=== PATIENT | male | born 1970 | race Caucasian/White ===

== ENCOUNTER → 2016-11-11 | Outpatient (CLI) | payer BC ==
[~2016-11-11] MED LIST: ASPI325T PO; ATOR1TAB21 PO; BUPIVACAINE HCL 0.25% 30 ML VIAL As Ordered ONE; DULO1CAP2 PO; FENO48TA2 PO; GABA300C3 PO; IBUP800T23 PO; ISOVUE-M 300 61% 15ML VIAL (Q9967) As Ordered ONE; LIDOCAINE 1% SDV INJ 30 ML VIAL As Ordered ONE; LISI-542 PO; METO12TA PO; NITR4TASL SL; No Historical Meds; PANT40TA2 PO; REME30TA OR; TIZA2TA PO; TRIAMCINOLONE ACETONIDE SUSP 40 MG/ML VIAL (J3301) As Ordered ONE; VITA50003 PO; diazePAM 5 MG TAB As Ordered ONE
--- NOTE | 2016-11-12 08:36 | REP ---
PARTIAL CERVICAL SPINE SERIES: TWO VIEWS. History: Facet injection for pain. Nine seconds of fluoroscopy time is reported. Findings: A sequence of two fluoroscopically obtained intraprocedural spot radiographs of the cervical spine document various needle positions and contrast injections associated with cervical facet injection procedure. Signed by Adrian Nolan MD 11/12/2016 10:07 A
--- NOTE | 2016-11-16 01:23 | ECWPNPC ---
PATIENT NAME: MELODY BONDS : 1970 GENDER: MALE VISIT DATE: 11/11/2016 DISCHARGE DATE: 11/11/16 1707 VISIT LOCKED DATE TIME: PHYSICIAN: ALICIA DUVALL RESOURCE: ALICIA DUVALL REASON FOR APPOINTMENT 1. CFBT HISTORY OF PRESENT ILLNESS HISTORY OF PRESENT ILLNESS: PAIN THE PATIENT DESCRIBES THE PAIN... FALL RISK SCREENING: SCREENING :NO FALLS IN THE PAST YEAR CURRENT MEDICATIONS TAKING DRISDOL 99562 UNIT CAPSULE 1 CAPSULE ORALLY WEEKLY, NOTES: 11/05/16@0600 TAKING ATORVASTATIN CALCIUM 80 MG TABLET 1 TABLET ORALLY ONCE A DAY, NOTES: 11/11/16@0600 TAKING CYMBALTA 30 MG CAPSULE DELAYED RELEASE PARTICLES 1 CAPSULE ORALLY TWICE A DAY FOR PAIN MDD2, NOTES: 11/11/16@0600 TAKING TIZANIDINE HCL 4 MG CAPSULE 1 TABLETS NEEDED ORALLY AT BEDTIME NEEDED FOR PAIN AND SPASMS MDD = 2, NOTES: @1800 DISCONTINUED ASPIRIN 81 MG TABLET 1 TABLET ORALLY ONCE A DAY MEDICATION LIST REVIEWED AND RECONCILED WITH THE PATIENT PAST MEDICAL HISTORY S/P FALL FROM TREE STAND 06/06/15 - SUSTAINED RIGHT FEMUR FRACTURE AND RIGHT WRIST FRACTURE (DR. 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 NEW PATIENT PAIN DIARY TODAY'S VISITNOTES FROM 0-10, WHAT LEVEL IS YOUR PAIN TODAY?0 PAIN CLINIC PFS, CLERGY, PUBLIC HEALTH REFERRALS PFS REFERRAL NEEDED?NO CLERGY REFERRAL NEEDED?NO PUBLIC HEALTH REFERRAL NEEDED?NO WAS THE PROVIDER NOTIFIED OF ANY PERTINENT INFO?NO PFS REFERRAL NEEDED?NO CLERGY REFERRAL NEEDED?NO PUBLIC HEALTH REFERRAL NEEDED?NO WAS THE PROVIDER NOTIFIED OF ANY PERTINENT INFO?NO PFS REFERRAL NEEDED?NO CLERGY REFERRAL NEEDED?NO PUBLIC HEALTH REFERRAL NEEDED?NO WAS THE PROVIDER NOTIFIED OF ANY PERTINENT INFO?NO REVIEW OF SYSTEMS CONSTITUTIONAL: ANY CHANGE IN YOUR MEDICAL CONDITION? NO . CHILLS NO . FEVER NO . INFECTION: DO YOU HAVE NEW INFECTIONS? NO . DO YOU HAVE HISTORY OF MRSA? NO . MUSCULOSKELETAL: ANY NEW PATTERNS OF PAIN OR NUMBNESS? NO . GASTROENTEROLOGY: ANY NEW CHANGE IN BOWEL CONTROL? NO . GENITOURINARY: ANY NEW CHANGE IN BLADDER CONTROL? NO . IS THERE A CHANCE YOU COULD BE ? NO . HEMATOLOGY/LYMPH: DO YOU TAKE ANY BLOOD THINNERS? (FOR EXAMPLE- COUMADIN, PLAVIX, AGGRENOX, PLATEL, PRADAXA, OR XARELTO) NO . WHEN WAS YOUR LAST DOSE? DATE: TIME: . NEUROLOGY: HAVE YOU FALLEN IN THE PAST 6 MONTHS? NO . ANY NEW EXTREMITY NUMBNESS OR WEAKNESS? NO . CARDIOLOGY: DO YOU HAVE A PACEMAKER OR DEFIBRILLATOR? NO . RESPIRATORY: HAVE YOU BEEN SICK IN THE PAST WEEK? NO . FEVER NO . FLU LIKE SYMPTOMS? NO . COUGH NO . INTEGUMENTARY: DO YOU HAVE ANY RASHES OR OPEN SORES? NO . ALLERGIC/IMMUNO: ARE YOU ALLERGIC TO SHELLFISH OR IV DYE? NO . ANY NEW ALLERGIES? NO . PSYCHIATRIC: DO YOU HAVE THOUGHTS OF HURTING YOURSELF OR SOMEONE ELSE? NO . ARE YOU ABUSED, NEGLECTED, OR IN AN UNSAFE ENVIRONMENT? NO . ENDOCRINOLOGY: ARE YOU DIABETIC? NO . OTHER: DO YOU NEED ANY PRESCRIPTIONS? NO . IF YES, PLEASE LIST: ____ . ANY NEW PROBLEMS WITH YOUR MEDICATIONS? NO . WHEN DID YOU LAST EAT? ____11/11/16@1800 . WHEN DID YOU LAST DRINK? ____11/11/16@0600 . WHAT DID YOU LAST DRINK? ___WATER . NAME OF PERSON DRIVING YOU HOME? ____ . DO YOU HAVE ANY OTHER QUESTIONS OR CONCERNS NO . REVIEWED BY: PROVIDER: . VITAL SIGNS WT 250 LBS, HT 71", BMI 34.86 INDEX, BP 176/98 MM HG, HR 97 /MIN, RR 18 /MIN, TEMP 96.9 F, OXYGEN SAT % 96, NA INITIALS TL 1518, REVIEWED BY: VD. ASSESSMENTS SPONDYLOSIS WITHOUT MYELOPATHY OR RADICULOPATHY, CERVICAL REGION - M47.812 (PRIMARY) PROCEDURES PN CERVICAL FACET BLOCK LOW BILATERAL CERVICAL PRE PROCEDURE DIAGNOSIS CERVICAL SPONDYLOSIS POST PROCEDURE DIAGNOSIS CERVICAL SPONDYLOSIS PROCEDURE BILATERAL C3-C4, BILATERAL C4-C5, AND BILATERAL C5-C6 CERVICAL FACET BLOCK SURGEON DR. ALICIA DUVALL FARM FACILITY MANAGER NONE ANESTHESIA LOCAL PRE PROCEDURE NOTE THE PATIENT HAS HISTORY OF CHRONIC CERVICAL PAIN. I EVALUATE THE PATIENT AND REVIEWED THE CHART. I WENT OVER THE RISKS, ALTERNATIVES, AND BENEFITS ASSOCIATED WITH THIS PROCEDURE. THE PATIENT WOULD LIKE TO PROCEED AND GIVE CONSENT TO PERFORMED THE PROCEDURE. THE PATIENT DENIES UNEXPLAINABLE WEIGHT LOSS, FEVER, CHILLS, OR NEW CHANGES IN URINARY OR BOWEL CONTROL DESCRIPTION OF PROCEDURE THE PATIENT WAS BROUGHT TO THE PROCEDURE ROOM AND PLACED IN THE PRONE POSITION. THE CERVICOTHORACIC AREA WAS CLEANED WITH CHLORAPREP SOLUTION AND DRAPED ASEPTICALLY. THE PROCEDURE WAS DONE UNDER STERILE CONDITIONS. I CHECKED LATERALITY AND THE LEVEL WHERE THE PROCEDURE WAS GOING TO BE PERFORMED WITH THE PATIENT AND THE SUPPORTING STAFF AT THE MOMENT OF THE TIME OUT IN THE PROCEDURE ROOM. UNDER FLUOROSCOPIC GUIDANCE, TARGET POINT WAS SELECTED AT THE RIGHT AND LEFT C3-C4, RIGHT AND LEFT C4-C5, AND RIGHT AND LEFT C5-C6 CERVICAL FACET JOINT. TARGET POINTS WERE SELECTED AFTER LATERAL ROTATION AND TILT OF THE MAGNIFIER OF THE C-ARM. LIDOCAINE 0.5% WAS USED TO NUMB THE SKIN AND THE SUBCUTANEOUS TISSUE BELOW IT. SPINAL NEEDLES, 22-GAUGE, WERE ADVANCED UNDER FLUOROSCOPIC GUIDANCE AND FOLLOWING PATIENT FEEDBACK UNTIL THE TARGETS WERE TOUCHED. THE POSITION OF THE NEEDLES WAS VERIFIED WITH AP AND LATERAL VIEWS. AFTER PROPER POSITION OF THE NEEDLES WAS ACHIEVED, ISOVUE M DYE 30, 0.1 ML WAS INJECTED SHOWING SPREAD OF THE DYE. THEN A SOLUTION OF 0.9 ML OF BUPIVACAINE 0.125% AND KENALOG 10 MG WAS INJECTED AT EACH SITE. THERE WAS NO EVIDENCE OF BLOOD, PARESTHESIA OR CEREBROSPINAL FLUID DURING THE PROCEDURE. THE PATIENT WAS SENT TO THE RECOVERY ROOM. THE PATIENT WAS MOVING THE EXTREMITIES AND DOING WELL. THERE WAS NO COMPLICATION DURING THE PROCEDURE. FLUOROSCOPY TIME WAS 9 SECONDS POST PROCEDURE NOTE THE PATIENT WILL BE SEEN IN A FOLLOW UP IN THE NEXT FEW WEEKS. INSTRUCTIONS WERE GIVEN, QUESTIONS WERE ANSWERED, AND THE PATIENT EXPRESSED UNDERSTANDING AND AGREES WITH THE PLAN. I, RHIANNON ROLON, DOCUMENTED THE ABOVE INFORMATION ACTING A SCRIBE FOR DR. DUVALL. I, DR. DUVALL, HAVE REVIEWED THE ABOVE DOCUMENT, SCRIBED BY RHIANNON ROLON, AND I VERIFY THAT IT IS ACCURATE DIAGNOSTIC IMAGING [facility] FACET BLOCK (PAIN)[id number] PROCEDURE CODES 81799 INJ PARAVERT F JNT C/T 1 LEV 31215 INJ PARAVERT F JNT C/T 2 LEV 05322 INJ PARAVERT F JNT C/T 3 LEV 6045F RADXPS IN END [id number] PXD FOLLOW UP 3 WEEKS ELECTRONICALLY SIGNED BY ALICIA DUVALL MD ON 11/15/2016 AT 05:06 PM EST DISCLAIMER : THIS IS A VISIT SUMMARY EXTRACTED FROM THE [employer] CHART. IT IS NOT A COPY OF THE [employer] PROGRESS NOTE. MTDD
== END ==
LOC: M PAIN 15:40
PROVIDERS: ATTEND Anesthesiology
DX: G89.29 Other chronic pain (principal); M47.812 Spondylosis without myelopathy or radiculopathy, cervical region; Z87.81 Personal history of (healed) traumatic fracture; M54.2 Cervicalgia; I10 Essential (primary) hypertension; K29.70 Gastritis, unspecified, without bleeding; K29.80 Duodenitis without bleeding; F41.9 Anxiety disorder, unspecified; G47.00 Insomnia, unspecified; Z88.8 Allergy status to other drugs, medicaments and biological substances; G31.84 Mild cognitive impairment of uncertain or unknown etiology; F43.10 Post-traumatic stress disorder, unspecified; E29.1 Testicular hypofunction; Z87.820 Personal history of traumatic brain injury; Z91.82 Personal history of military deployment
CPT/HCPCS: 64490; 64491; 64492; J3301; Q9967

== ENCOUNTER → 2016-11-29 | Outpatient (CLI) | payer BC ==
[~2016-11-29] MED LIST changes: -BUPIVACAINE HCL 0.25% 30 ML VIAL As Ordered ONE; -ISOVUE-M 300 61% 15ML VIAL (Q9967) As Ordered ONE; -LIDOCAINE 1% SDV INJ 30 ML VIAL As Ordered ONE; -TRIAMCINOLONE ACETONIDE SUSP 40 MG/ML VIAL (J3301) As Ordered ONE; -diazePAM 5 MG TAB As Ordered ONE
--- NOTE | 2016-12-03 01:24 | ECWPNPC ---
PATIENT NAME: MELODY BONDS : 1970 GENDER: MALE VISIT DATE: 11/29/2016 DISCHARGE DATE: 11/29/16 1027 VISIT LOCKED DATE TIME: PHYSICIAN: ALICIA DUVALL RESOURCE: ALICIA DUVALL REASON FOR APPOINTMENT 1. NECK/BACK PAIN HISTORY OF PRESENT ILLNESS HISTORY OF PRESENT ILLNESS: PAIN THE PATIENT DESCRIBES THE PAIN... 46 YEAR OLD MALE PATIENT WITH HISTORY OF CHRONIC LOW BACK AND NECK PAIN. PATIENT DESCRIBES THE PAIN ACHING, SHARP, STABBING, TENDER, SORE, AND HAVING IT ALL THE TIME WITH A PAIN SCORE OF 6/10. PATIENT RECEIVED A CERVICAL FACET BLOCK ON 11/11/16 AND REPORTS THE INJECTION HELPING A SIGNIFICANT AMOUNT. HOWEVER, PATIENT IS STATING THAT HIS LOWER BACK IS NOW IN SEVERE PAIN. MR. BONDS IS CURRENTLY USING CYMBALTA AND TIZANIDINE TO HELP WITH THE PAIN AND STATES THAT THE MEDICATION DOES HELP TO RELIEVE THE PAIN. AT THIS TIME THE PATIENT STATES THAT ANY ACTIVITY INCREASES THE PAIN IN HIS LOWER BACK. PATIENT IS HAVING A SURGERY ON HIS FEMUR DUE TO THE FEMUR NOT HEALING PROPERLY ON JANUARY 10. PATIENT DENIES UNEXPLAINABLE WEIGHT LOSS, FEVER, CHILLS, NEW CHANGES ON HIS URINARY OR BOWEL CONTROL. FALL RISK SCREENING: SCREENING :NO FALLS IN THE PAST YEAR CURRENT MEDICATIONS TAKING DRISDOL 91540 UNIT CAPSULE 1 CAPSULE ORALLY WEEKLY, NOTES: 11/05/16@0600 TAKING TIZANIDINE HCL 4 MG CAPSULE 1 TABLETS NEEDED ORALLY AT BEDTIME NEEDED FOR PAIN AND SPASMS MDD = 2, NOTES: @1800 TAKING LISINOPRIL 20 MG TABLET 1 TAB ORALLY DAILY TAKING ATORVASTATIN CALCIUM 80 MG TABLET 1 TABLET ORALLY ONCE A DAY, NOTES: 11/11/16@0600 TAKING CYMBALTA 30 MG CAPSULE DELAYED RELEASE PARTICLES 1 CAPSULE ORALLY TWICE A DAY FOR PAIN MDD2, NOTES: 11/11/16@0600 MEDICATION LIST REVIEWED AND RECONCILED WITH THE PATIENT PAST MEDICAL HISTORY S/P FALL FROM TREE STAND 06/06/15 - SUSTAINED RIGHT FEMUR FRACTURE AND RIGHT WRIST FRACTURE (DR. GRANT - [place] ) NECK/BACK PAIN - 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 SOCIAL HISTORY GENERAL: TOBACCO USE ARE YOU A:NONSMOKER LEARNING BARRIERS / SPECIAL NEEDS ORIENTED TO PLAN OF CARE: PATIENT, PAIN MANAGEMENT PATIENT, ORIENTED TO PLAN OF CARE: PATIENT, PAIN MANAGEMENT PATIENT. NEW PATIENT PAIN DIARY TODAY'S VISITNOTES FROM 0-10, WHAT LEVEL IS YOUR PAIN TODAY?0 PAIN CLINIC PFS, CLERGY, PUBLIC HEALTH REFERRALS PFS REFERRAL NEEDED?NO CLERGY REFERRAL NEEDED?NO PUBLIC HEALTH REFERRAL NEEDED?NO WAS THE PROVIDER NOTIFIED OF ANY PERTINENT INFO?NO PFS REFERRAL NEEDED?NO CLERGY REFERRAL NEEDED?NO PUBLIC HEALTH REFERRAL NEEDED?NO WAS THE PROVIDER NOTIFIED OF ANY PERTINENT INFO?NO HOSPITALIZATION/MAJOR DIAGNOSTIC PROCEDURE ALL SURGICAL RELATED CHEST PAIN 10/2016 REVIEW OF SYSTEMS CONSTITUTIONAL: ANY CHANGE IN YOUR MEDICAL CONDITION? NO . CHILLS NO . FEVER NO . INFECTION: DO YOU HAVE NEW INFECTIONS? NO . DO YOU HAVE HISTORY OF MRSA? NO . MUSCULOSKELETAL: ANY NEW PATTERNS OF PAIN OR NUMBNESS? NO . GASTROENTEROLOGY: ANY NEW CHANGE IN BOWEL CONTROL? NO . GENITOURINARY: ANY NEW CHANGE IN BLADDER CONTROL? NO . IS THERE A CHANCE YOU COULD BE ? NO . HEMATOLOGY/LYMPH: DO YOU TAKE ANY BLOOD THINNERS? (FOR EXAMPLE- COUMADIN, PLAVIX, AGGRENOX, PLATEL, PRADAXA, OR XARELTO) NO . WHEN WAS YOUR LAST DOSE? DATE: TIME: . NEUROLOGY: HAVE YOU FALLEN IN THE PAST 6 MONTHS? NO . ANY NEW EXTREMITY NUMBNESS OR WEAKNESS? NO . CARDIOLOGY: DO YOU HAVE A PACEMAKER OR DEFIBRILLATOR? NO . RESPIRATORY: HAVE YOU BEEN SICK IN THE PAST WEEK? NO . FEVER NO . FLU LIKE SYMPTOMS? NO . COUGH NO . INTEGUMENTARY: DO YOU HAVE ANY RASHES OR OPEN SORES? NO . ALLERGIC/IMMUNO: ARE YOU ALLERGIC TO SHELLFISH OR IV DYE? NO . ANY NEW ALLERGIES? NO . PSYCHIATRIC: DO YOU HAVE THOUGHTS OF HURTING YOURSELF OR SOMEONE ELSE? NO . ARE YOU ABUSED, NEGLECTED, OR IN AN UNSAFE ENVIRONMENT? NO . ENDOCRINOLOGY: ARE YOU DIABETIC? NO . OTHER: DO YOU NEED ANY PRESCRIPTIONS? NO . IF YES, PLEASE LIST: ____ . ANY NEW PROBLEMS WITH YOUR MEDICATIONS? NO . WHEN DID YOU LAST EAT? ____ . WHEN DID YOU LAST DRINK? ____ . WHAT DID YOU LAST DRINK? ____ . NAME OF PERSON DRIVING YOU HOME? ____ . DO YOU HAVE ANY OTHER QUESTIONS OR CONCERNS NO . REVIEWED BY: PROVIDER: ALICIA DUVALL MD . VITAL SIGNS WT 250 LBS, HT 71", BMI 34.86 INDEX, BP 143/91 MM HG, HR 109 /MIN, RR 16 /MIN, TEMP 97.6 F, OXYGEN SAT % 96, NA INITIALS TL 0900, REVIEWED BY: VD. EXAMINATION : PATIENT IS ALERT O X 3 AND COOPERATIVE. TENDERNESS IN THE NECK AREA AND PARASPINAL GROUP. 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 EVIDENCE OF BANDS OF TISSUE, RESTRICTION OF MOVEMENT, AND PRESENCE OF TRIGGER POINTS IN THE CERVICAL AREA. MRI OF THE CERVICAL SPINE DONE ON 09/04/16 SHOWS CERVICAL SPONDYLOSIS AT C3-C4 THROUGH C7-T1 AND FACET HYPERTROPHY. MRI OF THE LUMBAR SPINE DONE ON 08/18/15 SHOWS CANAL STENOSIS, DIS BULGE AT L4-L5, OSTEOARTHRITIS, AND DISC DEGENERATION. 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 OBNDS'S PAIN MANAGEMENT CASE. AT THIS TIME THE PATIENT WILL INCREASE THE TIZANIDINE TO 6 MG DUE TO THE PATIENT REPORTING IT HAS NOT BEEN HELPING EFFICIENTLY IT SHOULD. AT THIS TIME THE PATIENT STATES THE CERVICAL FACET BLOCK INCREASED FUNCTIONALITY AND MOBILITY AND HE HAD A SIGNIFICANT DECREASE IN PAIN BUT NOW HIS LOWER BACK HAS BEEN IN SEVERE PAIN. AFTER VIEWING THE MRI AND SEEING WHERE THE PAIN IS LOCATED I BELIEVE THE PATIENT WOULD BENEFIT FROM A LUMBAR FACET BLOCK. WE DISCUSSED THE RISKS, BENEFITS, AND ALTERNATIVES TO THE INJECTION AND THE PATIENT WOULD LIKE TO PROCEED AT THIS TIME. INSTRUCTIONS WERE GIVEN, QUESTIONS WERE ANSWERED, PATIENT REPORTS UNDERSTANDING AND AGREES WITH THE PLAN. I, RHIANNON ROLON, DOCUMENTED THE ABOVE INFORMATION ACTING A SCRIBE FOR DR. DUVALL. I HAVE REVIEWED THE ABOVE DOCUMENT, WRITTEN BY RHIANNON DON AND I VERIFY THAT IT IS ACCURATE. PROCEDURE CODES FA211 ESTABILISHED PATIENT [facility] CHARGE G8427 DOC MEDS VERIFIED W/PT OR RE G8730 PAIN ASSESS POS TOOL F/U PLAN DOC FOLLOW UP LFBT NO AUTH NEEDED ELECTRONICALLY SIGNED BY ALICIA DUVALL MD ON 12/02/2016 AT 08:57 PM EST DISCLAIMER : THIS IS A VISIT SUMMARY EXTRACTED FROM THE [employer] CHART. IT IS NOT A COPY OF THE [employer] PROGRESS NOTE. PORTILLO
== END ==
LOC: M PAIN 09:20
PROVIDERS: ATTEND Anesthesiology
DX: Z09 Encounter for follow-up examination after completed treatment for conditions other than malignant neoplasm (principal); G89.29 Other chronic pain; M96.1 Postlaminectomy syndrome, not elsewhere classified; M47.816 Spondylosis without myelopathy or radiculopathy, lumbar region; M47.817 Spondylosis without myelopathy or radiculopathy, lumbosacral region; M51.16 Intervertebral disc disorders with radiculopathy, lumbar region; M54.2 Cervicalgia; M54.5 Low back pain; F07.81 Postconcussional syndrome; I10 Essential (primary) hypertension; F41.9 Anxiety disorder, unspecified; F43.10 Post-traumatic stress disorder, unspecified; G47.00 Insomnia, unspecified; Z88.5 Allergy status to narcotic agent; Z79.899 Other long term (current) drug therapy; Z87.19 Personal history of other diseases of the digestive system; Z87.820 Personal history of traumatic brain injury; Z87.81 Personal history of (healed) traumatic fracture; Z98.890 Other specified postprocedural states

== ENCOUNTER → 2016-12-17 | Outpatient (CLI) | payer BC ==
[~2016-12-17] MED LIST changes: +BUPIVACAINE HCL 0.25% 30 ML VIAL As Ordered ONE; +ISOVUE-M 300 61% 15ML VIAL (Q9967) As Ordered ONE; +LIDOCAINE 1% SDV INJ 30 ML VIAL As Ordered ONE; +TRIAMCINOLONE ACETONIDE SUSP 40 MG/ML VIAL (J3301) As Ordered ONE; +diazePAM 5 MG TAB As Ordered ONE
--- NOTE | 2016-12-17 18:38 | REP ---
FLUOROSCOPIC GUIDANCE FOR LUMBAR FACET BLOCK: 12/17/2016: Clinical history: Back pain. Findings: Two images from C-arm fluoroscopy provided to Dr. Charles of the pain clinic for bilateral lower lumbar facet block performed with C-arm oblique image for right and left side with a needle at the facet joint on each side noted. Fluoroscopy time 1 minute 3 seconds. Signed by Crow Carlos MD 12/18/2016 08:31 A
--- NOTE | 2016-12-21 23:36 | ECWPNPC ---
PATIENT NAME: MELODY BONDS : 1970 GENDER: MALE VISIT DATE: 12/17/2016 DISCHARGE DATE: 12/17/16 1122 VISIT LOCKED DATE TIME: PHYSICIAN: ALICIA DUVALL RESOURCE: ALICIA DUVALL REASON FOR APPOINTMENT 1. LFBT HISTORY OF PRESENT ILLNESS HISTORY OF PRESENT ILLNESS: PAIN THE PATIENT DESCRIBES THE PAIN... FALL RISK SCREENING: SCREENING :NO FALLS IN THE PAST YEAR CURRENT MEDICATIONS TAKING DRISDOL 49899 UNIT CAPSULE 1 CAPSULE ORALLY WEEKLY, NOTES: 12-16-16 TAKING TIZANIDINE HCL 6 MG CAPSULE 1 TABLETS NEEDED ORALLY AT BEDTIME NEEDED FOR PAIN AND SPASMS MDD = 2, NOTES: 4 MG 12-16-16 2100 TAKING ATORVASTATIN CALCIUM 80 MG TABLET 1 TABLET ORALLY ONCE A DAY, NOTES: 12-17-16599 TAKING LISINOPRIL 20 MG TABLET 1 TAB ORALLY DAILY, NOTES: 12-17-16599 TAKING AMLODIPINE BESYLATE 5 MG TABLET 1 TABLET ORALLY ONCE A DAY, NOTES: 12-17-16599 TAKING CYMBALTA 30 MG CAPSULE DELAYED RELEASE PARTICLES 1 CAPSULE ORALLY TWICE A DAY FOR PAIN MDD2, NOTES: 12-17-16599 MEDICATION LIST REVIEWED AND RECONCILED WITH THE PATIENT PAST MEDICAL HISTORY S/P FALL FROM TREE STAND 06/06/15 - SUSTAINED RIGHT FEMUR FRACTURE AND RIGHT WRIST FRACTURE (DR. 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 NEW PATIENT PAIN DIARY TODAY'S VISITNOTES FROM 0-10, WHAT LEVEL IS YOUR PAIN TODAY?0 PAIN CLINIC PFS, CLERGY, PUBLIC HEALTH REFERRALS PFS REFERRAL NEEDED?NO CLERGY REFERRAL NEEDED?NO PUBLIC HEALTH REFERRAL NEEDED?NO WAS THE PROVIDER NOTIFIED OF ANY PERTINENT INFO?NO PFS REFERRAL NEEDED?NO CLERGY REFERRAL NEEDED?NO PUBLIC HEALTH REFERRAL NEEDED?NO WAS THE PROVIDER NOTIFIED OF ANY PERTINENT INFO?NO HOSPITALIZATION/MAJOR DIAGNOSTIC PROCEDURE ALL SURGICAL RELATED CHEST PAIN 10/2016 REVIEW OF SYSTEMS CONSTITUTIONAL: ANY CHANGE IN YOUR MEDICAL CONDITION? NO . CHILLS NO . FEVER NO . INFECTION: DO YOU HAVE NEW INFECTIONS? NO . DO YOU HAVE HISTORY OF MRSA? NO . MUSCULOSKELETAL: ANY NEW PATTERNS OF PAIN OR NUMBNESS? NO . GASTROENTEROLOGY: ANY NEW CHANGE IN BOWEL CONTROL? NO . GENITOURINARY: ANY NEW CHANGE IN BLADDER CONTROL? NO . IS THERE A CHANCE YOU COULD BE ? NO . HEMATOLOGY/LYMPH: DO YOU TAKE ANY BLOOD THINNERS? (FOR EXAMPLE- COUMADIN, PLAVIX, AGGRENOX, PLATEL, PRADAXA, OR XARELTO) NO . WHEN WAS YOUR LAST DOSE? DATE: TIME: . NEUROLOGY: HAVE YOU FALLEN IN THE PAST 6 MONTHS? NO . ANY NEW EXTREMITY NUMBNESS OR WEAKNESS? NO . CARDIOLOGY: DO YOU HAVE A PACEMAKER OR DEFIBRILLATOR? NO . RESPIRATORY: HAVE YOU BEEN SICK IN THE PAST WEEK? NO . FEVER NO . FLU LIKE SYMPTOMS? NO . COUGH NO . INTEGUMENTARY: DO YOU HAVE ANY RASHES OR OPEN SORES? NO . ALLERGIC/IMMUNO: ARE YOU ALLERGIC TO SHELLFISH OR IV DYE? NO . ANY NEW ALLERGIES? NO . PSYCHIATRIC: DO YOU HAVE THOUGHTS OF HURTING YOURSELF OR SOMEONE ELSE? NO . ARE YOU ABUSED, NEGLECTED, OR IN AN UNSAFE ENVIRONMENT? NO . ENDOCRINOLOGY: ARE YOU DIABETIC? NO . OTHER: DO YOU NEED ANY PRESCRIPTIONS? NO . IF YES, PLEASE LIST: ____ . ANY NEW PROBLEMS WITH YOUR MEDICATIONS? NO . WHEN DID YOU LAST EAT? 12-16-16 5PM . WHEN DID YOU LAST DRINK? 12-17-16 12 MIDNIGHT . WHAT DID YOU LAST DRINK? WATER . NAME OF PERSON DRIVING YOU HOME? DANA . DO YOU HAVE ANY OTHER QUESTIONS OR CONCERNS YES, SCRIPT NOT SENT TO PHARMACY- TIZANIDINE INCREASED. . REVIEWED BY: PROVIDER: . VITAL SIGNS WT 252.2 LBS, HT 71", BMI 35.17 INDEX, BP 140/86 MM HG, HR 86 /MIN, RR 16 /MIN, TEMP 98.1 F, OXYGEN SAT % 97%, NA INITIALS SC 09:36, REVIEWED BY: CM. ASSESSMENTS SPONDYLOSIS WITHOUT MYELOPATHY OR RADICULOPATHY, LUMBAR REGION - M47.816 (PRIMARY) SPONDYLOSIS WITHOUT MYELOPATHY OR RADICULOPATHY, LUMBOSACRAL REGION - M47.817 PROCEDURES PN LUMBAR FACET BLOCK THERAPEUTIC PRE PROCEDURE DIAGNOSIS LUMBOSACRAL SPONDYLOSIS, LUMBAR SPONDYLOSIS POST PROCEDURE DIAGNOSIS :, LUMBAR SPONDYLOSIS, LUMBOSACRAL SPONDYLOSIS PROCEDURE BILATERAL L4-L5 AND BILATERAL L5-S1 FACET THERAPEUTIC BLOCK SURGEON DR. ALICIA DUVALL TITLE SEARCHER NONE ANESTHESIA LOCAL PRE PROCEDURE NOTE THE PATIENT HAS A HISTORY OF CHRONIC LOW BACK PAIN. I EVALUATE THE PATIENT AND REVIEWED THE CHART. I WENT OVER THE RISKS, ALTERNATIVES, AND BENEFITS ASSOCIATED WITH THIS PROCEDURE. THE PATIENT WOULD LIKE TO PROCEED AND GIVE CONSENT TO PERFORMED THE PROCEDURE. THE PATIENT DENIES UNEXPLAINABLE WEIGHT LOSS, FEVER, CHILLS, OR NEW CHANGES IN URINARY OR BOWEL CONTROL DESCRIPTION OF PROCEDURE THE PATIENT WAS BROUGHT TO THE PROCEDURE ROOM AND PLACED IN THE PRONE POSITION. THE LUMBOSACRAL AREA WAS CLEANED WITH CHLORAPREP SOLUTION AND DRAPED ASEPTICALLY. THE PROCEDURE WAS DONE UNDER STERILE CONDITIONS. I CHECKED LATERALITY AND THE LEVEL WHERE THE PROCEDURE WAS GOING TO BE PERFORMED WITH THE PATIENT AND THE SUPPORTING STAFF AT THE MOMENT OF THE TIME OUT IN THE PROCEDURE ROOM. UNDER FLUOROSCOPIC GUIDANCE, THE TARGET POINT WAS SELECTED AT THE RIGHT AND LEFT L4-L5 AND RIGHT AND LEFT L5-S1 FACET JOINT. TARGET POINT WAS SELECTED AFTER LATERAL ROTATION AND TILT OF THE MAGNIFIER OF THE C-ARM. LIDOCAINE 0.5% WAS USED TO NUMB THE SKIN AND THE SUBCUTANEOUS TISSUE BELOW IT. SPINAL NEEDLES, 22-GAUGE, WERE ADVANCED UNDER FLUOROSCOPIC GUIDANCE AND FOLLOWING PATIENT FEEDBACK UNTIL THE TARGETS WERE TOUCHED. THE POSITION OF THE NEEDLES WAS VERIFIED WITH AP AND LATERAL VIEWS. AFTER PROPER POSITION OF THE NEEDLES WAS ACHIEVED, ISOVUE-M DYE 30% 0.1 ML WAS INJECTED SHOWING ADEQUATE SPREAD OF THE DYE. THEN A SOLUTION OF 1.9 ML OF BUPIVACAINE 0.125% OF KENALOG 10 MG WAS INJECTED AT EACH SITE. THERE WAS NO EVIDENCE OF BLOOD, PARESTHESIA OR CEREBROSPINAL FLUID DURING THE PROCEDURE. THE PATIENT WAS SENT TO THE RECOVERY ROOM. THE PATIENT WAS MOVING THE EXTREMITIES AND DOING WELL. THERE WAS NO COMPLICATION DURING THE PROCEDURE. FLUOROSCOPY TIME WAS 1 MINUTE AND 3 SECONDS POST PROCEDURE NOTE THE PATIENT WILL BE SEEN IN A FOLLOW UP IN THE NEXT FEW WEEKS. INSTRUCTIONS WERE GIVEN, QUESTIONS WERE ANSWERED, AND THE PATIENT EXPRESSED UNDERSTANDING AND AGREES WITH THE PLAN. INSTRUCTIONS WERE GIVEN, QUESTIONS WERE ANSWERED, PATIENT REPORTS UNDERSTANDING AND AGREES WITH THE PLAN. I, FELICIA NICHOLS, DOCUMENTED THE ABOVE INFORMATION ACTING A SCRIBE FOR DR. DUVALL. I HAVE REVIEWED THE ABOVE DOCUMENT, WRITTEN BY FELICIA NICHOLS SCRIBE AND I VERIFY THAT IT IS ACCURATE. DI[facility]ST[facility] FACET BLOCK (PAIN)[id number] [facility]IC[facility] PAIN CLINIC TEACHING: PROCEDURE TEACHING POST LUMBAR FACET BLOCK THERAPEUTIC INSTRUCTIONS REVIEWED WITH PT. VERBALIZED UNDERSTANDING. . PROCEDURE CODES FA211 ESTABILISHED PATIENT [facility] FACILITY CHARGE 87365 INJ PARAVERT F JNT L/S 1 LEV 55088 INJ PARAVERT F JNT L/S 2 LEV 6045F RADXPS IN END [id number] PXD DISPOSITION & COMMUNICATION FOLLOW UP 3 WEEKS ELECTRONICALLY SIGNED BY ALICIA DUVALL MD ON 12/21/2016 AT 09:17 PM EST DISCLAIMER : THIS IS A VISIT SUMMARY EXTRACTED FROM THE [employer] CHART. IT IS NOT A COPY OF THE [employer] PROGRESS NOTE. MTDD
== END ==
LOC: M PAIN 10:00
PROVIDERS: ATTEND Anesthesiology
DX: G89.29 Other chronic pain (principal); M47.816 Spondylosis without myelopathy or radiculopathy, lumbar region; M47.817 Spondylosis without myelopathy or radiculopathy, lumbosacral region; K29.70 Gastritis, unspecified, without bleeding; K29.80 Duodenitis without bleeding; F41.9 Anxiety disorder, unspecified; G47.30 Sleep apnea, unspecified; F43.10 Post-traumatic stress disorder, unspecified; I10 Essential (primary) hypertension; F07.81 Postconcussional syndrome; Z91.82 Personal history of military deployment; Z88.5 Allergy status to narcotic agent; Z79.899 Other long term (current) drug therapy
CPT/HCPCS: 64493; 64494; G0463; J3301; Q9967

== ENCOUNTER → 2016-12-26 | Outpatient (CLI) | payer BC ==
[~2016-12-26] MED LIST changes: -BUPIVACAINE HCL 0.25% 30 ML VIAL As Ordered ONE; -ISOVUE-M 300 61% 15ML VIAL (Q9967) As Ordered ONE; -LIDOCAINE 1% SDV INJ 30 ML VIAL As Ordered ONE; -TRIAMCINOLONE ACETONIDE SUSP 40 MG/ML VIAL (J3301) As Ordered ONE; -diazePAM 5 MG TAB As Ordered ONE
--- NOTE | 2016-12-26 08:23 | REP ---
TWO VIEWS OF THE CHEST: The cardiomediastinal structures, lungs, diaphragms, and bony thorax are essentially unremarkable. There are no findings of mass lesion or other type abnormality. IMPRESSION: The chest study is within normal limits. However, a chest study will miss at least 70% of malignancies of the lungs. CAT scanning is the most accurate way of assessing for mass lesions of the lungs. Unreviewed
[2016-12-26 20:05] LABS: INR 0.93
[2016-12-26 20:09] LABS: MEAN CORPUSCULAR HEMOGLOBIN 29.4 pg (27.0-33.0); MEAN CORPUSCULAR HGB CONC 34.2 g/dl (32.0-36.5); RED CELL DISTRIBUTION WIDTH 13.1 % (11.5-14.5); WHITE BLOOD COUNT 8.8 K/mm3 (4.0-10.0)
[2016-12-26 20:20] LABS: ANION GAP 9 MEQ/L (8-16); BLOOD UREA NITROGEN 19 MG/DL (7-18); CALCIUM LEVEL 9.3 MG/DL (8.5-10.1); CARBON DIOXIDE LEVEL 25 MEQ/L (21-32); CHLORIDE LEVEL 108 MEQ/L (98-107); CREATININE FOR GFR 1.21 MG/DL (0.70-1.30); GLOMERULAR FILTRATION RATE > 60.0 (>60); GLUCOSE, FASTING 104 MG/DL (70-105); POTASSIUM SERUM 4.4 MEQ/L (3.5-5.1); SODIUM LEVEL 142 MEQ/L (136-145)
== END ==
LOC: M ADAMS 07:43
PROVIDERS: ATTEND Student in an Organized Health Care Education/Training Program
DX: Z01.818 Encounter for other preprocedural examination (principal); Z87.891 Personal history of nicotine dependence

== ENCOUNTER → 2016-12-29 | Outpatient (CLI) | payer BC ==
--- NOTE | 2017-01-01 09:01 | SLEEPCENT ---
DATE OF PROCEDURE: 12/29/2016 ORDERED BY: Josephine Dockery Nocturnal polysomnography was performed due to concern for obstructive sleep apnea syndrome in this patient with nonrestorative sleep. 8 hours and 32 minutes of data were reviewed. There were 422 minutes of sleep identified. Sleep latency was prolonged at 44 minutes. Rapid eye movement (REM) latency was prolonged at 296 minutes. Sleep architecture showed fragmentation and poor progression early in the study. Overall sleep efficiency was 83%, but there was a significant reduction in REM time. The patient's electrocardiogram (EKG) showed a sinus rhythm with an average heart rate of 72 beats per minute. Electroencephalogram (EEG) showed reasonably normal waveforms for awake and sleep. There were no focal events seen. There were 134 respiratory events identified of 10 seconds in duration or greater for an apnea-hypopnea index of 19.1. The events were primarily obstructive, not exclusive to sleep stage nor body posture. Arousals from respiratory events were seen to occur 10.1 times per hour. Oxygen desaturations were seen into the 80s. There was also some limb activity noted. There were 3 trains of 30 events and limb movement arousal index was 12.2. IMPRESSION: 1. Obstructive sleep apnea syndrome (G47.33), apnea-hypopnea index 19.1. 2. Periodic limb movement disorder (G47.61), limb movement arousal index 12.2. RECOMMENDATION: The patient should be encouraged to return to the sleep disorder center for pressure therapy. In the interim, alcohol and sedative avoidance should be practiced and caution exercised during the operation of motor vehicles. Once the respiratory events have been addressed, interventions to reduce the frequency of arousals from limb activity may also be helpful.
== END ==
LOC: M SLEEP 19:45
PROVIDERS: ATTEND Nurse Practitioner Adult Health
DX: G47.30 Sleep apnea, unspecified (principal)

== ENCOUNTER → 2017-01-07 | Outpatient (CLI) | payer BC | LOC: M SLEEP 19:39 | PROVIDERS: ATTEND Nurse Practitioner Adult Health | DX: G47.33 Obstructive sleep apnea (adult) (pediatric) (principal) ==

== ENCOUNTER → 2017-02-05 | Outpatient (CLI) | payer BC ==
[~2017-02-05] MED LIST changes: +GABA-282 PO; -GABA300C3 PO
--- NOTE | 2017-02-09 23:28 | ECWPNPC ---
PATIENT NAME: MELODY BONDS : 1970 GENDER: MALE VISIT DATE: 02/05/2017 DISCHARGE DATE: 02/05/17 1532 VISIT LOCKED DATE TIME: PHYSICIAN: ALICIA DUVALL RESOURCE: ALICIA DUVALL REASON FOR APPOINTMENT 1. NECK/BACK PAIN HISTORY OF PRESENT ILLNESS HISTORY OF PRESENT ILLNESS: PAIN THE PATIENT DESCRIBES THE PAIN... 46 YEAR OLD MALE PATIENT WITH HISTORY OF CHRONIC NECK AND BACK PAIN. PATIENT DESCRIBES THE PAIN ACHING, BURNING, SHARP, STABBING, TENDER, THROBBING, SORE, SHOOTING, AND HAVING IT ALL THE TIME WITH A PAIN SCORE OF 7/10. PATIENT RECEIVED A CERVICAL FACET BLOCK ON 12/17/16 AND STATES THAT HE HAD RELIEF FOR OVER A MONTH BUT THE PAIN IS STARTING TO RETURN AND IS SEVERE. AT THIS TIME THE PATIENT IS JUST USING CYMBALTA AND TIZANIDINE FOR PAIN RELIEF BUT STATES THAT IT IS NOT HELPING AND DOES NOT HELP HIS MOOD EITHER. PATIENT REPORTS HAVING INSOMNIA AND IS WAITING TO RECEIVE A CPAP MACHINE FOR HIS SLEEP APNEA. MR. BONDS REPORTS HAVING SURGERY ON HIS LEG WHICH WAS TO REPLACE HARDWARE IN HIS LEG TO PROMOTE BONE GROWTH. PATIENT IS CURRENTLY ON CRUTCHES AND IS NOT TO PUT WEIGHT ON HIS LEG FOR AT LEAST ANOTHER 4 WEEKS. PATIENT EXPRESSED THAT HIS NECK AND BACK ARE BECOMING QUITE SEVERE IN PAIN AND WOULD LIKE INJECTIONS. PATIENT DENIES UNEXPLAINABLE WEIGHT LOSS, FEVER, CHILLS, NEW CHANGES ON HIS URINARY OR BOWEL CONTROL. FALL RISK SCREENING: SCREENING :NO FALLS IN THE PAST YEAR CURRENT MEDICATIONS TAKING ATORVASTATIN CALCIUM 80 MG TABLET 1 TABLET ORALLY ONCE A DAY, NOTES: 12-17-16599 TAKING LISINOPRIL 20 MG TABLET 1 TAB ORALLY DAILY, NOTES: 12-17-16599 TAKING AMLODIPINE BESYLATE 5 MG TABLET 1 TABLET ORALLY ONCE A DAY, NOTES: 12-17-16599 TAKING CYMBALTA 30 MG CAPSULE DELAYED RELEASE PARTICLES 1 CAPSULE ORALLY TWICE A DAY FOR PAIN MDD2, NOTES: 12-17-16599 TAKING TIZANIDINE HCL 4 MG TABLET 1 AND A HALF TABLETS NEEDED ORALLY FOR SPASMS AND PAIN BEFORE BEDTIME MAY REPEAT IN 5 HRS NEEDED MDD3, NOTES: 4 MG 12-16-162099 TAKING BISOPROLOL FUMARATE 5 MG TABLET 1 TABLET ORALLY ONCE A DAY TAKING OMEPRAZOLE 40 MG CAPSULE DELAYED RELEASE 1 CAPSULE ORALLY ONCE A DAY TAKING DRISDOL 98588 UNIT CAPSULE 1 CAPSULE ORALLY WEEKLY, NOTES: 12-16-16 TAKING HYDROXYZINE HCL 50 MG TABLET 1 TABLET NEEDED ORALLY BEFORE BEDTIME TAKING MIRTAZAPINE 15 MG TABLET 1 TABLET AT BEDTIME ORALLY ONCE A DAY NOT-TAKING HYDROXYZINE HCL 100 MG TABLET 1 TABLET NEEDED ORALLY AT BEDTIME MEDICATION LIST REVIEWED AND RECONCILED WITH THE PATIENT PAST MEDICAL HISTORY S/P FALL FROM TREE STAND 06/06/15 - SUSTAINED RIGHT FEMUR FRACTURE AND RIGHT WRIST FRACTURE (DR. GRANT - [place] ) NECK/BACK PAIN SUBSEQUENT TO FALL 06/06/15- FOLLOWING WITH LUMBER CARRIER OPERATOR IN [place] (DR. 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 SOCIAL HISTORY GENERAL: PAIN CLINIC PFS, CLERGY, PUBLIC HEALTH REFERRALS CLERGY REFERRAL NEEDED?NO WAS THE PROVIDER NOTIFIED OF ANY PERTINENT INFO?NO PFS REFERRAL NEEDED?NO PUBLIC HEALTH REFERRAL NEEDED?NO PATIENT: ____. HOSPITALIZATION/MAJOR DIAGNOSTIC PROCEDURE ALL SURGICAL RELATED CHEST PAIN 10/2016 REVIEW OF SYSTEMS CONSTITUTIONAL: ANY CHANGE IN YOUR MEDICAL CONDITION? YES PT REPORTS THAT HE HAD SURGERY RIGHT FEMUR 01/10. SURGERY WAS A BONE GRAFT AND RITA REMOVED, PLATE PLACED. PRESENTLY USING CRUTCHES. . CHILLS NO . FEVER NO . INFECTION: DO YOU HAVE NEW INFECTIONS? NO . DO YOU HAVE HISTORY OF MRSA? NO . MUSCULOSKELETAL: ANY NEW PATTERNS OF PAIN OR NUMBNESS? NO . GASTROENTEROLOGY: ANY NEW CHANGE IN BOWEL CONTROL? NO . GENITOURINARY: ANY NEW CHANGE IN BLADDER CONTROL? NO . IS THERE A CHANCE YOU COULD BE ? NO . HEMATOLOGY/LYMPH: DO YOU TAKE ANY BLOOD THINNERS? (FOR EXAMPLE- COUMADIN, PLAVIX, AGGRENOX, PLATEL, PRADAXA, OR XARELTO) NO . WHEN WAS YOUR LAST DOSE? DATE: TIME: . NEUROLOGY: HAVE YOU FALLEN IN THE PAST 6 MONTHS? NO . ANY NEW EXTREMITY NUMBNESS OR WEAKNESS? NO . CARDIOLOGY: DO YOU HAVE A PACEMAKER OR DEFIBRILLATOR? NO . RESPIRATORY: HAVE YOU BEEN SICK IN THE PAST WEEK? NO . FEVER NO . FLU LIKE SYMPTOMS? NO . COUGH NO . INTEGUMENTARY: DO YOU HAVE ANY RASHES OR OPEN SORES? NO . ALLERGIC/IMMUNO: ARE YOU ALLERGIC TO SHELLFISH OR IV DYE? NO . ANY NEW ALLERGIES? NO . PSYCHIATRIC: DO YOU HAVE THOUGHTS OF HURTING YOURSELF OR SOMEONE ELSE? NO . ARE YOU ABUSED, NEGLECTED, OR IN AN UNSAFE ENVIRONMENT? NO . ENDOCRINOLOGY: ARE YOU DIABETIC? NO . OTHER: DO YOU NEED ANY PRESCRIPTIONS? NO . IF YES, PLEASE LIST: ____ . ANY NEW PROBLEMS WITH YOUR MEDICATIONS? NO . WHEN DID YOU LAST EAT? ____ . WHEN DID YOU LAST DRINK? ____ . WHAT DID YOU LAST DRINK? ____ . NAME OF PERSON DRIVING YOU HOME? ____ . DO YOU HAVE ANY OTHER QUESTIONS OR CONCERNS NO . REVIEWED BY: PROVIDER: ALICIA DUVALL MD . VITAL SIGNS WT 241.2 LBS, HT 71", BMI 33.64 INDEX, BP 157/89 MM HG, HR 90 /MIN, RR 18 /MIN, TEMP 97.5 F, OXYGEN SAT % 97%, SAFE IN ENV? (Y/N) YES, NA INITIALS TL 1255, REVIEWED BY: CARMEN. EXAMINATION : PATIENT IS ALERT O X 3 AND COOPERATIVE. TENDERNESS IN THE NECK AREA AND PARASPINAL GROUP. 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 EVIDENCE OF BANDS OF TISSUE, RESTRICTION OF MOVEMENT, AND PRESENCE OF TRIGGER POINTS IN THE CERVICAL AREA. MRI OF THE CERVICAL SPINE DONE ON 09/04/16 SHOWS CERVICAL SPONDYLOSIS AT C3-C4 THROUGH C7-T1 AND FACET HYPERTROPHY. MRI OF THE LUMBAR SPINE DONE ON 08/18/15 SHOWS CANAL STENOSIS, DIS BULGE AT L4-L5, OSTEOARTHRITIS, AND DISC DEGENERATION. ASSESSMENTS SPONDYLOSIS WITHOUT MYELOPATHY OR RADICULOPATHY, CERVICAL REGION - M47.812 (PRIMARY) SPONDYLOSIS WITHOUT MYELOPATHY OR RADICULOPATHY, CERVICOTHORACIC REGION - M47.813 SPONDYLOSIS WITHOUT MYELOPATHY OR RADICULOPATHY, LUMBAR REGION - M47.816 SPONDYLOSIS WITHOUT MYELOPATHY OR RADICULOPATHY, LUMBOSACRAL REGION - M47.817 TREATMENT SPONDYLOSIS WITHOUT MYELOPATHY OR RADICULOPATHY, CERVICAL REGION NOTES: WE DISCUSSED SEVERAL ISSUES WITH MR. BONDS'S PAIN MANAGEMENT CASE. AT THIS TIME THE PATIENT WILL CONTINUE WITH THE SAME MEDICATION REGIME BEFORE. PATIENT WAS ADVISED TO USE IBUPROFEN WITH FOOD AND NEEDED. PATIENT WAS RECENTLY DIAGNOSED WITH SLEEP APNEA AND IS WAITING FOR HIS CPAP MACHINE, WE WILL NOT ALTER THE MEDICATION AT NIGHT AT THIS TIME. PATIENT AGREES THAT ONCE HE HAS THE CPAP IT MAY HELP THE PATIENT SLEEP BETTER. WE DISCUSSED MOVING FORWARD WITH INJECTIONS DUE THE SEVERE PAIN THE PATIENT IS IN. AT THIS TIME THE PATIENT REPORTED HAVING ROUGHLY 2 MONTHS OF PAIN RELIEF WITH THE CERVICAL FACET BLOCK. WE DISCUSSED THE RISKS, BENEFITS, AND ALTNERATIVES OF THE INJECTION AND THE PATIENT WOULD LIKE TO PROCEED AT THIS TIME. WE ALSO DISCUSSED MOVING FORWARD WITH LUMBAR DIAGNOSTIC FACET BLOCKS TO CONSIDER A RADIOFREQUENCY. WE DISCUSSED DOING THE CERVICAL FACET BLOCK FIRST AND THEN MOVING FORWARD WITH THE LUMBAR DIAGNOSTIC TEST AFTER. PROCEDURE CODES FA211 ESTABILISHED PATIENT [facility] FACILITY CHARGE G8427 DOC MEDS VERIFIED W/PT OR RE G8730 PAIN ASSESS POS TOOL F/U PLAN DOC DISPOSITION & COMMUNICATION FOLLOW UP CFBT AFTER APPROVAL ELECTRONICALLY SIGNED BY ALICIA DUVALL MD ON 02/09/2017 AT 08:34 PM EDT DISCLAIMER : THIS IS A VISIT SUMMARY EXTRACTED FROM THE [employer] CHART. IT IS NOT A COPY OF THE [employer] PROGRESS NOTE. MTDD
== END ==
LOC: M PAIN 13:00
PROVIDERS: ATTEND Anesthesiology
DX: Z09 Encounter for follow-up examination after completed treatment for conditions other than malignant neoplasm (principal); G89.29 Other chronic pain; M47.812 Spondylosis without myelopathy or radiculopathy, cervical region; M47.813 Spondylosis without myelopathy or radiculopathy, cervicothoracic region; M47.816 Spondylosis without myelopathy or radiculopathy, lumbar region; M47.817 Spondylosis without myelopathy or radiculopathy, lumbosacral region; F41.9 Anxiety disorder, unspecified; G47.33 Obstructive sleep apnea (adult) (pediatric); F43.10 Post-traumatic stress disorder, unspecified; I10 Essential (primary) hypertension; K21.9 Gastro-esophageal reflux disease without esophagitis; E56.9 Vitamin deficiency, unspecified; E78.1 Pure hyperglyceridemia; F32.1 Major depressive disorder, single episode, moderate; R73.03 Prediabetes; M96.1 Postlaminectomy syndrome, not elsewhere classified; Z88.5 Allergy status to narcotic agent; Z79.899 Other long term (current) drug therapy; Z87.820 Personal history of traumatic brain injury; Z91.82 Personal history of military deployment

== ENCOUNTER → 2017-02-14 | Outpatient (CLI) | payer BC ==
[~2017-02-14] MED LIST changes: +BUPIVACAINE HCL 0.25% 30 ML VIAL As Ordered ONE; +ISOVUE-M 300 61% 15ML VIAL (Q9967) As Ordered ONE; +LIDOCAINE 1% SDV INJ 30 ML VIAL As Ordered ONE; +TRIAMCINOLONE ACETONIDE SUSP 40 MG/ML VIAL (J3301) As Ordered ONE; +diazePAM 5 MG TAB As Ordered ONE; +oxyCODONE 5MG TAB As Ordered ONE
--- NOTE | 2017-02-14 13:50 | REP ---
Partial cervical spine series: Two views. History: Injection procedure for pain. 8 seconds of fluoroscopy time is reported. Findings: A sequence of two last image hold fluoroscopically obtained spot radiographs of the cervical spine document needle position and contrast injection associated with cervical spine injection procedure. Signed by Adrian Nolan MD 02/14/2017 03:12 P
--- NOTE | 2017-02-22 00:10 | ECWPNPC ---
PATIENT NAME: MELODY BONDS : 1970 GENDER: MALE VISIT DATE: 02/14/2017 DISCHARGE DATE: 02/14/17 1127 VISIT LOCKED DATE TIME: PHYSICIAN: ALICIA DUVALL RESOURCE: ALICIA DUVALL REASON FOR APPOINTMENT 1. CFBT HISTORY OF PRESENT ILLNESS HISTORY OF PRESENT ILLNESS: PAIN THE PATIENT DESCRIBES THE PAIN... FALL RISK SCREENING: SCREENING :NO FALLS IN THE PAST YEAR CURRENT MEDICATIONS TAKING ATORVASTATIN CALCIUM 80 MG TABLET 1 TABLET ORALLY ONCE A DAY, NOTES: 02/14/17599 TAKING LISINOPRIL 20 MG TABLET 1 TAB ORALLY DAILY, NOTES: 02/14/17599 TAKING AMLODIPINE BESYLATE 5 MG TABLET 1 TABLET ORALLY ONCE A DAY, NOTES: 02/14/17599 TAKING CYMBALTA 30 MG CAPSULE DELAYED RELEASE PARTICLES 2 CAPSULE ORALLY ONCE A DAY, NOTES: 02/14/17599 TAKING TIZANIDINE HCL 4 MG TABLET 1 AND A HALF TABLETS NEEDED ORALLY FOR SPASMS AND PAIN BEFORE BEDTIME MAY REPEAT IN 5 HRS NEEDED MDD3, NOTES: 02/14/171929 TAKING BISOPROLOL FUMARATE 5 MG TABLET 1 TABLET ORALLY ONCE A DAY, NOTES: 02/14/17599 TAKING OMEPRAZOLE 40 MG CAPSULE DELAYED RELEASE 1 CAPSULE ORALLY ONCE A DAY, NOTES: 02/14/17599 TAKING DRISDOL 61016 UNIT CAPSULE 1 CAPSULE ORALLY WEEKLY, NOTES: 02/11/17 TAKING HYDROXYZINE HCL 50 MG TABLET 1 TABLET NEEDED ORALLY BEFORE BEDTIME, NOTES: 02/13/171929 TAKING MIRTAZAPINE 15 MG TABLET 1 TABLET AT BEDTIME ORALLY ONCE A DAY, NOTES: 02/14/171929 NOT-TAKING HYDROXYZINE HCL 100 MG TABLET 1 TABLET NEEDED ORALLY AT BEDTIME MEDICATION LIST REVIEWED AND RECONCILED WITH THE PATIENT PAST MEDICAL HISTORY S/P FALL FROM TREE STAND 06/06/15 - SUSTAINED RIGHT FEMUR FRACTURE AND RIGHT WRIST FRACTURE (DR. GRANT - [place] ) NECK/BACK PAIN SUBSEQUENT TO FALL 06/06/15- FOLLOWING WITH BACK JOINER IN [place] (DR. 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 HTN V-TACH - HAD 7 BEATS OF ASSYMPTOMATIC V-MERLY WHILE IN HOSPITAL 10/10/17 - FELT TO BE RELATED TO POSSIBLE [place]IS, [place] RULED OUT STRESS SPECT 10/2016 - LOW RISK EF 63% LUIS DIAGNOSED 12/29/16 - HAS NOT STARTED CPAP YET ALLERGIES CODEINE PHOSPHATE: ITCHING: ALLERGY SURGICAL HISTORY BROKEN FEMUR REPAIRED WITH RODS/PINS, RIGHT WRIST FRACTURE 06/07/15 FUSION L4-L5 01/2016 PUT A BIGGER RITA IN FEMUR 02/2016 RIGHT WRIST HARDWARE REMOVED 09/19/16 SOCIAL HISTORY GENERAL: PAIN CLINIC PFS, CLERGY, PUBLIC HEALTH REFERRALS CLERGY REFERRAL NEEDED?NO WAS THE PROVIDER NOTIFIED OF ANY PERTINENT INFO?NO PFS REFERRAL NEEDED?NO PUBLIC HEALTH REFERRAL NEEDED?NO PATIENT: ____. HOSPITALIZATION/MAJOR DIAGNOSTIC PROCEDURE ALL SURGICAL RELATED CHEST PAIN 10/2016 REVIEW OF SYSTEMS CONSTITUTIONAL: ANY CHANGE IN YOUR MEDICAL CONDITION? NO . CHILLS NO . FEVER NO . INFECTION: DO YOU HAVE NEW INFECTIONS? NO . DO YOU HAVE HISTORY OF MRSA? NO . MUSCULOSKELETAL: ANY NEW PATTERNS OF PAIN OR NUMBNESS? NO . GASTROENTEROLOGY: ANY NEW CHANGE IN BOWEL CONTROL? NO . GENITOURINARY: ANY NEW CHANGE IN BLADDER CONTROL? NO . IS THERE A CHANCE YOU COULD BE ? NO . HEMATOLOGY/LYMPH: DO YOU TAKE ANY BLOOD THINNERS? (FOR EXAMPLE- COUMADIN, PLAVIX, AGGRENOX, PLATEL, PRADAXA, OR XARELTO) NO . WHEN WAS YOUR LAST DOSE? DATE: TIME: . NEUROLOGY: HAVE YOU FALLEN IN THE PAST 6 MONTHS? NO . ANY NEW EXTREMITY NUMBNESS OR WEAKNESS? NO . CARDIOLOGY: DO YOU HAVE A PACEMAKER OR DEFIBRILLATOR? NO . RESPIRATORY: HAVE YOU BEEN SICK IN THE PAST WEEK? NO . FEVER NO . FLU LIKE SYMPTOMS? NO . COUGH NO . INTEGUMENTARY: DO YOU HAVE ANY RASHES OR OPEN SORES? NO . ALLERGIC/IMMUNO: ARE YOU ALLERGIC TO SHELLFISH OR IV DYE? NO . ANY NEW ALLERGIES? NO . PSYCHIATRIC: DO YOU HAVE THOUGHTS OF HURTING YOURSELF OR SOMEONE ELSE? NO . ARE YOU ABUSED, NEGLECTED, OR IN AN UNSAFE ENVIRONMENT? NO . ENDOCRINOLOGY: ARE YOU DIABETIC? NO . OTHER: DO YOU NEED ANY PRESCRIPTIONS? NO . IF YES, PLEASE LIST: ____ . ANY NEW PROBLEMS WITH YOUR MEDICATIONS? NO . WHEN DID YOU LAST EAT? ____02/13/17 1800 . WHEN DID YOU LAST DRINK? ____02/14 17 0600 . WHAT DID YOU LAST DRINK? ____H2O . NAME OF PERSON DRIVING YOU HOME? ____NAOMI . DO YOU HAVE ANY OTHER QUESTIONS OR CONCERNS NO . REVIEWED BY: PROVIDER: . VITAL SIGNS WT 240 LBS, HT 71", BMI 33.47 INDEX, BP 141/93 MM HG, HR 76 /MIN, RR 16 /MIN, TEMP 98.6 F, OXYGEN SAT % 98%, NA INITIALS SC 09:57, REVIEWED BY: MLF. ASSESSMENTS SPONDYLOSIS WITHOUT MYELOPATHY OR RADICULOPATHY, CERVICAL REGION - M47.812 (PRIMARY) PROCEDURES PN CERVICAL FACET BLOCK LOW BILATERAL CERVICAL PRE PROCEDURE DIAGNOSIS CERVICAL SPONDYLOSIS POST PROCEDURE DIAGNOSIS CERVICAL SPONDYLOSIS PROCEDURE BILATERAL C3-C4, BILATERAL C4-C5, AND BILATERAL C5-C6 FACET BLOCK THERAPEUTIC SURGEON DR. ALICIA DUVALL TECHNICIAN BIOLOGICAL HEALTH NONE ANESTHESIA LOCAL PRE PROCEDURE NOTE THE PATIENT HAS HISTORY OF CHRONIC CERVICAL PAIN. I EVALUATE THE PATIENT AND REVIEWED THE CHART. I WENT OVER THE RISKS, ALTERNATIVES, AND BENEFITS ASSOCIATED WITH THIS PROCEDURE. THE PATIENT WOULD LIKE TO PROCEED AND GIVE CONSENT TO PERFORMED THE PROCEDURE. THE PATIENT DENIES UNEXPLAINABLE WEIGHT LOSS, FEVER, CHILLS, OR NEW CHANGES IN URINARY OR BOWEL CONTROL. DESCRIPTION OF PROCEDURE THE PATIENT WAS BROUGHT TO THE PROCEDURE ROOM AND PLACED IN THE PRONE POSITION. THE CERVICOTHORACIC AREA WAS CLEANED WITH CHLORAPREP SOLUTION AND DRAPED ASEPTICALLY. THE PROCEDURE WAS DONE UNDER STERILE CONDITIONS. I CHECKED LATERALITY AND THE LEVEL WHERE THE PROCEDURE WAS GOING TO BE PERFORMED WITH THE PATIENT AND THE SUPPORTING STAFF AT THE MOMENT OF THE TIME OUT IN THE PROCEDURE ROOM. UNDER FLUOROSCOPIC GUIDANCE, TARGET POINT WAS SELECTED AT THE RIGHT AND LEFT C3-C4, RIGHT AND LEFT C4-C5, AND RIGHT AND LEFT C5-C6 CERVICAL FACET JOINT. TARGET POINTS WERE SELECTED AFTER LATERAL ROTATION AND TILT OF THE MAGNIFIER OF THE C-ARM. LIDOCAINE 0.5% WAS USED TO NUMB THE SKIN AND THE SUBCUTANEOUS TISSUE BELOW IT. SPINAL NEEDLES, 22-GAUGE, WERE ADVANCED UNDER FLUOROSCOPIC GUIDANCE AND FOLLOWING PATIENT FEEDBACK UNTIL THE TARGETS WERE TOUCHED. THE POSITION OF THE NEEDLES WAS VERIFIED WITH AP AND LATERAL VIEWS. AFTER PROPER POSITION OF THE NEEDLES WAS ACHIEVED, ISOVUE M DYE 30, 0.1 ML WAS INJECTED SHOWING SPREAD OF THE DYE. THEN A SOLUTION OF 0.9 ML OF BUPIVACAINE 0.125% AND KENALOG 10 MG WAS INJECTED AT EACH SITE. THERE WAS NO EVIDENCE OF BLOOD, PARESTHESIA OR CEREBROSPINAL FLUID DURING THE PROCEDURE. THE PATIENT WAS SENT TO THE RECOVERY ROOM. THE PATIENT WAS MOVING THE EXTREMITIES AND DOING WELL. THERE WAS NO COMPLICATION DURING THE PROCEDURE. FLUOROSCOPY TIME WAS 8 SECONDS POST PROCEDURE NOTE THE PATIENT WILL BE SEEN IN A FOLLOW UP IN THE NEXT FEW WEEKS. INSTRUCTIONS WERE GIVEN, QUESTIONS WERE ANSWERED, AND THE PATIENT EXPRESSED UNDERSTANDING AND AGREES WITH THE PLAN. I, FELICIA NICHOLS, DOCUMENTED THE ABOVE INFORMATION ACTING A SCRIBE FOR DR. DUVALL. I HAVE REVIEWED THE ABOVE DOCUMENT, WRITTEN BY FELICIA NICHOLS SCRIBE AND I VERIFY THAT IT IS ACCURATE. DIAGNOSTIC IMAGING [facility] FACET BLOCK (PAIN)[id number] PROCEDURE CODES 03422 INJ PARAVERT F JNT C/T 1 LEV 28162 INJ PARAVERT F JNT C/T 2 LEV 78923 INJ PARAVERT F JNT C/T 3 LEV 6045F RADXPS IN END [id number] PXD DISPOSITION & COMMUNICATION FOLLOW UP 3 WEEKS ELECTRONICALLY SIGNED BY ALICIA DUVALL MD ON 02/21/2017 AT 06:26 AM EDT DISCLAIMER : THIS IS A VISIT SUMMARY EXTRACTED FROM THE [employer] CHART. IT IS NOT A COPY OF THE [employer] PROGRESS NOTE. MTDD
== END ==
LOC: M PAIN 10:00
PROVIDERS: ATTEND Anesthesiology
DX: G89.29 Other chronic pain (principal); M47.812 Spondylosis without myelopathy or radiculopathy, cervical region; F41.9 Anxiety disorder, unspecified; G47.33 Obstructive sleep apnea (adult) (pediatric); F43.10 Post-traumatic stress disorder, unspecified; I10 Essential (primary) hypertension; Z88.5 Allergy status to narcotic agent; K21.9 Gastro-esophageal reflux disease without esophagitis; E55.9 Vitamin D deficiency, unspecified; R73.03 Prediabetes; E78.1 Pure hyperglyceridemia; F32.1 Major depressive disorder, single episode, moderate; Z79.899 Other long term (current) drug therapy; S06.9X Unspecified intracranial injury
CPT/HCPCS: 64490; 64491; 64492; J3301; Q9967

== ENCOUNTER → 2017-02-28 | Outpatient (CLI) | payer BC ==
[~2017-02-28] MED LIST changes: -BUPIVACAINE HCL 0.25% 30 ML VIAL As Ordered ONE; -ISOVUE-M 300 61% 15ML VIAL (Q9967) As Ordered ONE; -LIDOCAINE 1% SDV INJ 30 ML VIAL As Ordered ONE; -TRIAMCINOLONE ACETONIDE SUSP 40 MG/ML VIAL (J3301) As Ordered ONE; -diazePAM 5 MG TAB As Ordered ONE; -oxyCODONE 5MG TAB As Ordered ONE
--- NOTE | 2017-03-11 01:45 | ECWPNPC ---
PATIENT NAME: MELODY BONDS : 1970 GENDER: MALE VISIT DATE: 02/28/2017 DISCHARGE DATE: 02/28/17 1148 VISIT LOCKED DATE TIME: PHYSICIAN: RON AMES RESOURCE: RON AMES REASON FOR APPOINTMENT 1. POST CFBT HISTORY OF PRESENT ILLNESS HISTORY OF PRESENT ILLNESS: HERE FOR POST PROCEDURE F/U.HAD BILAT.C3-4/C4-5/C5-6 THERAPEUTIC FACET BLOCK.REPORTS >50% IMPROVEMENT IN PAIN THAT CONTINUES TODAY.ONSET OF LOW BACK PAIN WAS AFTER A FALL INJURY IN JUNE OF 2015.HAD L4/5 FUSION 01/2016 WITHOUT IMPROVEMENT IN PAIN.CONTINUES WITH IMPROVEMENT IN NECK PAIN POST PROCEDURE.WORSE AREA OF PAIN IS LOW BACKR>L.RATING THIS AREA OF PAIN 8/10VAS.DESCRIBES PAIN CONSTANT BURNING AND ACHING PAIN.PAIN AGGREVATED BY PROLONGED STANDING OR SITTING. PAIN THE PATIENT DESCRIBES THE PAIN... FALL RISK SCREENING: SCREENING :NO FALLS IN THE PAST YEAR CURRENT MEDICATIONS TAKING ATORVASTATIN CALCIUM 80 MG TABLET 1 TABLET ORALLY ONCE A DAY TAKING LISINOPRIL 20 MG TABLET 1 TAB ORALLY DAILY TAKING AMLODIPINE BESYLATE 5 MG TABLET 1 TABLET ORALLY ONCE A DAY TAKING CYMBALTA 30 MG CAPSULE DELAYED RELEASE PARTICLES 2 CAPSULE ORALLY ONCE A DAY TAKING TIZANIDINE HCL 4 MG TABLET 1 AND A HALF TABLETS NEEDED ORALLY FOR SPASMS AND PAIN BEFORE BEDTIME MAY REPEAT IN 5 HRS NEEDED MDD3 TAKING BISOPROLOL FUMARATE 5 MG TABLET 1 TABLET ORALLY ONCE A DAY TAKING OMEPRAZOLE 40 MG CAPSULE DELAYED RELEASE 1 CAPSULE ORALLY ONCE A DAY TAKING DRISDOL 63552 UNIT CAPSULE 1 CAPSULE ORALLY WEEKLY TAKING MIRTAZAPINE 15 MG TABLET 1 TABLET AT BEDTIME ORALLY ONCE A DAY NOT-TAKING HYDROXYZINE HCL 50 MG TABLET 1 TABLET NEEDED ORALLY BEFORE BEDTIME NOT-TAKING HYDROXYZINE HCL 100 MG TABLET 1 TABLET NEEDED ORALLY AT BEDTIME MEDICATION LIST REVIEWED AND RECONCILED WITH THE PATIENT PAST MEDICAL HISTORY S/P FALL FROM TREE STAND 06/06/15 - SUSTAINED RIGHT FEMUR FRACTURE AND RIGHT WRIST FRACTURE (DR. GRANT - [place] ) NECK/BACK PAIN SUBSEQUENT TO FALL 06/06/15- FOLLOWING WITH TECH ED/[employer] TEACHER IN [place] (DR. 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 SOCIAL HISTORY GENERAL: TOBACCO USE ADDITIONAL FINDINGS: TOBACCO USERCHEWS TOBACCO PAIN CLINIC PFS, CLERGY, PUBLIC HEALTH REFERRALS CLERGY REFERRAL NEEDED?NO WAS THE PROVIDER NOTIFIED OF ANY PERTINENT INFO?NO PFS REFERRAL NEEDED?NO PUBLIC HEALTH REFERRAL NEEDED?NO PATIENT: ____. REVIEW OF SYSTEMS CONSTITUTIONAL: ANY CHANGE IN YOUR MEDICAL CONDITION? NO . CHILLS NO . FEVER NO . INFECTION: DO YOU HAVE NEW INFECTIONS? NO . DO YOU HAVE HISTORY OF MRSA? NO . MUSCULOSKELETAL: ANY NEW PATTERNS OF PAIN OR NUMBNESS? NO . GASTROENTEROLOGY: ANY NEW CHANGE IN BOWEL CONTROL? NO . GENITOURINARY: ANY NEW CHANGE IN BLADDER CONTROL? NO . IS THERE A CHANCE YOU COULD BE ? NO . HEMATOLOGY/LYMPH: DO YOU TAKE ANY BLOOD THINNERS? (FOR EXAMPLE- COUMADIN, PLAVIX, AGGRENOX, PLATEL, PRADAXA, OR XARELTO) NO . WHEN WAS YOUR LAST DOSE? DATE: TIME: . NEUROLOGY: HAVE YOU FALLEN IN THE PAST 6 MONTHS? NO . ANY NEW EXTREMITY NUMBNESS OR WEAKNESS? NO . CARDIOLOGY: DO YOU HAVE A PACEMAKER OR DEFIBRILLATOR? NO . RESPIRATORY: HAVE YOU BEEN SICK IN THE PAST WEEK? NO . FEVER NO . FLU LIKE SYMPTOMS? NO . COUGH NO . INTEGUMENTARY: DO YOU HAVE ANY RASHES OR OPEN SORES? NO . ALLERGIC/IMMUNO: ARE YOU ALLERGIC TO SHELLFISH OR IV DYE? NO . ANY NEW ALLERGIES? NO . PSYCHIATRIC: DO YOU HAVE THOUGHTS OF HURTING YOURSELF OR SOMEONE ELSE? NO . ARE YOU ABUSED, NEGLECTED, OR IN AN UNSAFE ENVIRONMENT? NO . ENDOCRINOLOGY: ARE YOU DIABETIC? NO . OTHER: DO YOU NEED ANY PRESCRIPTIONS? NO . IF YES, PLEASE LIST: ____ . ANY NEW PROBLEMS WITH YOUR MEDICATIONS? NO . WHEN DID YOU LAST EAT? ____ . WHEN DID YOU LAST DRINK? ____ . WHAT DID YOU LAST DRINK? ____ . NAME OF PERSON DRIVING YOU HOME? ____ . DO YOU HAVE ANY OTHER QUESTIONS OR CONCERNS HIS PAIN HAS NEVER BEEN THIS BAD--IT IS EVEN DIFFICULT TO TURN OVER IN BED. HE WANTS TO DISCUSS PAIN MEDICATION . REVIEWED BY: PROVIDER: RON MCGOVERN . VITAL SIGNS WT 251.6 LBS, HT 71", BMI 35.09 INDEX, BP 139/84 MM HG, HR 75 /MIN, RR 18 /MIN, TEMP 98.4 F, OXYGEN SAT % 97%, NA INITIALS TL 1028, REVIEWED BY: ADPT WEIGHED ON PMC SCALE-TL. EXAMINATION GENERAL EXAMINATION: GENERAL APPEARANCE:COMFORTABLE. PSYCHAFFECT NORMAL. LUNGS:LUNG MONTES ARE CLEAR TO AUSCULTATION BILATERALLY. GOOD MOVEMENT OF AIR. HEART:S1, S2 IN A REGULAR RATE AND RHYTHM. NO SIGNIFICANT MURMURS, RUBS OR GALLOPS NOTED. LUMBAR SPINE/LOWER BACK: INSPECTION:NORMAL CURVATURE OF SPINE.WELL HEALED SURGICAL SCAR/MIDLINE. PALPATION:PARASPINAL TENDERNESS R>L .TRIGGER POINTS ELICITED IN LUMBAR PARASPINAL R>L. REFLEXES:2/4 -RIGHT 1/4 LEFT. DIAGNOSTIC DATA:MRI L/S DDOID-[id number]-REVIEWED. ASSESSMENTS SPONDYLOSIS WITHOUT MYELOPATHY OR RADICULOPATHY, LUMBAR REGION - M47.816 (PRIMARY) MYALGIA - M79.1 TREATMENT SPONDYLOSIS WITHOUT MYELOPATHY OR RADICULOPATHY, LUMBAR REGION START TRAMADOL HCL TABLET, 50 MG, 1-2, ORALLY, EVERY 6 HRS PRN MDD4, 30 DAY(S), 45, REFILLS 1 MYALGIA TRIGGER POINT 1-2 IRISRON 02/28/2017 11:32:06 AM > RIGHT LUMBAR TPI PREVENTIVE MEDICINE PAIN CLINIC TEACHING: PROCEDURE TEACHING PT. DECLINED PRINTED INFORMATION ON TPI STATING HE HAS HAD THEM IN THE PAST AND IS FAMILIAR WITH THEM. PRE-PROCEDURE INSTRUCTIONS REVIEWD WITH PT. AND HE VERBALIZED UNDERSTANDING. AD. MEDITATION PRINTED INFORMATION ON TRAMADOL GIVEN TO AND EXPLAINED TO PT. AND HE VERBALIZED UNDERSTANDING. AD. PROCEDURE CODES FA211 ESTABILISHED PATIENT [facility] CHARGE DISPOSITION & COMMUNICATION FOLLOW UP 2WK POST (REASON: TPI RIGHT LOW BACK) ELECTRONICALLY SIGNED BY FROILAN DUFF ON 03/10/2017 AT 10:38 AM EDT DISCLAIMER : THIS IS A VISIT SUMMARY EXTRACTED FROM THE [employer] CHART. IT IS NOT A COPY OF THE [employer] PROGRESS NOTE. RAHELD
== END ==
LOC: M PAIN 10:40
PROVIDERS: ATTEND Nurse Practitioner Family
DX: G89.29 Other chronic pain (principal); M47.816 Spondylosis without myelopathy or radiculopathy, lumbar region; M79.1 Myalgia; F41.9 Anxiety disorder, unspecified; G47.33 Obstructive sleep apnea (adult) (pediatric); F43.10 Post-traumatic stress disorder, unspecified; I10 Essential (primary) hypertension; F17.228 Nicotine dependence, chewing tobacco, with other nicotine-induced disorders; Z79.899 Other long term (current) drug therapy; Z91.82 Personal history of military deployment; Z87.820 Personal history of traumatic brain injury

== ENCOUNTER → 2017-03-06 | Outpatient (CLI) | payer BC ==
[~2017-03-06] MED LIST changes: +BUPIVACAINE HCL 0.25% 10 ML VIAL As Ordered ONE; +BUPIVACAINE HCL 0.25% 30 ML VIAL As Ordered ONE; +TRIAMCINOLONE ACETONIDE SUSP 40 MG/ML VIAL (J3301) As Ordered ONE; +diazePAM 5 MG TAB As Ordered ONE; +oxyCODONE 5MG TAB As Ordered ONE
--- NOTE | 2017-03-11 00:12 | ECWPNPC ---
PATIENT NAME: MELODY BONDS : 1970 GENDER: MALE VISIT DATE: 03/06/2017 DISCHARGE DATE: 03/06/17944 VISIT LOCKED DATE TIME: PHYSICIAN: ALICIA DUVALL RESOURCE: ALICIA DUVALL REASON FOR APPOINTMENT 1. LOW BACK HISTORY OF PRESENT ILLNESS HISTORY OF PRESENT ILLNESS: PAIN THE PATIENT DESCRIBES THE PAIN... FALL RISK SCREENING: SCREENING :NO FALLS IN THE PAST YEAR CURRENT MEDICATIONS TAKING ATORVASTATIN CALCIUM 80 MG TABLET 1 TABLET ORALLY ONCE A DAY, NOTES: 03-06-17599 TAKING LISINOPRIL 20 MG TABLET 1 TAB ORALLY DAILY, NOTES: 03-06-17599 TAKING AMLODIPINE BESYLATE 5 MG TABLET 1 TABLET ORALLY ONCE A DAY, NOTES: 03-06-17599 TAKING CYMBALTA 30 MG CAPSULE DELAYED RELEASE PARTICLES 2 CAPSULE ORALLY ONCE A DAY, NOTES: 03-06-17599 TAKING TIZANIDINE HCL 4 MG TABLET 1 AND A HALF TABLETS NEEDED ORALLY FOR SPASMS AND PAIN BEFORE BEDTIME MAY REPEAT IN 5 HRS NEEDED MDD3, NOTES: 03-05-172099 TAKING BISOPROLOL FUMARATE 5 MG TABLET 1 TABLET ORALLY ONCE A DAY, NOTES: 03-06-17599 TAKING OMEPRAZOLE 40 MG CAPSULE DELAYED RELEASE 1 CAPSULE ORALLY ONCE A DAY, NOTES: 03-06-17599 TAKING DRISDOL 59458 UNIT CAPSULE 1 CAPSULE ORALLY WEEKLY, NOTES: 03-04-17 TAKING MIRTAZAPINE 15 MG TABLET 1 TABLET AT BEDTIME ORALLY ONCE A DAY, NOTES: 03-05-172099 TAKING TRAMADOL HCL 50 MG TABLET 1-2 ORALLY EVERY 6 HRS PRN MDD4, NOTES: 03-06-17599 DISCONTINUED HYDROXYZINE HCL 50 MG TABLET 1 TABLET NEEDED ORALLY BEFORE BEDTIME DISCONTINUED HYDROXYZINE HCL 100 MG TABLET 1 TABLET NEEDED ORALLY AT BEDTIME MEDICATION LIST REVIEWED AND RECONCILED WITH THE PATIENT PAST MEDICAL HISTORY S/P FALL FROM TREE STAND 06/06/15 - SUSTAINED RIGHT FEMUR FRACTURE AND RIGHT WRIST FRACTURE (DR. GRANT - [place] ) NECK/BACK PAIN SUBSEQUENT TO FALL 06/06/15- FOLLOWING WITH PLATING ENGINEER IN [place] (DR. 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 REVIEW OF SYSTEMS CONSTITUTIONAL: ANY CHANGE IN YOUR MEDICAL CONDITION? NO . CHILLS NO . FEVER NO . INFECTION: DO YOU HAVE NEW INFECTIONS? NO . DO YOU HAVE HISTORY OF MRSA? NO . MUSCULOSKELETAL: ANY NEW PATTERNS OF PAIN OR NUMBNESS? NO . GASTROENTEROLOGY: ANY NEW CHANGE IN BOWEL CONTROL? NO . GENITOURINARY: ANY NEW CHANGE IN BLADDER CONTROL? NO . IS THERE A CHANCE YOU COULD BE ? NO . HEMATOLOGY/LYMPH: DO YOU TAKE ANY BLOOD THINNERS? (FOR EXAMPLE- COUMADIN, PLAVIX, AGGRENOX, PLATEL, PRADAXA, OR XARELTO) NO . WHEN WAS YOUR LAST DOSE? DATE: TIME: . NEUROLOGY: HAVE YOU FALLEN IN THE PAST 6 MONTHS? NO . ANY NEW EXTREMITY NUMBNESS OR WEAKNESS? NO . CARDIOLOGY: DO YOU HAVE A PACEMAKER OR DEFIBRILLATOR? NO . RESPIRATORY: HAVE YOU BEEN SICK IN THE PAST WEEK? NO . FEVER NO . FLU LIKE SYMPTOMS? NO . COUGH NO . INTEGUMENTARY: DO YOU HAVE ANY RASHES OR OPEN SORES? NO . ALLERGIC/IMMUNO: ARE YOU ALLERGIC TO SHELLFISH OR IV DYE? NO . ANY NEW ALLERGIES? NO . PSYCHIATRIC: DO YOU HAVE THOUGHTS OF HURTING YOURSELF OR SOMEONE ELSE? NO . ARE YOU ABUSED, NEGLECTED, OR IN AN UNSAFE ENVIRONMENT? NO . ENDOCRINOLOGY: ARE YOU DIABETIC? NO . OTHER: DO YOU NEED ANY PRESCRIPTIONS? NO . IF YES, PLEASE LIST: ____ . ANY NEW PROBLEMS WITH YOUR MEDICATIONS? NO . WHEN DID YOU LAST EAT? 03-05-17 6PM . WHEN DID YOU LAST DRINK? 03-06-17 0600 . WHAT DID YOU LAST DRINK? WATER . NAME OF PERSON DRIVING YOU HOME? SHARON . DO YOU HAVE ANY OTHER QUESTIONS OR CONCERNS NO . REVIEWED BY: PROVIDER: . VITAL SIGNS WT 250 LBS, HT 71", BMI 34.86 INDEX, BP 136/87 MM HG, HR 72 /MIN, RR 18 /MIN, TEMP 98.2 F, OXYGEN SAT % 99%, NA INITIALS SC 08:48, REVIEWED BY: CM. ASSESSMENTS MYALGIA - M79.1 (PRIMARY) PROCEDURES PN TRIGGER POINT INJECTION WITH STEROIDS PRE PROCEDURE DIAGNOSIS 1. MYALGIA 2. PAIN AT RIGHT LOWER BACK AREA POST PROCEDURE DIAGNOSIS 1. MYALGIA 2. PAIN AT RIGHT LOWER BACK AREA PROCEDURE TRIGGER POINT INJECTION AT RIGHT LOWER BACK AREA SURGEON DR. ALICIA DUVALL CARBON SEQUESTRATION PLANT MANAGER NONE ANESTHESIA LOCAL PRE PROCEDURE NOTE THE PATIENT HAS A HISTORY OF CHRONIC PAIN AT THE RIGHT LOWER BACK AREA. I EVALUATE THE PATIENT AND REVIEWED THE CHART. THERE IS EVIDENCE OF BANDS OF TISSUE WITH RESTRICTION OF MOVEMENT AND PRESENCE OF TRIGGER POINT AT THE AFFECTED AREA. I WENT OVER THE RISKS, ALTERNATIVES, AND BENEFITS ASSOCIATED WITH THIS PROCEDURE. THE PATIENT WOULD LIKE TO PROCEED AND GIVE CONSENT TO PERFORMED THE PROCEDURE. THE PATIENT DENIES UNEXPLAINABLE WEIGHT LOSS, FEVER, CHILLS, OR NEW CHANGES IN URINARY OR BOWEL CONTROL DESCRIPTION OF PROCEDURE THE PATIENT WAS BROUGHT TO THE PROCEDURE ROOM AND PLACED IN THE SITTING POSITION. THE AREA WAS CLEANED WITH ALCOHOL. THE PROCEDURE WAS DONE USING ASEPTIC STERILE TECHNIQUE. I CHECKED LATERALITY AND THE LEVEL WHERE THE PROCEDURE WAS GOING TO BE PERFORMED WITH THE PATIENT AND THE SUPPORTING STAFF AT THE MOMENT OF THE TIME OUT IN THE PROCEDURE ROOM. USING A 25-GAUGE NEEDLE, TRIGGER POINTS WERE INJECTED AT THE RIGHT LOWER BACK AREA WITH A TOTAL OF 40 ML OF BUPIVACAINE 0.25% AND KENALOG 40 MG. THERE WAS NO EVIDENCE OF BLOOD, PARESTHESIA OR CEREBROSPINAL FLUID DURING THE PROCEDURE. THE PATIENT WAS SENT TO THE RECOVERY ROOM. THE PATIENT WAS MOVING THE EXTREMITIES AND DOING WELL. THERE WAS NO COMPLICATION DURING THE PROCEDURE POST PROCEDURE NOTE THE PATIENT WILL BE SEEN IN A FOLLOW UP IN THE NEXT FEW WEEKS. INSTRUCTIONS WERE GIVEN, QUESTIONS WERE ANSWERED, AND THE PATIENT EXPRESSED UNDERSTANDING AND AGREES WITH THE PLAN. I, FELICIA NICHOLS, DOCUMENTED THE ABOVE INFORMATION ACTING A SCRIBE FOR DR. DUVALL. I HAVE REVIEWED THE ABOVE DOCUMENT, WRITTEN BY FELICIA DON AND I VERIFY THAT IT IS ACCURATE. PROCEDURE CODES 66042 INJ TRIGGER POINT 11/04 [facility] [place] DISPOSITION & COMMUNICATION FOLLOW UP 3 WEEKS ELECTRONICALLY SIGNED BY ALICIA DUVALL MD ON 03/10/2017 AT 09:09 PM EDT DISCLAIMER : THIS IS A VISIT SUMMARY EXTRACTED FROM THE [employer] CHART. IT IS NOT A COPY OF THE [employer] PROGRESS NOTE. PORTILLO
== END ==
LOC: M PAIN 08:30
PROVIDERS: ATTEND Anesthesiology
DX: G89.29 Other chronic pain (principal); M79.1 Myalgia; M54.5 Low back pain; G47.33 Obstructive sleep apnea (adult) (pediatric); F43.10 Post-traumatic stress disorder, unspecified; I10 Essential (primary) hypertension; Z87.820 Personal history of traumatic brain injury; Z91.82 Personal history of military deployment; F41.9 Anxiety disorder, unspecified; F32.9 Major depressive disorder, single episode, unspecified; E55.9 Vitamin D deficiency, unspecified; Z79.891 Long term (current) use of opiate analgesic; Z79.899 Other long term (current) drug therapy
CPT/HCPCS: 20552; J3301

== ENCOUNTER → 2017-04-04 | Outpatient (CLI) | payer BC ==
[~2017-04-04] MED LIST changes: -BUPIVACAINE HCL 0.25% 10 ML VIAL As Ordered ONE; -BUPIVACAINE HCL 0.25% 30 ML VIAL As Ordered ONE; -TRIAMCINOLONE ACETONIDE SUSP 40 MG/ML VIAL (J3301) As Ordered ONE; -diazePAM 5 MG TAB As Ordered ONE; -oxyCODONE 5MG TAB As Ordered ONE
--- NOTE | 2017-04-05 00:13 | ECWPNPC ---
PATIENT NAME: MELODY BONDS : 1970 GENDER: MALE VISIT DATE: 04/04/2017 DISCHARGE DATE: 04/04/17947 VISIT LOCKED DATE TIME: PHYSICIAN: RON AMES RESOURCE: RON AMES REASON FOR APPOINTMENT 1. POST PROCEDURE HISTORY OF PRESENT ILLNESS HISTORY OF PRESENT ILLNESS: HERE FOR POST PROCEDURE F/U.HAD TPI RIGHT LOW BACK ON 03-06-17 AND REPORTS NO IMPROVEMENT IN PAIN POST PROCEDURE.RATING PAIN VAS 6/10.PAIN IS MOST INTENSE IN HIS NECK.HAS HAD >3 MONTHS IMPROVEMENT IN PAIN AFTER CERVICAL FACET BLOCK LAST DONE IN .ONSET OF LOW BACK PAIN WAS AFTER A FALL INJURY IN JUNE OF 2015.HAD L4/5 FUSION 01/2016 WITHOUT IMPROVEMENT IN PAIN.DESCRIBES PAIN CONSTANT BURNING AND ACHING PAIN.PAIN AGGREVATED BY PROLONGED STANDING OR SITTING. PAIN THE PATIENT DESCRIBES THE PAIN... THE PATIENT DESCRIBES THE PAIN... FALL RISK SCREENING: SCREENING :NO FALLS IN THE PAST YEAR CURRENT MEDICATIONS TAKING ATORVASTATIN CALCIUM 80 MG TABLET 1 TABLET ORALLY ONCE A DAY, NOTES: 03-06-17599 TAKING LISINOPRIL 20 MG TABLET 1 TAB ORALLY DAILY, NOTES: 03-06-17599 TAKING AMLODIPINE BESYLATE 5 MG TABLET 1 TABLET ORALLY ONCE A DAY, NOTES: 03-06-17599 TAKING CYMBALTA 30 MG CAPSULE DELAYED RELEASE PARTICLES 2 CAPSULE ORALLY ONCE A DAY, NOTES: 03-06-17599 TAKING TIZANIDINE HCL 4 MG TABLET 1 AND A HALF TABLETS NEEDED ORALLY FOR SPASMS AND PAIN BEFORE BEDTIME MAY REPEAT IN 5 HRS NEEDED MDD3, NOTES: 03-05-17 2100 TAKING OMEPRAZOLE 40 MG CAPSULE DELAYED RELEASE 1 CAPSULE ORALLY ONCE A DAY, NOTES: 03-06-17599 TAKING DRISDOL 91492 UNIT CAPSULE 1 CAPSULE ORALLY WEEKLY, NOTES: 03-04-17 TAKING MIRTAZAPINE 15 MG TABLET 1 TABLET AT BEDTIME ORALLY ONCE A DAY, NOTES: 03-05-17 2100 TAKING TRAMADOL HCL 50 MG TABLET 1-2 ORALLY EVERY 6 HRS PRN MDD4, NOTES: 03-06-17 06 TAKING BISOPROLOL FUMARATE 5 MG TABLET 1 TABLET ORALLY ONCE A DAY MEDICATION LIST REVIEWED AND RECONCILED WITH THE PATIENT PAST MEDICAL HISTORY S/P FALL FROM TREE STAND 06/06/15 - SUSTAINED RIGHT FEMUR FRACTURE AND RIGHT WRIST FRACTURE (DR. 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 SURGICAL HISTORY BROKEN FEMUR REPAIRED WITH RODS/PINS, RIGHT WRIST FRACTURE 06/07/15 FUSION L4-L5 01/2016 PUT A BIGGER RITA IN FEMUR 02/2016 RIGHT WRIST HARDWARE REMOVED 09/19/16 HOSPITALIZATION/MAJOR DIAGNOSTIC PROCEDURE ALL SURGICAL RELATED CHEST PAIN 10/2016 REVIEW OF SYSTEMS CONSTITUTIONAL: ANY CHANGE IN YOUR MEDICAL CONDITION? NO . CHILLS NO . FEVER NO . INFECTION: DO YOU HAVE NEW INFECTIONS? NO . DO YOU HAVE HISTORY OF MRSA? NO . MUSCULOSKELETAL: ANY NEW PATTERNS OF PAIN OR NUMBNESS? YES, PT STATES TPI TO R LOWER BACK 03/06/17. PRE PROCEDURE PAIN WAS 6-7/10, POST PROCEDURE 6-7/10. PT STATES TRAMADOL TAKES PAIN DOWN TO 4-5/10. . GASTROENTEROLOGY: ANY NEW CHANGE IN BOWEL CONTROL? NO . GENITOURINARY: ANY NEW CHANGE IN BLADDER CONTROL? NO . IS THERE A CHANCE YOU COULD BE ? NO . HEMATOLOGY/LYMPH: DO YOU TAKE ANY BLOOD THINNERS? (FOR EXAMPLE- COUMADIN, PLAVIX, AGGRENOX, PLATEL, PRADAXA, OR XARELTO) NO . WHEN WAS YOUR LAST DOSE? DATE: TIME: . NEUROLOGY: HAVE YOU FALLEN IN THE PAST 6 MONTHS? NO . ANY NEW EXTREMITY NUMBNESS OR WEAKNESS? NO . CARDIOLOGY: DO YOU HAVE A PACEMAKER OR DEFIBRILLATOR? NO . RESPIRATORY: HAVE YOU BEEN SICK IN THE PAST WEEK? NO . FEVER NO . FLU LIKE SYMPTOMS? NO . COUGH NO . INTEGUMENTARY: DO YOU HAVE ANY RASHES OR OPEN SORES? NO . ALLERGIC/IMMUNO: ARE YOU ALLERGIC TO SHELLFISH OR IV DYE? NO . ANY NEW ALLERGIES? NO . PSYCHIATRIC: DO YOU HAVE THOUGHTS OF HURTING YOURSELF OR SOMEONE ELSE? NO . ARE YOU ABUSED, NEGLECTED, OR IN AN UNSAFE ENVIRONMENT? NO . ENDOCRINOLOGY: ARE YOU DIABETIC? NO . OTHER: DO YOU NEED ANY PRESCRIPTIONS? YES, TO DISCUSS TRAMADOL WITH Juani AMES . IF YES, PLEASE LIST: ____ . ANY NEW PROBLEMS WITH YOUR MEDICATIONS? NO . WHEN DID YOU LAST EAT? ____ . WHEN DID YOU LAST DRINK? ____ . WHAT DID YOU LAST DRINK? ____ . NAME OF PERSON DRIVING YOU HOME? ____ . DO YOU HAVE ANY OTHER QUESTIONS OR CONCERNS NO . REVIEWED BY: PROVIDER: RON MCGOVERN . VITAL SIGNS WT 252 LBS, HT 71", BMI 35.14 INDEX, BP 130/86 MM HG, HR 69 /MIN, RR 16 /MIN, TEMP 97.8 F, OXYGEN SAT % 92%, SAFE IN ENV? (Y/N) Y, NA INITIALS PR 09:19, REVIEWED BY: EM. EXAMINATION GENERAL EXAMINATION: GENERAL APPEARANCE:FATIGUED. PSYCHAFFECT NORMAL. LUNGS:LUNG MONTES ARE CLEAR TO AUSCULTATION BILATERALLY. GOOD MOVEMENT OF AIR. HEART:S1, S2 IN A REGULAR RATE AND RHYTHM. NO SIGNIFICANT MURMURS, RUBS OR GALLOPS NOTED. CERVICAL SPINE/NECK: RANGE OF MOTION OF NECK:NORMAL IN ALL DIRECTIONS WITH REPORTS OF DISCOMFORT WITH BOTH FLEXION AND EXTENSION. REFLEXES:2 PLUS BILATERALLY. VERTEBRAL SPINE TENDERNESS:PRESENT. PARASPINAL MUSCLE SPASM:PRESENT BILATERALLY. 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 PROCEDURE CODES FA211 ESTABILISHED PATIENT [facility] CHARGE DISPOSITION & COMMUNICATION FOLLOW UP 2WK POST (REASON: I AM GOING TO REQUEST A THERAPEUTIC CERVICAL FACET BLOCKC3-4/4-5/5-6) ELECTRONICALLY SIGNED BY FROILAN DUFF ON 04/04/2017 AT 10:04 AM EDT DISCLAIMER : THIS IS A VISIT SUMMARY EXTRACTED FROM THE [employer] CHART. IT IS NOT A COPY OF THE [employer] PROGRESS NOTE. PORTILLO
== END ==
LOC: M PAIN 09:00
PROVIDERS: ATTEND Nurse Practitioner Family
DX: G89.29 Other chronic pain (principal); M79.1 Myalgia; M47.812 Spondylosis without myelopathy or radiculopathy, cervical region; Z87.820 Personal history of traumatic brain injury; F41.9 Anxiety disorder, unspecified; G47.33 Obstructive sleep apnea (adult) (pediatric); F43.10 Post-traumatic stress disorder, unspecified; I10 Essential (primary) hypertension; K21.9 Gastro-esophageal reflux disease without esophagitis; E56.9 Vitamin deficiency, unspecified; E78.1 Pure hyperglyceridemia; F32.1 Major depressive disorder, single episode, moderate; Z79.891 Long term (current) use of opiate analgesic; Z79.899 Other long term (current) drug therapy

== ENCOUNTER → 2017-04-18 | Outpatient (CLI) | payer BC ==
[~2017-04-18] MED LIST changes: +IBUP1TAB7 PO; -IBUP800T23 PO; -METO12TA PO; +METO1TAB87 PO; +VITA1CAP40 PO; -VITA50003 PO
--- NOTE | 2017-05-01 00:30 | ECWPNPC ---
PATIENT NAME: MELODY BONDS : 1970 GENDER: MALE VISIT DATE: 04/18/2017 DISCHARGE DATE: 04/18/17 1013 VISIT LOCKED DATE TIME: PHYSICIAN: RON AMES RESOURCE: RON AMES REASON FOR APPOINTMENT 1. POST PROCEDURE HISTORY OF PRESENT ILLNESS HISTORY OF PRESENT ILLNESS: HERE FOR F/U.HAD TPI RIGHT LOW BACK ON 03-06-17 AND REPORTS NO IMPROVEMENT IN PAIN POST PROCEDURE.RATING PAIN VAS 7/10.PAIN IS MOST INTENSE IN HIS RIGHT LOW BACK.HAS HAD >3 MONTHS IMPROVEMENT IN PAIN AFTER CERVICAL FACET BLOCK LAST DONE IN .ONSET OF LOW BACK PAIN WAS AFTER A FALL INJURY IN JUNE OF 2015.HAD L4/5 FUSION 01/2016 WITHOUT IMPROVEMENT IN PAIN.DESCRIBES PAIN CONSTANT BURNING AND ACHING PAIN.PAIN AGGREVATED BY PROLONGED STANDING OR SITTING. PAIN THE PATIENT DESCRIBES THE PAIN... THE PATIENT DESCRIBES THE PAIN... THE PATIENT DESCRIBES THE PAIN... FALL RISK SCREENING: SCREENING :NO FALLS IN THE PAST YEAR CURRENT MEDICATIONS TAKING ATORVASTATIN CALCIUM 80 MG TABLET 1 TABLET ORALLY ONCE A DAY TAKING LISINOPRIL 20 MG TABLET 1 TAB ORALLY DAILY TAKING AMLODIPINE BESYLATE 5 MG TABLET 1 TABLET ORALLY ONCE A DAY TAKING CYMBALTA 30 MG CAPSULE DELAYED RELEASE PARTICLES 2 CAPSULE ORALLY ONCE A DAY TAKING TIZANIDINE HCL 4 MG TABLET 1 AND A HALF TABLETS NEEDED ORALLY FOR SPASMS AND PAIN BEFORE BEDTIME MAY REPEAT IN 5 HRS NEEDED MDD3 TAKING OMEPRAZOLE 40 MG CAPSULE DELAYED RELEASE 1 CAPSULE ORALLY ONCE A DAY TAKING DRISDOL 32688 UNIT CAPSULE 1 CAPSULE ORALLY WEEKLY TAKING MIRTAZAPINE 15 MG TABLET 1 TABLET AT BEDTIME ORALLY ONCE A DAY TAKING BISOPROLOL FUMARATE 5 MG TABLET 1 TABLET ORALLY ONCE A DAY TAKING TRAMADOL HCL 50 MG TABLET 1-2 ORALLY EVERY 6 HRS PRN MDD4 MEDICATION LIST REVIEWED AND RECONCILED WITH THE PATIENT PAST MEDICAL HISTORY S/P FALL FROM TREE STAND 06/06/15 - SUSTAINED RIGHT FEMUR FRACTURE AND RIGHT WRIST FRACTURE (DR. GRANT - [place] ) NECK/BACK PAIN SUBSEQUENT TO FALL 06/06/15- FOLLOWING WITH LUNCHROOM AIDE IN [place] (DR. 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 SOCIAL HISTORY GENERAL: TOBACCO USE ADDITIONAL FINDINGS: TOBACCO USERCHEWS TOBACCO CONFUCIANIST [id number] NONE PAIN CLINIC PFS, CLERGY, PUBLIC HEALTH REFERRALS PFS REFERRAL NEEDED?NO CLERGY REFERRAL NEEDED?NO PUBLIC HEALTH REFERRAL NEEDED?NO WAS THE PROVIDER NOTIFIED OF ANY PERTINENT INFO?NO HAS THE PATIENT BEEN EDUCATED REGARDING HIS/HER PLAN OF CARE?YES HAS THE PATIENT BEEN EDUCATED REGARDING PAIN, THE RISK FOR PAIN, THE IMPORTANCE OF EFFECTIVE PAIN MANAGEMENT, AND THE PAIN ASSESSMENT PROCESS?YES PATIENT: ____. REVIEW OF SYSTEMS REVIEWED BY: PROVIDER: RON MCGOVERN . CONSTITUTIONAL: ANY CHANGE IN YOUR MEDICAL CONDITION? NO . CHILLS NO . FEVER NO . INFECTION: DO YOU HAVE NEW INFECTIONS? NO . DO YOU HAVE HISTORY OF MRSA? NO . MUSCULOSKELETAL: ANY NEW PATTERNS OF PAIN OR NUMBNESS? NO . GASTROENTEROLOGY: ANY NEW CHANGE IN BOWEL CONTROL? NO . GENITOURINARY: ANY NEW CHANGE IN BLADDER CONTROL? NO . IS THERE A CHANCE YOU COULD BE ? NO . HEMATOLOGY/LYMPH: DO YOU TAKE ANY BLOOD THINNERS? (FOR EXAMPLE- COUMADIN, PLAVIX, AGGRENOX, PLATEL, PRADAXA, OR XARELTO) NO . WHEN WAS YOUR LAST DOSE? DATE: TIME: . NEUROLOGY: HAVE YOU FALLEN IN THE PAST 6 MONTHS? NO . ANY NEW EXTREMITY NUMBNESS OR WEAKNESS? NO . CARDIOLOGY: DO YOU HAVE A PACEMAKER OR DEFIBRILLATOR? NO . RESPIRATORY: HAVE YOU BEEN SICK IN THE PAST WEEK? NO . FEVER NO . FLU LIKE SYMPTOMS? NO . COUGH NO . INTEGUMENTARY: DO YOU HAVE ANY RASHES OR OPEN SORES? NO . ALLERGIC/IMMUNO: ARE YOU ALLERGIC TO SHELLFISH OR IV DYE? NO . ANY NEW ALLERGIES? NO . PSYCHIATRIC: DO YOU HAVE THOUGHTS OF HURTING YOURSELF OR SOMEONE ELSE? NO . ARE YOU ABUSED, NEGLECTED, OR IN AN UNSAFE ENVIRONMENT? NO . ENDOCRINOLOGY: ARE YOU DIABETIC? NO . OTHER: DO YOU NEED ANY PRESCRIPTIONS? NO . IF YES, PLEASE LIST: ____ . ANY NEW PROBLEMS WITH YOUR MEDICATIONS? NO . WHEN DID YOU LAST EAT? ____ . WHEN DID YOU LAST DRINK? ____ . WHAT DID YOU LAST DRINK? ____ . NAME OF PERSON DRIVING YOU HOME? ____ . DO YOU HAVE ANY OTHER QUESTIONS OR CONCERNS NO . VITAL SIGNS WT 252.6 LBS, HT 71", BMI 35.23 INDEX, BP 146/100 MM HG, HR 85 /MIN, RR 18 /MIN, TEMP 97.4 F, OXYGEN SAT % 97%, REVIEWED BY: DAMIAN (DONE AT 0939). EXAMINATION GENERAL EXAMINATION: GENERAL APPEARANCE:FATIGUED. PSYCHAFFECT NORMAL. LUNGS:LUNG MONTES ARE CLEAR TO AUSCULTATION BILATERALLY. GOOD MOVEMENT OF AIR. HEART:S1, S2 IN A REGULAR RATE AND RHYTHM. NO SIGNIFICANT MURMURS, RUBS OR GALLOPS NOTED. LUMBAR SPINE/LOWER BACK: INSPECTION:WELL HEALED SURGICAL SCAR L/S AXIS. PALPATION:SEVERE TENDERNESS RSIJ, PARASPINAL TENDERNESS RIGHT. MOTOR SYSTEM:5/5 BLE. SENSORY EXAM:NORMAL BILATERAL LE. GAIT:WALKS WITH LIMP. ASSESSMENTS SACROILIAC JOINT PAIN - M53.3 (PRIMARY) SPONDYLOSIS WITHOUT MYELOPATHY OR RADICULOPATHY, LUMBAR REGION - M47.816 (PRIMARY) TREATMENT SACROILIAC JOINT PAIN NOTES: RIGHT SIJ. PREVENTIVE MEDICINE PAIN CLINIC TEACHING: PROCEDURE TEACHING PRE-PROCEDURE TEACHING DONE AND QUESTIONS ANSWERED. PROCEDURE CODES FA211 ESTABILISHED PATIENT [facility] CHARGE DISPOSITION & COMMUNICATION FOLLOW UP 2WK POST (REASON: RIGHT SIJ) ELECTRONICALLY SIGNED BY FROILAN DUFF ON 04/30/2017 AT 04:52 PM EDT DISCLAIMER : THIS IS A VISIT SUMMARY EXTRACTED FROM THE [employer] CHART. IT IS NOT A COPY OF THE [employer] PROGRESS NOTE. PORTILLO
== END ==
LOC: M PAIN 09:20
PROVIDERS: ATTEND Nurse Practitioner Family
DX: M53.3 Sacrococcygeal disorders, not elsewhere classified (principal); M47.816 Spondylosis without myelopathy or radiculopathy, lumbar region; Z79.899 Other long term (current) drug therapy; Z79.891 Long term (current) use of opiate analgesic

== ENCOUNTER → 2017-04-23 | Outpatient (CLI) | payer BC ==
[~2017-04-23] MED LIST changes: +BUPIVACAINE HCL 0.25% 30 ML VIAL As Ordered ONE; +ISOVUE-M 300 61% 15ML VIAL (Q9967) As Ordered ONE; +LIDOCAINE 1% SDV INJ 30 ML VIAL As Ordered ONE; +TRIAMCINOLONE ACETONIDE SUSP 40 MG/ML VIAL (J3301) As Ordered ONE; +diazePAM 5 MG TAB As Ordered ONE; +oxyCODONE 5MG TAB As Ordered ONE
--- NOTE | 2017-04-23 16:47 | REP ---
FLUOROSCOPIC GUIDANCE: The images were reviewed with Dr. Devries. The patient has a history of back pain. The portable C-ARM was provided in the OR by Dr. Charles for fluoroscopic guidance. 1 intraoperative fluoroscopic spot film was obtained for needle placement verification for right SI joint injection. The film is on the PACS system and is available for review. 11 seconds of fluoroscopic time was utilized for this procedure. Reviewed by ANABELLE Jaime 04/23/2017 04:50 PEdited and Signed by Bora Devries MD 04/24/2017 05:18 P
--- NOTE | 2017-05-06 23:06 | ECWPNPC ---
PATIENT NAME: MELODY BONDS : 1970 GENDER: MALE VISIT DATE: 04/23/2017 DISCHARGE DATE: 04/23/17 1238 VISIT LOCKED DATE TIME: PHYSICIAN: ALICIA DUVALL RESOURCE: ALICIA DUVALL REASON FOR APPOINTMENT 1. RIGHT SIJ HISTORY OF PRESENT ILLNESS HISTORY OF PRESENT ILLNESS: PAIN THE PATIENT DESCRIBES THE PAIN... FALL RISK SCREENING: SCREENING :NO FALLS IN THE PAST YEAR CURRENT MEDICATIONS TAKING ATORVASTATIN CALCIUM 80 MG TABLET 1 TABLET ORALLY ONCE A DAY, NOTES: 52904/23/17 TAKING LISINOPRIL 20 MG TABLET 1 TAB ORALLY DAILY, NOTES: 52904/23/17 TAKING AMLODIPINE BESYLATE 5 MG TABLET 1 TABLET ORALLY ONCE A DAY, NOTES: 52904/23/17 TAKING CYMBALTA 30 MG CAPSULE DELAYED RELEASE PARTICLES 2 CAPSULE ORALLY ONCE A DAY, NOTES: 52904/23/17 TAKING TIZANIDINE HCL 4 MG TABLET 1 AND A HALF TABLETS NEEDED ORALLY FOR SPASMS AND PAIN BEFORE BEDTIME MAY REPEAT IN 5 HRS NEEDED MDD3, NOTES: 199904/22/17 TAKING OMEPRAZOLE 40 MG CAPSULE DELAYED RELEASE 1 CAPSULE ORALLY ONCE A DAY, NOTES: 52904/23/17 TAKING DRISDOL 34623 UNIT CAPSULE 1 CAPSULE ORALLY WEEKLY, NOTES: YESTERDAY AM TAKING MIRTAZAPINE 15 MG TABLET 1 TABLET AT BEDTIME ORALLY ONCE A DAY, NOTES: 199904/22/17 TAKING BISOPROLOL FUMARATE 5 MG TABLET 1 TABLET ORALLY ONCE A DAY, NOTES: 52904/23/17 TAKING TRAMADOL HCL 50 MG TABLET 1-2 ORALLY EVERY 6 HRS PRN MDD4, NOTES: 1999\\7 MEDICATION LIST REVIEWED AND RECONCILED WITH THE PATIENT PAST MEDICAL HISTORY S/P FALL FROM TREE STAND 06/06/15 - SUSTAINED RIGHT FEMUR FRACTURE AND RIGHT WRIST FRACTURE (DR. GRANT - [place] ) NECK/BACK PAIN SUBSEQUENT TO FALL 06/06/15- FOLLOWING WITH AUTOMATIC TIRE TESTER IN [place] (DR. 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 HTN V-TACH - HAD 7 BEATS OF ASSYMPTOMATIC V-MERLY WHILE IN HOSPITAL 10/10/17 - FELT TO BE RELATED TO POSSIBLE LUIS, [place] RULED OUT STRESS SPECT 10/2016 - LOW RISK EF 63% LUIS DIAGNOSED 12/29/16 - HAS NOT STARTED CPAP YET ALLERGIES N.K.D.A. REVIEW OF SYSTEMS REVIEWED BY: PROVIDER: . CONSTITUTIONAL: ANY CHANGE IN YOUR MEDICAL CONDITION? NO . CHILLS NO . FEVER NO . INFECTION: DO YOU HAVE NEW INFECTIONS? NO . DO YOU HAVE HISTORY OF MRSA? NO . MUSCULOSKELETAL: ANY NEW PATTERNS OF PAIN OR NUMBNESS? NO . GASTROENTEROLOGY: ANY NEW CHANGE IN BOWEL CONTROL? NO . GENITOURINARY: ANY NEW CHANGE IN BLADDER CONTROL? NO . IS THERE A CHANCE YOU COULD BE ? NO . HEMATOLOGY/LYMPH: DO YOU TAKE ANY BLOOD THINNERS? (FOR EXAMPLE- COUMADIN, PLAVIX, AGGRENOX, PLATEL, PRADAXA, OR XARELTO) NO . WHEN WAS YOUR LAST DOSE? DATE: TIME: . NEUROLOGY: HAVE YOU FALLEN IN THE PAST 6 MONTHS? NO . ANY NEW EXTREMITY NUMBNESS OR WEAKNESS? NO . CARDIOLOGY: DO YOU HAVE A PACEMAKER OR DEFIBRILLATOR? NO . RESPIRATORY: HAVE YOU BEEN SICK IN THE PAST WEEK? NO . FEVER NO . FLU LIKE SYMPTOMS? NO . COUGH NO . INTEGUMENTARY: DO YOU HAVE ANY RASHES OR OPEN SORES? NO . ALLERGIC/IMMUNO: ARE YOU ALLERGIC TO SHELLFISH OR IV DYE? NO . ANY NEW ALLERGIES? NO . PSYCHIATRIC: DO YOU HAVE THOUGHTS OF HURTING YOURSELF OR SOMEONE ELSE? NO . ARE YOU ABUSED, NEGLECTED, OR IN AN UNSAFE ENVIRONMENT? NO . ENDOCRINOLOGY: ARE YOU DIABETIC? NO . OTHER: DO YOU NEED ANY PRESCRIPTIONS? NO . IF YES, PLEASE LIST: ____ . ANY NEW PROBLEMS WITH YOUR MEDICATIONS? NO . WHEN DID YOU LAST EAT? TUE 6PM . WHEN DID YOU LAST DRINK? 0530 TODAY . WHAT DID YOU LAST DRINK? WATER . NAME OF PERSON DRIVING YOU HOME? JACK . DO YOU HAVE ANY OTHER QUESTIONS OR CONCERNS NO . VITAL SIGNS WT 248.8 LBS, HT 71", BMI 34.70 INDEX, BP 145/88 MM HG, HR 68 /MIN, RR 16 /MIN, TEMP 98.1 F, OXYGEN SAT % 94%, NA INITIALS SC 10:10, REVIEWED BY: NL. ASSESSMENTS SACROILIITIS, NOT ELSEWHERE CLASSIFIED - M46.1 (PRIMARY) PROCEDURES PN SI PRE PROCEDURE DIAGNOSIS SACROILIITIS, SACROILIAC JOINT DYSFUNCTION POST PROCEDURE DIAGNOSIS SACROILIITIS, SACROILIAC JOINT DYSFUNCTION PROCEDURE RIGHT SACROILIAC JOINT BLOCK SURGEON DR. ALICIA DUVALL TRADER NONE ANESTHESIA LOCAL PRE PROCEDURE NOTE PATIENT WITH HISTORY OF CHRONIC LOW BACK PAIN. I EVALUATED THE PATIENT AND REVIEWED THE CHART. I WENT OVER THE RISKS, ALTERNATIVES, AND BENEFITS ASSOCIATED WITH THIS PROCEDURE. THE PATIENT WOULD LIKE TO PROCEED AND GAVE CONSENT TO PERFORM THE PROCEDURE. THE PATIENT DENIES UNEXPLAINABLE WEIGHT LOSS, FEVER, CHILLS, OR NEW CHANGES IN URINARY OR BOWEL CONTROL DESCRIPTION OF PROCEDURE THE PATIENT WAS BROUGHT TO THE PROCEDURE ROOM AND PLACED IN THE PRONE POSITION. THE LUMBOSACRAL AREA WAS CLEANED WITH CHLORAPREP SOLUTION AND DRAPED ASEPTICALLY. THE PROCEDURE WAS DONE UNDER STERILE CONDITIONS. I CHECKED LATERALITY AND THE LEVEL WHERE THE PROCEDURE WAS GOING TO BE PERFORMED WITH THE PATIENT AND THE SUPPORTING STAFF AT THE MOMENT OF THE TIME OUT IN THE PROCEDURE ROOM. UNDER FLUOROSCOPIC GUIDANCE, TARGET POINT WAS SELECTED AT THE LOWER BORDER OF THE RIGHT SACROILIAC JOINT. TARGET POINT WAS SELECTED AFTER MEDIAL ROTATION AND TILT OF THE MAGNIFIER OF THE C-ARM. LIDOCAINE WAS USED TO NUMB THE SKIN AND SUBCUTANEOUS TISSUE BELOW IT. A SPINAL NEEDLE, 22-GAUGE, WAS ADVANCED UNDER FLUOROSCOPIC GUIDANCE AND FOLLOWING PATIENT FEEDBACK UNTIL THE TARGET AREA WAS TOUCHED. THE POSITION OF THE NEEDLE WAS VERIFIED WITH AP AND LATERAL VIEWS. AFTER PROPER POSITION OF THE NEEDLE WAS ACHIEVED, ISOVUE M DYE 30%, 0.25 ML, WAS INJECTED SHOWING SPREAD OF THE DYE. THEN, A SOLUTION OF 20 MG OF KENALOG WAS INJECTED IN RIGHT JOINT WITH 3 ML OF BUPIVACAINE 0.125%. THERE WAS NO EVIDENCE OF BLOOD, PARESTHESIA OR CEREBROSPINAL FLUID DURING THE PROCEDURE. THE PATIENT WAS SENT TO THE RECOVERY ROOM. THE PATIENT WAS MOVING THE EXTREMITIES AND DOING WELL. THERE WAS NO COMPLICATION DURING THE PROCEDURE. FLUOROSCOPY TIME WAS 12 SECONDS POST PROCEDURE NOTE THE PATIENT WILL BE SEEN IN A FOLLOW UP IN THE NEXT FEW WEEKS. INSTRUCTIONS WERE GIVEN, QUESTIONS WERE ANSWERED, AND THE PATIENT EXPRESSED UNDERSTANDING AND AGREED WITH THE PLAN. I, FELICIA NICHOLS, DOCUMENTED THE ABOVE INFORMATION ACTING A SCRIBE FOR DR. DUVALL. I HAVE REVIEWED THE ABOVE DOCUMENT, WRITTEN BY FELICIA NICHOLS SCRIBE AND I VERIFY THAT IT IS [facility] FLUORO GUIDANCE (PAIN)[id number] PROCEDURE CODES 36055 INJECT SACROILIAC JOINT 6045F RADXPS IN END [id number] PXD DISPOSITION & COMMUNICATION FOLLOW UP 3 WEEKS ELECTRONICALLY SIGNED BY ALICIA DUVALL MD ON 05/06/2017 AT 09:58 PM EDT DISCLAIMER : THIS IS A VISIT SUMMARY EXTRACTED FROM THE [employer] CHART. IT IS NOT A COPY OF THE [employer] PROGRESS NOTE. PORTILLO
== END ==
LOC: M PAIN 10:20
PROVIDERS: ATTEND Anesthesiology
DX: G89.29 Other chronic pain (principal); M46.1 Sacroiliitis, not elsewhere classified; Z87.820 Personal history of traumatic brain injury; F41.9 Anxiety disorder, unspecified; F43.10 Post-traumatic stress disorder, unspecified; K29.50 Unspecified chronic gastritis without bleeding; M54.2 Cervicalgia; I10 Essential (primary) hypertension; F07.81 Postconcussional syndrome; G47.33 Obstructive sleep apnea (adult) (pediatric); Z79.891 Long term (current) use of opiate analgesic; Z79.899 Other long term (current) drug therapy
CPT/HCPCS: G0260; J3301; Q9967

== ENCOUNTER → 2017-05-15 | Outpatient (CLI) | payer BC ==
[~2017-05-15] MED LIST changes: -BUPIVACAINE HCL 0.25% 30 ML VIAL As Ordered ONE; -ISOVUE-M 300 61% 15ML VIAL (Q9967) As Ordered ONE; -LIDOCAINE 1% SDV INJ 30 ML VIAL As Ordered ONE; -TRIAMCINOLONE ACETONIDE SUSP 40 MG/ML VIAL (J3301) As Ordered ONE; -diazePAM 5 MG TAB As Ordered ONE; -oxyCODONE 5MG TAB As Ordered ONE
--- NOTE | 2017-05-15 23:16 | ECWPNPC ---
PATIENT NAME: MELODY BONDS : 1970 GENDER: MALE VISIT DATE: 05/15/2017 DISCHARGE DATE: 05/15/17 0942 VISIT LOCKED DATE TIME: PHYSICIAN: RON AMES RESOURCE: RON AMES REASON FOR APPOINTMENT 1. INCREASED PAIN HISTORY OF PRESENT ILLNESS HISTORY OF PRESENT ILLNESS: HERE ON URGENT BASIS.HAVING SEVERE FLARE UP OF BACK PAIN AND RIGHT LEG PAIN.RATING PAIN VAS 9/10.HAD RSIJ ON 04-23-17 AND REPORTS 7 DAYS OF REDUCED PAIN POST PROCEDURE.PAIN IS MOST INTENSE IN HIS RIGHT LOW BACK.PAIN RADIATES INTO RIGHT POSTERIOR LATERAL THIGH.PAIN IS AGGREVATED BY WALKING AND STANDING.FINDING TRAMADOL AND IBUPROFEN INEFFECTIVE.ONSET OF LOW BACK PAIN WAS AFTER A FALL INJURY IN JUNE OF 2015.HAD L4/5 FUSION 01/2016 WITHOUT IMPROVEMENT IN PAIN.DESCRIBES PAIN CONSTANT BURNING AND ACHING PAIN.PAIN AGGREVATED BY PROLONGED STANDING OR SITTING. PAIN THE PATIENT DESCRIBES THE PAIN... THE PATIENT DESCRIBES THE PAIN... THE PATIENT DESCRIBES THE PAIN... THE PATIENT DESCRIBES THE PAIN... FALL RISK SCREENING: SCREENING :NO FALLS IN THE PAST YEAR CURRENT MEDICATIONS TAKING ATORVASTATIN CALCIUM 80 MG TABLET 1 TABLET ORALLY ONCE A DAY TAKING LISINOPRIL 20 MG TABLET 1 TAB ORALLY DAILY TAKING AMLODIPINE BESYLATE 5 MG TABLET 1 TABLET ORALLY ONCE A DAY TAKING CYMBALTA 30 MG CAPSULE DELAYED RELEASE PARTICLES 2 CAPSULE ORALLY ONCE A DAY TAKING TIZANIDINE HCL 4 MG TABLET 1 AND A HALF TABLETS NEEDED ORALLY FOR SPASMS AND PAIN BEFORE BEDTIME MAY REPEAT IN 5 HRS NEEDED MDD3 TAKING OMEPRAZOLE 40 MG CAPSULE DELAYED RELEASE 1 CAPSULE ORALLY ONCE A DAY TAKING DRISDOL 34804 UNIT CAPSULE 1 CAPSULE ORALLY WEEKLY TAKING MIRTAZAPINE 15 MG TABLET 1 TABLET AT BEDTIME ORALLY ONCE A DAY TAKING BISOPROLOL FUMARATE 5 MG TABLET 1 TABLET ORALLY ONCE A DAY TAKING TRAMADOL HCL 50 MG TABLET 1-2 ORALLY EVERY 6 HRS PRN MDD4 MEDICATION LIST REVIEWED AND RECONCILED WITH THE PATIENT PAST MEDICAL HISTORY S/P FALL FROM TREE STAND 06/06/15 - SUSTAINED RIGHT FEMUR FRACTURE AND RIGHT WRIST FRACTURE (DR. GRANT - [place] ) NECK/BACK PAIN SUBSEQUENT TO FALL 06/06/15- FOLLOWING WITH TOPLINE BEADING MACHINE TENDER IN [place] (DR. 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 HTN V-TACH - HAD 7 BEATS OF ASSYMPTOMATIC V-MERLY WHILE IN HOSPITAL 10/10/17 - FELT TO BE RELATED TO POSSIBLE LUIS, [place] RULED OUT STRESS SPECT 10/2016 - LOW RISK EF 63% LUIS DIAGNOSED 12/29/16 - HAS NOT STARTED CPAP YET ALLERGIES N.K.D.A. SURGICAL HISTORY BROKEN FEMUR REPAIRED WITH RODS/PINS, RIGHT WRIST FRACTURE 06/07/15 FUSION L4-L5 01/2016 PUT A BIGGER RITA IN FEMUR 02/2016 RIGHT WRIST HARDWARE REMOVED 09/19/16 HOSPITALIZATION/MAJOR DIAGNOSTIC PROCEDURE ALL SURGICAL RELATED CHEST PAIN 10/2016 REVIEW OF SYSTEMS REVIEWED BY: PROVIDER: RON MCGOVERN . CONSTITUTIONAL: ANY CHANGE IN YOUR MEDICAL CONDITION? NO . CHILLS NO . FEVER NO . INFECTION: DO YOU HAVE NEW INFECTIONS? NO . DO YOU HAVE HISTORY OF MRSA? NO . MUSCULOSKELETAL: ANY NEW PATTERNS OF PAIN OR NUMBNESS? YES, PT STATES HIS PAIN IN NECK/BACK AND NOW RIGHT LEG IS GETTING WORSE . GASTROENTEROLOGY: ANY NEW CHANGE IN BOWEL CONTROL? NO . GENITOURINARY: ANY NEW CHANGE IN BLADDER CONTROL? NO . IS THERE A CHANCE YOU COULD BE ? NO . HEMATOLOGY/LYMPH: DO YOU TAKE ANY BLOOD THINNERS? (FOR EXAMPLE- COUMADIN, PLAVIX, AGGRENOX, PLATEL, PRADAXA, OR XARELTO) NO . WHEN WAS YOUR LAST DOSE? DATE: TIME: . NEUROLOGY: HAVE YOU FALLEN IN THE PAST 6 MONTHS? NO . ANY NEW EXTREMITY NUMBNESS OR WEAKNESS? NO . CARDIOLOGY: DO YOU HAVE A PACEMAKER OR DEFIBRILLATOR? NO . RESPIRATORY: HAVE YOU BEEN SICK IN THE PAST WEEK? NO . FEVER NO . FLU LIKE SYMPTOMS? NO . COUGH NO . INTEGUMENTARY: DO YOU HAVE ANY RASHES OR OPEN SORES? NO . ALLERGIC/IMMUNO: ARE YOU ALLERGIC TO SHELLFISH OR IV DYE? NO . ANY NEW ALLERGIES? NO . PSYCHIATRIC: DO YOU HAVE THOUGHTS OF HURTING YOURSELF OR SOMEONE ELSE? NO . ARE YOU ABUSED, NEGLECTED, OR IN AN UNSAFE ENVIRONMENT? NO . ENDOCRINOLOGY: ARE YOU DIABETIC? NO . OTHER: DO YOU NEED ANY PRESCRIPTIONS? NO . IF YES, PLEASE LIST: ____ . ANY NEW PROBLEMS WITH YOUR MEDICATIONS? NO . WHEN DID YOU LAST EAT? ____ . WHEN DID YOU LAST DRINK? ____ . WHAT DID YOU LAST DRINK? ____ . NAME OF PERSON DRIVING YOU HOME? ____ . DO YOU HAVE ANY OTHER QUESTIONS OR CONCERNS NO . VITAL SIGNS WT 242 LBS, HT 71", BMI 33.75 INDEX, BP 150/103 MM HG, HR 78 /MIN, RR 18 /MIN, TEMP 98.6 F, OXYGEN SAT % 98, SAFE IN ENV? (Y/N) Y, REVIEWED BY: SANTOSH. EXAMINATION GENERAL EXAMINATION: GENERAL APPEARANCE:FATIGUED. PSYCHAFFECT NORMAL. LUNGS:LUNG MONTES ARE CLEAR TO AUSCULTATION BILATERALLY. GOOD MOVEMENT OF AIR. HEART:S1, S2 IN A REGULAR RATE AND RHYTHM. NO SIGNIFICANT MURMURS, RUBS OR GALLOPS NOTED. LUMBAR SPINE/LOWER BACK: INSPECTION:WELL HEALED SURGICAL SCAR L/S AXIS. PALPATION:SEVERE TENDERNESS RSIJ, PARASPINAL TENDERNESS RIGHT. MOTOR SYSTEM:5/5 BLE. SENSORY EXAM:NORMAL BILATERAL LE. GAIT:WALKS WITH LIMP. ASSESSMENTS ACUTE LOW BACK PAIN DUE TO SPINAL DISORDER - M54.5 (PRIMARY) POST LAMINECTOMY SYNDROME - M96.1 CERVICALGIA - M54.2 TREATMENT ACUTE LOW BACK PAIN DUE TO SPINAL DISORDER STOP TIZANIDINE HCL TABLET, 4 MG, 1 AND A HALF TABLETS NEEDED, ORALLY FOR SPASMS AND PAIN, BEFORE BEDTIME MAY REPEAT IN 5 HRS NEEDED MDD3 STOP TRAMADOL HCL TABLET, 50 MG, 1-2, ORALLY, EVERY 6 HRS PRN MDD4 START METHYLPREDNISOLONE TABLET THERAPY PACK, 4 MG, DIRECTED, ORALLY, DIRECTED, 21 DAY(S), 1, REFILLS 0 START SOMA TABLET, 350 MG, 1 TABLET NEEDED, ORALLY, Q8H PRN MDD3, 30 DAY(S), 45, REFILLS 0 START PERCOCET TABLET, 5-325 MG, 1 TABLET NEEDED, ORALLY, EVERY 6 HRS MDD4, 30 DAY(S), 60, REFILLS 0 [facility] MRI LS SPINE W/O AND WITH [id number] NOTES: PLEASE GET AUTH FOR MRI GVAI. PROCEDURE CODES FA211 ESTABILISHED PATIENT [facility] CHARGE DISPOSITION & COMMUNICATION FOLLOW UP 10 DAYS ELECTRONICALLY SIGNED BY FROILAN DUFF ON 05/15/2017 AT 09:55 AM EDT DISCLAIMER : THIS IS A VISIT SUMMARY EXTRACTED FROM THE [employer] CHART. IT IS NOT A COPY OF THE [employer] PROGRESS NOTE. PORTILLO
== END ==
LOC: M PAIN 08:40
PROVIDERS: ATTEND Nurse Practitioner Family
DX: G89.29 Other chronic pain (principal); M54.5 Low back pain; M96.1 Postlaminectomy syndrome, not elsewhere classified; M54.2 Cervicalgia; W14.XXXS Fall from tree, sequela; Y92.9 Unspecified place or not applicable; Y99.9 Unspecified external cause status; F41.9 Anxiety disorder, unspecified; F43.10 Post-traumatic stress disorder, unspecified; I10 Essential (primary) hypertension; G47.33 Obstructive sleep apnea (adult) (pediatric); Z79.891 Long term (current) use of opiate analgesic; Z79.899 Other long term (current) drug therapy; Z87.820 Personal history of traumatic brain injury

== ENCOUNTER → 2017-05-21 | Outpatient (CLI) | payer BC ==
--- NOTE | 2017-05-21 23:25 | ECWPNPC ---
PATIENT NAME: MELODY BONDS : 1970 GENDER: MALE VISIT DATE: 05/21/2017 DISCHARGE DATE: 05/21/17 0943 VISIT LOCKED DATE TIME: PHYSICIAN: RON AMES RESOURCE: RON AMES REASON FOR APPOINTMENT 1. BACK, NECK HISTORY OF PRESENT ILLNESS HISTORY OF PRESENT ILLNESS: HERE FOR 2WK F/U OF ACUTE ON CHRONIC LOW BACK PAIN AND RIGHT LEG PAIN.RATING PAIN VAS 7/10.FINISHED PREDNISONE DOSE PACK A FEW DAYS AGO AND FEELS A LITTLE BETTER.TAKING SOMA 350MG BID AND PERCOCET 5/325 THREE TABLETS PER DAY.FEELS MEDICATION IS HELPFUL AND WITHOUT SIDE EFFECTS.ABLE TO PARTICIPATE IN WALKING AND ACTIVITIES A BIT BETTER NOW.HAS MRI SCHEDULED L/S SPINE IN 3 DAYS. PAIN THE PATIENT DESCRIBES THE PAIN... FALL RISK SCREENING: SCREENING :NO FALLS IN THE PAST YEAR CURRENT MEDICATIONS TAKING ATORVASTATIN CALCIUM 80 MG TABLET 1 TABLET ORALLY ONCE A DAY TAKING OMEPRAZOLE 40 MG CAPSULE DELAYED RELEASE 1 CAPSULE ORALLY ONCE A DAY TAKING SOMA 350 MG TABLET 1 TABLET NEEDED ORALLY Q8H PRN MDD3 TAKING PERCOCET 5-325 MG TABLET 1 TABLET NEEDED ORALLY EVERY 6 HRS MDD4 TAKING LISINOPRIL 20 MG TABLET 1 TAB ORALLY DAILY TAKING AMLODIPINE BESYLATE 5 MG TABLET 1 TABLET ORALLY ONCE A DAY TAKING BISOPROLOL FUMARATE 5 MG TABLET 1 TABLET ORALLY ONCE A DAY TAKING CYMBALTA 30 MG CAPSULE DELAYED RELEASE PARTICLES 2 CAPSULE ORALLY ONCE A DAY TAKING MIRTAZAPINE 15 MG TABLET 1 TABLET AT BEDTIME ORALLY ONCE A DAY TAKING DRISDOL 70187 UNIT CAPSULE 1 CAPSULE ORALLY WEEKLY NOT-TAKING METHYLPREDNISOLONE 4 MG TABLET THERAPY PACK DIRECTED ORALLY DIRECTED MEDICATION LIST REVIEWED AND RECONCILED WITH THE PATIENT PAST MEDICAL HISTORY S/P FALL FROM TREE STAND 06/06/15 - SUSTAINED RIGHT FEMUR FRACTURE AND RIGHT WRIST FRACTURE (DR. GRANT - [facility] ) NECK/BACK PAIN SUBSEQUENT TO FALL 06/06/15- 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 SURGICAL HISTORY BROKEN FEMUR REPAIRED WITH RODS/PINS, RIGHT WRIST FRACTURE 06/07/15 FUSION L4-L5 01/2016 PUT A BIGGER RITA IN FEMUR 02/2016 RIGHT WRIST HARDWARE REMOVED 09/19/16 HOSPITALIZATION/MAJOR DIAGNOSTIC PROCEDURE ALL SURGICAL RELATED CHEST PAIN 10/2016 REVIEW OF SYSTEMS REVIEWED BY: PROVIDER: RON MCGOVERN . CONSTITUTIONAL: ANY CHANGE IN YOUR MEDICAL CONDITION? NO . CHILLS NO . FEVER NO . INFECTION: DO YOU HAVE NEW INFECTIONS? NO . DO YOU HAVE HISTORY OF MRSA? NO . MUSCULOSKELETAL: ANY NEW PATTERNS OF PAIN OR NUMBNESS? NO . GASTROENTEROLOGY: ANY NEW CHANGE IN BOWEL CONTROL? NO . GENITOURINARY: ANY NEW CHANGE IN BLADDER CONTROL? NO . IS THERE A CHANCE YOU COULD BE ? NO . HEMATOLOGY/LYMPH: DO YOU TAKE ANY BLOOD THINNERS? (FOR EXAMPLE- COUMADIN, PLAVIX, AGGRENOX, PLATEL, PRADAXA, OR XARELTO) NO . WHEN WAS YOUR LAST DOSE? DATE: TIME: . NEUROLOGY: HAVE YOU FALLEN IN THE PAST 6 MONTHS? NO . ANY NEW EXTREMITY NUMBNESS OR WEAKNESS? NO . CARDIOLOGY: DO YOU HAVE A PACEMAKER OR DEFIBRILLATOR? NO . RESPIRATORY: HAVE YOU BEEN SICK IN THE PAST WEEK? NO . FEVER NO . FLU LIKE SYMPTOMS? NO . COUGH NO . INTEGUMENTARY: DO YOU HAVE ANY RASHES OR OPEN SORES? NO . ALLERGIC/IMMUNO: ARE YOU ALLERGIC TO SHELLFISH OR IV DYE? NO . ANY NEW ALLERGIES? NO . PSYCHIATRIC: DO YOU HAVE THOUGHTS OF HURTING YOURSELF OR SOMEONE ELSE? NO . ARE YOU ABUSED, NEGLECTED, OR IN AN UNSAFE ENVIRONMENT? NO . ENDOCRINOLOGY: ARE YOU DIABETIC? NO . OTHER: DO YOU NEED ANY PRESCRIPTIONS? NO . IF YES, PLEASE LIST: ____ . ANY NEW PROBLEMS WITH YOUR MEDICATIONS? NO . WHEN DID YOU LAST EAT? ____ . WHEN DID YOU LAST DRINK? ____ . WHAT DID YOU LAST DRINK? ____ . NAME OF PERSON DRIVING YOU HOME? ____ . DO YOU HAVE ANY OTHER QUESTIONS OR CONCERNS NO . VITAL SIGNS WT 242.0 LBS, HT 71", BMI 33.75 INDEX, BP 138/91 MM HG, HR 76 /MIN, RR 16 /MIN, TEMP 98.0 F, OXYGEN SAT % 95%, SAFE IN ENV? (Y/N) Y, NA INITIALS TL 0914, REVIEWED BY: EM. EXAMINATION GENERAL EXAMINATION: GENERAL APPEARANCE:FATIGUED. PSYCHAFFECT NORMAL. LUNGS:LUNG MONTES ARE CLEAR TO AUSCULTATION BILATERALLY. GOOD MOVEMENT OF AIR. HEART:S1, S2 IN A REGULAR RATE AND RHYTHM. NO SIGNIFICANT MURMURS, RUBS OR GALLOPS NOTED. LUMBAR SPINE/LOWER BACK: INSPECTION:WELL HEALED SURGICAL SCAR L/S AXIS. PALPATION:SEVERE TENDERNESS RSIJ, PARASPINAL TENDERNESS RIGHT. MOTOR SYSTEM:5/5 BLE. SENSORY EXAM:NORMAL BILATERAL LE. GAIT:WALKS WITH LIMP. ASSESSMENTS ACUTE LOW BACK PAIN DUE TO SPINAL DISORDER - M54.5 (PRIMARY) POST LAMINECTOMY SYNDROME - M96.1 CERVICALGIA - M54.2 TREATMENT ACUTE LOW BACK PAIN DUE TO SPINAL DISORDER REFILL SOMA TABLET, 350 MG, 1 TABLET NEEDED, ORALLY, Q8H PRN MDD3, 30 DAY(S), 45, REFILLS 0 REFILL PERCOCET TABLET, 5-325 MG, 1 TABLET NEEDED, ORALLY, EVERY 6 HRS MDD4, 30 DAY(S), 60, REFILLS 0 PROCEDURE CODES FA211 ESTABILISHED PATIENT [facility] CHARGE DISPOSITION & COMMUNICATION FOLLOW UP 2 WEEKS ELECTRONICALLY SIGNED BY FROILAN DUFF ON 05/21/2017 AT 12:12 PM EDT DISCLAIMER : THIS IS A VISIT SUMMARY EXTRACTED FROM THE [employer] CHART. IT IS NOT A COPY OF THE [employer] PROGRESS NOTE. MTDD
== END ==
LOC: M PAIN 09:00
PROVIDERS: ATTEND Nurse Practitioner Family
DX: M96.1 Postlaminectomy syndrome, not elsewhere classified (principal); M54.5 Low back pain; M54.2 Cervicalgia; W14.XXXS Fall from tree, sequela; I10 Essential (primary) hypertension; G47.33 Obstructive sleep apnea (adult) (pediatric); Z79.899 Other long term (current) drug therapy; Z87.820 Personal history of traumatic brain injury; Y92.9 Unspecified place or not applicable

== ENCOUNTER → 2017-05-23 | Outpatient (CLI) | payer BC ==
--- NOTE | 2017-05-23 12:08 | REP ---
MR LUMBAR SPINE WITHOUT CONTRAST: HISTORY: Back pain. CONTRAST: ProHance 20 mL. Decreased signal intensity on T2-weighted images is present in the L3-4 and L4-5 intervertebral discs. The discs are decreased in height. These findings are consistent with disc degeneration. There is no disc bulge or herniation at the L1-2 level. The L1 nerves exit the neural foramina without compression. A diffuse disc bulge is present at the L2-3 level. There is minimal compression of the thecal sac. There is hypertrophy of the posterior articulating facets. The L2 nerves exit the neural foramina without compression. A diffuse disc bulge is present at the L3-4 level. There is minimal compression of the thecal sac. There is hypertrophy of the posterior articulating facets. The L3 nerves exit the neural foramina without compression. The patient is status post L4-5 anterior and posterior spinal fusion and laminectomy. Bone graft material is present anteriorly and metal rods and pedicle screws posteriorly. A diffuse disc bulge is present. This abuts the thecal sac. There is hypertrophy of the posterior articulating facets. There are 3 mm of grade 1 spondylolisthesis of L4 on L5. The L4 nerves exit the neural foramina without compression. Scar tissue is present at the laminectomy site and in the lateral aspect of the spinal canal. The scar tissue involves the L5 nerves. A diffuse disc bulge is present at the L5-S1 level. This abuts the thecal sac. There is hypertrophy of the posterior articulating facets. The L5 nerves exit the neural foramina without compression. The conus medullaris is normal in appearance terminating at the level of the T12-L1 intervertebral disc. . Increased signal intensity on T2-weighted images is present in the endplates of the L2 through L5 vertebral bodies. This represents degenerative change. There is an old compression fracture of the L2 vertebral body with minimal height loss. IMPRESSION: 1. Diffuse disc bulge at the L2-3 and L3-4 levels with minimal thecal sac compression. 2. The patient is status post L4-5 anterior and posterior spinal fusion and laminectomy. There is grade 1 spondylolisthesis of L4 on L5. Scar tissue involves the L5 nerves. 3. Diffuse disc bulge at the L5-S1 level. This abuts the thecal sac. Signed by Eusebio Perdomo MD 05/23/2017 12:18 P
== END ==
LOC: M RAD 09:41
PROVIDERS: ATTEND Nurse Practitioner Family
DX: M51.26 Other intervertebral disc displacement, lumbar region (principal); M51.27 Other intervertebral disc displacement, lumbosacral region; M43.16 Spondylolisthesis, lumbar region; L90.5 Scar conditions and fibrosis of skin; Z98.1 Arthrodesis status
CPT/HCPCS: 72158; A9576

== ENCOUNTER → 2017-06-05 | Outpatient (CLI) | payer BC, SELFPAY ==
--- NOTE | 2017-06-20 00:42 | ECWPNPC ---
PATIENT NAME: MELODY BONDS : 1970 GENDER: MALE VISIT DATE: 06/05/2017 DISCHARGE DATE: 06/05/1739 VISIT LOCKED DATE TIME: PHYSICIAN: RON AMES RESOURCE: RON AMES REASON FOR APPOINTMENT 1. BACK, NECK HISTORY OF PRESENT ILLNESS HISTORY OF PRESENT ILLNESS: HERE FOR F/U LBP,RIGHT LEG PAIN WITH HX OF SPINAL FUSION 2015.ALSO SUFFERS FROM NECK AND GENERALIZED BACK PAIN.TODAYS VISIT IS TO REVIEW MRI L/S SPINE ORDERED BY ME AND DONE 05-23-17.THIS IS SHOWING L4/5 FUSION HARDWARE AND SCAR TISSUE INVOLVING L5 NERVES.SHOWING 3 MM GRADE 1 SPONDYLOLISTHESIS L4/5.HAS TRIALED MULTIPLE PROCEDURES ON LUMBAR SPINE WITHOUT IMPROVEMENT.REPORTS IMPROVEMENT WITH CERVICAL PROCEDURES.FINDS CURRENT PAIN MEDICATION HELPFUL AT REDUCING PAIN AND KEEPING HIM FUNCTIONAL.DENIES SIDE EFFECTS.BRINGS MEDICATION IN WHICH IS APPRORIATE FOR WHAT WAS DISPENSED.RATING PAIN VAS 6/10. FALL RISK SCREENING: SCREENING :NO FALLS IN THE PAST YEAR CURRENT MEDICATIONS TAKING OMEPRAZOLE 40 MG CAPSULE DELAYED RELEASE 1 CAPSULE ORALLY ONCE A DAY TAKING CYMBALTA 30 MG CAPSULE DELAYED RELEASE PARTICLES 2 CAPSULE ORALLY ONCE A DAY TAKING MIRTAZAPINE 15 MG TABLET 1 TABLET AT BEDTIME ORALLY ONCE A DAY TAKING DRISDOL 20005 UNIT CAPSULE 1 CAPSULE ORALLY WEEKLY TAKING SOMA 350 MG TABLET 1 TABLET NEEDED ORALLY Q8H PRN MDD3 TAKING PERCOCET 5-325 MG TABLET 1 TABLET NEEDED ORALLY EVERY 6 HRS MDD4 TAKING ATORVASTATIN CALCIUM 80 MG TABLET 1 TABLET ORALLY ONCE A DAY TAKING LISINOPRIL 20 MG TABLET 1 TAB ORALLY DAILY TAKING AMLODIPINE BESYLATE 5 MG TABLET 1 TABLET ORALLY ONCE A DAY TAKING BISOPROLOL FUMARATE 5 MG TABLET 1 TABLET ORALLY ONCE A DAY NOT-TAKING METHYLPREDNISOLONE 4 MG TABLET THERAPY PACK DIRECTED ORALLY DIRECTED MEDICATION LIST REVIEWED AND RECONCILED WITH THE PATIENT PAST MEDICAL HISTORY S/P FALL FROM TREE STAND 06/06/15 - SUSTAINED RIGHT FEMUR FRACTURE AND RIGHT WRIST FRACTURE (DR. GRANT - [facility] ) NECK/BACK PAIN SUBSEQUENT TO FALL 06/06/15- 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 SOCIAL HISTORY GENERAL: TOBACCO USE ADDITIONAL FINDINGS: TOBACCO USERCHEWS TOBACCO BMI CARE GOAL FOLLOW-UP ABOVE NORMAL BMI FOLLOW-UPDIETARY MANAGEMENT EDUCATION, GUIDANCE, AND COUNSELING ALCOHOL SCREENING DID YOU HAVE A DRINK CONTAINING ALCOHOL IN THE PAST YEAR?YES HOW OFTEN DID YOU HAVE A DRINK CONTAINING ALCOHOL IN THE PAST YEAR?MONTHLY OR LESS (1 POINT) HOW MANY DRINKS DID YOU HAVE ON A TYPICAL DAY WHEN YOU WERE DRINKING IN THE PAST YEAR?1 OR 2 (0 POINTS) HOW OFTEN DID YOU HAVE SIX OR MORE DRINKS ON ONE OCCASION IN THE PAST YEAR?NEVER (0 POINTS) POINTS1 INTERPRETATIONNEGATIVE RECREATIONAL DRUG USE DRUG USE?NO CAFFEINE CAFFEINE USE?YES HOW OFTEN AND HOW MUCH? 2 CUPS OF COFFEE PER DAY SEXUAL HX HAD SEX IN THE LAST 12 MONTHS (VAGINAL, ORAL, OR ANAL)?YES WITHWOMEN ONLY USE PROTECTION?NO HAVE YOU EVER HAD AN STD?NO OCCUPATION: DISABLED. DIET: REGULAR. EXERCISE: NO REGULAR EXERCISE. MARITAL STATUS: . MORMON [id number] NONE LANGUAGE LANGUAGES SPOKEN:SAMOAN EDUCATION LEVEL OF EDUCATION:NOT FINISHED COLLEGE LEARNING BARRIERS / SPECIAL NEEDS CHANGE FROM LAST VISIT?NO BARRIERS TO LEARNING?NO HEARING IMPAIRED?NO VISION IMPAIRED?YES :CORRECTIVE LENSES COGNITIVELY IMPAIRED?NO READINESS TO LEARN?YES LEARNING PREFERENCES?NO LEARNING CAPABILITIES PRESENT?YES EMOTIONAL BARRIERS?NO SPECIAL DEVICES?NO COMPUTERIZED MILL MILL RECORDER NEEDED?NO PAIN CLINIC PFS, CLERGY, PUBLIC HEALTH REFERRALS PFS REFERRAL NEEDED?NO CLERGY REFERRAL NEEDED?NO PUBLIC HEALTH REFERRAL NEEDED?NO WAS THE PROVIDER NOTIFIED OF ANY PERTINENT INFO?NO HAS THE PATIENT BEEN EDUCATED REGARDING HIS/HER PLAN OF CARE?YES HAS THE PATIENT BEEN EDUCATED REGARDING PAIN, THE RISK FOR PAIN, THE IMPORTANCE OF EFFECTIVE PAIN MANAGEMENT, AND THE PAIN ASSESSMENT PROCESS?YES PATIENT: ____. TRAVEL OUTSIDE US: NO. DOMESTIC VIOLENCE DO YOU FEEL SAFE IN YOUR ENVIRONMENT?YES REVIEW OF SYSTEMS REVIEWED BY: PROVIDER: RON MCGOVERN . CONSTITUTIONAL: ANY CHANGE IN YOUR MEDICAL CONDITION? NO . CHILLS NO . FEVER NO . INFECTION: DO YOU HAVE NEW INFECTIONS? NO . DO YOU HAVE HISTORY OF MRSA? NO . MUSCULOSKELETAL: ANY NEW PATTERNS OF PAIN OR NUMBNESS? NO . GASTROENTEROLOGY: ANY NEW CHANGE IN BOWEL CONTROL? NO . GENITOURINARY: ANY NEW CHANGE IN BLADDER CONTROL? NO . IS THERE A CHANCE YOU COULD BE ? NO . HEMATOLOGY/LYMPH: DO YOU TAKE ANY BLOOD THINNERS? (FOR EXAMPLE- COUMADIN, PLAVIX, AGGRENOX, PLATEL, PRADAXA, OR XARELTO) NO . WHEN WAS YOUR LAST DOSE? DATE: TIME: . NEUROLOGY: HAVE YOU FALLEN IN THE PAST 6 MONTHS? NO . ANY NEW EXTREMITY NUMBNESS OR WEAKNESS? NO . CARDIOLOGY: DO YOU HAVE A PACEMAKER OR DEFIBRILLATOR? NO . RESPIRATORY: HAVE YOU BEEN SICK IN THE PAST WEEK? NO . FEVER NO . FLU LIKE SYMPTOMS? NO . COUGH NO . INTEGUMENTARY: DO YOU HAVE ANY RASHES OR OPEN SORES? NO . ALLERGIC/IMMUNO: ARE YOU ALLERGIC TO SHELLFISH OR IV DYE? NO . ANY NEW ALLERGIES? NO . PSYCHIATRIC: DO YOU HAVE THOUGHTS OF HURTING YOURSELF OR SOMEONE ELSE? NO . ARE YOU ABUSED, NEGLECTED, OR IN AN UNSAFE ENVIRONMENT? NO . ENDOCRINOLOGY: ARE YOU DIABETIC? NO . OTHER: DO YOU NEED ANY PRESCRIPTIONS? NO . IF YES, PLEASE LIST: ____ . ANY NEW PROBLEMS WITH YOUR MEDICATIONS? NO . WHEN DID YOU LAST EAT? ____ . WHEN DID YOU LAST DRINK? ____ . WHAT DID YOU LAST DRINK? ____ . NAME OF PERSON DRIVING YOU HOME? ____ . DO YOU HAVE ANY OTHER QUESTIONS OR CONCERNS NO . VITAL SIGNS WT 242 LBS, HT 71", BMI 33.75 INDEX, BP 144/96 MM HG, HR 70 /MIN, RR 18 /MIN, TEMP 97.5 F, OXYGEN SAT % 97%, REVIEWED BY: DAMIAN (DONE AT 0850). EXAMINATION GENERAL EXAMINATION: GENERAL APPEARANCE:FATIGUED. PSYCHAFFECT NORMAL. LUNGS:LUNG MONTES ARE CLEAR TO AUSCULTATION BILATERALLY. GOOD MOVEMENT OF AIR. HEART:S1, S2 IN A REGULAR RATE AND RHYTHM. NO SIGNIFICANT MURMURS, RUBS OR GALLOPS NOTED. LUMBAR SPINE/LOWER BACK: INSPECTION:WELL HEALED SURGICAL SCAR L/S AXIS. PALPATION:SEVERE TENDERNESS RSIJ, PARASPINAL TENDERNESS RIGHT. MOTOR SYSTEM:5/5 BLE. SENSORY EXAM:NORMAL BILATERAL LE. GAIT:WALKS WITH LIMP. ASSESSMENTS POST LAMINECTOMY SYNDROME - M96.1 (PRIMARY) CERVICALGIA - M54.2 TREATMENT POST LAMINECTOMY SYNDROME REFILL SOMA TABLET, 350 MG, 1 TABLET NEEDED, ORALLY, Q8H PRN MDD3, 30 DAY(S), 45, REFILLS 0 REFILL PERCOCET TABLET, 5-325 MG, 1 TABLET NEEDED, ORALLY, EVERY 6 HRS MDD4, 30 DAY(S), 60, REFILLS 0 NOTES: DCS INFO GIVEN TO REVIEW. PROCEDURE CODES FA211 ESTABILISHED PATIENT [facility] CHARGE DISPOSITION & COMMUNICATION FOLLOW UP WHEN IM AVAILABLE IN [place] F/U ELECTRONICALLY SIGNED BY FROILAN DUFF ON 06/19/2017 AT 08:01 PM EDT DISCLAIMER : THIS IS A VISIT SUMMARY EXTRACTED FROM THE [employer] CHART. IT IS NOT A COPY OF THE [employer] PROGRESS NOTE. RAHELD
== END ==
LOC: M PAIN 08:40
PROVIDERS: ATTEND Nurse Practitioner Family
DX: M96.1 Postlaminectomy syndrome, not elsewhere classified (principal); M54.2 Cervicalgia; W14.XXXS Fall from tree, sequela; S06.9X0D Unspecified intracranial injury without loss of consciousness, subsequent encounter; X58.XXXS Exposure to other specified factors, sequela; Y92.9 Unspecified place or not applicable; Y93.9 Activity, unspecified; Y99.8 Other external cause status; F41.9 Anxiety disorder, unspecified; G47.33 Obstructive sleep apnea (adult) (pediatric); F43.10 Post-traumatic stress disorder, unspecified; I10 Essential (primary) hypertension; K21.9 Gastro-esophageal reflux disease without esophagitis; E55.9 Vitamin D deficiency, unspecified; E78.1 Pure hyperglyceridemia; F32.1 Major depressive disorder, single episode, moderate; F17.220 Nicotine dependence, chewing tobacco, uncomplicated; Z79.899 Other long term (current) drug therapy

== ENCOUNTER → 2017-07-08 | Outpatient (CLI) | payer BC ==
--- NOTE | 2017-07-18 00:12 | ECWPNPC ---
PATIENT NAME: MELODY BONDS : 1970 GENDER: MALE VISIT DATE: 07/08/2017 DISCHARGE DATE: 07/08/17 1051 VISIT LOCKED DATE TIME: PHYSICIAN: RON AMES RESOURCE: RON AMES REASON FOR APPOINTMENT 1. MEDS HISTORY OF PRESENT ILLNESS HISTORY OF PRESENT ILLNESS: PAIN THE PATIENT DESCRIBES THE PAIN... THE PATIENT DESCRIBES THE PAIN... HERE FOR F/U LBP,RIGHT LEG PAIN WITH HX OF SPINAL FUSION 2015.ALSO SUFFERS FROM NECK AND GENERALIZED BACK PAIN. MRI L/S SPINE ORDERED BY ME AND DONE 05-23-17.THIS IS SHOWING L4/5 FUSION HARDWARE AND SCAR TISSUE INVOLVING L5 NERVES.SHOWING 3 MM GRADE 1 SPONDYLOLISTHESIS L4/5.HAS TRIALED MULTIPLE PROCEDURES ON LUMBAR SPINE WITHOUT IMPROVEMENT.REPORTS IMPROVEMENT WITH CERVICAL PROCEDURES.REPORTS THAT HE RAN OUT OF PAIN MEDICATION 5 DAYS AGO HE WAS TAKING 3 TABLETS DAILY ON A SCHEDULED BASIS.PAIN WAS MUCH BETTER CONTROLLED WHEN USING PAIN MEDICATION.CURRENTLY HE IS REPORTING POOR ACTIVITY TOLERANCE AND INCREASED DIFFICULTIES WITH SLEEP SINCE BEING WITHOUT PAIN MEDICATION.RATING PAIN VAS 8/10. FALL RISK SCREENING: SCREENING :NO FALLS IN THE PAST YEAR CURRENT MEDICATIONS TAKING OMEPRAZOLE 40 MG CAPSULE DELAYED RELEASE 1 CAPSULE ORALLY ONCE A DAY TAKING MIRTAZAPINE 15 MG TABLET 1 TABLET AT BEDTIME ORALLY ONCE A DAY TAKING DRISDOL 46048 UNIT CAPSULE 1 CAPSULE ORALLY WEEKLY TAKING ATORVASTATIN CALCIUM 80 MG TABLET 1 TABLET ORALLY ONCE A DAY TAKING LISINOPRIL 20 MG TABLET 1 TAB ORALLY DAILY TAKING AMLODIPINE BESYLATE 5 MG TABLET 1 TABLET ORALLY ONCE A DAY TAKING BISOPROLOL FUMARATE 5 MG TABLET 1 TABLET ORALLY ONCE A DAY TAKING SOMA 350 MG TABLET 1 TABLET NEEDED ORALLY Q8H PRN MDD3 TAKING PERCOCET 5-325 MG TABLET 1 TABLET NEEDED ORALLY EVERY 6 HRS MDD4 60 TABS TO LAST 30 DAYS NOT-TAKING CYMBALTA 30 MG CAPSULE DELAYED RELEASE PARTICLES 2 CAPSULE ORALLY ONCE A DAY NOT-TAKING METHYLPREDNISOLONE 4 MG TABLET THERAPY PACK DIRECTED ORALLY DIRECTED MEDICATION LIST REVIEWED AND RECONCILED WITH THE PATIENT PAST MEDICAL HISTORY S/P FALL FROM TREE STAND 06/06/15 - SUSTAINED RIGHT FEMUR FRACTURE AND RIGHT WRIST FRACTURE (DR. RUDY HORTA ) NECK/BACK PAIN SUBSEQUENT TO FALL 06/06/15- FOLLOWING WITH PANEL SEWER IN [place] (DR. 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 SOCIAL HISTORY GENERAL: TOBACCO USE ADDITIONAL FINDINGS: TOBACCO USERCHEWS TOBACCO BMI CARE GOAL FOLLOW-UP ABOVE NORMAL BMI FOLLOW-UPDIETARY MANAGEMENT EDUCATION, GUIDANCE, AND COUNSELING ALCOHOL SCREENING DID YOU HAVE A DRINK CONTAINING ALCOHOL IN THE PAST YEAR?YES HOW OFTEN DID YOU HAVE A DRINK CONTAINING ALCOHOL IN THE PAST YEAR?MONTHLY OR LESS (1 POINT) HOW MANY DRINKS DID YOU HAVE ON A TYPICAL DAY WHEN YOU WERE DRINKING IN THE PAST YEAR?1 OR 2 (0 POINTS) HOW OFTEN DID YOU HAVE SIX OR MORE DRINKS ON ONE OCCASION IN THE PAST YEAR?NEVER (0 POINTS) POINTS1 INTERPRETATIONNEGATIVE RECREATIONAL DRUG USE DRUG USE?NO CAFFEINE CAFFEINE USE?YES HOW OFTEN AND HOW MUCH? 2 CUPS OF COFFEE PER DAY SEXUAL HX HAD SEX IN THE LAST 12 MONTHS (VAGINAL, ORAL, OR ANAL)?YES WITHWOMEN ONLY USE PROTECTION?NO HAVE YOU EVER HAD AN STD?NO OCCUPATION: DISABLED. DIET: REGULAR. EXERCISE: NO REGULAR EXERCISE. MARITAL STATUS: . CONFUCIANIST [id number] NONE LANGUAGE LANGUAGES SPOKEN:[place] EDUCATION LEVEL OF EDUCATION:NOT FINISHED COLLEGE LEARNING BARRIERS / SPECIAL NEEDS CHANGE FROM LAST VISIT?NO BARRIERS TO LEARNING?NO HEARING IMPAIRED?NO VISION IMPAIRED?YES :CORRECTIVE LENSES COGNITIVELY IMPAIRED?NO READINESS TO LEARN?YES LEARNING PREFERENCES?NO LEARNING CAPABILITIES PRESENT?YES EMOTIONAL BARRIERS?NO SPECIAL DEVICES?NO TOOL MAKER APPRENTICE NEEDED?NO PAIN CLINIC PFS, CLERGY, PUBLIC HEALTH REFERRALS PFS REFERRAL NEEDED?NO CLERGY REFERRAL NEEDED?NO PUBLIC HEALTH REFERRAL NEEDED?NO WAS THE PROVIDER NOTIFIED OF ANY PERTINENT INFO?NO HAS THE PATIENT BEEN EDUCATED REGARDING HIS/HER PLAN OF CARE?YES HAS THE PATIENT BEEN EDUCATED REGARDING PAIN, THE RISK FOR PAIN, THE IMPORTANCE OF EFFECTIVE PAIN MANAGEMENT, AND THE PAIN ASSESSMENT PROCESS?YES PATIENT: ____. TRAVEL OUTSIDE US: NO. DOMESTIC VIOLENCE DO YOU FEEL SAFE IN YOUR ENVIRONMENT?YES REVIEW OF SYSTEMS REVIEWED BY: PROVIDER: RON MCGOVERN . CONSTITUTIONAL: ANY CHANGE IN YOUR MEDICAL CONDITION? NO . CHILLS NO . FEVER NO . INFECTION: DO YOU HAVE NEW INFECTIONS? NO . DO YOU HAVE HISTORY OF MRSA? NO . MUSCULOSKELETAL: ANY NEW PATTERNS OF PAIN OR NUMBNESS? NO . GASTROENTEROLOGY: ANY NEW CHANGE IN BOWEL CONTROL? NO . GENITOURINARY: ANY NEW CHANGE IN BLADDER CONTROL? NO . IS THERE A CHANCE YOU COULD BE ? NO . HEMATOLOGY/LYMPH: DO YOU TAKE ANY BLOOD THINNERS? (FOR EXAMPLE- COUMADIN, PLAVIX, AGGRENOX, PLATEL, PRADAXA, OR XARELTO) NO . WHEN WAS YOUR LAST DOSE? DATE: TIME: . NEUROLOGY: HAVE YOU FALLEN IN THE PAST 6 MONTHS? NO . ANY NEW EXTREMITY NUMBNESS OR WEAKNESS? NO . CARDIOLOGY: DO YOU HAVE A PACEMAKER OR DEFIBRILLATOR? NO . RESPIRATORY: HAVE YOU BEEN SICK IN THE PAST WEEK? NO . FEVER NO . FLU LIKE SYMPTOMS? NO . COUGH NO . INTEGUMENTARY: DO YOU HAVE ANY RASHES OR OPEN SORES? NO . ALLERGIC/IMMUNO: ARE YOU ALLERGIC TO SHELLFISH OR IV DYE? NO . ANY NEW ALLERGIES? NO . PSYCHIATRIC: DO YOU HAVE THOUGHTS OF HURTING YOURSELF OR SOMEONE ELSE? NO . ARE YOU ABUSED, NEGLECTED, OR IN AN UNSAFE ENVIRONMENT? NO . ENDOCRINOLOGY: ARE YOU DIABETIC? NO . OTHER: DO YOU NEED ANY PRESCRIPTIONS? YES . IF YES, PLEASE LIST: PERCOCET AND MERTAZIPINE . ANY NEW PROBLEMS WITH YOUR MEDICATIONS? NO . WHEN DID YOU LAST EAT? ____ . WHEN DID YOU LAST DRINK? ____ . WHAT DID YOU LAST DRINK? ____ . NAME OF PERSON DRIVING YOU HOME? ____ . DO YOU HAVE ANY OTHER QUESTIONS OR CONCERNS NO . VITAL SIGNS WT 253.8 LBS, HT 71", BMI 35.39 INDEX, BP 149/102 MM HG, HR 80 /MIN, RR 20 /MIN, TEMP 98.7 F, OXYGEN SAT % 100%, REVIEWED BY: DAMIAN (DONE AT 0956). EXAMINATION GENERAL EXAMINATION: GENERAL APPEARANCE:FATIGUED. PSYCHAFFECT NORMAL. LUNGS:LUNG MONTES ARE CLEAR TO AUSCULTATION BILATERALLY. GOOD MOVEMENT OF AIR. HEART:S1, S2 IN A REGULAR RATE AND RHYTHM. NO SIGNIFICANT MURMURS, RUBS OR GALLOPS NOTED. LUMBAR SPINE/LOWER BACK: INSPECTION:WELL HEALED SURGICAL SCAR L/S AXIS. PALPATION:SEVERE TENDERNESS RSIJ, PARASPINAL TENDERNESS RIGHT. MOTOR SYSTEM:5/5 BLE. SENSORY EXAM:NORMAL BILATERAL LE. GAIT:WALKS WITH LIMP. ASSESSMENTS POST LAMINECTOMY SYNDROME - M96.1 (PRIMARY) CERVICALGIA - M54.2 CHRONIC PRESCRIPTION OPIATE USE - Z79.891 TREATMENT POST LAMINECTOMY SYNDROME INCREASE PERCOCET TABLET, 5-325 MG, 1 TABLET NEEDED, ORALLY, Q8H PRN MDD3, 30 DAY(S), 90, REFILLS 0 DECREASE SOMA TABLET, 350 MG, 1 TABLET NEEDED, ORALLY, QHS PRN MDD1, 30 DAY(S), 30, REFILLS 2 STOP MIRTAZAPINE TABLET, 15 MG, 1 TABLET AT BEDTIME, ORALLY, ONCE A DAY NOTES: ISTOP REGISTRY REVIEWED AND DEMNOSTRATES COMPLLIANCE. BRINGS IN MEDICATIONS WHICH IS APPROPRIATE FOR WHAT WAS DISPENSED. RECENT URINE TOXICOLOGY REVIEWED. NO UNAUTHORIZED MEDICATIONS. NO ILLICIT SUBSTANCES AND PRESCRIBED MEDICATIONS WERE PRESENT. URINE TOX AND NARC. AGREEMENT TODAY, RISKS AND BENEFITS OF NARCOTIC/OPIOD MEDICATIONS WERE REVIEWED WITH PATIENT - THIS INCLUDES BUT IS NOT LIMITED TO RISK OF DEPENDANCE/DEVELOPMENT OF ADDICTION, MOOD DISTURBANCE AND DEPRESSION, OSTEOPOROSIS, HORMONAL AND LABIDAL CHANGES, RESPIRATORY DEPRESSION AND . PATIENT IS ADVISED NOT TO DRIVE WHILE ON THESE MEDICATIONS. PROCEDURE CODES FA211 ESTABILISHED PATIENT [facility] CHARGE DISPOSITION & COMMUNICATION FOLLOW UP DR. Knowles -DISCUSS DCS-PLEASE REQUEST DCS TRIAL FROM INSURANCE ELECTRONICALLY SIGNED BY FROILAN DUFF ON 07/17/2017 AT 06:06 PM EDT DISCLAIMER : THIS IS A VISIT SUMMARY EXTRACTED FROM THE [employer] CHART. IT IS NOT A COPY OF THE [employer] PROGRESS NOTE. MTDD
== END ==
LOC: M PAIN 10:00
PROVIDERS: ATTEND Nurse Practitioner Family
DX: M96.1 Postlaminectomy syndrome, not elsewhere classified (principal); M54.2 Cervicalgia; E78.1 Pure hyperglyceridemia; F32.1 Major depressive disorder, single episode, moderate; I10 Essential (primary) hypertension; K21.9 Gastro-esophageal reflux disease without esophagitis; G47.00 Insomnia, unspecified; R73.03 Prediabetes; E29.1 Testicular hypofunction; F43.10 Post-traumatic stress disorder, unspecified; E55.9 Vitamin D deficiency, unspecified; Z79.891 Long term (current) use of opiate analgesic; Z79.899 Other long term (current) drug therapy; Z87.820 Personal history of traumatic brain injury

== ENCOUNTER → 2017-07-23 | Outpatient (CLI) | payer BC ==
--- NOTE | 2017-07-30 00:03 | ECWPNPC ---
PATIENT NAME: MELODY BONDS : 1970 GENDER: MALE VISIT DATE: 07/23/2017 DISCHARGE DATE: 07/23/17 1535 VISIT LOCKED DATE TIME: PHYSICIAN: ALICIA DUVALL RESOURCE: ALICIA DUVALL REASON FOR APPOINTMENT 1. LOW BACK PAIN HISTORY OF PRESENT ILLNESS HISTORY OF PRESENT ILLNESS: PAIN THE PATIENT DESCRIBES THE PAIN... 46 YEAR OLD MALE PATIENT WITH HISTORY OF CHRONIC LOW BACK PAIN. PATIENT DESCRIBES THE PAIN ACHING, THROBBING, STABBING, AND HAVING IT ALL THE TIME WITH A PAIN SCORE OF 10/10. PATIENT REPORTS FALLING OFF HIS TRUCK ON 07/14/17 AND GOING TO [facility] WHERE THEY STATED HE HAS A COMPRESSION FRACTURE OVER L1 AND A CRACK IN THE SACRUM. PATIENT IS CURRENTLY USING PERCOCET AND SOMA FOR THE BACK PAIN. PATIENT STATES THE MEDICATION DOES HELP BUT AT THIS TIME THE PAIN IS STILL VERY SEVERE. PATIENT RECEIVED A BRACE FROM [facility] AND WAS ADVISED TO RETURN IN 6 WEEKS. MR. BONDS REPORTS HAVING SLEEP APNEA AND SOMETIMES USES HIS CPAP MACHINE. PATIENT DENIES UNEXPLAINABLE WEIGHT LOSS, FEVER, CHILLS, NEW CHANGES ON HIS URINARY OR BOWEL CONTROL. FALL RISK SCREENING: SCREENING :NO FALLS IN THE PAST YEAR CURRENT MEDICATIONS TAKING OMEPRAZOLE 40 MG CAPSULE DELAYED RELEASE 1 CAPSULE ORALLY ONCE A DAY TAKING DRISDOL [id number] UNIT CAPSULE 1 CAPSULE ORALLY WEEKLY TAKING ATORVASTATIN CALCIUM 80 MG TABLET 1 TABLET ORALLY ONCE A DAY TAKING LISINOPRIL 20 MG TABLET 1 TAB ORALLY DAILY TAKING AMLODIPINE BESYLATE 5 MG TABLET 1 TABLET ORALLY ONCE A DAY TAKING BISOPROLOL FUMARATE 5 MG TABLET 1 TABLET ORALLY ONCE A DAY TAKING PERCOCET 5-325 MG TABLET 1 TABLET NEEDED ORALLY Q8H PRN MDD3 TAKING SOMA 350 MG TABLET 1 TABLET NEEDED ORALLY QHS PRN MDD1 NOT-TAKING CYMBALTA 30 MG CAPSULE DELAYED RELEASE PARTICLES 2 CAPSULE ORALLY ONCE A DAY NOT-TAKING METHYLPREDNISOLONE 4 MG TABLET THERAPY PACK DIRECTED ORALLY DIRECTED MEDICATION LIST REVIEWED AND RECONCILED WITH THE PATIENT PAST MEDICAL HISTORY S/P FALL FROM TREE STAND 06/06/15 - SUSTAINED RIGHT FEMUR FRACTURE AND RIGHT WRIST FRACTURE (DR. GRANT - [place] ) NECK/BACK PAIN SUBSEQUENT TO FALL 06/06/15- FOLLOWING WITH VICE PRESIDENT SALES IN [place] (DR. 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 SURGICAL HISTORY BROKEN FEMUR REPAIRED WITH RODS/PINS, RIGHT WRIST FRACTURE 06/07/15 FUSION L4-L5 01/2016 PUT A BIGGER RITA IN FEMUR 02/2016 RIGHT WRIST HARDWARE REMOVED 09/19/16 HOSPITALIZATION/MAJOR DIAGNOSTIC PROCEDURE ALL SURGICAL RELATED CHEST PAIN 10/2016 FX BACK AT [facility] 07-14-17 REVIEW OF SYSTEMS REVIEWED BY: PROVIDER: ALICIA DUVALL MD . CONSTITUTIONAL: ANY CHANGE IN YOUR MEDICAL CONDITION? NO . CHILLS NO . FEVER NO . INFECTION: DO YOU HAVE NEW INFECTIONS? NO . DO YOU HAVE HISTORY OF MRSA? NO . MUSCULOSKELETAL: ANY NEW PATTERNS OF PAIN OR NUMBNESS? NO . GASTROENTEROLOGY: ANY NEW CHANGE IN BOWEL CONTROL? NO . GENITOURINARY: ANY NEW CHANGE IN BLADDER CONTROL? NO . IS THERE A CHANCE YOU COULD BE ? NO . HEMATOLOGY/LYMPH: DO YOU TAKE ANY BLOOD THINNERS? (FOR EXAMPLE- COUMADIN, PLAVIX, AGGRENOX, PLATEL, PRADAXA, OR XARELTO) NO . WHEN WAS YOUR LAST DOSE? DATE: TIME: . NEUROLOGY: HAVE YOU FALLEN IN THE PAST 6 MONTHS? YES, Friday FELL OFF BACK OF TRUCK. . ANY NEW EXTREMITY NUMBNESS OR WEAKNESS? NO . CARDIOLOGY: DO YOU HAVE A PACEMAKER OR DEFIBRILLATOR? NO . RESPIRATORY: HAVE YOU BEEN SICK IN THE PAST WEEK? NO . FEVER NO . FLU LIKE SYMPTOMS? NO . COUGH NO . INTEGUMENTARY: DO YOU HAVE ANY RASHES OR OPEN SORES? NO . ALLERGIC/IMMUNO: ARE YOU ALLERGIC TO SHELLFISH OR IV DYE? NO . ANY NEW ALLERGIES? NO . PSYCHIATRIC: DO YOU HAVE THOUGHTS OF HURTING YOURSELF OR SOMEONE ELSE? NO . ARE YOU ABUSED, NEGLECTED, OR IN AN UNSAFE ENVIRONMENT? NO . ENDOCRINOLOGY: ARE YOU DIABETIC? NO . OTHER: DO YOU NEED ANY PRESCRIPTIONS? NO . IF YES, PLEASE LIST: ____ . ANY NEW PROBLEMS WITH YOUR MEDICATIONS? NO . WHEN DID YOU LAST EAT? ____ . WHEN DID YOU LAST DRINK? ____ . WHAT DID YOU LAST DRINK? ____ . NAME OF PERSON DRIVING YOU HOME? ____ . DO YOU HAVE ANY OTHER QUESTIONS OR CONCERNS NO . VITAL SIGNS WT 250 LBS, HT 71", BMI 34.86 INDEX, BP 163/106 MM HG, HR 93 /MIN, RR 20 /MIN, TEMP 97.4 F, OXYGEN SAT % 99%, NA INITIALS SC 14:37, REVIEWED BY: CMRN IS AWARE OF PT,S, PATIENT IS IN EXTREME BACL PAIN FROM RECENT FRACTURE L-1. EXAMINATION : PATIENT IS ALERT O X 3 AND COOPERATIVE. TENDERNESS IN THE NECK AREA AND PARASPINAL GROUP. RIGHT HAND IS WEAKER IN STRENGTH AND COLOR BUFFER. EVIDENCE OF BANDS OF TISSUE, RESTRICTION OF MOVEMENT, AND PRESENCE OF TRIGGER POINTS IN THE CERVICAL AREA. MRI OF THE CERVICAL SPINE DONE ON 09/04/16 SHOWS CERVICAL SPONDYLOSIS AT C3-C4 THROUGH C7-T1 AND FACET HYPERTROPHY. MRI OF THE LUMBAR SPINE DONE ON 08/18/15 SHOWS CANAL STENOSIS, DIS BULGE AT L4-L5, OSTEOARTHRITIS, AND DISC DEGENERATION. 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 BONDS'S PAIN MANAGEMENT CASE. PATIENT WILL CONTINUE TO USE SOMA AT NIGHT FOR THE MUSCLE SPASMS. AT THIS TIME THE PATIENT WILL START MORPHINE AND TORODOL DUE TO THE SEVERE PAIN FROM THE RECENT FALL. MR. BONDS WAS ADVISED TO USE THE TORODOL WITH FOOD OR MILK, PATIENT IS AWARE THAT THE MEDICATION COULD CAUSE STOMACH ISSUES. PATIENT WAS ALSO REMINDED TO USE CPAP EVERY NIGHT DUE TO USING NARCOTICS WHILE HAVING SLEEP APNEA COULD INCREASE THE CHANCE OF CARDIAC DEPRESSION RESULTING IN . MR. BONDS REPORTS UNDERSTANDING OF THE IMPORTANCE AND STATES HE WILL USE IT EVERY NIGHT. PATIENT BROUGHT MEDICATIONS TO TODAY'S VISIT IN THEIR ORIGINAL BOTTLES. PATIENT DENIES ABUSE OF ANY MEDICATION, DENIES USE OF ILLEGAL SUBSTANCES, AND STATES HE IS ONLY USING THE MEDICATION FOR PAIN MANAGEMENT. I WOULD LIKE TO SEE A COPY OF THE CT DONE AT [facility] FOLLOWING THE ACCIDENT TO BETTER ASSESS THE PATIENTS CASE. NO INTERVENTIONS WILL BE HELD UNTIL I HAVE BEEN ABLE TO REVIEW THE MRI. PATIENT WILL RETURN TO THE CLINIC IN ONE WEEK. INSTRUCTIONS WERE GIVEN, QUESTIONS WERE ANSWERED, PATIENT REPORTS UNDERSTANDING AND AGREES WITH THE PLAN. I, RHIANNON ROLON, DOCUMENTED THE ABOVE INFORMATION ACTING A SCRIBE FOR DR. DUVALL. I HAVE REVIEWED THE ABOVE DOCUMENT, WRITTEN BY RHIANNON DON AND I VERIFY THAT IT IS ACCURATE. PROCEDURE CODES FA211 ESTABILISHED PATIENT [facility] FACILITY CHARGE [id number] DOC MEDS VERIFIED W/PT OR RE G8730 PAIN ASSESS POS TOOL F/U PLAN DOC DISPOSITION & COMMUNICATION FOLLOW UP 1 WEEK ELECTRONICALLY SIGNED BY ALICIA DUVALL MD ON 07/29/2017 AT 08:47 PM EDT DISCLAIMER : THIS IS A VISIT SUMMARY EXTRACTED FROM THE [employer] CHART. IT IS NOT A COPY OF THE [employer] PROGRESS NOTE. PORTILLO
== END ==
LOC: M PAIN 14:30
PROVIDERS: ATTEND Anesthesiology
DX: M96.1 Postlaminectomy syndrome, not elsewhere classified (principal); M51.16 Intervertebral disc disorders with radiculopathy, lumbar region; M51.17 Intervertebral disc disorders with radiculopathy, lumbosacral region; F41.9 Anxiety disorder, unspecified; G47.00 Insomnia, unspecified; K21.9 Gastro-esophageal reflux disease without esophagitis; E78.1 Pure hyperglyceridemia; F32.1 Major depressive disorder, single episode, moderate; F51.01 Primary insomnia; E55.9 Vitamin D deficiency, unspecified; I10 Essential (primary) hypertension; F43.10 Post-traumatic stress disorder, unspecified; Z79.899 Other long term (current) drug therapy

== ENCOUNTER → 2017-07-28 | Outpatient (CLI) | payer BC ==
--- NOTE | 2017-07-28 23:19 | ECWPNPC ---
PATIENT NAME: MELODY BONDS : 1970 GENDER: MALE VISIT DATE: 07/28/2017 DISCHARGE DATE: 07/28/17 1026 VISIT LOCKED DATE TIME: PHYSICIAN: RON AMES RESOURCE: RON AMES REASON FOR APPOINTMENT 1. BACK PAIN HISTORY OF PRESENT ILLNESS HISTORY OF PRESENT ILLNESS: HERE FOR F/U AFTER FALL INJURY ON 07-14-17.USING MORPHINE 15MG Q8H PRN FOR SEVERE PAIN AND TORODOL 10MG PRESCRIBED BY AT AN URGENT F/U AFER FALL INJURY.DOING BETTR TODAY.RATING PAIN VAS 6-8/10.HAD A LONG DISCUSSION WITH HE AND HIS MOTHER TODAY ABOUT OUR CONCERNS WITH DAILY USE OF NARCOTIC PAIN MEDICATION.HE HAS BEEN VERY COMPLIANT WITH MEDICATION PRESCRIBED BY DR. DUVALL AND HAS BROUGHT IN MEDICATION TODAY TO INCLUDE PERCOCET AND SOMA THAT HE CURRENTLY IS NOT TAKING.PATIENT DESIRES TO BE OFF PAIN MEDICATION BUT ALSO WISHING FOR IMPROVED QUALITY OF LIFE.HE IS IN THE PROCESS OF FINDING ANOTHER ORTHOPEDIC PHYSICIAN IN [place] HE IS VERY UNHAPPY WITH TREATMENT AT [facility].REPORTING NORMAL BOWEL AND BLADDER FUNCTION. PAIN THE PATIENT DESCRIBES THE PAIN... FALL RISK SCREENING: SCREENING :NO FALLS IN THE PAST YEAR CURRENT MEDICATIONS TAKING OMEPRAZOLE 40 MG CAPSULE DELAYED RELEASE 1 CAPSULE ORALLY ONCE A DAY TAKING DRISDOL 96810 UNIT CAPSULE 1 CAPSULE ORALLY WEEKLY TAKING ATORVASTATIN CALCIUM 80 MG TABLET 1 TABLET ORALLY ONCE A DAY TAKING LISINOPRIL 20 MG TABLET 1 TAB ORALLY DAILY TAKING AMLODIPINE BESYLATE 5 MG TABLET 1 TABLET ORALLY ONCE A DAY TAKING BISOPROLOL FUMARATE 5 MG TABLET 1 TABLET ORALLY ONCE A DAY TAKING PERCOCET 5-325 MG TABLET 1 TABLET NEEDED ORALLY Q8H PRN MDD3, NOTES: HAVENT TAKEN SINCE STARTING MORPHINE TAKING SOMA 350 MG TABLET 1 TABLET NEEDED ORALLY QHS PRN MDD1, NOTES: NOT TAKING LATELY TAKING MORPHINE SULFATE 15 MG TABLET 1 TABLET NEEDED ORALLY EVERY 4 HRS MDD5 TAKING KETOROLAC TROMETHAMINE 10 MG TABLET 1 TABLET WITH FOOD OR MILK NEEDED ORALLY FOR PAIN EVERY 6 HRS MDD4 NOT-TAKING CYMBALTA 30 MG CAPSULE DELAYED RELEASE PARTICLES 2 CAPSULE ORALLY ONCE A DAY NOT-TAKING METHYLPREDNISOLONE 4 MG TABLET THERAPY PACK DIRECTED ORALLY DIRECTED MEDICATION LIST REVIEWED AND RECONCILED WITH THE PATIENT PAST MEDICAL HISTORY S/P FALL FROM TREE STAND 06/06/15 - SUSTAINED RIGHT FEMUR FRACTURE AND RIGHT WRIST FRACTURE (DR. GRANT - ) NECK/BACK PAIN SUBSEQUENT TO FALL 06/06/15- FOLLOWING WITH DIGITAL CIRCUIT DESIGNER IN [place] (DR. 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 HTN V-TACH - HAD 7 BEATS OF ASSYMPTOMATIC V-MERLY WHILE IN HOSPITAL 10/10/17 - FELT TO BE RELATED TO POSSIBLE LUIS, [place] RULED OUT STRESS SPECT 10/2016 - LOW RISK EF 63% LUIS DIAGNOSED 12/29/16 - HAS NOT STARTED CPAP YET FRACTURED BACK AT L-1 ALLERGIES NO[ALLERGIES VERIFIED] SOCIAL HISTORY GENERAL: TOBACCO USE ADDITIONAL FINDINGS: TOBACCO USERCHEWS TOBACCO SMOKING CESSATION INFORMATION GIVEN07/28/2017 BMI CARE GOAL FOLLOW-UP ABOVE NORMAL BMI FOLLOW-UPDIETARY MANAGEMENT EDUCATION, GUIDANCE, AND COUNSELING ALCOHOL SCREENING DID YOU HAVE A DRINK CONTAINING ALCOHOL IN THE PAST YEAR?YES HOW OFTEN DID YOU HAVE A DRINK CONTAINING ALCOHOL IN THE PAST YEAR?MONTHLY OR LESS (1 POINT) HOW MANY DRINKS DID YOU HAVE ON A TYPICAL DAY WHEN YOU WERE DRINKING IN THE PAST YEAR?1 OR 2 (0 POINTS) POINTS1 INTERPRETATIONNEGATIVE HOW OFTEN DID YOU HAVE SIX OR MORE DRINKS ON ONE OCCASION IN THE PAST YEAR?NEVER (0 POINTS) RECREATIONAL DRUG USE DRUG USE?NO CAFFEINE CAFFEINE USE?YES HOW OFTEN AND HOW MUCH? 2 CUPS OF COFFEE PER DAY SEXUAL HX HAD SEX IN THE LAST 12 MONTHS (VAGINAL, ORAL, OR ANAL)?YES WITHWOMEN ONLY USE PROTECTION?NO HAVE YOU EVER HAD AN STD?NO OCCUPATION: DISABLED. DIET: REGULAR. EXERCISE: NO REGULAR EXERCISE. MARITAL STATUS: . RESTORATIONISM [id number] NONE LANGUAGE LANGUAGES SPOKEN:BANGLADESHI EDUCATION LEVEL OF EDUCATION:NOT FINISHED COLLEGE LEARNING BARRIERS / SPECIAL NEEDS CHANGE FROM LAST VISIT?NO BARRIERS TO LEARNING?NO HEARING IMPAIRED?NO VISION IMPAIRED?YES :CORRECTIVE LENSES COGNITIVELY IMPAIRED?NO READINESS TO LEARN?YES LEARNING PREFERENCES?NO LEARNING CAPABILITIES PRESENT?YES EMOTIONAL BARRIERS?NO SPECIAL DEVICES?NO YOKE PRESSER NEEDED?NO PAIN CLINIC PFS, CLERGY, PUBLIC HEALTH REFERRALS PFS REFERRAL NEEDED?NO CLERGY REFERRAL NEEDED?NO PUBLIC HEALTH REFERRAL NEEDED?NO WAS THE PROVIDER NOTIFIED OF ANY PERTINENT INFO?NO HAS THE PATIENT BEEN EDUCATED REGARDING HIS/HER PLAN OF CARE?YES HAS THE PATIENT BEEN EDUCATED REGARDING PAIN, THE RISK FOR PAIN, THE IMPORTANCE OF EFFECTIVE PAIN MANAGEMENT, AND THE PAIN ASSESSMENT PROCESS?YES PATIENT: ____. TRAVEL OUTSIDE US: NO. DOMESTIC VIOLENCE DO YOU FEEL SAFE IN YOUR ENVIRONMENT?YES REVIEW OF SYSTEMS REVIEWED BY: PROVIDER: RON MCGOVERN . CONSTITUTIONAL: ANY CHANGE IN YOUR MEDICAL CONDITION? NO . CHILLS NO . FEVER NO . INFECTION: DO YOU HAVE NEW INFECTIONS? NO . DO YOU HAVE HISTORY OF MRSA? NO . MUSCULOSKELETAL: ANY NEW PATTERNS OF PAIN OR NUMBNESS? NO . GASTROENTEROLOGY: ANY NEW CHANGE IN BOWEL CONTROL? NO . GENITOURINARY: ANY NEW CHANGE IN BLADDER CONTROL? NO . IS THERE A CHANCE YOU COULD BE ? NO . HEMATOLOGY/LYMPH: DO YOU TAKE ANY BLOOD THINNERS? (FOR EXAMPLE- COUMADIN, PLAVIX, AGGRENOX, PLATEL, PRADAXA, OR XARELTO) NO . WHEN WAS YOUR LAST DOSE? DATE: TIME: . NEUROLOGY: HAVE YOU FALLEN IN THE PAST 6 MONTHS? NO . ANY NEW EXTREMITY NUMBNESS OR WEAKNESS? NO . CARDIOLOGY: DO YOU HAVE A PACEMAKER OR DEFIBRILLATOR? NO . RESPIRATORY: HAVE YOU BEEN SICK IN THE PAST WEEK? NO . FEVER NO . FLU LIKE SYMPTOMS? NO . COUGH NO . INTEGUMENTARY: DO YOU HAVE ANY RASHES OR OPEN SORES? NO . ALLERGIC/IMMUNO: ARE YOU ALLERGIC TO SHELLFISH OR IV DYE? NO . ANY NEW ALLERGIES? NO . PSYCHIATRIC: DO YOU HAVE THOUGHTS OF HURTING YOURSELF OR SOMEONE ELSE? NO . ARE YOU ABUSED, NEGLECTED, OR IN AN UNSAFE ENVIRONMENT? NO . ENDOCRINOLOGY: ARE YOU DIABETIC? NO . OTHER: DO YOU NEED ANY PRESCRIPTIONS? NO . IF YES, PLEASE LIST: ____ . ANY NEW PROBLEMS WITH YOUR MEDICATIONS? NO . WHEN DID YOU LAST EAT? ____ . WHEN DID YOU LAST DRINK? ____ . WHAT DID YOU LAST DRINK? ____ . NAME OF PERSON DRIVING YOU HOME? ____ . DO YOU HAVE ANY OTHER QUESTIONS OR CONCERNS NO . VITAL SIGNS WT 250 LBS, HT 71", BMI 34.86 INDEX, BP 137/90 MM HG, HR 68 /MIN, RR 18 /MIN, TEMP 97.5 F, OXYGEN SAT % 99%, NA INITIALS CM [id number]. EXAMINATION GENERAL EXAMINATION: GENERAL APPEARANCE:COMFORTABLE. PSYCHAFFECT NORMAL. LUNGS:LUNG MONTES ARE CLEAR TO AUSCULTATION BILATERALLY. GOOD MOVEMENT OF AIR. HEART:S1, S2 IN A REGULAR RATE AND RHYTHM. NO SIGNIFICANT MURMURS, RUBS OR GALLOPS NOTED. LUMBAR SPINE/LOWER BACK: INSPECTION:WELL HEALED SURGICAL SCAR L/S AXIS. PALPATION:SEVERE TENDERNESS RSIJ, PARASPINAL TENDERNESS RIGHT. MOTOR SYSTEM:5/5 BLE. SENSORY EXAM:NORMAL BILATERAL LE. GAIT:WALKS WITH LIMP. ASSESSMENTS POST LAMINECTOMY SYNDROME - M96.1 (PRIMARY) CERVICALGIA - M54.2 CHRONIC PRESCRIPTION OPIATE USE - Z79.891 TREATMENT POST LAMINECTOMY SYNDROME CONTINUE PERCOCET TABLET, 5-325 MG, 1 TABLET NEEDED, ORALLY, Q8H PRN MDD3, 30 DAYS, 90, REFILLS 0, NOTES: HAVENT TAKEN SINCE STARTING MORPHINE CONTINUE SOMA TABLET, 350 MG, 1 TABLET NEEDED, ORALLY, QHS PRN MDD1, 30 DAY(S), 30, REFILLS 1, NOTES: NOT TAKING LATELY STOP MORPHINE SULFATE TABLET, 15 MG, 1 TABLET NEEDED, ORALLY, EVERY 4 HRS MDD5 STOP KETOROLAC TROMETHAMINE TABLET, 10 MG, 1 TABLET WITH FOOD OR MILK NEEDED, ORALLY FOR PAIN, EVERY 6 HRS MDD4 NOTES: ISTOP REGISTRY [id number] RISKS AND BENEFITS OF NARCOTIC/OPIOD MEDICATIONS WERE REVIEWED WITH PATIENT - THIS INCLUDES BUT IS NOT LIMITED TO RISK OF DEPENDANCE/DEVELOPMENT OF ADDICTION, MOOD DISTURBANCE AND DEPRESSION, OSTEOPOROSIS, HORMONAL AND LABIDAL CHANGES, RESPIRATORY DEPRESSION AND . PATIENT IS ADVISED NOT TO DRIVE WHILE ON THESE MEDICATIONS, AND DEMNOSTRATES COMPLLIANCE. BRINGS IN MEDICATIONS WHICH IS APPROPRIATE FOR WHAT WAS DISPENSED. RECENT URINE TOXICOLOGY REVIEWED. NO UNAUTHORIZED MEDICATIONS. NO ILLICIT SUBSTANCES AND PRESCRIBED MEDICATIONS WERE PRESENT. PROCEDURE CODES FA211 ESTABILISHED PATIENT [facility] CHARGE DISPOSITION & COMMUNICATION FOLLOW UP 2 WEEKS ELECTRONICALLY SIGNED BY FROILAN DUFF ON 07/28/2017 AT 12:54 PM EDT DISCLAIMER : THIS IS A VISIT SUMMARY EXTRACTED FROM THE [employer] CHART. IT IS NOT A COPY OF THE [employer] PROGRESS NOTE. PORTILLO
== END ==
LOC: M PAIN 09:30
PROVIDERS: ATTEND Nurse Practitioner Family
DX: M96.1 Postlaminectomy syndrome, not elsewhere classified (principal); M54.2 Cervicalgia; F41.9 Anxiety disorder, unspecified; F51.01 Primary insomnia; K21.9 Gastro-esophageal reflux disease without esophagitis; E78.1 Pure hyperglyceridemia; F32.1 Major depressive disorder, single episode, moderate; S06.9X Unspecified intracranial injury; E55.9 Vitamin D deficiency, unspecified; R73.03 Prediabetes; I10 Essential (primary) hypertension; F43.10 Post-traumatic stress disorder, unspecified; W14.XXXS Fall from tree, sequela; F17.228 Nicotine dependence, chewing tobacco, with other nicotine-induced disorders; Z79.899 Other long term (current) drug therapy

== ENCOUNTER → 2017-08-11 | Outpatient (CLI) | payer BC ==
--- NOTE | 2017-08-26 01:22 | ECWPNPC ---
PATIENT NAME: MELODY BONDS : 1970 GENDER: MALE VISIT DATE: 08/11/2017 DISCHARGE DATE: 08/11/17 1107 VISIT LOCKED DATE TIME: PHYSICIAN: RON AMES RESOURCE: RON AMES REASON FOR APPOINTMENT 1. BACK HISTORY OF PRESENT ILLNESS HISTORY OF PRESENT ILLNESS: HERE FOR F/U AFTER FALL INJURY ON 07-14-17.DOING BETTER TODAY.RATING PAIN VAS 6-8/10.PATIENT DESIRES TO BE OFF PAIN MEDICATION BUT ALSO WISHING FOR IMPROVED QUALITY OF LIFE. ACCOMPANIED IN EXAM ROOM ITH HIS TEENAGE DAUGHTER.HE IS IN THE PROCESS OF FINDING ANOTHER ORTHOPEDIC PHYSICIAN IN [place] HE IS VERY UNHAPPY WITH TREATMENT AT [facility].REPORTING NORMAL BOWEL AND BLADDER FUNCTION.CURRENTLY USING PERCOCET 5/325 PRN AND SOMA 350MG AT HS.FINDS MEDICATION SOMEWHAT HELPFUL AND DENIES SIDE EFFECTS. PAIN THE PATIENT DESCRIBES THE PAIN... THE PATIENT DESCRIBES THE PAIN... FALL RISK SCREENING: SCREENING :NO FALLS IN THE PAST YEAR CURRENT MEDICATIONS TAKING DRISDOL 81175 UNIT CAPSULE 1 CAPSULE ORALLY WEEKLY TAKING SOMA 350 MG TABLET 1 TABLET NEEDED ORALLY QHS PRN MDD1 TAKING MIACALCIN 200 UNIT/ACT SOLUTION 1 PUFF NASALLY ONCE A DAY TAKING FLECTOR 1.3 % PATCH 1 PATCH TO SKIN TRANSDERMAL TWICE A DAY TAKING PERCOCET 5-325 MG TABLET 1 TABLET NEEDED ORALLY Q8H PRN MDD3 TAKING LIDODERM 5 % PATCH 1 PATCH TO SKIN REMOVE AFTER 12 HOURS - ON BACK EXTERNALLY ON 12 HOURS, OFF 12 HOURS DAILY TAKING ATORVASTATIN CALCIUM 80 MG TABLET 1 TABLET ORALLY ONCE A DAY TAKING BISOPROLOL FUMARATE 5 MG TABLET 1 TABLET ORALLY ONCE A DAY TAKING LISINOPRIL 20 MG TABLET 1 TAB ORALLY DAILY TAKING AMLODIPINE BESYLATE 5 MG TABLET 1 TABLET ORALLY ONCE A DAY TAKING OMEPRAZOLE 40 MG CAPSULE DELAYED RELEASE 1 CAPSULE ORALLY ONCE A DAY TAKING CYMBALTA 60 MG CAPSULE DELAYED RELEASE PARTICLES 1 CAPSULE ORALLY ONCE A DAY MEDICATION LIST REVIEWED AND RECONCILED WITH THE PATIENT PAST MEDICAL HISTORY S/P FALL FROM TREE STAND 06/06/15 - SUSTAINED RIGHT FEMUR FRACTURE AND RIGHT WRIST FRACTURE (DR. GRANT - [facility] ) NECK/BACK PAIN SUBSEQUENT TO FALL 06/06/15- 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 SURGICAL HISTORY BROKEN FEMUR REPAIRED WITH RODS/PINS, RIGHT WRIST FRACTURE 06/07/15 FUSION L4-L5 01/2016 PUT A BIGGER RITA IN FEMUR 02/2016 RIGHT WRIST HARDWARE REMOVED 09/19/16 SOCIAL HISTORY GENERAL: TOBACCO USE ADDITIONAL FINDINGS: TOBACCO USERCHEWS TOBACCO SMOKING CESSATION INFORMATION GIVEN07/28/2017 BMI CARE GOAL FOLLOW-UP ABOVE NORMAL BMI FOLLOW-UPDIETARY MANAGEMENT EDUCATION, GUIDANCE, AND COUNSELING ALCOHOL SCREENING DID YOU HAVE A DRINK CONTAINING ALCOHOL IN THE PAST YEAR?YES HOW OFTEN DID YOU HAVE A DRINK CONTAINING ALCOHOL IN THE PAST YEAR?MONTHLY OR LESS (1 POINT) HOW MANY DRINKS DID YOU HAVE ON A TYPICAL DAY WHEN YOU WERE DRINKING IN THE PAST YEAR?1 OR 2 (0 POINTS) POINTS1 INTERPRETATIONNEGATIVE HOW OFTEN DID YOU HAVE SIX OR MORE DRINKS ON ONE OCCASION IN THE PAST YEAR?NEVER (0 POINTS) RECREATIONAL DRUG USE DRUG USE?NO CAFFEINE CAFFEINE USE?YES HOW OFTEN AND HOW MUCH? 2 CUPS OF COFFEE PER DAY SEXUAL HX HAD SEX IN THE LAST 12 MONTHS (VAGINAL, ORAL, OR ANAL)?YES WITHWOMEN ONLY USE PROTECTION?NO HAVE YOU EVER HAD AN STD?NO OCCUPATION: DISABLED. DIET: REGULAR. EXERCISE: NO REGULAR EXERCISE. MARITAL STATUS: . MORMON [id number] NONE LANGUAGE LANGUAGES SPOKEN:CZECH EDUCATION LEVEL OF EDUCATION:NOT FINISHED COLLEGE LEARNING BARRIERS / SPECIAL NEEDS CHANGE FROM LAST VISIT?NO BARRIERS TO LEARNING?NO HEARING IMPAIRED?NO VISION IMPAIRED?YES :CORRECTIVE LENSES COGNITIVELY IMPAIRED?NO READINESS TO LEARN?YES LEARNING PREFERENCES?NO LEARNING CAPABILITIES PRESENT?YES EMOTIONAL BARRIERS?NO SPECIAL DEVICES?NO MARKET MASTER NEEDED?NO PAIN CLINIC PFS, CLERGY, PUBLIC HEALTH REFERRALS PFS REFERRAL NEEDED?NO CLERGY REFERRAL NEEDED?NO PUBLIC HEALTH REFERRAL NEEDED?NO WAS THE PROVIDER NOTIFIED OF ANY PERTINENT INFO?NO HAS THE PATIENT BEEN EDUCATED REGARDING HIS/HER PLAN OF CARE?YES HAS THE PATIENT BEEN EDUCATED REGARDING PAIN, THE RISK FOR PAIN, THE IMPORTANCE OF EFFECTIVE PAIN MANAGEMENT, AND THE PAIN ASSESSMENT PROCESS?YES PATIENT: ____. TRAVEL OUTSIDE US: NO. DOMESTIC VIOLENCE DO YOU FEEL SAFE IN YOUR ENVIRONMENT?YES HOSPITALIZATION/MAJOR DIAGNOSTIC PROCEDURE ALL SURGICAL RELATED CHEST PAIN 10/2016 FX BACK AT L-1 07-14-17 REVIEW OF SYSTEMS REVIEWED BY: PROVIDER: RON MCGOVERN . CONSTITUTIONAL: ANY CHANGE IN YOUR MEDICAL CONDITION? NO . CHILLS NO . FEVER NO . INFECTION: DO YOU HAVE NEW INFECTIONS? NO . DO YOU HAVE HISTORY OF MRSA? NO . MUSCULOSKELETAL: ANY NEW PATTERNS OF PAIN OR NUMBNESS? NO . GASTROENTEROLOGY: ANY NEW CHANGE IN BOWEL CONTROL? NO . GENITOURINARY: ANY NEW CHANGE IN BLADDER CONTROL? NO . IS THERE A CHANCE YOU COULD BE ? NO . HEMATOLOGY/LYMPH: DO YOU TAKE ANY BLOOD THINNERS? (FOR EXAMPLE- COUMADIN, PLAVIX, AGGRENOX, PLATEL, PRADAXA, OR XARELTO) NO . WHEN WAS YOUR LAST DOSE? DATE: TIME: . NEUROLOGY: HAVE YOU FALLEN IN THE PAST 6 MONTHS? NO . ANY NEW EXTREMITY NUMBNESS OR WEAKNESS? NO . CARDIOLOGY: DO YOU HAVE A PACEMAKER OR DEFIBRILLATOR? NO . RESPIRATORY: HAVE YOU BEEN SICK IN THE PAST WEEK? NO . FEVER NO . FLU LIKE SYMPTOMS? NO . COUGH NO . INTEGUMENTARY: DO YOU HAVE ANY RASHES OR OPEN SORES? NO . ALLERGIC/IMMUNO: ARE YOU ALLERGIC TO SHELLFISH OR IV DYE? NO . ANY NEW ALLERGIES? NO . PSYCHIATRIC: DO YOU HAVE THOUGHTS OF HURTING YOURSELF OR SOMEONE ELSE? NO . ARE YOU ABUSED, NEGLECTED, OR IN AN UNSAFE ENVIRONMENT? NO . ENDOCRINOLOGY: ARE YOU DIABETIC? NO . OTHER: DO YOU NEED ANY PRESCRIPTIONS? NO . IF YES, PLEASE LIST: ____ . ANY NEW PROBLEMS WITH YOUR MEDICATIONS? NO . WHEN DID YOU LAST EAT? ____ . WHEN DID YOU LAST DRINK? ____ . WHAT DID YOU LAST DRINK? ____ . NAME OF PERSON DRIVING YOU HOME? ____ . DO YOU HAVE ANY OTHER QUESTIONS OR CONCERNS NO . VITAL SIGNS WT 241 LBS, HT 71", BMI 33.61 INDEX, BP 119/71 MM HG, HR 84 /MIN, RR 18 /MIN, TEMP 98.0 F, REVIEWED BY: ALESSANDRA. EXAMINATION GENERAL EXAMINATION: GENERAL APPEARANCE:COMFORTABLE. PSYCHAFFECT NORMAL. LUNGS:LUNG MONTES ARE CLEAR TO AUSCULTATION BILATERALLY. GOOD MOVEMENT OF AIR. HEART:S1, S2 IN A REGULAR RATE AND RHYTHM. NO SIGNIFICANT MURMURS, RUBS OR GALLOPS NOTED. LUMBAR SPINE/LOWER BACK: INSPECTION:WELL HEALED SURGICAL SCAR L/S AXIS. PALPATION:SEVERE TENDERNESS RSIJ, PARASPINAL TENDERNESS RIGHT. MOTOR SYSTEM:5/5 BLE. SENSORY EXAM:NORMAL BILATERAL LE. GAIT:WALKS WITH LIMP. 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 PATIENT IS ADVISED NOT TO DRIVE WHILE ON THESE MEDICATIONS. OTHERS CONTINUE LIDODERM PATCH, 5 %, 1 PATCH TO SKIN REMOVE AFTER 12 HOURS - ON BACK, EXTERNALLY, ON 12 HOURS, OFF 12 HOURS DAILY PROCEDURE CODES FA211 ESTABILISHED PATIENT [facility] CHARGE DISPOSITION & COMMUNICATION FOLLOW UP 2 MONTHS ELECTRONICALLY SIGNED BY FROILAN DUFF ON 08/25/2017 AT 09:15 PM EDT DISCLAIMER : THIS IS A VISIT SUMMARY EXTRACTED FROM THE [employer] CHART. IT IS NOT A COPY OF THE [employer] PROGRESS NOTE. PORTILLO
== END ==
LOC: M PAIN 10:45
PROVIDERS: ATTEND Nurse Practitioner Family
DX: M96.1 Postlaminectomy syndrome, not elsewhere classified (principal); K21.9 Gastro-esophageal reflux disease without esophagitis; E78.1 Pure hyperglyceridemia; F32.1 Major depressive disorder, single episode, moderate; F41.9 Anxiety disorder, unspecified; F43.10 Post-traumatic stress disorder, unspecified; F51.01 Primary insomnia; E55.9 Vitamin D deficiency, unspecified; I10 Essential (primary) hypertension; R73.03 Prediabetes; G47.33 Obstructive sleep apnea (adult) (pediatric); S06.9X Unspecified intracranial injury; W14.XXXS Fall from tree, sequela; Z79.899 Other long term (current) drug therapy

== ENCOUNTER → 2017-10-10 | Outpatient (CLI) | payer BC ==
--- NOTE | 2017-10-11 01:57 | ECWPNPC ---
PATIENT NAME: MELODY BONDS : 1970 GENDER: MALE VISIT DATE: 10/10/2017 DISCHARGE DATE: 10/10/17 0000 VISIT LOCKED DATE TIME: PHYSICIAN: RON AMES RESOURCE: RON AMES REASON FOR APPOINTMENT 1. BACK- 2 MONTH FOLLOWUP HISTORY OF PRESENT ILLNESS HISTORY OF PRESENT ILLNESS: HERE FOR F/UOF CHRONIC LOW BACK AND NECK PAIN.HAVING INCREASE IN PAIN LATELY.FEELING CURRENT MEDICATION PERCOCET 5/325 Q8H PRN FOR SEVERE EPISODES NOT HELPING.RECENT PT WAS AGGREVATING.FOLLOWING WITH [facility] AND CURRENTLY BEING REFERRED TO NEUROLOGY.RATING PAIN VAS 7/10. PAIN THE PATIENT DESCRIBES THE PAIN... FALL RISK SCREENING: SCREENING :NO FALLS IN THE PAST YEAR CURRENT MEDICATIONS TAKING CYMBALTA 60 MG CAPSULE DELAYED RELEASE PARTICLES 1 CAPSULE ORALLY ONCE A DAY TAKING DRISDOL 84076 UNIT CAPSULE 1 CAPSULE ORALLY WEEKLY TAKING ATORVASTATIN CALCIUM 80 MG TABLET 1 TABLET ORALLY ONCE A DAY TAKING BISOPROLOL FUMARATE 5 MG TABLET 1 TABLET ORALLY ONCE A DAY TAKING LISINOPRIL 20 MG TABLET 1 TAB ORALLY DAILY TAKING AMLODIPINE BESYLATE 5 MG TABLET 1 TABLET ORALLY ONCE A DAY TAKING OMEPRAZOLE 40 MG CAPSULE DELAYED RELEASE 1 CAPSULE ORALLY ONCE A DAY TAKING SOMA 350 MG TABLET 1 TABLET NEEDED ORALLY QHS PRN MDD1 TAKING MIACALCIN 200 UNIT/ACT SOLUTION 1 PUFF NASALLY ONCE A DAY TAKING LIDODERM 5 % PATCH 1 PATCH TO SKIN REMOVE AFTER 12 HOURS - ON BACK EXTERNALLY ON 12 HOURS, OFF 12 HOURS DAILY TAKING PERCOCET 5-325 MG TABLET 1 TABLET NEEDED ORALLY Q8H PRN MDD3 MEDICATION LIST REVIEWED AND RECONCILED WITH THE PATIENT PAST MEDICAL HISTORY S/P FALL FROM TREE STAND 06/06/15 - SUSTAINED RIGHT FEMUR FRACTURE AND RIGHT WRIST FRACTURE (DR. GRANT - [facility] ) NECK/BACK PAIN SUBSEQUENT TO FALL 06/06/15- FOLLOWING WITH CITY PLANNING TEACHER IN [place] (DR. 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 SURGICAL HISTORY BROKEN FEMUR REPAIRED WITH RODS/PINS, RIGHT WRIST FRACTURE 06/07/15 FUSION L4-L5 01/2016 PUT A BIGGER RITA IN FEMUR 02/2016 RIGHT WRIST HARDWARE REMOVED 09/19/16 SOCIAL HISTORY GENERAL: TOBACCO USE ADDITIONAL FINDINGS: TOBACCO USERCHEWS TOBACCO SMOKING CESSATION INFORMATION GIVEN10/10/2017 BMI CARE GOAL FOLLOW-UP ABOVE NORMAL BMI FOLLOW-UPDIETARY MANAGEMENT EDUCATION, GUIDANCE, AND COUNSELING ALCOHOL SCREENING DID YOU HAVE A DRINK CONTAINING ALCOHOL IN THE PAST YEAR?YES HOW OFTEN DID YOU HAVE A DRINK CONTAINING ALCOHOL IN THE PAST YEAR?MONTHLY OR LESS (1 POINT) HOW MANY DRINKS DID YOU HAVE ON A TYPICAL DAY WHEN YOU WERE DRINKING IN THE PAST YEAR?1 OR 2 (0 POINTS) POINTS1 INTERPRETATIONNEGATIVE HOW OFTEN DID YOU HAVE SIX OR MORE DRINKS ON ONE OCCASION IN THE PAST YEAR?NEVER (0 POINTS) RECREATIONAL DRUG USE DRUG USE?NO CAFFEINE CAFFEINE USE?YES HOW OFTEN AND HOW MUCH? 2 CUPS OF COFFEE PER DAY SEXUAL HX HAD SEX IN THE LAST 12 MONTHS (VAGINAL, ORAL, OR ANAL)?YES WITHWOMEN ONLY USE PROTECTION?NO HAVE YOU EVER HAD AN STD?NO OCCUPATION: DISABLED. DIET: REGULAR. EXERCISE: NO REGULAR EXERCISE. MARITAL STATUS: . JUDAISM [id number] NONE LANGUAGE LANGUAGES SPOKEN:MONGOLIAN EDUCATION LEVEL OF EDUCATION:NOT FINISHED COLLEGE LEARNING BARRIERS / SPECIAL NEEDS CHANGE FROM LAST VISIT?NO BARRIERS TO LEARNING?NO HEARING IMPAIRED?NO VISION IMPAIRED?YES :CORRECTIVE LENSES COGNITIVELY IMPAIRED?NO READINESS TO LEARN?YES LEARNING PREFERENCES?NO LEARNING CAPABILITIES PRESENT?YES EMOTIONAL BARRIERS?NO SPECIAL DEVICES?NO DESIGN MAKER NEEDED?NO PAIN CLINIC PFS, CLERGY, PUBLIC HEALTH REFERRALS PFS REFERRAL NEEDED?NO CLERGY REFERRAL NEEDED?NO PUBLIC HEALTH REFERRAL NEEDED?NO WAS THE PROVIDER NOTIFIED OF ANY PERTINENT INFO?NO HAS THE PATIENT BEEN EDUCATED REGARDING HIS/HER PLAN OF CARE?YES HAS THE PATIENT BEEN EDUCATED REGARDING PAIN, THE RISK FOR PAIN, THE IMPORTANCE OF EFFECTIVE PAIN MANAGEMENT, AND THE PAIN ASSESSMENT PROCESS?YES PATIENT: ____. ADVANCE DIRECTIVES HEALTH CARE PROXY?YES NAME OF HCP TAMERA, DO YOU HAVE A DNR?NO LIVING WILL?YES POWER OF AUTOMATED MANUFACTURING INSTRUCTOR?YES NAME OF POA? TAMERA, TRAVEL OUTSIDE US: NO. DOMESTIC VIOLENCE DO YOU FEEL SAFE IN YOUR ENVIRONMENT?YES HOSPITALIZATION/MAJOR DIAGNOSTIC PROCEDURE ALL SURGICAL RELATED CHEST PAIN 10/2016 FX BACK AT L-1 07-14-17 REVIEW OF SYSTEMS REVIEWED BY: PROVIDER: RON MCGOVERN . CONSTITUTIONAL: ANY CHANGE IN YOUR MEDICAL CONDITION? NO . CHILLS NO . FEVER NO . INFECTION: DO YOU HAVE NEW INFECTIONS? NO . DO YOU HAVE HISTORY OF MRSA? NO . MUSCULOSKELETAL: ANY NEW PATTERNS OF PAIN OR NUMBNESS? NO . GASTROENTEROLOGY: ANY NEW CHANGE IN BOWEL CONTROL? NO . GENITOURINARY: ANY NEW CHANGE IN BLADDER CONTROL? NO . IS THERE A CHANCE YOU COULD BE ? NO . HEMATOLOGY/LYMPH: DO YOU TAKE ANY BLOOD THINNERS? (FOR EXAMPLE- COUMADIN, PLAVIX, AGGRENOX, PLATEL, PRADAXA, OR XARELTO) NO . WHEN WAS YOUR LAST DOSE? DATE: TIME: . NEUROLOGY: HAVE YOU FALLEN IN THE PAST 6 MONTHS? NO . ANY NEW EXTREMITY NUMBNESS OR WEAKNESS? NO . CARDIOLOGY: DO YOU HAVE A PACEMAKER OR DEFIBRILLATOR? NO . RESPIRATORY: HAVE YOU BEEN SICK IN THE PAST WEEK? YES, RESOLVING URI, PT STATES HE IS TX'D W ABX, AMOX, CAN'T RECALL DOSE, STARTED 2 DAYS AGO, IMPROVING . FEVER NO . FLU LIKE SYMPTOMS? NO . COUGH NO . INTEGUMENTARY: DO YOU HAVE ANY RASHES OR OPEN SORES? NO . ALLERGIC/IMMUNO: ARE YOU ALLERGIC TO SHELLFISH OR IV DYE? NO . ANY NEW ALLERGIES? NO . PSYCHIATRIC: DO YOU HAVE THOUGHTS OF HURTING YOURSELF OR SOMEONE ELSE? NO . ARE YOU ABUSED, NEGLECTED, OR IN AN UNSAFE ENVIRONMENT? NO . ENDOCRINOLOGY: ARE YOU DIABETIC? NO . OTHER: DO YOU NEED ANY PRESCRIPTIONS? YES, OXY, SOMA . IF YES, PLEASE LIST: ____ . ANY NEW PROBLEMS WITH YOUR MEDICATIONS? NO . WHEN DID YOU LAST EAT? ____ . WHEN DID YOU LAST DRINK? ____ . WHAT DID YOU LAST DRINK? ____ . NAME OF PERSON DRIVING YOU HOME? ____ . DO YOU HAVE ANY OTHER QUESTIONS OR CONCERNS NO . VITAL SIGNS WT 241 LBS, HT 71", BMI 33.61 INDEX, BP 145/91 MM HG, HR 86 /MIN, RR 16 /MIN, TEMP 98.3 F, OXYGEN SAT % 94, REVIEWED BY: EM. EXAMINATION GENERAL EXAMINATION: GENERAL APPEARANCE:COMFORTABLE. PSYCHAFFECT NORMAL. LUNGS:LUNG MONTES ARE CLEAR TO AUSCULTATION BILATERALLY. GOOD MOVEMENT OF AIR. HEART:S1, S2 IN A REGULAR RATE AND RHYTHM. NO SIGNIFICANT MURMURS, RUBS OR GALLOPS NOTED. LUMBAR SPINE/LOWER BACK: INSPECTION:WELL HEALED SURGICAL SCAR L/S AXIS. PALPATION:SEVERE TENDERNESS RSIJ, PARASPINAL TENDERNESS RIGHT. MOTOR SYSTEM:5/5 BLE. SENSORY EXAM:NORMAL BILATERAL LE. GAIT:WALKS WITH LIMP. 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 BRINGS IN MEDICATIONS WHICH IS APPROPRIATE FOR WHAT WAS DISPENSED. RECENT URINE TOXICOLOGY REVIEWED. NO UNAUTHORIZED MEDICATIONS. NO ILLICIT SUBSTANCES AND PRESCRIBED MEDICATIONS WERE PRESENT. , RISKS AND BENEFITS OF NARCOTIC/OPIOD MEDICATIONS WERE REVIEWED WITH PATIENT - THIS INCLUDES BUT IS NOT LIMITED TO RISK OF DEPENDANCE/DEVELOPMENT OF ADDICTION, MOOD DISTURBANCE AND DEPRESSION, OSTEOPOROSIS, HORMONAL AND LABIDAL CHANGES, RESPIRATORY DEPRESSION AND . PATIENT IS ADVISED NOT TO DRIVE WHILE ON THESE MEDICATIONS. CLINICAL NOTES: NUCYNTA MATERIAL PRINTED, REVIEWED AND GIVEN TO PT. EM. PROCEDURE CODES FA211 ESTABILISHED PATIENT [facility] CHARGE DISPOSITION & COMMUNICATION FOLLOW UP 4 WEEKS ELECTRONICALLY SIGNED BY FROILAN DUFF ON 10/10/2017 AT 12:21 PM EST DISCLAIMER : THIS IS A VISIT SUMMARY EXTRACTED FROM THE [employer] CHART. IT IS NOT A COPY OF THE [employer] PROGRESS NOTE. PORTILLO
== END ==
LOC: M PAIN 08:30
PROVIDERS: ATTEND Nurse Practitioner Family
DX: M96.1 Postlaminectomy syndrome, not elsewhere classified (principal); I10 Essential (primary) hypertension; K21.9 Gastro-esophageal reflux disease without esophagitis; E55.9 Vitamin D deficiency, unspecified; F17.228 Nicotine dependence, chewing tobacco, with other nicotine-induced disorders; Z79.891 Long term (current) use of opiate analgesic; Z79.899 Other long term (current) drug therapy

== ENCOUNTER → 2017-11-20 | Outpatient (CLI) | payer BC | LOC: M PAIN 10:45 | DX: G89.21 Chronic pain due to trauma (principal); M96.1 Postlaminectomy syndrome, not elsewhere classified; M79.1 Myalgia; I10 Essential (primary) hypertension; F41.9 Anxiety disorder, unspecified; G47.00 Insomnia, unspecified; G47.33 Obstructive sleep apnea (adult) (pediatric); F17.220 Nicotine dependence, chewing tobacco, uncomplicated; Z79.891 Long term (current) use of opiate analgesic; Z79.899 Other long term (current) drug therapy; Z87.820 Personal history of traumatic brain injury | CPT/HCPCS: G0463 ==

== ENCOUNTER → 2017-11-26 | Outpatient (REF) | payer BC ==
[2017-11-26 13:42] LABS: HEMATOCRIT 41.9 % (42.0-52.0); HEMOGLOBIN 14.1 g/dl (14.0-18.0); MEAN CORPUSCULAR HEMOGLOBIN 28.3 pg (27.0-33.0); MEAN CORPUSCULAR HGB CONC 33.7 g/dl (32.0-36.5); MEAN CORPUSCULAR VOLUME 84.1 fl (80.0-96.0); PLATELET COUNT, AUTOMATED 219 10^3/uL (150-450); RED BLOOD COUNT 4.98 10^6/uL (4.30-6.10); RED CELL DISTRIBUTION WIDTH 12.7 % (11.5-14.5)
[2017-11-26 13:54] LABS: FOLATE 4.1 NG/ML; VITAMIN B12 LEVEL 309 PG/ML
[2017-11-26 13:58] LABS: ALBUMIN 4.2 GM/DL (3.2-5.2); ALBUMIN/GLOBULIN RATIO 1.45 (1.00-1.93); ALKALINE PHOSPHATASE 108 U/L (45-117); ALT/SGPT 38 U/L (12-78); ANION GAP 8 MEQ/L (8-16); AST/SGOT 19 U/L (7-37); BILIRUBIN,TOTAL 0.4 MG/DL (0.2-1.0); BLOOD UREA NITROGEN 18 MG/DL (7-18); CALCIUM LEVEL 8.7 MG/DL (8.5-10.1); CARBON DIOXIDE LEVEL 26 MEQ/L (21-32); CHLORIDE LEVEL 106 MEQ/L (98-107); CHOLESTEROL LEVEL 125 MG/DL (<200); CHOLESTEROL RISK RATIO 3.472 (<5); CREATININE FOR GFR 0.97 MG/DL (0.70-1.30); FREE T4 0.93 NG/DL (0.76-1.46); GLOMERULAR FILTRATION RATE > 60.0 (>60); GLUCOSE, FASTING 90 MG/DL (70-100); HDL CHOLESTEROL 36 MG/DL (>40); LDL CHOLESTEROL 37.4 MG/DL (<100); NON-HDL-C 89 MG/DL; POTASSIUM SERUM 4.3 MEQ/L (3.5-5.1); SODIUM LEVEL 140 MEQ/L (136-145); TOTAL PROTEIN 7.1 GM/DL (6.4-8.2); TRIGLYCERIDES LEVEL 258 MG/DL (<150)
[2017-11-26 14:39] LABS: TOTAL 25(OH) VITAMIN D 22.3 NG/ML (30.0-100.0)
[2017-11-26 15:42] LABS: MALB URINE SIEMENS 10.5 MG/L; MAU/CREAT RATIO 7.5 MCG/MG (0.0-30.0)
== END ==
LOC: M SFHCADAM 08:18
DX: E55.9 Vitamin D deficiency, unspecified (principal); I10 Essential (primary) hypertension; E78.1 Pure hyperglyceridemia; M47.813 Spondylosis without myelopathy or radiculopathy, cervicothoracic region

== ENCOUNTER → 2017-12-12 | Outpatient (CLI) | payer BC ==
[~2017-12-12] MED LIST changes: -ASPI325T PO; -ATOR1TAB21 PO; +BUPIVACAINE HCL 0.25% 10 ML VIAL As Ordered; +BUPIVACAINE HCL 0.25% 30 ML VIAL As Ordered; -DULO1CAP2 PO; -FENO48TA2 PO; -GABA-282 PO; -IBUP1TAB7 PO; -LISI-542 PO; -METO1TAB87 PO; -NITR4TASL SL; -No Historical Meds; -PANT40TA2 PO; -REME30TA OR; -TIZA2TA PO; +TRIAMCINOLONE ACETONIDE SUSP 40 MG/ML VIAL (J3301) As Ordered; -VITA1CAP40 PO; +diazePAM 5 MG TAB As Ordered; +oxyCODONE 5MG TAB As Ordered
== END ==
LOC: M PAIN 14:45
DX: G89.21 Chronic pain due to trauma (principal); M54.5 Low back pain; M79.1 Myalgia; F41.9 Anxiety disorder, unspecified; G47.00 Insomnia, unspecified; G47.33 Obstructive sleep apnea (adult) (pediatric); F43.10 Post-traumatic stress disorder, unspecified; I10 Essential (primary) hypertension; F17.220 Nicotine dependence, chewing tobacco, uncomplicated; Z79.899 Other long term (current) drug therapy
CPT/HCPCS: J3301

== ENCOUNTER → 2017-12-29 | Outpatient (CLI) | payer BC | LOC: M PAIN 08:45 | DX: M96.1 Postlaminectomy syndrome, not elsewhere classified (principal); M43.07 Spondylolysis, lumbosacral region; G47.33 Obstructive sleep apnea (adult) (pediatric); F43.12 Post-traumatic stress disorder, chronic; F41.9 Anxiety disorder, unspecified; I10 Essential (primary) hypertension; K29.50 Unspecified chronic gastritis without bleeding; F17.220 Nicotine dependence, chewing tobacco, uncomplicated; Z79.891 Long term (current) use of opiate analgesic; Z79.899 Other long term (current) drug therapy; Z87.820 Personal history of traumatic brain injury | CPT/HCPCS: G0463 ==

== ENCOUNTER → 2018-01-12 | Outpatient (CLI) | payer BC ==
[~2018-01-12] MED LIST changes: -BUPIVACAINE HCL 0.25% 10 ML VIAL As Ordered; +ISOVUE-M 300 61% 15ML VIAL (Q9967) As Ordered; +LIDOCAINE 1% SDV INJ 30 ML VIAL As Ordered; -TRIAMCINOLONE ACETONIDE SUSP 40 MG/ML VIAL (J3301) As Ordered; -diazePAM 5 MG TAB As Ordered; -oxyCODONE 5MG TAB As Ordered
== END ==
LOC: M PAIN 08:45
DX: G89.29 Other chronic pain (principal); M47.816 Spondylosis without myelopathy or radiculopathy, lumbar region; M47.817 Spondylosis without myelopathy or radiculopathy, lumbosacral region; I10 Essential (primary) hypertension; G47.00 Insomnia, unspecified; F41.9 Anxiety disorder, unspecified; K29.80 Duodenitis without bleeding; K29.70 Gastritis, unspecified, without bleeding; F07.81 Postconcussional syndrome; F43.10 Post-traumatic stress disorder, unspecified; G47.33 Obstructive sleep apnea (adult) (pediatric); F17.220 Nicotine dependence, chewing tobacco, uncomplicated; Z79.891 Long term (current) use of opiate analgesic; Z79.899 Other long term (current) drug therapy
CPT/HCPCS: Q9967

== ENCOUNTER → 2018-01-29 | Outpatient (CLI) | payer BC | LOC: M PAIN 11:45 | DX: G89.21 Chronic pain due to trauma (principal); M47.816 Spondylosis without myelopathy or radiculopathy, lumbar region; M47.817 Spondylosis without myelopathy or radiculopathy, lumbosacral region; I10 Essential (primary) hypertension; G47.33 Obstructive sleep apnea (adult) (pediatric); F41.9 Anxiety disorder, unspecified; F43.10 Post-traumatic stress disorder, unspecified; F17.228 Nicotine dependence, chewing tobacco, with other nicotine-induced disorders; Z79.891 Long term (current) use of opiate analgesic; Z79.899 Other long term (current) drug therapy; Z87.820 Personal history of traumatic brain injury; Z98.890 Other specified postprocedural states | CPT/HCPCS: Q9967 ==

== ENCOUNTER → 2018-02-05 | Outpatient (CLI) | payer BC | LOC: M PAIN 13:15 | DX: G89.29 Other chronic pain (principal); M43.07 Spondylolysis, lumbosacral region; M96.1 Postlaminectomy syndrome, not elsewhere classified; F41.9 Anxiety disorder, unspecified; G47.00 Insomnia, unspecified; F43.10 Post-traumatic stress disorder, unspecified; K29.70 Gastritis, unspecified, without bleeding; F17.220 Nicotine dependence, chewing tobacco, uncomplicated; F07.81 Postconcussional syndrome; I10 Essential (primary) hypertension; G47.33 Obstructive sleep apnea (adult) (pediatric); Z79.891 Long term (current) use of opiate analgesic; Z87.820 Personal history of traumatic brain injury; Z91.82 Personal history of military deployment; Z98.1 Arthrodesis status; Z87.81 Personal history of (healed) traumatic fracture | CPT/HCPCS: G0463 ==

== ENCOUNTER → 2018-02-25 | Outpatient (CLI) | payer BC ==
[~2018-02-25] MED LIST changes: +TRIAMCINOLONE ACETONIDE SUSP 40 MG/ML VIAL (J3301) As Ordered
== END ==
LOC: M PAIN 13:45
DX: G89.29 Other chronic pain (principal); M47.816 Spondylosis without myelopathy or radiculopathy, lumbar region; M47.817 Spondylosis without myelopathy or radiculopathy, lumbosacral region; F41.9 Anxiety disorder, unspecified; F17.220 Nicotine dependence, chewing tobacco, uncomplicated; F43.10 Post-traumatic stress disorder, unspecified; G47.33 Obstructive sleep apnea (adult) (pediatric); I10 Essential (primary) hypertension; Z91.82 Personal history of military deployment; Z87.820 Personal history of traumatic brain injury; Z79.891 Long term (current) use of opiate analgesic; Z79.899 Other long term (current) drug therapy
CPT/HCPCS: J3301

== ENCOUNTER → 2018-03-18 | Outpatient (CLI) | payer BC | LOC: M PAIN 10:15 | DX: G89.29 Other chronic pain (principal); M47.812 Spondylosis without myelopathy or radiculopathy, cervical region; M47.816 Spondylosis without myelopathy or radiculopathy, lumbar region; F41.9 Anxiety disorder, unspecified; F43.10 Post-traumatic stress disorder, unspecified; F17.220 Nicotine dependence, chewing tobacco, uncomplicated; I10 Essential (primary) hypertension; G47.33 Obstructive sleep apnea (adult) (pediatric); Z87.81 Personal history of (healed) traumatic fracture; Z98.1 Arthrodesis status; Z79.891 Long term (current) use of opiate analgesic; Z79.899 Other long term (current) drug therapy; Z87.820 Personal history of traumatic brain injury | CPT/HCPCS: G0463 ==

== ENCOUNTER → 2018-04-13 | Outpatient (CLI) | payer BC ==
[~2018-04-13] MED LIST changes: +diazePAM 5 MG TAB As Ordered; +oxyCODONE 5MG TAB As Ordered
== END ==
LOC: M PAIN 08:45
DX: G89.29 Other chronic pain (principal); M47.812 Spondylosis without myelopathy or radiculopathy, cervical region; F07.81 Postconcussional syndrome; F41.9 Anxiety disorder, unspecified; G47.00 Insomnia, unspecified; F43.10 Post-traumatic stress disorder, unspecified; I10 Essential (primary) hypertension; F17.220 Nicotine dependence, chewing tobacco, uncomplicated; G47.33 Obstructive sleep apnea (adult) (pediatric); K29.80 Duodenitis without bleeding; Z91.82 Personal history of military deployment; Z98.1 Arthrodesis status; Z87.81 Personal history of (healed) traumatic fracture; Z87.820 Personal history of traumatic brain injury; Z79.891 Long term (current) use of opiate analgesic; Z79.899 Other long term (current) drug therapy
CPT/HCPCS: J3301

== ENCOUNTER → 2018-07-10 | Outpatient (CLI) | payer BC | LOC: M PAIN 10:15 | DX: M47.812 Spondylosis without myelopathy or radiculopathy, cervical region (principal); M79.1 Myalgia; F07.81 Postconcussional syndrome; F41.9 Anxiety disorder, unspecified; G47.00 Insomnia, unspecified; F43.10 Post-traumatic stress disorder, unspecified; I10 Essential (primary) hypertension; G47.33 Obstructive sleep apnea (adult) (pediatric); Z87.81 Personal history of (healed) traumatic fracture; Z87.820 Personal history of traumatic brain injury; E29.1 Testicular hypofunction; F17.220 Nicotine dependence, chewing tobacco, uncomplicated; Z91.82 Personal history of military deployment; Z79.891 Long term (current) use of opiate analgesic; Z79.899 Other long term (current) drug therapy | CPT/HCPCS: G0463 ==

== ENCOUNTER → 2018-07-15 | Outpatient (CLI) | payer BC ==
[~2018-07-15] MED LIST changes: +BUPIVACAINE HCL 0.25% 10 ML VIAL As Ordered; -ISOVUE-M 300 61% 15ML VIAL (Q9967) As Ordered; -LIDOCAINE 1% SDV INJ 30 ML VIAL As Ordered
== END ==
LOC: M PAIN 10:30
DX: M79.1 Myalgia (principal); M54.6 Pain in thoracic spine; F41.9 Anxiety disorder, unspecified; G47.00 Insomnia, unspecified; F43.10 Post-traumatic stress disorder, unspecified; I10 Essential (primary) hypertension; G47.33 Obstructive sleep apnea (adult) (pediatric); F17.220 Nicotine dependence, chewing tobacco, uncomplicated; Z79.891 Long term (current) use of opiate analgesic; Z79.899 Other long term (current) drug therapy; Z87.820 Personal history of traumatic brain injury; Z87.828 Personal history of other (healed) physical injury and trauma
CPT/HCPCS: J3301

== ENCOUNTER → 2018-08-05 | Outpatient (CLI) | payer BC | LOC: M PAIN 08:45 | DX: M47.812 Spondylosis without myelopathy or radiculopathy, cervical region (principal); M79.10 Myalgia, unspecified site; I10 Essential (primary) hypertension; F41.9 Anxiety disorder, unspecified; G47.00 Insomnia, unspecified; F43.10 Post-traumatic stress disorder, unspecified; G47.33 Obstructive sleep apnea (adult) (pediatric); F17.220 Nicotine dependence, chewing tobacco, uncomplicated; Z79.899 Other long term (current) drug therapy; Z87.820 Personal history of traumatic brain injury; Z87.828 Personal history of other (healed) physical injury and trauma; Z91.82 Personal history of military deployment | CPT/HCPCS: G0463 ==

== ENCOUNTER → 2018-10-12 | Outpatient (CLI) | payer BC ==
[~2018-10-12] MED LIST changes: +ASPI325T PO; +ATOR1TAB21 PO; -BUPIVACAINE HCL 0.25% 10 ML VIAL As Ordered; -BUPIVACAINE HCL 0.25% 30 ML VIAL As Ordered; +DULO1CAP2 PO; +FENO48TA2 PO; +GABA-843 PO; +IBUP1TAB7 PO; +LISI-542 PO; +METO1TAB87 PO; +NITR4TASL SL; +No Historical Meds; +PANT40TA3 PO; +REME30TA OR; +TIZA2TA PO; -TRIAMCINOLONE ACETONIDE SUSP 40 MG/ML VIAL (J3301) As Ordered; +VITA50005 PO; -diazePAM 5 MG TAB As Ordered; -oxyCODONE 5MG TAB As Ordered
--- NOTE | 2018-11-05 00:55 | ECWPNPC ---
PATIENT NAME: MELODY BONDS : 1970 GENDER: MALE VISIT DATE: 10/12/2018 DISCHARGE DATE: 10/12/18 1200 VISIT LOCKED DATE TIME: PHYSICIAN: RON AMES RESOURCE: RON AMES REASON FOR APPOINTMENT 1. BACK/NECK HISTORY OF PRESENT ILLNESS DEPRESSION SCREENING: PHQ-2 IN LAST TWO WEEKS HAVE YOU BEEN BOTHERED BY LITTLE INTEREST OR PLEASURE IN DOING THINGSNO FEELING DOWN, DEPRESSED, OR HOPELESSNO HISTORY OF PRESENT ILLNESS: HERE FOR F/U OF CHRONIC LOW BACK PAIN.STATES RIGHT LOW BACK PAIN IS BEGINNING TO RETURN.NOT TO THE INTENSITY BEFORE.RATING PAIN VAS 5/10.FINDS MEDICATION EFFECTIVE. PAIN THE PATIENT DESCRIBES THE PAIN... FALL RISK SCREENING: SCREENING :NO FALLS IN THE PAST YEAR CURRENT MEDICATIONS TAKING HM VITAMIN B12 1000 MCG TABLET EXTENDED RELEASE 2 TABS ORALLY WEEKLY TAKING CYMBALTA 60 MG CAPSULE DELAYED RELEASE PARTICLES 1 CAPSULE ONCE A DAY ORALLY 90 DAY(S) TAKING LIDODERM 5 % PATCH 1 PATCH TO SKIN REMOVE AFTER 12 HOURS - ON BACK EXTERNALLY ON 12 HOURS, OFF 12 HOURS DAILY TAKING DRISDOL 82188 UNIT CAPSULE 1 CAPSULE ORALLY TWICE A WEEK TAKING AMLODIPINE BESYLATE 5 MG TABLET 1 TABLET ORALLY ONCE A DAY TAKING BISOPROLOL FUMARATE 5MG TABLET TAKE 1 TABLET DAILY ORALLY ONCE A DAY TAKING ATORVASTATIN CALCIUM 80MG TABLET TAKE 1 TABLET DAILY ORALLY DAILY TAKING LISINOPRIL 20MG TABLET TAKE 1 TABLET DAILY ORALLY DAILY TAKING OMEPRAZOLE 40MG CAPSULE DELAYED RELEASE TAKE 1 CAPSULE DAILY ORALLY DAILY TAKING BELBUCA 300 MCG FILM 1 FILM TO THE GUM BUCALLY EVERY 12 HRS MDD2 TAKING AMLODIPINE BESYLATE 5MG TABLET TAKE 1 TABLET DAILY , NOTES: DUPLICATE TAKING DULOXETINE HCL 60MG CAPSULE DELAYED RELEASE PARTICLES TAKE 1 CAPSULE DAILY , NOTES: DUPLICATE NOT-TAKING OXYCODONE HCL 5 MG TABLET 1 TABLET NEEDED ORALLY Q12 H PRN MDD2 MEDICATION LIST REVIEWED AND RECONCILED WITH THE PATIENT PAST MEDICAL HISTORY S/P FALL FROM TREE STAND 06/06/15 - SUSTAINED RIGHT FEMUR FRACTURE AND RIGHT WRIST FRACTURE (DR. GRANT - [place] ) NECK/BACK PAIN SUBSEQUENT TO FALL 06/06/15- FOLLOWING WITH PUNCHBOARD FILLING MACHINE OPERATOR IN [place] (DR. 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 SURGICAL HISTORY BROKEN FEMUR REPAIRED WITH RODS/PINS, RIGHT WRIST FRACTURE 06/07/15 FUSION L4-L5 01/2016 PUT A BIGGER RITA IN FEMUR 02/2016 RIGHT WRIST HARDWARE REMOVED 09/19/16 RIGHT FEMUR RITA REMOVED, PLATE AND SCREWS PLACED 01/2017 SOCIAL HISTORY GENERAL: TOBACCO USE ADDITIONAL FINDINGS: TOBACCO USERCHEWS TOBACCO NOT INTERESTED IN QUITTING AT THIS TIME SMOKING CESSATION INFORMATION GIVEN10/12/2018 DISCUSSED THE IMPORTANCE OF QUITTING CHEW ADDITIONAL FINDINGS: TOBACCO NON-USER REFUSED SMOKING CESSATION INFORMATION AT THIS TIME. BMI CARE GOAL FOLLOW-UP ABOVE NORMAL BMI FOLLOW-UPDIETARY MANAGEMENT EDUCATION, GUIDANCE, AND COUNSELING ALCOHOL SCREENING DID YOU HAVE A DRINK CONTAINING ALCOHOL IN THE PAST YEAR?YES HOW OFTEN DID YOU HAVE SIX OR MORE DRINKS ON ONE OCCASION IN THE PAST YEAR?LESS THAN MONTHLY (1 POINT) HOW MANY DRINKS DID YOU HAVE ON A TYPICAL DAY WHEN YOU WERE DRINKING IN THE PAST YEAR?3 OR 4 (1 POINT) HOW OFTEN DID YOU HAVE A DRINK CONTAINING ALCOHOL IN THE PAST YEAR?MONTHLY OR LESS (1 POINT) POINTS3 INTERPRETATIONNEGATIVE RECREATIONAL DRUG USE DRUG USE?NO CAFFEINE CAFFEINE USE?YES HOW OFTEN AND HOW MUCH? 2 CUPS OF COFFEE PER DAY SEXUAL HX HAD SEX IN THE LAST 12 MONTHS (VAGINAL, ORAL, OR ANAL)?YES WITHWOMEN ONLY USE PROTECTION?NO HAVE YOU EVER HAD AN STD?NO ORTHODOX [id number] NONE LANGUAGE LANGUAGES SPOKEN:LEBANESE EDUCATION LEVEL OF EDUCATION:NOT FINISHED COLLEGE LEARNING BARRIERS / SPECIAL NEEDS CHANGE FROM LAST VISIT?NO BARRIERS TO LEARNING?NO HEARING IMPAIRED?NO VISION IMPAIRED?YES COGNITIVELY IMPAIRED?NO :CORRECTIVE LENSES READINESS TO LEARN?YES LEARNING PREFERENCES?NO LEARNING CAPABILITIES PRESENT?YES EMOTIONAL BARRIERS?NO SPECIAL DEVICES?NO QUALITY INTERN NEEDED?NO DOMESTIC VIOLENCE DO YOU FEEL SAFE IN YOUR ENVIRONMENT?YES OCCUPATION: DISABLED. DIET: REGULAR. EXERCISE: NO REGULAR EXERCISE. MARITAL STATUS: . PAIN CLINIC PFS, CLERGY, PUBLIC HEALTH REFERRALS PFS REFERRAL NEEDED?NO CLERGY REFERRAL NEEDED?NO PUBLIC HEALTH REFERRAL NEEDED?NO HAS THE PATIENT BEEN EDUCATED REGARDING HIS/HER PLAN OF CARE?YES HAS THE PATIENT BEEN EDUCATED REGARDING PAIN, THE RISK FOR PAIN, THE IMPORTANCE OF EFFECTIVE PAIN MANAGEMENT, AND THE PAIN ASSESSMENT PROCESS?YES ADVANCE DIRECTIVE ADVANCE DIRECTIVE DISCUSSED WITH PATIENT:YES HCP & POA TAMERA OBNDS [phone] AND [facility]IV[facility] WILL HOSPITALIZATION/MAJOR DIAGNOSTIC PROCEDURE ALL SURGICAL RELATED CHEST PAIN 10/2016 FX BACK AT L-1 07-14-17 REVIEW OF SYSTEMS REVIEWED BY: PROVIDER: RON MCGOVERN . CONSTITUTIONAL: ANY CHANGE IN YOUR MEDICAL CONDITION? NO . CHILLS NO . FEVER NO . INFECTION: DO YOU HAVE NEW INFECTIONS? NO . DO YOU HAVE HISTORY OF MRSA? NO . MUSCULOSKELETAL: ANY NEW PATTERNS OF PAIN OR NUMBNESS? NO . GASTROENTEROLOGY: ANY NEW CHANGE IN BOWEL CONTROL? NO . GENITOURINARY: ANY NEW CHANGE IN BLADDER CONTROL? NO . IS THERE A CHANCE YOU COULD BE ? NO . HEMATOLOGY/LYMPH: DO YOU TAKE ANY BLOOD THINNERS? (FOR EXAMPLE- COUMADIN, PLAVIX, AGGRENOX, PLATEL, PRADAXA, OR XARELTO) NO . WHEN WAS YOUR LAST DOSE? DATE: TIME: . NEUROLOGY: HAVE YOU FALLEN IN THE PAST 6 MONTHS? NO . ANY NEW EXTREMITY NUMBNESS OR WEAKNESS? NO . CARDIOLOGY: DO YOU HAVE A PACEMAKER OR DEFIBRILLATOR? NO . RESPIRATORY: HAVE YOU BEEN SICK IN THE PAST WEEK? NO . FEVER NO . FLU LIKE SYMPTOMS? NO . COUGH NO . INTEGUMENTARY: DO YOU HAVE ANY RASHES OR OPEN SORES? NO . ALLERGIC/IMMUNO: ARE YOU ALLERGIC TO SHELLFISH OR IV DYE? NO . ANY NEW ALLERGIES? NO . PSYCHIATRIC: DO YOU HAVE THOUGHTS OF HURTING YOURSELF OR SOMEONE ELSE? NO . ARE YOU ABUSED, NEGLECTED, OR IN AN UNSAFE ENVIRONMENT? NO . ENDOCRINOLOGY: ARE YOU DIABETIC? NO . OTHER: DO YOU NEED ANY PRESCRIPTIONS? YES, BELBUCA . IF YES, PLEASE LIST: ____ . ANY NEW PROBLEMS WITH YOUR MEDICATIONS? NO . WHEN DID YOU LAST EAT? ____ . WHEN DID YOU LAST DRINK? ____ . WHAT DID YOU LAST DRINK? ____ . NAME OF PERSON DRIVING YOU HOME? ____ . DO YOU HAVE ANY OTHER QUESTIONS OR CONCERNS NO . VITAL SIGNS WT 232.2 LBS, HT 71", BMI 32.38 INDEX, BP 148/85 MM HG, HR 70 /MIN, RR 18 /MIN, TEMP 98.2 F, OXYGEN SAT % 96%, NA INITIALS SC 11:33, REVIEWED BY: EM. EXAMINATION GENERAL EXAMINATION: GENERAL APPEARANCE:WELL NOURISHED, WELL DEVELOPED, NO APPARENT DISTRESS. PSYCHAFFECT NORMAL . LUNGS:CLEAR TO AUSCULTATION BILATERALLY, NO WHEEZES, RHONCHI, RALES. HEART:NO MURMURS, REGULAR RATE AND RHYTHM. LUMBAR SACRAL SPINEPALPATION: + FOR PAIN OVER L/S SPINE. + FOR PAIN OVER L/S PARSPINALS R>L , TRIGGER POINTS:, ELICITED WITH PALPATION OVER LUMBAR PARAVERTEBRAL MUSCLES . RESTRICTION OF ROM IN THIS AREA.SPECIFIC POINT TENDERNESS OVER RIGHT L4/5 FACET WITH FACET LOADING.. ASSESSMENTS CHRONIC NECK AND BACK PAIN - M54.2 (PRIMARY) TREATMENT CHRONIC NECK AND BACK PAIN REFILL BELBUCA FILM, 300 MCG, 1 FILM TO THE GUM, BUCALLY, EVERY 12 HRS MDD2, 30 DAY(S), 60, REFILLS 2 NOTES: ISTOP REGISTRY REVIEWED AND DEMONSTRATES COMPLLIANCE. (REF #[id number] ) BRINGS IN MEDICATIONS WHICH IS APPROPRIATE FOR WHAT WAS DISPENSED. RECENT URINE TOXICOLOGY REVIEWED. NO UNAUTHORIZED MEDICATIONS. NO ILLICIT SUBSTANCES AND PRESCRIBED MEDICATIONS WERE PRESENT. , RISKS AND BENEFITS OF NARCOTIC/OPIOD MEDICATIONS WERE REVIEWED WITH PATIENT - THIS INCLUDES BUT IS NOT LIMITED TO RISK OF DEPENDANCE/DEVELOPMENT OF ADDICTION, MOOD DISTURBANCE AND DEPRESSION, OSTEOPOROSIS, HORMONAL AND LABIDAL CHANGES, RESPIRATORY DEPRESSION AND . PATIENT IS ADVISED NOT TO DRIVE OR DRINK ALCOHOL WHILE ON THESE MEDICATIONS. PROCEDURE CODES FA211 ESTABILISHED PATIENT [facility] CHARGE DISPOSITION & COMMUNICATION FOLLOW UP 3 MONTHS ELECTRONICALLY SIGNED BY FROILAN POPE ON 11/04/2018 AT 02:09 PM EST DISCLAIMER : THIS IS A VISIT SUMMARY EXTRACTED FROM THE [employer] CHART. IT IS NOT A COPY OF THE [employer] PROGRESS NOTE. PORTILLO
== END ==
LOC: M PAIN 11:45
PROVIDERS: ATTEND Nurse Practitioner Family
DX: M54.2 Cervicalgia (principal); F07.81 Postconcussional syndrome; F41.9 Anxiety disorder, unspecified; K29.70 Gastritis, unspecified, without bleeding; G47.00 Insomnia, unspecified; F43.10 Post-traumatic stress disorder, unspecified; I10 Essential (primary) hypertension; G47.33 Obstructive sleep apnea (adult) (pediatric); F17.220 Nicotine dependence, chewing tobacco, uncomplicated; Z79.899 Other long term (current) drug therapy; Z87.81 Personal history of (healed) traumatic fracture

== ENCOUNTER → 2019-01-06 | Outpatient (REF) | payer BC ==
[2019-01-06 13:29] LABS: HEMATOCRIT 42.4 % (42.0-52.0); MEAN CORPUSCULAR HEMOGLOBIN 28.7 pg (27.0-33.0); MEAN CORPUSCULAR VOLUME 87.1 fl (80.0-96.0); PLATELET COUNT, AUTOMATED 225 10^3/uL (150-450); RED BLOOD COUNT 4.87 10^6/uL (4.30-6.10); WHITE BLOOD COUNT 7.6 10^3/uL (4.0-10.0)
[2019-01-06 14:25] LABS: ALT/SGPT 33 U/L (12-78); BILIRUBIN,TOTAL 0.5 MG/DL (0.2-1.0); BLOOD UREA NITROGEN 19 MG/DL (7-18); CALCIUM LEVEL 8.9 MG/DL (8.5-10.1); CARBON DIOXIDE LEVEL 28 MEQ/L (21-32); CHLORIDE LEVEL 107 MEQ/L (98-107); CREATININE FOR GFR 0.93 MG/DL (0.70-1.30); GLOMERULAR FILTRATION RATE > 60.0 (>60); GLUCOSE, FASTING 105 MG/DL (70-100); POTASSIUM SERUM 4.6 MEQ/L (3.5-5.1); SODIUM LEVEL 141 MEQ/L (136-145)
[2019-01-06 14:26] LABS: CHOLESTEROL LEVEL 141 MG/DL (<200); CHOLESTEROL RISK RATIO 3.615 (<5); HDL CHOLESTEROL 39 MG/DL (>40); LDL CHOLESTEROL 47 MG/DL (<100); NON-HDL-C 102 MG/DL; TOTAL 25(OH) VITAMIN D 61.2 NG/ML (30.0-100.0); TOTAL PROTEIN 6.5 GM/DL (6.4-8.2); TRIGLYCERIDES LEVEL 277 MG/DL (<150)
== END ==
LOC: M SFHCADAM 09:41
PROVIDERS: ATTEND Physician Assistant
DX: I10 Essential (primary) hypertension (principal); E78.1 Pure hyperglyceridemia; E56.9 Vitamin deficiency, unspecified

== ENCOUNTER → 2019-01-11 | Outpatient (CLI) | payer BC ==
--- NOTE | 2019-01-27 01:58 | ECWPNPC ---
PATIENT NAME: MELODY BONDS : 1970 GENDER: MALE VISIT DATE: 01/11/2019 DISCHARGE DATE: 01/11/19 1538 VISIT LOCKED DATE TIME: PHYSICIAN: RON AMES RESOURCE: RON AMES REASON FOR APPOINTMENT 1. BACK/NECK HISTORY OF PRESENT ILLNESS HISTORY OF PRESENT ILLNESS: HERE FOR F/U OF CHRONIC NECK AND LOW BACK PAIN.RATING PAIN VAS 5/10.DESCRIBES PAIN CONSTANT,ACHING AND SHARP PAIN.WORSE AREA OF PAIN IS NECK. PAIN THE PATIENT DESCRIBES THE PAIN... FALL RISK SCREENING: SCREENING : NO FALLS IN THE PAST YEAR. CURRENT MEDICATIONS TAKING HM VITAMIN B12 1000 MCG TABLET EXTENDED RELEASE 2 TABS ORALLY WEEKLY TAKING LIDODERM 5 % PATCH 1 PATCH TO SKIN REMOVE AFTER 12 HOURS - ON BACK EXTERNALLY ON 12 HOURS, OFF 12 HOURS DAILY TAKING DRISDOL [id number] UNIT CAPSULE 1 CAPSULE ORALLY TWICE A WEEK TAKING LISINOPRIL 20MG TABLET TAKE 1 TABLET DAILY ORALLY DAILY TAKING OMEPRAZOLE 40MG CAPSULE DELAYED RELEASE TAKE 1 CAPSULE DAILY ORALLY DAILY TAKING BELBUCA 300 MCG FILM 1 FILM TO THE GUM BUCALLY EVERY 12 HRS MDD2 TAKING DULOXETINE HCL 60MG CAPSULE DELAYED RELEASE PARTICLES TAKE 1 CAPSULE DAILY , NOTES: DUPLICATE TAKING DIPHENHYDRAMINE HCL 50 MG CAPSULE 1 CAPSULE ORALLY 1 CAPSULE AT BEDTIME TAKING ATORVASTATIN CALCIUM 80MG TABLET TAKE 1 TABLET DAILY ORALLY DAILY TAKING AMLODIPINE BESYLATE 5 MG TABLET 1 TABLET ORALLY ONCE A DAY TAKING BISOPROLOL FUMARATE 5MG TABLET TAKE 1 TABLET DAILY ORALLY ONCE A DAY TAKING ALEVE PM 1 CAP ORALLY BEFORE BEDTIME MEDICATION LIST REVIEWED AND RECONCILED WITH THE PATIENT PAST MEDICAL HISTORY S/P FALL FROM TREE STAND 06/06/15 - SUSTAINED RIGHT FEMUR FRACTURE AND RIGHT WRIST FRACTURE (DR. GRANT - [place] ) NECK/BACK PAIN SUBSEQUENT TO FALL 06/06/15- FOLLOWING WITH HUMAN RESOURCES BENEFITS ADMINISTRATOR IN [place] (DR. 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 SURGICAL HISTORY BROKEN FEMUR REPAIRED WITH RODS/PINS, RIGHT WRIST FRACTURE 06/07/15 FUSION L4-L5 01/2016 PUT A BIGGER RITA IN FEMUR 02/2016 RIGHT WRIST HARDWARE REMOVED 09/19/16 RIGHT FEMUR RITA REMOVED, PLATE AND SCREWS PLACED 01/2017 FAMILY HISTORY FATHER: 66 YRS, DIAGNOSED WITH OTHER MOTHER: ALIVE 69 YRS 1 SON(S) , 2 DAUGHTER(S) - HEALTHY. CANCER - GRANDMOTHER, UNCLES. SOCIAL HISTORY GENERAL: TOBACCO USE ADDITIONAL FINDINGS: TOBACCO USERCHEWS TOBACCO NOT INTERESTED IN QUITTING AT THIS TIME SMOKING CESSATION INFORMATION GIVEN01/11/2019 DISCUSSED THE IMPORTANCE OF QUITTING CHEW ADDITIONAL FINDINGS: TOBACCO NON-USER REFUSED SMOKING CESSATION INFORMATION AT THIS TIME. LATEX QUESTIONNAIRE LATEX ALLERGY : HAVE YOU EVER DEVELOPED ANY TYPE OF REACTION AFTER HANDLING LATEX PRODUCTS SUCH RUBBER GLOVES, CONDOMS, DIAPHRAGMS, BALLOONS, SOCKS, OR UNDERWEAR?NO LATEX ALLERGY : HAVE YOU EVER DEVELOPED ANY TYPE OF REACTION DURING OR AFTER DENTAL APPOINTMENT, VAGINAL/RECTAL EXAMINATION, SURGICAL PROCEDURE, OR ANY OTHER EXPOSURE?NO LATEX RISK : HAVE YOU EVER HAD ANY DIFFICULTY BREATHING OR HIVES AFTER EATING OR HANDLING ANY FRUITS, OR VEGETABLES; SUCH KIWI, BANANAS, STONE FRUITS, OR CHESTNUTSNO LATEX RISK : DO YOU HAVE A PREVIOUS PERSONAL HISTORY OF MORE THAN NINE SURGERIES, SPINA BIFIDA, OR REPEATED CATHERTIZATIONS? NO LATEX RISK : ARE YOU FREQUENTLY EXPOSED TO LATEX PRODUCTS IN YOUR OCCUPATION?NO DATE ASKED : 01/08/2019 BMI CARE GOAL FOLLOW-UP ABOVE NORMAL BMI FOLLOW-UPDIETARY MANAGEMENT EDUCATION, GUIDANCE, AND COUNSELING ALCOHOL SCREENING DID YOU HAVE A DRINK CONTAINING ALCOHOL IN THE PAST YEAR?YES HOW OFTEN DID YOU HAVE SIX OR MORE DRINKS ON ONE OCCASION IN THE PAST YEAR?LESS THAN MONTHLY (1 POINT) HOW MANY DRINKS DID YOU HAVE ON A TYPICAL DAY WHEN YOU WERE DRINKING IN THE PAST YEAR?3 OR 4 (1 POINT) HOW OFTEN DID YOU HAVE A DRINK CONTAINING ALCOHOL IN THE PAST YEAR?MONTHLY OR LESS (1 POINT) POINTS3 INTERPRETATIONNEGATIVE RECREATIONAL DRUG USE DRUG USE?NO CAFFEINE CAFFEINE USE?YES HOW OFTEN AND HOW MUCH? 2 CUPS OF COFFEE PER DAY SEXUAL HX HAD SEX IN THE LAST 12 MONTHS (VAGINAL, ORAL, OR ANAL)?YES WITHWOMEN ONLY USE PROTECTION?NO HAVE YOU EVER HAD AN STD?NO WORSHIP [id number] NONE LANGUAGE LANGUAGES SPOKEN:CZECH EDUCATION LEVEL OF EDUCATION:NOT FINISHED COLLEGE LEARNING BARRIERS / SPECIAL NEEDS CHANGE FROM LAST VISIT?NO BARRIERS TO LEARNING?NO HEARING IMPAIRED?NO VISION IMPAIRED?YES COGNITIVELY IMPAIRED?NO :CORRECTIVE LENSES READINESS TO LEARN?YES LEARNING PREFERENCES?NO LEARNING CAPABILITIES PRESENT?YES EMOTIONAL BARRIERS?NO SPECIAL DEVICES?NO KARDEX CLERK NEEDED?NO DOMESTIC VIOLENCE DO YOU FEEL SAFE IN YOUR ENVIRONMENT?YES OCCUPATION: DISABLED. DIET: REGULAR. EXERCISE: NO REGULAR EXERCISE. MARITAL STATUS: . PAIN CLINIC PFS, CLERGY, PUBLIC HEALTH REFERRALS PFS REFERRAL NEEDED?NO CLERGY REFERRAL NEEDED?NO PUBLIC HEALTH REFERRAL NEEDED?NO HAS THE PATIENT BEEN EDUCATED REGARDING HIS/HER PLAN OF CARE?YES HAS THE PATIENT BEEN EDUCATED REGARDING PAIN, THE RISK FOR PAIN, THE IMPORTANCE OF EFFECTIVE PAIN MANAGEMENT, AND THE PAIN ASSESSMENT PROCESS?YES ADVANCE DIRECTIVE ADVANCE DIRECTIVE DISCUSSED WITH PATIENT:YES HCP & POA TAMERA BONDS [phone] AND LIVING WILL HOSPITALIZATION/MAJOR DIAGNOSTIC PROCEDURE ALL SURGICAL RELATED CHEST PAIN 10/2016 FX BACK AT L-1 07-14-17 REVIEW OF SYSTEMS REVIEWED BY: PROVIDER: RON MCGOVERN . CONSTITUTIONAL: ANY CHANGE IN YOUR MEDICAL CONDITION? NO . CHILLS NO . FEVER NO . INFECTION: DO YOU HAVE NEW INFECTIONS? NO . DO YOU HAVE HISTORY OF MRSA? NO . MUSCULOSKELETAL: ANY NEW PATTERNS OF PAIN OR NUMBNESS? NO . GASTROENTEROLOGY: ANY NEW CHANGE IN BOWEL CONTROL? NO . GENITOURINARY: ANY NEW CHANGE IN BLADDER CONTROL? NO . IS THERE A CHANCE YOU COULD BE ? NO . HEMATOLOGY/LYMPH: DO YOU TAKE ANY BLOOD THINNERS? (FOR EXAMPLE- COUMADIN, PLAVIX, AGGRENOX, PLATEL, PRADAXA, OR XARELTO) NO . WHEN WAS YOUR LAST DOSE? DATE: TIME: . NEUROLOGY: HAVE YOU FALLEN IN THE PAST 12 MONTHS? NO . ANY NEW EXTREMITY NUMBNESS OR WEAKNESS? NO . CARDIOLOGY: DO YOU HAVE A PACEMAKER OR DEFIBRILLATOR? NO . RESPIRATORY: HAVE YOU BEEN SICK IN THE PAST WEEK? NO . FEVER NO . FLU LIKE SYMPTOMS? NO . COUGH NO . INTEGUMENTARY: DO YOU HAVE ANY RASHES OR OPEN SORES? NO . ALLERGIC/IMMUNO: ARE YOU ALLERGIC TO IV DYE? NO . ANY NEW ALLERGIES? NO . PSYCHIATRIC: DO YOU HAVE THOUGHTS OF HURTING YOURSELF OR SOMEONE ELSE? NO . ARE YOU ABUSED, NEGLECTED, OR IN AN UNSAFE ENVIRONMENT? NO . ENDOCRINOLOGY: ARE YOU DIABETIC? NO . OTHER: DO YOU NEED ANY PRESCRIPTIONS? NO . IF YES, PLEASE LIST: ____ . ANY NEW PROBLEMS WITH YOUR MEDICATIONS? YES, PT STATES BELBUCA 300 BID PT IS UNABLE TO SLEEP, JUST LAYS AWAKE. PT STARTED BELBUCA 300 DAILY 2-3 MOS AGO AND TAKING ALEVEL PM AT NIGHT, SLEEPING IS MUCH BETTER SINCE CHANGE . WHEN DID YOU LAST EAT? ____ . WHEN DID YOU LAST DRINK? ____ . WHAT DID YOU LAST DRINK? ____ . NAME OF PERSON DRIVING YOU HOME? ____ . DO YOU HAVE ANY OTHER QUESTIONS OR CONCERNS NO . VITAL SIGNS WT 241.4 LBS, HT 71", BMI 33.66 INDEX, BP 141/95 MM HG, HR 74 /MIN, RR 18 /MIN, TEMP 96.2 F, OXYGEN SAT % 99%, NA INITIALS SC 14:49, REVIEWED BY: ALESSANDRA. EXAMINATION GENERAL EXAMINATION: LUNGS:LUNG SOUNDS ARE CLEAR . HEART:HEART RATE REGULAR . MUSCULOSKELETAL:*, MUSCLE STRENGTH TESTING 5/5 BILATERAL UPPER EXTREMITIES. . CERVICAL+ FOR PAIN WITH PALPATION OF CERVICAL SPINE. + FOR PAIN WITH PALPATION OF CERVICAL PARASPINALS.SPECIFIC POINT TENDERNESS NOTED OVER C3/4, C4/5-/C5/6 CERVICAL FACETS WITH EXTENSION AND FACET LOADING. . DIAGNOSTIC TESTS REVIEWEDCERVICAL MRI . 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 C3/4-C4/5-C5/6 TFB, ISTOP REGISTRY REVIEWED AND DEMONSTRATES COMPLLIANCE. BRINGS IN MEDICATIONS WHICH IS APPROPRIATE FOR WHAT WAS DISPENSED. RECENT URINE TOXICOLOGY REVIEWED. NO UNAUTHORIZED MEDICATIONS. NO ILLICIT SUBSTANCES AND PRESCRIBED MEDICATIONS WERE PRESENT. URINE TOX TODAY, RISKS AND BENEFITS OF NARCOTIC/OPIOD MEDICATIONS WERE REVIEWED WITH PATIENT - THIS INCLUDES BUT IS NOT LIMITED TO RISK OF DEPENDANCE/DEVELOPMENT OF ADDICTION, MOOD DISTURBANCE AND DEPRESSION, OSTEOPOROSIS, HORMONAL AND LABIDAL CHANGES, RESPIRATORY DEPRESSION AND . PATIENT IS ADVISED NOT TO DRIVE OR DRINK ALCOHOL WHILE ON THESE MEDICATIONS, [facility] NARCOTIC AGREEMENT WAS UPDATED REVIEWED AND SIGNED TODAY BY THE PATIENT. SEE ATTACHED DOCUMENT FOR FULL DETAILS; SPECIFIC ISSUES WERE REVIEWED: 1) KEEP PAIN MEDS IN THEIR ORIGINAL BOTTLES AND ANY WEEKLY PLANNERS ARE TO BE BROUGHT TO THE PAIN CENTER AT EVERY VISIT. 2) THE PATIENT IS NOT TO INCREASE DOSING OR TIMING OF THEIR PAIN MEDICATION WITHOUT SPECIFIC DIRECTION OF THEIR PAIN CENTERPROVIDER (NOT ER OR OTHER PROVIDERS). 3) ALL PAIN MEDS ARE TO BE KEPT SECURED, IN A LOCKED BOX. 4) NO PAIN MEDS ARE TO BE SHARED WITH ANY OTHER PERSON FOR ANY REASON. 5) NO PAIN MEDS MAY BE TAKEN FROM ANY FRIENDS OR RELATIVES FOR ANY REASON 6) NO MEDS OR SUBSTANCES WHICH ARE NOT LEGAL ARE TO BE USED- NO MARIJUANA, NO COCAINE, AMPHETAMINES, HEROIN, OR OTHERS ARE EVER TO BE USED. 7)URINE TESTING IS DONE TO ACCOUNT FOR MEDS AND SUBSTANCES BEING TAKEN AND WILL BE DONE RANDOMLY.. PROCEDURE CODES FA211 ESTABILISHED PATIENT [facility] CHARGE DISPOSITION & COMMUNICATION FOLLOW UP POST (REASON: BILAT. C3/4-C4/5-C5/6 TFB) ELECTRONICALLY SIGNED BY FROILAN POPE ON 01/25/2019 AT 09:09 AM EDT DISCLAIMER : THIS IS A VISIT SUMMARY EXTRACTED FROM THE [employer] CHART. IT IS NOT A COPY OF THE [employer] PROGRESS NOTE. PORTILLO
== END ==
LOC: M PAIN 14:30
PROVIDERS: ATTEND Nurse Practitioner Family
DX: M47.813 Spondylosis without myelopathy or radiculopathy, cervicothoracic region (principal); G89.29 Other chronic pain; F17.220 Nicotine dependence, chewing tobacco, uncomplicated; Z79.899 Other long term (current) drug therapy

== ENCOUNTER → 2019-02-10 | Outpatient (CLI) | payer BC ==
[~2019-02-10] MED LIST changes: +ASPI-1 PO; -ASPI325T PO; +BUPIVACAINE HCL 0.25% 30 ML VIAL As Ordered ONE; +ISOVUE-M 300 61% 15ML VIAL (Q9967) As Ordered ONE; +LIDOCAINE 1% SDV INJ 30 ML VIAL As Ordered ONE; +TRIAMCINOLONE ACETONIDE SUSP 40 MG/ML VIAL (J3301) As Ordered ONE; +diazePAM 5 MG TAB As Ordered ONE; +oxyCODONE 5MG TAB As Ordered ONE
--- NOTE | 2019-02-10 14:58 | REP ---
PORTABLE SPINE SERIES: Single view. HISTORY: Injection procedure for pain. 12 seconds of fluoroscopy time is reported. FINDINGS: A single last image hold fluoroscopically obtained spot radiograph of the cervical spine documents various needle positions and contrast injections associated with cervical facet injection procedure. Electronically Signed by Adrian Nolan MD 02/10/2019 05:29 P
--- NOTE | 2019-03-01 00:47 | ECWPNPC ---
PATIENT NAME: MELODY BONDS : 1970 GENDER: MALE VISIT DATE: 02/10/2019 DISCHARGE DATE: 02/10/19 1234 VISIT LOCKED DATE TIME: PHYSICIAN: ALICIA DUVALL MD RESOURCE: ALICIA DUVALL MD REASON FOR APPOINTMENT 1. BILAT. C5/6-C6/7-C7/T1 TFB HISTORY OF PRESENT ILLNESS HISTORY OF PRESENT ILLNESS: PAIN THE PATIENT DESCRIBES THE PAIN... FALL RISK SCREENING: SCREENING :NO FALLS REPORTED IN THE LAST YEAR CURRENT MEDICATIONS TAKING HM VITAMIN B12 1000 MCG TABLET EXTENDED RELEASE 2 TABS ORALLY WEEKLY, NOTES: TAKES ON MONDAYS TAKING LIDODERM 5 % PATCH 1 PATCH TO SKIN REMOVE AFTER 12 HOURS - ON BACK EXTERNALLY ON 12 HOURS, OFF 12 HOURS DAILY, NOTES: NONE RECENT TAKING DRISDOL 59260 UNIT CAPSULE 1 CAPSULE ORALLY TWICE A WEEK, NOTES: TAKES ON MONDAYS TAKING OMEPRAZOLE 40MG CAPSULE DELAYED RELEASE TAKE 1 CAPSULE DAILY ORALLY DAILY, NOTES: 02/10/19629 TAKING DULOXETINE HCL 60MG CAPSULE DELAYED RELEASE PARTICLES TAKE 1 CAPSULE DAILY , NOTES: 02/10/19629 TAKING DIPHENHYDRAMINE HCL 50 MG CAPSULE 1 CAPSULE ORALLY 1 CAPSULE AT BEDTIME, NOTES: HAS NOT PICKED UP YET TAKING AMLODIPINE BESYLATE 5 MG TABLET 1 TABLET ORALLY ONCE A DAY, NOTES: 02/10/19629 TAKING ALEVE PM 1 CAP ORALLY BEFORE BEDTIME, NOTES: 02/09/19 PM TAKING BELBUCA 300 MCG FILM 1 FILM TO THE GUM BUCALLY QD MDD1, NOTES: 02/10/10629 TAKING ATORVASTATIN CALCIUM 80MG TABLET TAKE 1 TABLET DAILY ORALLY DAILY, NOTES: 02/10/19629 TAKING LISINOPRIL 20MG TABLET TAKE 1 TABLET DAILY ORALLY DAILY, NOTES: 02/10/19629 TAKING BISOPROLOL FUMARATE 5MG TABLET TAKE 1 TABLET DAILY ORALLY ONCE A DAY, NOTES: 02/10/19629 MEDICATION LIST REVIEWED AND RECONCILED WITH THE PATIENT PAST MEDICAL HISTORY S/P FALL FROM TREE STAND 06/06/15 - SUSTAINED RIGHT FEMUR FRACTURE AND RIGHT WRIST FRACTURE (DR. GRANT - [place] ) NECK/BACK PAIN SUBSEQUENT TO FALL 06/06/15- FOLLOWING WITH ACCOUNT COORDINATOR IN [place] (DR. 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 SURGICAL HISTORY BROKEN FEMUR REPAIRED WITH RODS/PINS, RIGHT WRIST FRACTURE 06/07/15 FUSION L4-L5 01/2016 PUT A BIGGER RITA IN FEMUR 02/2016 RIGHT WRIST HARDWARE REMOVED 09/19/16 RIGHT FEMUR RITA REMOVED, PLATE AND SCREWS PLACED 01/2017 FAMILY HISTORY FATHER: 66 YRS, DIAGNOSED WITH OTHER MOTHER: ALIVE 69 YRS 1 SON(S) , 2 DAUGHTER(S) - HEALTHY. CANCER - GRANDMOTHER, UNCLES. SOCIAL HISTORY GENERAL: TOBACCO USE ADDITIONAL FINDINGS: TOBACCO USERCHEWS TOBACCO NOT INTERESTED IN QUITTING AT THIS TIME ADDITIONAL FINDINGS: TOBACCO NON-USER REFUSED SMOKING CESSATION INFORMATION AT THIS TIME. SMOKING CESSATION INFORMATION GIVEN01/11/2019 DISCUSSED THE IMPORTANCE OF QUITTING CHEW LATEX QUESTIONNAIRE LATEX ALLERGY : HAVE YOU EVER DEVELOPED ANY TYPE OF REACTION AFTER HANDLING LATEX PRODUCTS SUCH RUBBER GLOVES, CONDOMS, DIAPHRAGMS, BALLOONS, SOCKS, OR UNDERWEAR?NO LATEX ALLERGY : HAVE YOU EVER DEVELOPED ANY TYPE OF REACTION DURING OR AFTER DENTAL APPOINTMENT, VAGINAL/RECTAL EXAMINATION, SURGICAL PROCEDURE, OR ANY OTHER EXPOSURE?NO DATE ASKED : 01/08/2019 LATEX RISK : HAVE YOU EVER HAD ANY DIFFICULTY BREATHING OR HIVES AFTER EATING OR HANDLING ANY FRUITS, OR VEGETABLES; SUCH KIWI, BANANAS, STONE FRUITS, OR CHESTNUTSNO LATEX RISK : DO YOU HAVE A PREVIOUS PERSONAL HISTORY OF MORE THAN NINE SURGERIES, SPINA BIFIDA, OR REPEATED CATHERTIZATIONS? NO LATEX RISK : ARE YOU FREQUENTLY EXPOSED TO LATEX PRODUCTS IN YOUR OCCUPATION?NO BMI CARE GOAL FOLLOW-UP ABOVE NORMAL BMI FOLLOW-UPDIETARY MANAGEMENT EDUCATION, GUIDANCE, AND COUNSELING ALCOHOL SCREENING DID YOU HAVE A DRINK CONTAINING ALCOHOL IN THE PAST YEAR?YES HOW OFTEN DID YOU HAVE SIX OR MORE DRINKS ON ONE OCCASION IN THE PAST YEAR?LESS THAN MONTHLY (1 POINT) HOW MANY DRINKS DID YOU HAVE ON A TYPICAL DAY WHEN YOU WERE DRINKING IN THE PAST YEAR?3 OR 4 (1 POINT) HOW OFTEN DID YOU HAVE A DRINK CONTAINING ALCOHOL IN THE PAST YEAR?MONTHLY OR LESS (1 POINT) POINTS3 INTERPRETATIONNEGATIVE RECREATIONAL DRUG USE DRUG USE?NO CAFFEINE CAFFEINE USE?YES HOW OFTEN AND HOW MUCH? 2 CUPS OF COFFEE PER DAY SEXUAL HX HAD SEX IN THE LAST 12 MONTHS (VAGINAL, ORAL, OR ANAL)?YES WITHWOMEN ONLY USE PROTECTION?NO HAVE YOU EVER HAD AN STD?NO QUAKER [id number] NONE LANGUAGE LANGUAGES SPOKEN:WOLOF EDUCATION LEVEL OF EDUCATION:NOT FINISHED COLLEGE LEARNING BARRIERS / SPECIAL NEEDS CHANGE FROM LAST VISIT?NO BARRIERS TO LEARNING?NO HEARING IMPAIRED?NO VISION IMPAIRED?YES COGNITIVELY IMPAIRED?NO :CORRECTIVE LENSES READINESS TO LEARN?YES LEARNING PREFERENCES?NO LEARNING CAPABILITIES PRESENT?YES EMOTIONAL BARRIERS?NO SPECIAL DEVICES?NO AUTOMATIC BUFFING WHEEL FORMER NEEDED?NO DOMESTIC VIOLENCE DO YOU FEEL SAFE IN YOUR ENVIRONMENT?YES OCCUPATION: DISABLED. DIET: REGULAR. EXERCISE: NO REGULAR EXERCISE. MARITAL STATUS: . PAIN CLINIC PFS, CLERGY, PUBLIC HEALTH REFERRALS PFS REFERRAL NEEDED?NO CLERGY REFERRAL NEEDED?NO PUBLIC HEALTH REFERRAL NEEDED?NO HAS THE PATIENT BEEN EDUCATED REGARDING HIS/HER PLAN OF CARE?YES HAS THE PATIENT BEEN EDUCATED REGARDING PAIN, THE RISK FOR PAIN, THE IMPORTANCE OF EFFECTIVE PAIN MANAGEMENT, AND THE PAIN ASSESSMENT PROCESS?YES ADVANCE DIRECTIVE ADVANCE DIRECTIVE DISCUSSED WITH PATIENT:YES FLORA & LANNY BONDS [phone] AND LIVING WILL REVIEWED WITH PT 02/10/19 1103 BV. HOSPITALIZATION/MAJOR DIAGNOSTIC PROCEDURE ALL SURGICAL RELATED CHEST PAIN 10/2016 FX BACK AT L-1 07-14-17 REVIEW OF SYSTEMS REVIEWED BY: PROVIDER: . CONSTITUTIONAL: ANY CHANGE IN YOUR MEDICAL CONDITION? NO . CHILLS NO . FEVER NO . INFECTION: DO YOU HAVE NEW INFECTIONS? NO . DO YOU HAVE HISTORY OF MRSA? NO . MUSCULOSKELETAL: ANY NEW PATTERNS OF PAIN OR NUMBNESS? YES, PT HAS NOTICED INCREASED PAIN IN NECK AND PAIN TRAVELING DOWN BILATERAL SHOULDERS FOR THE PAST 3 WEEKS . GASTROENTEROLOGY: ANY NEW CHANGE IN BOWEL CONTROL? NO . GENITOURINARY: ANY NEW CHANGE IN BLADDER CONTROL? NO . IS THERE A CHANCE YOU COULD BE ? NO . HEMATOLOGY/LYMPH: DO YOU TAKE ANY BLOOD THINNERS? (FOR EXAMPLE- COUMADIN, PLAVIX, AGGRENOX, PLATEL, PRADAXA, OR XARELTO) NO . WHEN WAS YOUR LAST DOSE? DATE: TIME: . NEUROLOGY: HAVE YOU FALLEN IN THE PAST 12 MONTHS? NO . ANY NEW EXTREMITY NUMBNESS OR WEAKNESS? NO . CARDIOLOGY: DO YOU HAVE A PACEMAKER OR DEFIBRILLATOR? NO . RESPIRATORY: HAVE YOU BEEN SICK IN THE PAST WEEK? NO . FEVER NO . FLU LIKE SYMPTOMS? NO . COUGH NO . INTEGUMENTARY: DO YOU HAVE ANY RASHES OR OPEN SORES? NO . ALLERGIC/IMMUNO: ARE YOU ALLERGIC TO IV DYE? NO . ANY NEW ALLERGIES? NO . PSYCHIATRIC: DO YOU HAVE THOUGHTS OF HURTING YOURSELF OR SOMEONE ELSE? NO . ARE YOU ABUSED, NEGLECTED, OR IN AN UNSAFE ENVIRONMENT? NO . ENDOCRINOLOGY: ARE YOU DIABETIC? NO . OTHER: DO YOU NEED ANY PRESCRIPTIONS? NO . IF YES, PLEASE LIST: ____ . ANY NEW PROBLEMS WITH YOUR MEDICATIONS? NO . WHEN DID YOU LAST EAT? 02/09/19 1800 . WHEN DID YOU LAST DRINK? 02/10/19 0630 . WHAT DID YOU LAST DRINK? WATER . NAME OF PERSON DRIVING YOU HOME? JACK . DO YOU HAVE ANY OTHER QUESTIONS OR CONCERNS NO . VITAL SIGNS WT 240.6 LBS, HT 71", BMI 33.55 INDEX, BP 146/89 MM HG, HR 75 /MIN, RR 18 /MIN, TEMP 97.9 F, OXYGEN SAT % 99%, NA INITIALS SC 10:49, REVIEWED BY: BV. ASSESSMENTS SPONDYLOSIS OF CERVICAL REGION WITHOUT MYELOPATHY OR RADICULOPATHY - M47.812 (PRIMARY) SPONDYLOSIS WITHOUT MYELOPATHY OR RADICULOPATHY, CERVICOTHORACIC REGION - M47.813 TREATMENT SPONDYLOSIS WITHOUT MYELOPATHY OR RADICULOPATHY, CERVICOTHORACIC REGION SMC FACET BLOCK (PAIN)[id number] PROCEDURES PN CERVICAL FACET BLOCK LOW BILATERAL CERVICAL PRE PROCEDURE DIAGNOSIS CERVICAL SPONDYLOSIS, CERVICOTHORACIC SPONDYLOSIS POST PROCEDURE DIAGNOSIS CERVICAL SPONDYLOSIS, CERVICOTHORACIC SPONDYLOSIS PROCEDURE BILATERAL C5-C6, BILATERAL C6-C7, AND BILATERAL C7-T1 CERVICAL FACET BLOCK SURGEON DR. ALICIA DUVALL COMMUNICATION ELECTRONIC TECHNICIAN NONE ANESTHESIA LOCAL PRE PROCEDURE NOTE THE PATIENT HAS HISTORY OF CHRONIC CERVICAL PAIN. I EVALUATE THE PATIENT AND REVIEWED THE CHART. I WENT OVER THE RISKS, ALTERNATIVES, AND BENEFITS ASSOCIATED WITH THIS PROCEDURE. THE PATIENT WOULD LIKE TO PROCEED AND GIVE CONSENT TO PERFORMED THE PROCEDURE. THE PATIENT DENIES UNEXPLAINABLE WEIGHT LOSS, FEVER, CHILLS, OR NEW CHANGES IN URINARY OR BOWEL CONTROL. DESCRIPTION OF PROCEDURE THE PATIENT WAS BROUGHT TO THE PROCEDURE ROOM AND PLACED IN THE PRONE POSITION. THE CERVICOTHORACIC AREA WAS CLEANED WITH CHLORAPREP SOLUTION AND DRAPED ASEPTICALLY. THE PROCEDURE WAS DONE UNDER STERILE CONDITIONS. I CHECKED LATERALITY AND THE LEVEL WHERE THE PROCEDURE WAS GOING TO BE PERFORMED WITH THE PATIENT AND THE SUPPORTING STAFF AT THE MOMENT OF THE TIME OUT IN THE PROCEDURE ROOM. UNDER FLUOROSCOPIC GUIDANCE, TARGET POINT WAS SELECTED AT THE RIGHT AND LEFT C5-C6, RIGHT AND LEFT C6-C7, AND RIGHT AND LEFT C7-T1 CERVICAL FACET JOINT. TARGET POINTS WERE SELECTED AFTER LATERAL ROTATION AND TILT OF THE MAGNIFIER OF THE C-ARM. LIDOCAINE 0.5% WAS USED TO NUMB THE SKIN AND THE SUBCUTANEOUS TISSUE BELOW IT. SPINAL NEEDLES, 22-GAUGE, WERE ADVANCED UNDER FLUOROSCOPIC GUIDANCE AND FOLLOWING PATIENT FEEDBACK UNTIL THE TARGETS WERE TOUCHED. THE POSITION OF THE NEEDLES WAS VERIFIED WITH AP AND LATERAL VIEWS. AFTER PROPER POSITION OF THE NEEDLES WAS ACHIEVED, ISOVUE M DYE 30, 0.1 ML WAS INJECTED SHOWING SPREAD OF THE DYE. THEN A SOLUTION OF 0.9 ML OF BUPIVACAINE 0.125% AND KENALOG 10 MG WAS INJECTED AT EACH SITE. THERE WAS NO EVIDENCE OF BLOOD, PARESTHESIA OR CEREBROSPINAL FLUID DURING THE PROCEDURE. THE PATIENT WAS SENT TO THE RECOVERY ROOM. THE PATIENT WAS MOVING THE EXTREMITIES AND DOING WELL. THERE WAS NO COMPLICATION DURING THE PROCEDURE. FLUOROSCOPY TIME WAS 12 SECONDS POST PROCEDURE NOTE THE PATIENT WILL BE SEEN IN A FOLLOW UP IN THE NEXT FEW WEEKS. INSTRUCTIONS WERE GIVEN, QUESTIONS WERE ANSWERED, AND THE PATIENT EXPRESSED UNDERSTANDING AND AGREES WITH THE PLAN. I, SAY MAGANA, DOCUMENTED THE ABOVE INFORMATION ACTING A SCRIBE FOR DR. DUVALL. I HAVE REVIEWED THE ABOVE DOCUMENT, WRITTEN BY SAY MAGANA SCRIBPuma AND I VERIFY THAT IT IS ACCURATE. PROCEDURE CODES 35089 INJ PARAVERT F JNT C/T 1 LEV, MODIFIERS: 50 [id number] INJ PARAVERT F JNT C/T 2 LEV, MODIFIERS: 50 [id number] INJ PARAVERT F JNT C/T 3 LEV, MODIFIERS: 50 [id number] RADXPS IN END [id number] PXD DISPOSITION & COMMUNICATION FOLLOW UP 3 WEEKS ELECTRONICALLY SIGNED BY ALICIA DUVALL MD, MD ON 02/28/2019 AT 06:51 PM EDT DISCLAIMER : THIS IS A VISIT SUMMARY EXTRACTED FROM THE [employer] CHART. IT IS NOT A COPY OF THE [employer] PROGRESS NOTE. MTDD
== END ==
LOC: M PAIN 11:15
PROVIDERS: ATTEND Anesthesiology
DX: G89.29 Other chronic pain (principal); M47.812 Spondylosis without myelopathy or radiculopathy, cervical region; M47.813 Spondylosis without myelopathy or radiculopathy, cervicothoracic region; I10 Essential (primary) hypertension; F41.9 Anxiety disorder, unspecified; F43.10 Post-traumatic stress disorder, unspecified; G47.33 Obstructive sleep apnea (adult) (pediatric); F17.220 Nicotine dependence, chewing tobacco, uncomplicated; Z79.899 Other long term (current) drug therapy; Z87.820 Personal history of traumatic brain injury
CPT/HCPCS: 64490; 64491; 64492; J3301; Q9967

== ENCOUNTER → 2019-03-04 | Outpatient (CLI) | payer BC ==
[~2019-03-04] MED LIST changes: -BUPIVACAINE HCL 0.25% 30 ML VIAL As Ordered ONE; -ISOVUE-M 300 61% 15ML VIAL (Q9967) As Ordered ONE; -LIDOCAINE 1% SDV INJ 30 ML VIAL As Ordered ONE; -TRIAMCINOLONE ACETONIDE SUSP 40 MG/ML VIAL (J3301) As Ordered ONE; -diazePAM 5 MG TAB As Ordered ONE; -oxyCODONE 5MG TAB As Ordered ONE
--- NOTE | 2019-03-30 00:35 | ECWPNPC ---
PATIENT NAME: MELODY BONDS : 1970 GENDER: MALE VISIT DATE: 03/04/2019 DISCHARGE DATE: 03/04/19 1443 VISIT LOCKED DATE TIME: PHYSICIAN: RON AMES RESOURCE: RON AMES REASON FOR APPOINTMENT 1. POST PROC HISTORY OF PRESENT ILLNESS HISTORY OF PRESENT ILLNESS: HERE FOR POST PROCEDURE F/U.HAD BILAT. C5/6-C6/7 THERAPEUTIC FACET BLOCKS ON 02/10/19.REPORTING >80% IMPROVEMENT IN PAIN THAT CONTINUES TODAY.COMPLAINING OF NEW ONSET BILAT THUMB ,INDEX AND MIDDLE FINGER NUMBNESS AND TINGLING.HAVING INSOMNIA ISSUES.FEELS IT IS RELATED TO BELBUCA EXTRA 300 IN AFTERNOON.ONCE THIS WAS REDUCED TO DAILY HAVING SLEEP ISSUES BUT NOT BAD. PAIN THE PATIENT DESCRIBES THE PAIN... FALL RISK SCREENING: SCREENING :NO FALLS REPORTED IN THE LAST YEAR CURRENT MEDICATIONS TAKING AMLODIPINE BESYLATE 5 MG TABLET 1 TABLET ORALLY ONCE A DAY TAKING OMEPRAZOLE 40MG CAPSULE DELAYED RELEASE TAKE 1 CAPSULE DAILY ORALLY DAILY TAKING HM VITAMIN B12 1000 MCG TABLET EXTENDED RELEASE 2 TABS ORALLY WEEKLY TAKING LIDODERM 5 % PATCH 1 PATCH TO SKIN REMOVE AFTER 12 HOURS - ON BACK EXTERNALLY ON 12 HOURS, OFF 12 HOURS DAILY TAKING DRISDOL 04757 UNIT CAPSULE 1 CAPSULE ORALLY TWICE A WEEK TAKING DULOXETINE HCL 60MG CAPSULE DELAYED RELEASE PARTICLES TAKE 1 CAPSULE DAILY TAKING DIPHENHYDRAMINE HCL 50 MG CAPSULE 1 CAPSULE ORALLY 1 CAPSULE AT BEDTIME TAKING ALEVE PM 1 CAP ORALLY BEFORE BEDTIME TAKING BELBUCA 300 MCG FILM 1 FILM TO THE GUM BUCALLY QD MDD1 TAKING ATORVASTATIN CALCIUM 80MG TABLET TAKE 1 TABLET DAILY ORALLY DAILY TAKING LISINOPRIL 20MG TABLET TAKE 1 TABLET DAILY ORALLY DAILY TAKING BISOPROLOL FUMARATE 5MG TABLET TAKE 1 TABLET DAILY ORALLY ONCE A DAY MEDICATION LIST REVIEWED AND RECONCILED WITH THE PATIENT PAST MEDICAL HISTORY S/P FALL FROM TREE STAND 06/06/15 - SUSTAINED RIGHT FEMUR FRACTURE AND RIGHT WRIST FRACTURE (DR. GRANT - [place] ) NECK/BACK PAIN SUBSEQUENT TO FALL 06/06/15- FOLLOWING WITH [facility] STAFF MEMBER IN [place] (DR. 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 SURGICAL HISTORY BROKEN FEMUR REPAIRED WITH RODS/PINS, RIGHT WRIST FRACTURE 06/07/15 FUSION L4-L5 01/2016 PUT A BIGGER RITA IN FEMUR 02/2016 RIGHT WRIST HARDWARE REMOVED 09/19/16 RIGHT FEMUR RITA REMOVED, PLATE AND SCREWS PLACED 01/2017 FAMILY HISTORY FATHER: 66 YRS, DIAGNOSED WITH OTHER MOTHER: ALIVE 69 YRS 1 SON(S) , 2 DAUGHTER(S) - HEALTHY. CANCER - GRANDMOTHER, UNCLES. SOCIAL HISTORY GENERAL: TOBACCO USE ADDITIONAL FINDINGS: TOBACCO USERCHEWS TOBACCO NOT INTERESTED IN QUITTING AT THIS TIME SMOKING CESSATION INFORMATION GIVEN01/11/2019 DISCUSSED THE IMPORTANCE OF QUITTING CHEW ADDITIONAL FINDINGS: TOBACCO NON-USER REFUSED SMOKING CESSATION INFORMATION AT THIS TIME. EDUCATION LEVEL OF EDUCATION:NOT FINISHED COLLEGE DIET: REGULAR. LANGUAGE LANGUAGES SPOKEN:GEORGIAN DOMESTIC VIOLENCE DO YOU FEEL SAFE IN YOUR ENVIRONMENT?YES BMI CARE GOAL FOLLOW-UP ABOVE NORMAL BMI FOLLOW-UPDIETARY MANAGEMENT EDUCATION, GUIDANCE, AND COUNSELING RECREATIONAL DRUG USE DRUG USE?NO EXERCISE: NO REGULAR EXERCISE. LEARNING BARRIERS / SPECIAL NEEDS CHANGE FROM LAST VISIT?NO BARRIERS TO LEARNING?NO HEARING IMPAIRED?NO VISION IMPAIRED?YES COGNITIVELY IMPAIRED?NO :CORRECTIVE LENSES READINESS TO LEARN?YES LEARNING PREFERENCES?NO LEARNING CAPABILITIES PRESENT?YES EMOTIONAL BARRIERS?NO SPECIAL DEVICES?NO SOIL SCIENCE TECHNICAL OFFICER NEEDED?NO PAIN CLINIC PFS, CLERGY, PUBLIC HEALTH REFERRALS PFS REFERRAL NEEDED?NO CLERGY REFERRAL NEEDED?NO PUBLIC HEALTH REFERRAL NEEDED?NO WAS THE PROVIDER NOTIFIED OF ANY PERTINENT INFO?YES HAS THE PATIENT BEEN EDUCATED REGARDING HIS/HER PLAN OF CARE?YES HAS THE PATIENT BEEN EDUCATED REGARDING PAIN, THE RISK FOR PAIN, THE IMPORTANCE OF EFFECTIVE PAIN MANAGEMENT, AND THE PAIN ASSESSMENT PROCESS?YES LATEX QUESTIONNAIRE LATEX ALLERGY : HAVE YOU EVER DEVELOPED ANY TYPE OF REACTION AFTER HANDLING LATEX PRODUCTS SUCH RUBBER GLOVES, CONDOMS, DIAPHRAGMS, BALLOONS, SOCKS, OR UNDERWEAR?NO LATEX ALLERGY : HAVE YOU EVER DEVELOPED ANY TYPE OF REACTION DURING OR AFTER DENTAL APPOINTMENT, VAGINAL/RECTAL EXAMINATION, SURGICAL PROCEDURE, OR ANY OTHER EXPOSURE?NO LATEX RISK : HAVE YOU EVER HAD ANY DIFFICULTY BREATHING OR HIVES AFTER EATING OR HANDLING ANY FRUITS, OR VEGETABLES; SUCH KIWI, BANANAS, STONE FRUITS, OR CHESTNUTSNO LATEX RISK : DO YOU HAVE A PREVIOUS PERSONAL HISTORY OF MORE THAN NINE SURGERIES, SPINA BIFIDA, OR REPEATED CATHERTIZATIONS? NO LATEX RISK : ARE YOU FREQUENTLY EXPOSED TO LATEX PRODUCTS IN YOUR OCCUPATION?NO DATE ASKED : 03/04/2019 CAFFEINE CAFFEINE USE?YES HOW OFTEN AND HOW MUCH? 2 CUPS OF COFFEE PER DAY ADVANCE DIRECTIVE ADVANCE DIRECTIVE DISCUSSED WITH PATIENT:YES HCP & LANNY BONDS [phone] AND LIVING WILL SHINTO [id number] NONE MARITAL STATUS: . ALCOHOL SCREENING DID YOU HAVE A DRINK CONTAINING ALCOHOL IN THE PAST YEAR?YES HOW OFTEN DID YOU HAVE SIX OR MORE DRINKS ON ONE OCCASION IN THE PAST YEAR?LESS THAN MONTHLY (1 POINT) HOW MANY DRINKS DID YOU HAVE ON A TYPICAL DAY WHEN YOU WERE DRINKING IN THE PAST YEAR?3 OR 4 (1 POINT) HOW OFTEN DID YOU HAVE A DRINK CONTAINING ALCOHOL IN THE PAST YEAR?MONTHLY OR LESS (1 POINT) POINTS3 INTERPRETATIONNEGATIVE OCCUPATION: DISABLED. SEXUAL HX HAD SEX IN THE LAST 12 MONTHS (VAGINAL, ORAL, OR ANAL)?YES WITHWOMEN ONLY USE PROTECTION?NO HAVE YOU EVER HAD AN STD?NO REVIEWED WITH PT 02/10/19 1103 BV. HOSPITALIZATION/MAJOR DIAGNOSTIC PROCEDURE ALL SURGICAL RELATED CHEST PAIN 10/2016 FX BACK AT L-1 07-14-17 REVIEW OF SYSTEMS REVIEWED BY: PROVIDER: RON MCGOVERN . CONSTITUTIONAL: ANY CHANGE IN YOUR MEDICAL CONDITION? NO . CHILLS NO . FEVER NO . INFECTION: DO YOU HAVE NEW INFECTIONS? NO . DO YOU HAVE HISTORY OF MRSA? NO . MUSCULOSKELETAL: ANY NEW PATTERNS OF PAIN OR NUMBNESS? YES, PT CONTINUES TO HAVE NUMBNESS IN FINGERS AND NOW HAS NUMBNESS IN LEFT GREAT TOE, PAINFUL AT TIMES . GASTROENTEROLOGY: ANY NEW CHANGE IN BOWEL CONTROL? NO . GENITOURINARY: ANY NEW CHANGE IN BLADDER CONTROL? NO . IS THERE A CHANCE YOU COULD BE ? NO . HEMATOLOGY/LYMPH: DO YOU TAKE ANY BLOOD THINNERS? (FOR EXAMPLE- COUMADIN, PLAVIX, AGGRENOX, PLATEL, PRADAXA, OR XARELTO) NO . WHEN WAS YOUR LAST DOSE? DATE: TIME: . NEUROLOGY: HAVE YOU FALLEN IN THE PAST 12 MONTHS? NO . ANY NEW EXTREMITY NUMBNESS OR WEAKNESS? YES, NUMBNESS IN FINGERS . CARDIOLOGY: DO YOU HAVE A PACEMAKER OR DEFIBRILLATOR? NO . RESPIRATORY: HAVE YOU BEEN SICK IN THE PAST WEEK? NO . FEVER NO . FLU LIKE SYMPTOMS? NO . COUGH NO . INTEGUMENTARY: DO YOU HAVE ANY RASHES OR OPEN SORES? NO . ALLERGIC/IMMUNO: ARE YOU ALLERGIC TO IV DYE? NO . ANY NEW ALLERGIES? NO . PSYCHIATRIC: DO YOU HAVE THOUGHTS OF HURTING YOURSELF OR SOMEONE ELSE? NO . ARE YOU ABUSED, NEGLECTED, OR IN AN UNSAFE ENVIRONMENT? NO . ENDOCRINOLOGY: ARE YOU DIABETIC? NO . OTHER: DO YOU NEED ANY PRESCRIPTIONS? YES . IF YES, PLEASE LIST: ____ . ANY NEW PROBLEMS WITH YOUR MEDICATIONS? YES, BELBUCA IS NOT WORKING, NOT MANAGING PAIN . WHEN DID YOU LAST EAT? ____ . WHEN DID YOU LAST DRINK? ____ . WHAT DID YOU LAST DRINK? ____ . NAME OF PERSON DRIVING YOU HOME? ____ . DO YOU HAVE ANY OTHER QUESTIONS OR CONCERNS NO . VITAL SIGNS WT 239 LBS, HT 71", BMI 33.33 INDEX, BP 125/72 MM HG, HR 76 /MIN, RR 18 /MIN, TEMP 98.0 F, OXYGEN SAT % 98%, SAFE IN ENV? (Y/N) Y, NA INITIALS WA 13:59, REVIEWED BY: REBECCA. EXAMINATION GENERAL EXAMINATION: GENERAL APPEARANCE:AWAKE,ALERT ,PLEAASANT . PSYCHAFFECT NORMAL . LUNGS:LUNG MONTES ARE CLEAR TO AUSCULTATION BILATERALLY. GOOD MOVEMENT OF AIR . HEART:S1, S2 IN A REGULAR RATE AND RHYTHM. NO SIGNIFICANT MURMURS, RUBS OR GALLOPS NOTED . ASSESSMENTS SPONDYLOSIS WITHOUT MYELOPATHY OR RADICULOPATHY, CERVICOTHORACIC REGION - M47.813 (PRIMARY) TREATMENT SPONDYLOSIS WITHOUT MYELOPATHY OR RADICULOPATHY, CERVICOTHORACIC REGION REFILL BELBUCA FILM, 300 MCG, 1 FILM TO THE GUM, BUCALLY, QD MDD1, 30 DAY(S), 30, REFILLS 2 START BELBUCA 150 MCG FILM, 150 MCG, 1 FILM, BUCCAL, DAILY MDD1, 30 DAY(S), 30, REFILLS 2 START TIZANIDINE HCL TABLET, 4 MG, 1 TABLET NEEDED, ORALLY, DAILY PRN, 30 DAY(S), 30, REFILLS 2 NOTES: ISTOP REGISTRY REVIEWED AND DEMONSTRATES COMPLLIANCE. (REF # ) BRINGS IN MEDICATIONS WHICH IS APPROPRIATE FOR WHAT WAS DISPENSED. RECENT URINE TOXICOLOGY REVIEWED. NO UNAUTHORIZED MEDICATIONS. NO ILLICIT SUBSTANCES AND PRESCRIBED MEDICATIONS WERE PRESENT. , RISKS AND BENEFITS OF NARCOTIC/OPIOD MEDICATIONS WERE REVIEWED WITH PATIENT - THIS INCLUDES BUT IS NOT LIMITED TO RISK OF DEPENDANCE/DEVELOPMENT OF ADDICTION, MOOD DISTURBANCE AND DEPRESSION, OSTEOPOROSIS, HORMONAL AND LABIDAL CHANGES, RESPIRATORY DEPRESSION AND . PATIENT IS ADVISED NOT TO DRIVE OR DRINK ALCOHOL WHILE ON THESE MEDICATIONS. PROCEDURE CODES FA211 ESTABILISHED [facility] CHARGE DISPOSITION & COMMUNICATION FOLLOW UP 2 MONTHS ELECTRONICALLY SIGNED BY FROILAN PPOE ON 03/29/2019 AT 02:03 PM EDT DISCLAIMER : THIS IS A VISIT SUMMARY EXTRACTED FROM THE [employer] CHART. IT IS NOT A COPY OF THE [employer] PROGRESS NOTE. MTDD
== END ==
LOC: M PAIN 14:15
PROVIDERS: ATTEND Nurse Practitioner Family
DX: M47.813 Spondylosis without myelopathy or radiculopathy, cervicothoracic region (principal); Z87.820 Personal history of traumatic brain injury; Z86.59 Personal history of other mental and behavioral disorders; G47.00 Insomnia, unspecified; I10 Essential (primary) hypertension; G47.33 Obstructive sleep apnea (adult) (pediatric); F17.220 Nicotine dependence, chewing tobacco, uncomplicated; Z79.891 Long term (current) use of opiate analgesic; Z79.899 Other long term (current) drug therapy

== ENCOUNTER → 2019-07-26 | Outpatient (CLI) | payer BC ==
[~2019-07-26] MED LIST changes: -DULO1CAP2 PO; +DULO1CAP5 PO
--- NOTE | 2019-07-28 22:14 | ECHO ---
DATE OF PROCEDURE: 07/26/2019 AGE: 48 GENDER: Male HEIGHT: 71 inches WEIGHT: 235 pound BODY SURFACE AREA: 2.26 m/s PATIENT LOCATION: Outpatient REFERRING PHYSICIAN: DEBORAH Kumar INDICATION: Murmur. 2-D MEASUREMENTS: RV: 3.9 cm LV: 4.7 cm Septum: 1.2 cm Posterior wall: 1.2 cm Aortic root: 3.9 cm LA:: 4.2 cm LVEF: 75% DOPPLER MEASUREMENTS: AV: 1.56 m/s LVOT: 1.3 m/s LVOT diameter: 2.0 cm MV-E: 113, A: 99, EA ratio: 1.1 Early mitral deceleration time: 268 ms E prime: 7.4, A prime: 9, E/E prime ratio: 15.2 PCWP: 21.8 mmHg PV: 0.8 m/s Pulmonary artery acceleration time: 109 ms PASP: 34 mmHg IVC: 2.0 cm COMMENTS Normal sinus rhythm without intraventricular conduction disturbance. Technically challenging study in light of the patient's body habitus, but diagnostically useful information was still obtained. M-mode and two-dimensional echocardiography was performed with pulsed, continuous wave, color flow and tissue Doppler studies. Borderline concentric left ventricular hypertrophy with hyperkinetic wall motion. Mildly dilated left atrium with impairment of LV diastolic function and elevated mean left atrial pressure. Right heart chamber sizes were upper limits of normal with normal wall motion and Doppler evidence of least mild pulmonary hypertension. Normal IVC size with adequate respiratory collapse against an elevated central venous pressure. Normal appearing and functioning valvular structures. Borderline dilated aortic root. No apparent intracardiac mass or pericardial effusion.
== END ==
LOC: M CARPUL 07:38
PROVIDERS: ATTEND Physician Assistant
DX: R01.1 Cardiac murmur, unspecified (principal)

== ENCOUNTER → 2019-08-04 | Outpatient (CLI) | payer BC | LOC: M PAIN 13:15 | PROVIDERS: ATTEND Nurse Practitioner Family | DX: M47.813 Spondylosis without myelopathy or radiculopathy, cervicothoracic region (principal); G89.29 Other chronic pain; Z87.820 Personal history of traumatic brain injury; Z86.59 Personal history of other mental and behavioral disorders; G47.00 Insomnia, unspecified; I10 Essential (primary) hypertension; G47.33 Obstructive sleep apnea (adult) (pediatric); F17.220 Nicotine dependence, chewing tobacco, uncomplicated; Z79.899 Other long term (current) drug therapy ==

== ENCOUNTER → 2019-08-25 | Outpatient (REF) | payer BC ==
[~2019-08-25] MED LIST changes: +FENO48TA13 PO; -FENO48TA2 PO
[2019-08-25 13:44] LABS: BLOOD UREA NITROGEN 12 MG/DL (7-18); CARBON DIOXIDE LEVEL 26 MEQ/L (21-32); CHLORIDE LEVEL 108 MEQ/L (98-107); CREATININE FOR GFR 1.03 MG/DL (0.70-1.30); GLOMERULAR FILTRATION RATE > 60.0 (>60); GLUCOSE, FASTING 100 MG/DL (70-100); POTASSIUM SERUM 4.8 MEQ/L (3.5-5.1); SODIUM LEVEL 141 MEQ/L (136-145)
[2019-08-25 14:45] LABS: HEMOGLOBIN A1c 6.1 %
== END ==
LOC: M SFHCADAM 07:49
PROVIDERS: ATTEND Physician Assistant
DX: R73.01 Impaired fasting glucose (principal)

== ENCOUNTER → 2019-09-09 | Outpatient (CLI) | payer BC ==
[~2019-09-09] MED LIST changes: +BUPIVACAINE HCL 0.25% 30 ML VIAL As Ordered ONE; +ISOVUE-M 300 61% 15ML VIAL (Q9967) As Ordered ONE; +LIDOCAINE 1% SDV INJ 30 ML VIAL As Ordered ONE
--- NOTE | 2019-09-09 13:50 | REP ---
Partial lumbar spine series: Seven views . History: Injection procedure for pain. 32 seconds of fluoroscopy time is reported. Findings: A sequence of seven fluoroscopically obtained last image hold procedural spot radiographs of the lumbar spine document needle position and contrast injection associated with injection procedure. Electronically Signed by Adrian Nolan MD 09/09/2019 01:42 P
--- NOTE | 2019-09-22 01:57 | ECWPNPC ---
PATIENT NAME: MELODY BONDS : 1970 GENDER: MALE VISIT DATE: 09/09/2019 DISCHARGE DATE: 09/09/19 1309 VISIT LOCKED DATE TIME: PHYSICIAN: ALICIA DUVALL MD RESOURCE: ALICIA DUVALL MD REASON FOR APPOINTMENT 1. LEFT L4/5-L5/S1 LFB DX#2 HISTORY OF PRESENT ILLNESS HISTORY OF PRESENT ILLNESS: PAIN THE PATIENT DESCRIBES THE PAIN... FALL RISK SCREENING: SCREENING :NO FALLS REPORTED IN THE LAST YEAR CURRENT MEDICATIONS TAKING OMEPRAZOLE 40MG CAPSULE DELAYED RELEASE TAKE 1 CAPSULE DAILY ORALLY DAILY, NOTES: 09/09/19 TAKING LIDODERM 5 % PATCH 1 PATCH TO SKIN REMOVE AFTER 12 HOURS - ON BACK EXTERNALLY ON 12 HOURS, OFF 12 HOURS DAILY, NOTES: NONE LATELY TAKING DRISDOL 61361 UNIT CAPSULE 1 CAPSULE ORALLY TWICE A WEEK, NOTES: LAST WEEK TAKING ALEVE PM 1 CAP ORALLY BEFORE BEDTIME, NOTES: NONE LATELY TAKING ATORVASTATIN CALCIUM 80MG TABLET TAKE 1 TABLET DAILY ORALLY DAILY, NOTES: 09/09/19 TAKING CHLORTHALIDONE 25 MG TABLET 1 TABLET IN THE MORNING WITH FOOD ORALLY ONCE A DAY, NOTES: 09/09/19 TAKING AMLODIPINE BESYLATE 5 MG TABLET 1 TABLET ORALLY ONCE A DAY, NOTES: 09/09/19 TAKING BISOPROLOL FUMARATE 5MG TABLET TAKE 1 TABLET DAILY ORALLY ONCE A DAY, NOTES: 09/09/19 TAKING LISINOPRIL 20MG TABLET TAKE 1 TABLET DAILY ORALLY DAILY IN EVENING, NOTES: 09/08/19 TAKING BELBUCA 300 MCG FILM 1 FILM TO THE GUM BUCALLY QD MDD1 3 MOS SUPPLY CAT D CHRONIC PAIN, NOTES: 09/08/19 TAKING TIZANIDINE HCL 4 MG TABLET 1 TABLET NEEDED ORALLY DAILY PRN, NOTES: 09/08/19 TAKING DULOXETINE HCL 60MG CAPSULE DELAYED RELEASE PARTICLES TAKE 1 CAPSULE DAILY , NOTES: 09/09/19 NOT-TAKING BELBUCA 150 MCG 150 MCG FILM 1 FILM BUCCAL DAILY AT 1PM MDD1 3 MOS SUPPLY CAT D CHRONIC PAIN MEDICATION LIST REVIEWED AND RECONCILED WITH THE PATIENT PAST MEDICAL HISTORY S/P FALL FROM TREE STAND 06/06/15 - SUSTAINED RIGHT FEMUR FRACTURE AND RIGHT WRIST FRACTURE (DR. GRANT - RULA ) NECK/BACK PAIN SUBSEQUENT TO FALL 06/06/15- FOLLOWING WITH BRAND COORDINATOR IN [place] (DR. 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 HTN V-TACH - HAD 7 BEATS OF ASSYMPTOMATIC V-MERLY WHILE IN HOSPITAL 10/10/17 - FELT TO BE RELATED TO POSSIBLE LUIS, [place] RULED OUT STRESS SPECT 10/2016 - LOW RISK EF 63% LUIS DIAGNOSED 12/29/16 - DID NOT TOLERATE CPAP FRACTURED BACK AT L-1 S/P FALL - 07/14/2017 INSOMNIA ALLERGIES N.K.D.A. SURGICAL HISTORY BROKEN FEMUR REPAIRED WITH RODS/PINS, RIGHT WRIST FRACTURE 06/07/15 FUSION L4-L5 01/2016 PUT A BIGGER RITA IN FEMUR 02/2016 RIGHT WRIST HARDWARE REMOVED 09/19/16 RIGHT FEMUR RITA REMOVED, PLATE AND SCREWS PLACED 01/2017 FAMILY HISTORY FATHER: 66 YRS, DIAGNOSED WITH OTHER SPECIFIED CONDITIONS INFLUENCING HEALTH STATUS MOTHER: ALIVE 69 YRS 1 SON(S) , 2 DAUGHTER(S) - HEALTHY. CANCER - GRANDMOTHER, UNCLES. SOCIAL HISTORY GENERAL: TOBACCO USE ADDITIONAL FINDINGS: TOBACCO USERCHEWS TOBACCO NOT INTERESTED IN QUITTING AT THIS TIME SMOKING CESSATION INFORMATION GIVEN09/09/2019 DISCUSSED THE IMPORTANCE OF QUITTING CHEW ADDITIONAL FINDINGS: TOBACCO NON-USER REFUSED SMOKING CESSATION INFORMATION AT THIS TIME. EDUCATION LEVEL OF EDUCATION:NOT FINISHED COLLEGE DIET: REGULAR. LANGUAGE LANGUAGES SPOKEN:ITALIAN DOMESTIC VIOLENCE DO YOU FEEL SAFE IN YOUR ENVIRONMENT?YES BMI CARE GOAL FOLLOW-UP ABOVE NORMAL BMI FOLLOW-UPDIETARY MANAGEMENT EDUCATION, GUIDANCE, AND COUNSELING RECREATIONAL DRUG USE DRUG USE?NO EXERCISE: NO REGULAR EXERCISE. LEARNING BARRIERS / SPECIAL NEEDS CHANGE FROM LAST VISIT?NO BARRIERS TO LEARNING?NO HEARING IMPAIRED?NO VISION IMPAIRED?YES COGNITIVELY IMPAIRED?NO :CORRECTIVE LENSES READINESS TO LEARN?YES LEARNING PREFERENCES?NO LEARNING CAPABILITIES PRESENT?YES EMOTIONAL BARRIERS?NO SPECIAL DEVICES?NO HEALTH INFORMATION SPECIALIST NEEDED?NO PAIN CLINIC PFS, CLERGY, PUBLIC HEALTH REFERRALS PFS REFERRAL NEEDED?NO CLERGY REFERRAL NEEDED?NO PUBLIC HEALTH REFERRAL NEEDED?NO WAS THE PROVIDER NOTIFIED OF ANY PERTINENT INFO?YES HAS THE PATIENT BEEN EDUCATED REGARDING HIS/HER PLAN OF CARE?YES HAS THE PATIENT BEEN EDUCATED REGARDING PAIN, THE RISK FOR PAIN, THE IMPORTANCE OF EFFECTIVE PAIN MANAGEMENT, AND THE PAIN ASSESSMENT PROCESS?YES LATEX QUESTIONNAIRE LATEX ALLERGY : HAVE YOU EVER DEVELOPED ANY TYPE OF REACTION AFTER HANDLING LATEX PRODUCTS SUCH RUBBER GLOVES, CONDOMS, DIAPHRAGMS, BALLOONS, SOCKS, OR UNDERWEAR?NO LATEX ALLERGY : HAVE YOU EVER DEVELOPED ANY TYPE OF REACTION DURING OR AFTER DENTAL APPOINTMENT, VAGINAL/RECTAL EXAMINATION, SURGICAL PROCEDURE, OR ANY OTHER EXPOSURE?NO DATE ASKED : 03/04/2019 LATEX RISK : HAVE YOU EVER HAD ANY DIFFICULTY BREATHING OR HIVES AFTER EATING OR HANDLING ANY FRUITS, OR VEGETABLES; SUCH KIWI, BANANAS, STONE FRUITS, OR CHESTNUTSNO LATEX RISK : DO YOU HAVE A PREVIOUS PERSONAL HISTORY OF MORE THAN NINE SURGERIES, SPINA BIFIDA, OR REPEATED CATHERIZATIONS? NO LATEX RISK : ARE YOU FREQUENTLY EXPOSED TO LATEX PRODUCTS IN YOUR OCCUPATION?NO CAFFEINE CAFFEINE USE?YES HOW OFTEN AND HOW MUCH? 2 CUPS OF COFFEE PER DAY ADVANCE DIRECTIVE ADVANCE DIRECTIVE DISCUSSED WITH PATIENT:YES HCP & LANNY BONDS [phone] AND LIVING WILL [facility] [id number] NONE MARITAL STATUS: . ALCOHOL SCREENING DID YOU HAVE A DRINK CONTAINING ALCOHOL IN THE PAST YEAR?YES HOW OFTEN DID YOU HAVE SIX OR MORE DRINKS ON ONE OCCASION IN THE PAST YEAR?LESS THAN MONTHLY (1 POINT) HOW MANY DRINKS DID YOU HAVE ON A TYPICAL DAY WHEN YOU WERE DRINKING IN THE PAST YEAR?3 OR 4 (1 POINT) HOW OFTEN DID YOU HAVE A DRINK CONTAINING ALCOHOL IN THE PAST YEAR?MONTHLY OR LESS (1 POINT) POINTS3 INTERPRETATIONNEGATIVE OCCUPATION: DISABLED. SEXUAL HX HAD SEX IN THE LAST 12 MONTHS (VAGINAL, ORAL, OR ANAL)?YES WITHWOMEN ONLY USE PROTECTION?NO HAVE YOU EVER HAD AN STD?NO REVIEWED WITH PT 02/10/19 1103 BVREVIEWED WITH PT 08/04/19 1333 NLJ. HOSPITALIZATION/MAJOR DIAGNOSTIC PROCEDURE ALL SURGICAL RELATED CHEST PAIN 10/2016 FX BACK AT L-1 07-14-17 REVIEW OF SYSTEMS REVIEWED BY: PROVIDER: . CONSTITUTIONAL: ANY CHANGE IN YOUR MEDICAL CONDITION? NO . CHILLS NO . FEVER NO . INFECTION: DO YOU HAVE NEW INFECTIONS? NO . DO YOU HAVE HISTORY OF MRSA? NO . MUSCULOSKELETAL: ANY NEW PATTERNS OF PAIN OR NUMBNESS? NO . GASTROENTEROLOGY: ANY NEW CHANGE IN BOWEL CONTROL? NO . GENITOURINARY: ANY NEW CHANGE IN BLADDER CONTROL? NO . IS THERE A CHANCE YOU COULD BE ? NO . HEMATOLOGY/LYMPH: DO YOU TAKE ANY BLOOD THINNERS? (FOR EXAMPLE- COUMADIN, PLAVIX, AGGRENOX, PLATEL, PRADAXA, OR XARELTO) NO . WHEN WAS YOUR LAST DOSE? DATE: TIME: . NEUROLOGY: HAVE YOU FALLEN IN THE PAST 12 MONTHS? NO . ANY NEW EXTREMITY NUMBNESS OR WEAKNESS? NO . CARDIOLOGY: DO YOU HAVE A PACEMAKER OR DEFIBRILLATOR? NO . RESPIRATORY: HAVE YOU BEEN SICK IN THE PAST WEEK? NO . FEVER NO . FLU LIKE SYMPTOMS? NO . COUGH NO . INTEGUMENTARY: DO YOU HAVE ANY RASHES OR OPEN SORES? NO . ALLERGIC/IMMUNO: ARE YOU ALLERGIC TO IV DYE? NO . ANY NEW ALLERGIES? NO . PSYCHIATRIC: DO YOU HAVE THOUGHTS OF HURTING YOURSELF OR SOMEONE ELSE? NO . ARE YOU ABUSED, NEGLECTED, OR IN AN UNSAFE ENVIRONMENT? NO . ENDOCRINOLOGY: ARE YOU DIABETIC? NO . OTHER: DO YOU NEED ANY PRESCRIPTIONS? NO . IF YES, PLEASE LIST: ____ . ANY NEW PROBLEMS WITH YOUR MEDICATIONS? NO . WHEN DID YOU LAST EAT? ____09-08-19 7 PM . WHEN DID YOU LAST DRINK? ____09-09-19 0700 . WHAT DID YOU LAST DRINK? ____WATER . NAME OF PERSON DRIVING YOU HOME? ____JACK BONDS . DO YOU HAVE ANY OTHER QUESTIONS OR CONCERNS NO . VITAL SIGNS WT 234.2 LBS, HT 71", BMI 32.66 INDEX, BP 123/77 MM HG, HR 60 /MIN, RR 18 /MIN, TEMP 98.2 F, OXYGEN SAT % 97%, SAFE IN ENV? (Y/N) Y, NA INITIALS AW 1040, REVIEWED BY: KG. ASSESSMENTS SPONDYLOSIS WITHOUT MYELOPATHY OR RADICULOPATHY, LUMBAR REGION - M47.816 (PRIMARY) SPONDYLOSIS WITHOUT MYELOPATHY OR RADICULOPATHY, LUMBOSACRAL REGION - M47.817 PROCEDURES PN LUMBAR FACET BLOCK DIAGNOSTIC PRE PROCEDURE DIAGNOSIS LUMBAR SPONDYLOSIS, LUMBOSACRAL SPONDYLOSIS POST PROCEDURE DIAGNOSIS LUMBAR SPONDYLOSIS, LUMBOSACRAL SPONDYLOSIS PROCEDURE LEFT L4-L5 AND LEFT L5-S1 FACET BLOCK DIAGNOSTIC NUMBER [address] ALICIA DUVALL FINANCIAL REPORTING CONSULTANT NONE ANESTHESIA LOCAL PRE PROCEDURE NOTE THE PATIENT WITH HISTORY OF CHRONIC LOW BACK PAIN. I EVALUATED THE PATIENT AND REVIEWED THE CHART. I WENT OVER THE RISKS, ALTERNATIVES, AND BENEFITS ASSOCIATED WITH THIS PROCEDURE. THE PATIENT WOULD LIKE TO PROCEED AND GAVE CONSENT TO PERFORM THE PROCEDURE. AGREED WITH THE PATIENT WE ARE DOING THIS PROCEDURE TO DETERMINE IF THE PATIENT IS A CANDIDATE FOR A RADIOFREQUENCY ABLATION OF THE FACETS JOINTS. THE PATIENT DENIES UNEXPLAINABLE WEIGHT LOSS, FEVER, CHILLS, OR NEW CHANGES IN URINARY OR BOWEL CONTROL DESCRIPTION OF PROCEDURE THE PATIENT WAS BROUGHT TO THE PROCEDURE ROOM AND PLACED IN THE PRONE POSITION. THE LUMBOSACRAL AREA WAS CLEANED WITH CHLORAPREP SOLUTION AND DRAPED ASEPTICALLY. THE PROCEDURE WAS DONE UNDER STERILE CONDITIONS. I CHECKED LATERALITY AND THE LEVEL WHERE THE PROCEDURE WAS GOING TO BE PERFORMED WITH THE PATIENT AND THE SUPPORTING STAFF AT THE MOMENT OF THE TIME OUT IN THE PROCEDURE ROOM. UNDER FLUOROSCOPIC GUIDANCE, TARGETS WERE SELECTED AT THE INTERSECTION OF THE LEFT TRANSVERSE PROCESS OF L4, L5 AND ALA OF S1 WITH ITS RESPECTIVE SUPERIOR ARTICULAR PROCESS. LIDOCAINE WAS USED TO NUMB THE SKIN AND THE SUBCUTANEOUS TISSUE BELOW IT. SPINAL NEEDLE, 22-GAUGE WAS ADVANCED UNDER FLUOROSCOPIC GUIDANCE AND FOLLOWING PATIENT FEEDBACK UNTIL THE TARGETS WERE REACHED. POSITION OF THE NEEDLES WAS VERIFIED WITH AP AND LATERAL VIEWS. AFTER PROPER POSITION OF THE NEEDLES WAS ACHIEVED, ISOVUE-M DYE 30% 0.1 ML WAS INJECTED AT EACH SITE SHOWING ADEQUATE SPREAD OF THE DYE. THEN A SOLUTION OF 0.4 ML OF BUPIVACAINE 0.25% WAS INJECTED AT EACH SITE. THERE WAS NO EVIDENCE OF BLOOD, PARESTHESIA OR CEREBROSPINAL FLUID DURING THE PROCEDURE. THE PATIENT WAS SENT TO THE RECOVERY ROOM. THE PATIENT WAS MOVING THE EXTREMITIES AND DOING WELL. THERE WAS NO COMPLICATION DURING THE PROCEDURE. FLUOROSCOPY TIME WAS 32 SECONDS POST PROCEDURE NOTE THE PATIENT WILL DOCUMENT HIS PAIN LEVEL AND RESPONSE TO THIS PROCEDURE EVERY 30 MINUTES. THE PATIENT WILL BE SEEN IN A FOLLOW UP IN THE NEXT FEW WEEKS. DEPENDING ON THE RESULTS AND IF THE PAIN GOES DOWN, I MAY CONSIDER TRYING COOL RADIOFREQUENCY IN THE FUTURE. FURTHER DETERMINATION FOR HIS CASE WILL BE DONE AT THE NEXT VISIT. INSTRUCTIONS WERE GIVEN, QUESTIONS WERE ANSWERED, AND THE PATIENT EXPRESSED UNDERSTANDING AND AGREED WITH THE PLAN. I, SAY MAGANA, DOCUMENTED THE ABOVE INFORMATION ACTING A SCRIBE FOR DR. DUVALL. I HAVE REVIEWED THE ABOVE DOCUMENT, WRITTEN BY SAY MAGANA SCRIBPuma AND I VERIFY THAT IT IS ACCURATE. DIAGNOSTIC IMAGING [facility] FACET BLOCK (PAIN)[id number] PROCEDURE CODES 76825 INJ PARAVERT F JNT L/S 1 LEV, MODIFIERS: [place] 76165 INJ PARAVERT F JNT L/S 2 LEV, MODIFIERS: LT 6045F RADXPS IN END [id number] PXD DISPOSITION & COMMUNICATION FOLLOW UP 3 WEEKS ELECTRONICALLY SIGNED BY ALICIA DUVALL MD, MD ON 09/21/2019 AT 01:32 PM EST DISCLAIMER : THIS IS A VISIT SUMMARY EXTRACTED FROM THE [employer] CHART. IT IS NOT A COPY OF THE [employer] PROGRESS NOTE. MTDD
== END ==
LOC: M PAIN 10:45
PROVIDERS: ATTEND Anesthesiology
DX: M47.816 Spondylosis without myelopathy or radiculopathy, lumbar region (principal); M47.817 Spondylosis without myelopathy or radiculopathy, lumbosacral region; F41.9 Anxiety disorder, unspecified; F43.10 Post-traumatic stress disorder, unspecified; I10 Essential (primary) hypertension; G47.33 Obstructive sleep apnea (adult) (pediatric); Z87.81 Personal history of (healed) traumatic fracture; G47.00 Insomnia, unspecified; Z87.820 Personal history of traumatic brain injury; Z91.82 Personal history of military deployment; F17.220 Nicotine dependence, chewing tobacco, uncomplicated; Z79.899 Other long term (current) drug therapy
CPT/HCPCS: 64493; 64494; Q9967

== ENCOUNTER → 2019-09-23 | Outpatient (CLI) | payer BC ==
[~2019-09-23] MED LIST changes: -BUPIVACAINE HCL 0.25% 30 ML VIAL As Ordered ONE; -ISOVUE-M 300 61% 15ML VIAL (Q9967) As Ordered ONE; -LIDOCAINE 1% SDV INJ 30 ML VIAL As Ordered ONE
--- NOTE | 2019-10-13 04:24 | ECWPNPC ---
PATIENT NAME: MELODY BONDS : 1970 GENDER: MALE VISIT DATE: 09/23/2019 DISCHARGE DATE: 09/23/19 1518 VISIT LOCKED DATE TIME: PHYSICIAN: RON AMES RESOURCE: RON AMES REASON FOR APPOINTMENT 1. POST PROCEDURE HISTORY OF PRESENT ILLNESS HISTORY OF PRESENT ILLNESS: HERE FOR POST PROCEDURE F/U.HAD LEFT L4/5-L5/S1 LFBDX #2 ON 09/09/19.HOURLY PAIN DIARY IS REVIEWED AND IS SHOWING >80 REDUCTION IN PAIN FOR 24 HRS.PAIN HAS RETURNED TO BASELINE.DESCRIBES CONSTANT ACHING,SHARP AND STABBING LBP THAT AWAKENS PATIENT AT NIGHT.RATING PAIN VAS 6/10. PAIN THE PATIENT DESCRIBES THE PAIN... FALL RISK SCREENING: SCREENING :NO FALLS REPORTED IN THE LAST YEAR CURRENT MEDICATIONS TAKING OMEPRAZOLE 40MG CAPSULE DELAYED RELEASE TAKE 1 CAPSULE DAILY ORALLY DAILY TAKING LIDODERM 5 % PATCH 1 PATCH TO SKIN REMOVE AFTER 12 HOURS - ON BACK EXTERNALLY ON 12 HOURS, OFF 12 HOURS DAILY TAKING DRISDOL 70714 UNIT CAPSULE 1 CAPSULE ORALLY TWICE A WEEK TAKING ALEVE PM 1 CAP ORALLY BEFORE BEDTIME TAKING ATORVASTATIN CALCIUM 80MG TABLET TAKE 1 TABLET DAILY ORALLY DAILY TAKING CHLORTHALIDONE 25 MG TABLET 1 TABLET IN THE MORNING WITH FOOD ORALLY ONCE A DAY TAKING AMLODIPINE BESYLATE 5 MG TABLET 1 TABLET ORALLY ONCE A DAY TAKING BISOPROLOL FUMARATE 5MG TABLET TAKE 1 TABLET DAILY ORALLY ONCE A DAY TAKING LISINOPRIL 20MG TABLET TAKE 1 TABLET DAILY ORALLY DAILY IN EVENING TAKING BELBUCA 300 MCG FILM 1 FILM TO THE GUM BUCALLY QD MDD1 3 MOS SUPPLY CAT D CHRONIC PAIN TAKING TIZANIDINE HCL 4 MG TABLET 1 TABLET NEEDED ORALLY DAILY PRN TAKING DULOXETINE HCL 60MG CAPSULE DELAYED RELEASE PARTICLES TAKE 1 CAPSULE DAILY NOT-TAKING BELBUCA 150 MCG 150 MCG FILM 1 FILM BUCCAL DAILY AT 1PM MDD1 3 MOS SUPPLY CAT D CHRONIC PAIN MEDICATION LIST REVIEWED AND RECONCILED WITH THE PATIENT PAST MEDICAL HISTORY S/P FALL FROM TREE STAND 06/06/15 - SUSTAINED RIGHT FEMUR FRACTURE AND RIGHT WRIST FRACTURE (DR. GRANT - RULA ) NECK/BACK PAIN SUBSEQUENT TO FALL 06/06/15- FOLLOWING WITH FINISHING PAN OPERATOR IN [place] (DR. 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 SURGICAL HISTORY BROKEN FEMUR REPAIRED WITH RODS/PINS, RIGHT WRIST FRACTURE 06/07/15 FUSION L4-L5 01/2016 PUT A BIGGER RITA IN FEMUR 02/2016 RIGHT WRIST HARDWARE REMOVED 09/19/16 RIGHT FEMUR RITA REMOVED, PLATE AND SCREWS PLACED 01/2017 FAMILY HISTORY FATHER: 66 YRS, DIAGNOSED WITH OTHER SPECIFIED CONDITIONS INFLUENCING HEALTH STATUS MOTHER: ALIVE 69 YRS 1 SON(S) , 2 DAUGHTER(S) - HEALTHY. CANCER - GRANDMOTHER, UNCLES. SOCIAL HISTORY GENERAL: TOBACCO USE ADDITIONAL FINDINGS: TOBACCO USERCHEWS TOBACCO NOT INTERESTED IN QUITTING AT THIS TIME SMOKING CESSATION INFORMATION GIVEN09/23/2019 DISCUSSED THE IMPORTANCE OF QUITTING CHEW ADDITIONAL FINDINGS: TOBACCO NON-USER REFUSED SMOKING CESSATION INFORMATION AT THIS TIME. EDUCATION LEVEL OF EDUCATION:NOT FINISHED COLLEGE DIET: REGULAR. LANGUAGE LANGUAGES SPOKEN:MALAYSIAN DOMESTIC VIOLENCE DO YOU FEEL SAFE IN YOUR ENVIRONMENT?YES BMI CARE GOAL FOLLOW-UP ABOVE NORMAL BMI FOLLOW-UPDIETARY MANAGEMENT EDUCATION, GUIDANCE, AND COUNSELING RECREATIONAL DRUG USE DRUG USE?NO EXERCISE: NO REGULAR EXERCISE. LEARNING BARRIERS / SPECIAL NEEDS CHANGE FROM LAST VISIT?NO BARRIERS TO LEARNING?NO HEARING IMPAIRED?NO VISION IMPAIRED?YES COGNITIVELY IMPAIRED?NO :CORRECTIVE LENSES READINESS TO LEARN?YES LEARNING PREFERENCES?NO LEARNING CAPABILITIES PRESENT?YES EMOTIONAL BARRIERS?NO SPECIAL DEVICES?NO INTERNATIONAL TRAVEL CONSULTANT NEEDED?NO PAIN CLINIC PFS, CLERGY, PUBLIC HEALTH REFERRALS PFS REFERRAL NEEDED?NO CLERGY REFERRAL NEEDED?NO PUBLIC HEALTH REFERRAL NEEDED?NO WAS THE PROVIDER NOTIFIED OF ANY PERTINENT INFO?YES HAS THE PATIENT BEEN EDUCATED REGARDING HIS/HER PLAN OF CARE?YES HAS THE PATIENT BEEN EDUCATED REGARDING PAIN, THE RISK FOR PAIN, THE IMPORTANCE OF EFFECTIVE PAIN MANAGEMENT, AND THE PAIN ASSESSMENT PROCESS?YES LATEX QUESTIONNAIRE LATEX ALLERGY : HAVE YOU EVER DEVELOPED ANY TYPE OF REACTION AFTER HANDLING LATEX PRODUCTS SUCH RUBBER GLOVES, CONDOMS, DIAPHRAGMS, BALLOONS, SOCKS, OR UNDERWEAR?NO LATEX ALLERGY : HAVE YOU EVER DEVELOPED ANY TYPE OF REACTION DURING OR AFTER DENTAL APPOINTMENT, VAGINAL/RECTAL EXAMINATION, SURGICAL PROCEDURE, OR ANY OTHER EXPOSURE?NO DATE ASKED : 03/04/2019 LATEX RISK : HAVE YOU EVER HAD ANY DIFFICULTY BREATHING OR HIVES AFTER EATING OR HANDLING ANY FRUITS, OR VEGETABLES; SUCH KIWI, BANANAS, STONE FRUITS, OR CHESTNUTSNO LATEX RISK : DO YOU HAVE A PREVIOUS PERSONAL HISTORY OF MORE THAN NINE SURGERIES, SPINA BIFIDA, OR REPEATED CATHERIZATIONS? NO LATEX RISK : ARE YOU FREQUENTLY EXPOSED TO LATEX PRODUCTS IN YOUR OCCUPATION?NO CAFFEINE CAFFEINE USE?YES HOW OFTEN AND HOW MUCH? 2 CUPS OF COFFEE PER DAY ADVANCE DIRECTIVE ADVANCE DIRECTIVE DISCUSSED WITH PATIENT:YES HCP & ZACKARYA TAMERA BONDS [phone] AND LIVING WILL QUAKER [id number] NONE MARITAL STATUS: . ALCOHOL SCREENING DID YOU HAVE A DRINK CONTAINING ALCOHOL IN THE PAST YEAR?YES HOW OFTEN DID YOU HAVE SIX OR MORE DRINKS ON ONE OCCASION IN THE PAST YEAR?LESS THAN MONTHLY (1 POINT) HOW MANY DRINKS DID YOU HAVE ON A TYPICAL DAY WHEN YOU WERE DRINKING IN THE PAST YEAR?3 OR 4 (1 POINT) HOW OFTEN DID YOU HAVE A DRINK CONTAINING ALCOHOL IN THE PAST YEAR?MONTHLY OR LESS (1 POINT) POINTS3 INTERPRETATIONNEGATIVE OCCUPATION: DISABLED. SEXUAL HX HAD SEX IN THE LAST 12 MONTHS (VAGINAL, ORAL, OR ANAL)?YES WITHWOMEN ONLY USE PROTECTION?NO HAVE YOU EVER HAD AN STD?NO REVIEWED WITH PT 02/10/19 1103 BVREVIEWED WITH PT 08/04/19 1333 NLJ. HOSPITALIZATION/MAJOR DIAGNOSTIC PROCEDURE ALL SURGICAL RELATED CHEST PAIN 10/2016 FX BACK AT L-1 07-14-17 REVIEW OF SYSTEMS REVIEWED BY: PROVIDER: RON MCGOVERN . CONSTITUTIONAL: ANY CHANGE IN YOUR MEDICAL CONDITION? NO . CHILLS NO . FEVER NO . INFECTION: DO YOU HAVE NEW INFECTIONS? NO . DO YOU HAVE HISTORY OF MRSA? NO . MUSCULOSKELETAL: ANY NEW PATTERNS OF PAIN OR NUMBNESS? NO . GASTROENTEROLOGY: ANY NEW CHANGE IN BOWEL CONTROL? NO . GENITOURINARY: ANY NEW CHANGE IN BLADDER CONTROL? NO . IS THERE A CHANCE YOU COULD BE ? NO . HEMATOLOGY/LYMPH: DO YOU TAKE ANY BLOOD THINNERS? (FOR EXAMPLE- COUMADIN, PLAVIX, AGGRENOX, PLATEL, PRADAXA, OR XARELTO) NO . WHEN WAS YOUR LAST DOSE? DATE: TIME: . NEUROLOGY: HAVE YOU FALLEN IN THE PAST 12 MONTHS? NO . ANY NEW EXTREMITY NUMBNESS OR WEAKNESS? NO . CARDIOLOGY: DO YOU HAVE A PACEMAKER OR DEFIBRILLATOR? NO . RESPIRATORY: HAVE YOU BEEN SICK IN THE PAST WEEK? NO . FEVER NO . FLU LIKE SYMPTOMS? NO . COUGH NO . INTEGUMENTARY: DO YOU HAVE ANY RASHES OR OPEN SORES? NO . ALLERGIC/IMMUNO: ARE YOU ALLERGIC TO IV DYE? NO . ANY NEW ALLERGIES? NO . PSYCHIATRIC: DO YOU HAVE THOUGHTS OF HURTING YOURSELF OR SOMEONE ELSE? NO . ARE YOU ABUSED, NEGLECTED, OR IN AN UNSAFE ENVIRONMENT? NO . ENDOCRINOLOGY: ARE YOU DIABETIC? NO . OTHER: DO YOU NEED ANY PRESCRIPTIONS? NO . IF YES, PLEASE LIST: ____ . ANY NEW PROBLEMS WITH YOUR MEDICATIONS? NO . WHEN DID YOU LAST EAT? ____ . WHEN DID YOU LAST DRINK? ____ . WHAT DID YOU LAST DRINK? ____ . NAME OF PERSON DRIVING YOU HOME? ____ . DO YOU HAVE ANY OTHER QUESTIONS OR CONCERNS NO . VITAL SIGNS WT 238.4 LBS, HT 71", BMI 33.25 INDEX, BP 120/82 MM HG, HR 72 /MIN, RR 18 /MIN, TEMP 97.6 F, OXYGEN SAT % 96%, NA INITIALS SC 14:57, REVIEWED BY: EM. EXAMINATION GENERAL EXAMINATION: GENERAL AWAKE,ALERT ,PLEAASANT . PSYCH AFFECT NORMAL . LUNGS: LUNG MONTES ARE CLEAR TO AUSCULTATION BILATERALLY. GOOD MOVEMENT OF AIR . HEART: S1, S2 IN A REGULAR RATE AND RHYTHM. NO SIGNIFICANT MURMURS, RUBS OR GALLOPS NOTED . FOR BILAT. SIJ SPECIFIC POINT TENDERNESS NOTED OVER LEFT L4/5-L5/S1 LUMBAR FACETS. DIAGNOSTIC TESTS REVIEWED MRI L/S SPINE-05/23/17. ASSESSMENTS OTHER SPONDYLOSIS, LUMBOSACRAL REGION - M47.897 (PRIMARY) TREATMENT OTHER SPONDYLOSIS, LUMBOSACRAL REGION NOTES: LEFT L4/5-L5/S1 RF GAVI/CANCELLATION LIST. PROCEDURE CODES FA211 ESTABILISHED PATIENT [facility] CHARGE DISPOSITION & COMMUNICATION FOLLOW UP POST (REASON: LEFT L4/5-L5/S1 RF GAVI/CANCELLATION LIST) ELECTRONICALLY SIGNED BY FROILAN POPE ON 10/12/2019 AT 08:55 AM EST DISCLAIMER : THIS IS A VISIT SUMMARY EXTRACTED FROM THE [employer] CHART. IT IS NOT A COPY OF THE [employer] PROGRESS NOTE. PORTILLO
== END ==
LOC: M PAIN 14:30
PROVIDERS: ATTEND Nurse Practitioner Family
DX: M47.897 Other spondylosis, lumbosacral region (principal); Z87.820 Personal history of traumatic brain injury; Z86.59 Personal history of other mental and behavioral disorders; G47.00 Insomnia, unspecified; I10 Essential (primary) hypertension; G47.33 Obstructive sleep apnea (adult) (pediatric); F17.220 Nicotine dependence, chewing tobacco, uncomplicated; Z79.891 Long term (current) use of opiate analgesic; Z79.899 Other long term (current) drug therapy

== ENCOUNTER → 2019-11-16 | Outpatient (CLI) | payer BC ==
[~2019-11-16] MED LIST changes: +BUPIVACAINE HCL 0.25% 30 ML VIAL As Ordered ONE; -FENO48TA13 PO; +FENO48TA7 PO; +ISOVUE-M 300 61% 15ML VIAL (Q9967) As Ordered ONE; +LIDOCAINE 1% SDV INJ 30 ML VIAL As Ordered ONE; +TRIAMCINOLONE ACETONIDE SUSP 40 MG/ML VIAL (J3301) As Ordered ONE
--- NOTE | 2019-11-16 17:37 | REP ---
Partial lumbar spine series: Three views . History: Injection procedure for pain. 62 seconds of fluoroscopy time is reported. Findings: A sequence of three fluoroscopically obtained last image hold procedural spot radiographs of the lumbar spine document needle position and contrast injection associated with injection procedure. Electronically Signed by Adrian Nolan MD 11/16/2019 05:29 P
--- NOTE | 2019-11-26 04:06 | ECWPNPC ---
PATIENT NAME: MELODY BONDS : 1970 GENDER: MALE VISIT DATE: 11/16/2019 DISCHARGE DATE: 11/16/19 162 VISIT LOCKED DATE TIME: PHYSICIAN: ALICIA DUVALL MD RESOURCE: ALICIA DUVALL MD REASON FOR APPOINTMENT 1. LEFT L4/5-L5/S1 RF HISTORY OF PRESENT ILLNESS HISTORY OF PRESENT ILLNESS: PAIN THE PATIENT DESCRIBES THE PAIN... FALL RISK SCREENING: SCREENING :NO FALLS REPORTED IN THE LAST YEAR CURRENT MEDICATIONS TAKING LIDODERM 5 % PATCH 1 PATCH TO SKIN REMOVE AFTER 12 HOURS - ON BACK EXTERNALLY ON 12 HOURS, OFF 12 HOURS DAILY, NOTES: NEEDED TAKING DRISDOL 64615 UNIT CAPSULE 1 CAPSULE ORALLY TWICE A WEEK, NOTES: MONDAYS TAKING ALEVE PM 1 CAP ORALLY BEFORE BEDTIME, NOTES: 11-15-192099 TAKING ATORVASTATIN CALCIUM 80MG TABLET TAKE 1 TABLET DAILY ORALLY DAILY, NOTES: 11-16-19599 TAKING CHLORTHALIDONE 25 MG TABLET 1 TABLET IN THE MORNING WITH FOOD ORALLY ONCE A DAY, NOTES: 11-16-19599 TAKING AMLODIPINE BESYLATE 5 MG TABLET 1 TABLET ORALLY ONCE A DAY, NOTES: 11-16-19599 TAKING TIZANIDINE HCL 4 MG TABLET 1 TABLET NEEDED ORALLY DAILY PRN, NOTES: A COUPLE DAYS TAKING BELBUCA 300 MCG FILM 1 FILM TO THE GUM BUCALLY QD MDD1 3 MOS SUPPLY CAT D CHRONIC PAIN, NOTES: INSTRUCTED TO HOLD DAY OF PROCEDURE TAKING OMEPRAZOLE 40MG CAPSULE DELAYED RELEASE TAKE 1 CAPSULE DAILY ORALLY DAILY, NOTES: 11-16-19599 TAKING LISINOPRIL 20MG TABLET TAKE 1 TABLET DAILY ORALLY DAILY, NOTES: 11-15-192099 TAKING BISOPROLOL FUMARATE 5MG TABLET TAKE 1 TABLET DAILY ORALLY ONCE A DAY, NOTES: 11-16-19599 NOT-TAKING DULOXETINE HCL 60MG CAPSULE DELAYED RELEASE PARTICLES TAKE 1 CAPSULE DAILY NOT-TAKING BELBUCA 150 MCG 150 MCG FILM 1 FILM BUCCAL DAILY AT 1PM MDD1 3 MOS SUPPLY CAT D CHRONIC PAIN MEDICATION LIST REVIEWED AND RECONCILED WITH THE PATIENT PAST MEDICAL HISTORY S/P FALL FROM TREE STAND 06/06/15 - SUSTAINED RIGHT FEMUR FRACTURE AND RIGHT WRIST FRACTURE (DR. GRANT - RULA ) NECK/BACK PAIN SUBSEQUENT TO FALL 06/06/15- 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 HTN V-TACH - HAD 7 BEATS OF ASSYMPTOMATIC V-MERLY WHILE IN HOSPITAL 10/10/17 - FELT TO BE RELATED TO POSSIBLE LUIS, [place] RULED OUT STRESS SPECT 10/2016 - LOW RISK EF 63% LUIS DIAGNOSED 12/29/16 - DID NOT TOLERATE CPAP FRACTURED BACK AT L-1 S/P FALL - 07/14/2017 INSOMNIA ALLERGIES N.K.D.A. SURGICAL HISTORY BROKEN FEMUR REPAIRED WITH RODS/PINS, RIGHT WRIST FRACTURE 06/07/15 FUSION L4-L5 01/2016 PUT A BIGGER RITA IN FEMUR 02/2016 RIGHT WRIST HARDWARE REMOVED 09/19/16 RIGHT FEMUR RITA REMOVED, PLATE AND SCREWS PLACED 01/2017 FAMILY HISTORY FATHER: 66 YRS, DIAGNOSED WITH OTHER SPECIFIED CONDITIONS INFLUENCING HEALTH STATUS MOTHER: ALIVE 69 YRS 1 SON(S) , 2 DAUGHTER(S) - HEALTHY. CANCER - GRANDMOTHER, UNCLES. SOCIAL HISTORY GENERAL: TOBACCO USE ADDITIONAL FINDINGS: TOBACCO USERCHEWS TOBACCO NOT INTERESTED IN QUITTING AT THIS TIME SMOKING CESSATION INFORMATION GIVEN09/23/2019 DISCUSSED THE IMPORTANCE OF QUITTING CHEW ADDITIONAL FINDINGS: TOBACCO NON-USER REFUSED SMOKING CESSATION INFORMATION AT THIS TIME. VAPOR PT STATES HE CONTINUES TO CHES EDUCATION LEVEL OF EDUCATION:NOT FINISHED COLLEGE DIET: REGULAR. LANGUAGE LANGUAGES SPOKEN:BAHRAINI DOMESTIC VIOLENCE DO YOU FEEL SAFE IN YOUR ENVIRONMENT?YES BMI CARE GOAL FOLLOW-UP ABOVE NORMAL BMI FOLLOW-UPDIETARY MANAGEMENT EDUCATION, GUIDANCE, AND COUNSELING RECREATIONAL DRUG USE DRUG USE?NO EXERCISE: NO REGULAR EXERCISE. LEARNING BARRIERS / SPECIAL NEEDS CHANGE FROM LAST VISIT?NO BARRIERS TO LEARNING?NO HEARING IMPAIRED?NO VISION IMPAIRED?YES COGNITIVELY IMPAIRED?NO :CORRECTIVE LENSES READINESS TO LEARN?YES LEARNING PREFERENCES?NO LEARNING CAPABILITIES PRESENT?YES EMOTIONAL BARRIERS?NO SPECIAL DEVICES?NO MEDICAL RECEPTIONIST BILLER NEEDED?NO PAIN CLINIC PFS, CLERGY, PUBLIC HEALTH REFERRALS PFS REFERRAL NEEDED?NO CLERGY REFERRAL NEEDED?NO PUBLIC HEALTH REFERRAL NEEDED?NO WAS THE PROVIDER NOTIFIED OF ANY PERTINENT INFO?YES HAS THE PATIENT BEEN EDUCATED REGARDING HIS/HER PLAN OF CARE?YES HAS THE PATIENT BEEN EDUCATED REGARDING PAIN, THE RISK FOR PAIN, THE IMPORTANCE OF EFFECTIVE PAIN MANAGEMENT, AND THE PAIN ASSESSMENT PROCESS?YES LATEX QUESTIONNAIRE LATEX ALLERGY : HAVE YOU EVER DEVELOPED ANY TYPE OF REACTION AFTER HANDLING LATEX PRODUCTS SUCH RUBBER GLOVES, CONDOMS, DIAPHRAGMS, BALLOONS, SOCKS, OR UNDERWEAR?NO LATEX ALLERGY : HAVE YOU EVER DEVELOPED ANY TYPE OF REACTION DURING OR AFTER DENTAL APPOINTMENT, VAGINAL/RECTAL EXAMINATION, SURGICAL PROCEDURE, OR ANY OTHER EXPOSURE?NO LATEX RISK : HAVE YOU EVER HAD ANY DIFFICULTY BREATHING OR HIVES AFTER EATING OR HANDLING ANY FRUITS, OR VEGETABLES; SUCH KIWI, BANANAS, STONE FRUITS, OR CHESTNUTSNO LATEX RISK : DO YOU HAVE A PREVIOUS PERSONAL HISTORY OF MORE THAN NINE SURGERIES, SPINA BIFIDA, OR REPEATED CATHERIZATIONS? NO LATEX RISK : ARE YOU FREQUENTLY EXPOSED TO LATEX PRODUCTS IN YOUR OCCUPATION?NO DATE ASKED : 03/04/2019 CAFFEINE CAFFEINE USE?YES HOW OFTEN AND HOW MUCH? 2 CUPS OF COFFEE PER DAY ADVANCE DIRECTIVE ADVANCE DIRECTIVE DISCUSSED WITH PATIENT:YES HCP & LANNY BONDS [phone] AND LIVING WILL YAZDANISM [id number] NONE MARITAL STATUS: . ALCOHOL SCREENING DID YOU HAVE A DRINK CONTAINING ALCOHOL IN THE PAST YEAR?YES HOW OFTEN DID YOU HAVE SIX OR MORE DRINKS ON ONE OCCASION IN THE PAST YEAR?LESS THAN MONTHLY (1 POINT) HOW MANY DRINKS DID YOU HAVE ON A TYPICAL DAY WHEN YOU WERE DRINKING IN THE PAST YEAR?3 OR 4 (1 POINT) HOW OFTEN DID YOU HAVE A DRINK CONTAINING ALCOHOL IN THE PAST YEAR?MONTHLY OR LESS (1 POINT) POINTS3 INTERPRETATIONNEGATIVE OCCUPATION: DISABLED. SEXUAL HX HAD SEX IN THE LAST 12 MONTHS (VAGINAL, ORAL, OR ANAL)?YES WITHWOMEN ONLY USE PROTECTION?NO HAVE YOU EVER HAD AN STD?NO REVIEWED WITH PT 02/10/19 1103 BVREVIEWED WITH PT 08/04/19 1333 NLJPRE ADMISSION COMPLETED FOR 1-14-20 KG. HOSPITALIZATION/MAJOR DIAGNOSTIC PROCEDURE ALL SURGICAL RELATED CHEST PAIN 10/2016 FX BACK AT L-1 07-14-17 REVIEW OF SYSTEMS REVIEWED BY: PROVIDER: . CONSTITUTIONAL: ANY CHANGE IN YOUR MEDICAL CONDITION? NO . CHILLS NO . FEVER NO . INFECTION: DO YOU HAVE NEW INFECTIONS? NO . DO YOU HAVE HISTORY OF MRSA? NO . MUSCULOSKELETAL: ANY NEW PATTERNS OF PAIN OR NUMBNESS? NO . GASTROENTEROLOGY: ANY NEW CHANGE IN BOWEL CONTROL? NO . GENITOURINARY: ANY NEW CHANGE IN BLADDER CONTROL? NO . IS THERE A CHANCE YOU COULD BE ? NO . HEMATOLOGY/LYMPH: DO YOU TAKE ANY BLOOD THINNERS? (FOR EXAMPLE- COUMADIN, PLAVIX, AGGRENOX, PLATEL, PRADAXA, OR XARELTO) NO . WHEN WAS YOUR LAST DOSE? DATE: TIME: . NEUROLOGY: HAVE YOU FALLEN IN THE PAST 12 MONTHS? NO . ANY NEW EXTREMITY NUMBNESS OR WEAKNESS? NO . CARDIOLOGY: DO YOU HAVE A PACEMAKER OR DEFIBRILLATOR? NO . RESPIRATORY: HAVE YOU BEEN SICK IN THE PAST WEEK? NO . FEVER NO . FLU LIKE SYMPTOMS? NO . COUGH NO . INTEGUMENTARY: DO YOU HAVE ANY RASHES OR OPEN SORES? NO . ALLERGIC/IMMUNO: ARE YOU ALLERGIC TO IV DYE? NO . ANY NEW ALLERGIES? NO . PSYCHIATRIC: DO YOU HAVE THOUGHTS OF HURTING YOURSELF OR SOMEONE ELSE? NO . ARE YOU ABUSED, NEGLECTED, OR IN AN UNSAFE ENVIRONMENT? NO . ENDOCRINOLOGY: ARE YOU DIABETIC? NO . OTHER: DO YOU NEED ANY PRESCRIPTIONS? NO . IF YES, PLEASE LIST: ____ . ANY NEW PROBLEMS WITH YOUR MEDICATIONS? NO . WHEN DID YOU LAST EAT? ____11-15-20 7PM . WHEN DID YOU LAST DRINK? TODAY 0630 . WHAT DID YOU LAST DRINK? WATER . NAME OF PERSON DRIVING YOU HOME? ____BONNIE . DO YOU HAVE ANY OTHER QUESTIONS OR CONCERNS NO . VITAL SIGNS WT 241.8 LBS, HT 71 IN, BMI 33.72 INDEX, BP 137/86 MM HG, HR 74 /MIN, RR 17 /MIN, TEMP 97.7 F, OXYGEN SAT % 98, SAFE IN ENV? (Y/N) Y, REVIEWED BY: KGM. LEVI JOEL LPN II @ 1305. ASSESSMENTS SPONDYLOSIS WITHOUT MYELOPATHY OR RADICULOPATHY, LUMBAR REGION - M47.816 (PRIMARY) SPONDYLOSIS WITHOUT MYELOPATHY OR RADICULOPATHY, LUMBOSACRAL REGION - M47.817 PROCEDURES PN RADIOFREQUENCY PRE PROCEDURE DIAGNOSES 1. LUMBAR SPONDYLOSIS. 2. LUMBOSACRAL SPONDYLOSIS POST PROCEDURE DIAGNOSES 1. LUMBAR SPONDYLOSIS. 2. LUMBOSACRAL SPONDYLOSIS PROCEDURE LEFT L4-L5 AND LEFT L5-S1 LUMBAR FACET RADIOFREQUENCY SURGEON DR. ALICIA DUVALL WARRANTY CLERK NONE ANESTHESIA LOCAL PRE PROCEDURE REPORT THE PATIENT HAS HISTORY OF CHRONIC LOW BACK PAIN. I EVALUATED THE PATIENT AND REVIEWED THE CHART. I WENT OVER THE RISKS, ALTERNATIVES, AND BENEFITS ASSOCIATED WITH THIS PROCEDURE. THE PATIENT WOULD LIKE TO PROCEED AND GIVE CONSENT TO PERFORMED THE PROCEDURE. THE PATIENT DENIES UNEXPLAINABLE WEIGHT LOSS, FEVER, CHILLS, OR NEW CHANGES IN URINARY OR BOWEL CONTROL DESCRIPTION OF PROCEDURE THE PATIENT WAS BROUGHT TO THE PROCEDURE ROOM AND PLACED IN THE PRONE POSITION. THE LUMBOSACRAL AREA WAS CLEANED WITH CHLORAPREP SOLUTION AND DRAPED ASEPTICALLY. THE PROCEDURE WAS DONE UNDER STERILE CONDITIONS. I CHECKED LATERALITY AND THE LEVEL WHERE THE PROCEDURE WAS GOING TO BE PERFORMED WITH THE PATIENT AND THE SUPPORTING STAFF AT THE MOMENT OF THE TIME OUT IN THE PROCEDURE ROOM. UNDER FLUOROSCOPIC GUIDANCE, TARGETS WERE SELECTED AT THE INTERSECTION OF THE LEFT TRANSVERSE PROCESS OF L4, L5 AND ALA OF S1 WITH ITS RESPECTIVE SUPERIOR ARTICULAR PROCESS. LIDOCAINE WAS USED TO NUMB THE SKIN AND THE SUBCUTANEOUS TISSUE BELOW IT. RADIOFREQUENCY NEEDLES 22-GAUGE 15 CM LONG WITH 10 MM ACTIVE CURVE TIP WERE ADVANCED UNDER FLUOROSCOPIC GUIDANCE AND FOLLOWING PATIENT FEEDBACK UNTIL THE TARGET AREA WAS REACHED. POSITION OF THE NEEDLES WAS VERIFIED WITH AP AND LATERAL VIEWS. AFTER PROPER POSITION OF THE NEEDLE WAS ACHIEVED, WE WORKED WITH THE LEFT SELECTED MEDIAN BRANCHES OF L3, L4 AND THE DORSAL RAMI OF L5. WE MEASURED THE CORRESPONDING IMPEDANCES, SENSORY STIMULATION AND MOTOR RESPONSES INDICATED IN THE RADIOFREQUENCY WORKSHEET. POSITION OF THE NEEDLES WAS VERIFIED AGAIN WITH AP AND LATERAL VIEWS. LIDOCAINE 1%, 2 ML, WAS INJECTED AT EACH LEVEL. RADIOFREQUENCY WAS DONE AT EACH LEVEL AT 80 DEGREES FOR 90 SECONDS. AFTER RADIOFREQUENCY WAS DONE, THE PATIENT RECEIVED BUPIVACAINE 0.125% 1 CC WITH KENALOG 5 MG AT EACH SITE. THERE WAS NO EVIDENCE OF BLOOD, PARESTHESIA OR CEREBROSPINAL FLUID DURING THE PROCEDURE. THE PATIENT WAS SENT TO THE RECOVERY ROOM. THE PATIENT WAS MOVING THE EXTREMITIES AND DOING WELL. THERE WAS NO COMPLICATION DURING THE PROCEDURE. FLUOROSCOPY TIME WAS 62 SECONDS POST PROCEDURE NOTE THE PATIENT WILL BE SEEN IN A FOLLOWUP IN THE NEXT FEW WEEKS. I AM LOOKING FOR LONG-LASTING PAIN RELIEF WITH THIS PROCEDURE. INSTRUCTIONS WERE GIVEN, QUESTIONS WERE ANSWERED, AND THE PATIENT EXPRESSED UNDERSTANDING AND AGREES WITH THE PLAN. DUE TO CONSIDERATION OF HARDWARE, WE MAY CONSIDER COOL RADIOFREQUENCY IN THE FUTURE. I, HERLINDA YOUNG, DOCUMENTED THE ABOVE INFORMATION ACTING A SCRIBE FOR DR. DUVALL. I HAVE REVIEWED THE ABOVE DOCUMENT, WRITTEN BY HERLINDA YOUNG, JEFERSONIBPuma, AND I VERIFY THAT IT IS ACCURATE DIAGNOSTIC IMAGING [facility] FACET BLOCK (PAIN)[id number] PROCEDURE CODES 53815 DESTROY LUMB/SAC FACET JNT, [place]: [place] [address] DESTROY L/S FACET JNT ADDL, MODIFIERS: LT 6045F RADXPS IN END [id number] PXD DISPOSITION & COMMUNICATION FOLLOW UP 3 WEEKS ELECTRONICALLY SIGNED BY ALICIA DUVALL MD, MD ON 11/25/2019 AT 10:47 AM EST DISCLAIMER : THIS IS A VISIT SUMMARY EXTRACTED FROM THE [employer] CHART. IT IS NOT A COPY OF THE [employer] PROGRESS NOTE. PORTILLO
== END ==
LOC: M PAIN 13:00
PROVIDERS: ATTEND Anesthesiology
DX: M47.816 Spondylosis without myelopathy or radiculopathy, lumbar region (principal); M47.817 Spondylosis without myelopathy or radiculopathy, lumbosacral region; Z87.820 Personal history of traumatic brain injury; Z86.59 Personal history of other mental and behavioral disorders; G47.00 Insomnia, unspecified; I10 Essential (primary) hypertension; G47.30 Sleep apnea, unspecified; F17.220 Nicotine dependence, chewing tobacco, uncomplicated; Z79.891 Long term (current) use of opiate analgesic; Z79.899 Other long term (current) drug therapy
CPT/HCPCS: 64635; 64636; J3301; Q9967

== ENCOUNTER → 2020-01-12 | Outpatient (CLI) | payer BC ==
[~2020-01-12] MED LIST changes: -BUPIVACAINE HCL 0.25% 30 ML VIAL As Ordered ONE; -ISOVUE-M 300 61% 15ML VIAL (Q9967) As Ordered ONE; -LIDOCAINE 1% SDV INJ 30 ML VIAL As Ordered ONE; -TRIAMCINOLONE ACETONIDE SUSP 40 MG/ML VIAL (J3301) As Ordered ONE
--- NOTE | 2020-02-01 04:22 | ECWPNPC ---
PATIENT NAME: MELODY BONDS : 1970 GENDER: MALE VISIT DATE: 01/12/2020 DISCHARGE DATE: 01/12/2038 VISIT LOCKED DATE TIME: PHYSICIAN: RON AMES RESOURCE: RON AMES REASON FOR APPOINTMENT 1. POST RF HISTORY OF PRESENT ILLNESS HISTORY OF PRESENT ILLNESS: HERE FOR POST PROCEDURE FOLLOW-UP. HAD LEFT L4-5, L5-S1 RADIOFREQUENCY ON 11/16/2019. REPORTING MARKED REDUCTION IN PAIN POSTPROCEDURE THAT CONTINUES TODAY. REPORTING LESS FREQUENT NEED FOR TIZANIDINE FOR BREAKTHROUGH PAIN. REPORTING IMPROVED TOLERANCE TO ACTIVITY. CHIEF AREA OF PAIN IS NECK RIGHT GREATER THAN LEFT. PAIN IS AGGRAVATED IN THIS REGION WITH EXTENSION OF NECK. RATING NECK PAIN 5/10 VAS. CONTINUES WITH BELBUCA 300 MCG DAILY AND PERIODIC USE OF TIZANIDINE FOR SEVERE PAIN EPISODES. REPORTS MEDICATION IS EFFECTIVE AT REDUCING PAIN AND KEEPING HIM FUNCTIONAL. DENIES SIDE EFFECTS. PAIN THE PATIENT DESCRIBES THE PAIN... FALL RISK SCREENING: SCREENING :NO FALLS REPORTED IN THE LAST YEAR CURRENT MEDICATIONS TAKING LIDODERM 5 % PATCH 1 PATCH TO SKIN REMOVE AFTER 12 HOURS - ON BACK EXTERNALLY ON 12 HOURS, OFF 12 HOURS DAILY TAKING DRISDOL 15429 UNIT CAPSULE 1 CAPSULE ORALLY TWICE A WEEK, NOTES: MONDAYS TAKING ALEVE PM 1 CAP ORALLY BEFORE BEDTIME TAKING CHLORTHALIDONE 25 MG TABLET 1 TABLET IN THE MORNING WITH FOOD ORALLY ONCE A DAY TAKING AMLODIPINE BESYLATE 5 MG TABLET 1 TABLET ORALLY ONCE A DAY TAKING TIZANIDINE HCL 4 MG TABLET 1 TABLET NEEDED ORALLY DAILY PRN TAKING BELBUCA 300 MCG FILM 1 FILM TO THE GUM BUCALLY QD MDD1 3 MOS SUPPLY CAT D CHRONIC PAIN TAKING OMEPRAZOLE 40MG CAPSULE DELAYED RELEASE TAKE 1 CAPSULE DAILY ORALLY DAILY TAKING LISINOPRIL 20MG TABLET TAKE 1 TABLET DAILY ORALLY DAILY TAKING BISOPROLOL FUMARATE 5MG TABLET TAKE 1 TABLET DAILY ORALLY ONCE A DAY TAKING ATORVASTATIN CALCIUM 80MG TABLET TAKE 1 TABLET DAILY ORALLY DAILY TAKING CLOBETASOL PROPIONATE 0.05 % GEL 1 APPLICATION EXTERNALLY TWICE A DAY TO BOTH ELBOWS MEDICATION LIST REVIEWED AND RECONCILED WITH THE PATIENT PAST MEDICAL HISTORY 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 RUDY HORTA ) NECK/BACK PAIN SUBSEQUENT TO FALL 06/06/15- FOLLOWING WITH COMPLIANCE ENGINEER PRODUCTS IN [place] (DR. JENKINS) COMPRESSION FRACTURE L-1 S/P FALL - 07/14/2017 S/P ELECTIVE L4-L PDIF COMPLICATED BY HEMATOMA THAT WAS EVACUATED 01/2016 - DR. 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 SURGICAL HISTORY BROKEN FEMUR REPAIRED WITH RODS/PINS, RIGHT WRIST FRACTURE 06/07/15 FUSION L4-L5 01/2016 PUT A BIGGER RITA IN FEMUR 02/2016 RIGHT WRIST HARDWARE REMOVED 09/19/16 RIGHT FEMUR RITA REMOVED, PLATE AND SCREWS PLACED 01/2017 FAMILY HISTORY FATHER: 66 YRS, DIAGNOSED WITH OTHER SPECIFIED CONDITIONS INFLUENCING HEALTH STATUS MOTHER: ALIVE 69 YRS 1 SON(S) , 2 DAUGHTER(S) - HEALTHY. CANCER - GRANDMOTHER, UNCLES. SOCIAL HISTORY GENERAL: TOBACCO USE ADDITIONAL FINDINGS: TOBACCO USERCHEWS TOBACCO NOT INTERESTED IN QUITTING AT THIS TIME SMOKING CESSATION INFORMATION GIVEN09/23/2019 DISCUSSED THE IMPORTANCE OF QUITTING CHEW ADDITIONAL FINDINGS: TOBACCO NON-USER REFUSED SMOKING CESSATION INFORMATION AT THIS TIME. VAPOR PT STATES HE CONTINUES TO CHES EDUCATION LEVEL OF EDUCATION:NOT FINISHED COLLEGE DIET: REGULAR. LANGUAGE LANGUAGES SPOKEN:BRITISH VIRGIN ISLANDER DOMESTIC VIOLENCE DO YOU FEEL SAFE IN YOUR ENVIRONMENT?YES BMI CARE GOAL FOLLOW-UP ABOVE NORMAL BMI FOLLOW-UPDIETARY MANAGEMENT EDUCATION, GUIDANCE, AND COUNSELING RECREATIONAL DRUG USE DRUG USE?NO EXERCISE: NO REGULAR EXERCISE. LEARNING BARRIERS / SPECIAL NEEDS CHANGE FROM LAST VISIT?NO BARRIERS TO LEARNING?NO HEARING IMPAIRED?NO VISION IMPAIRED?YES COGNITIVELY IMPAIRED?NO :CORRECTIVE LENSES READINESS TO LEARN?YES LEARNING PREFERENCES?NO LEARNING CAPABILITIES PRESENT?YES EMOTIONAL BARRIERS?NO SPECIAL DEVICES?NO PAYROLL MACHINE OPERATOR NEEDED?NO PAIN CLINIC PFS, CLERGY, PUBLIC HEALTH REFERRALS PFS REFERRAL NEEDED?NO CLERGY REFERRAL NEEDED?NO PUBLIC HEALTH REFERRAL NEEDED?NO WAS THE PROVIDER NOTIFIED OF ANY PERTINENT INFO?YES HAS THE PATIENT BEEN EDUCATED REGARDING HIS/HER PLAN OF CARE?YES HAS THE PATIENT BEEN EDUCATED REGARDING PAIN, THE RISK FOR PAIN, THE IMPORTANCE OF EFFECTIVE PAIN MANAGEMENT, AND THE PAIN ASSESSMENT PROCESS?YES LATEX QUESTIONNAIRE LATEX ALLERGY : HAVE YOU EVER DEVELOPED ANY TYPE OF REACTION AFTER HANDLING LATEX PRODUCTS SUCH RUBBER GLOVES, CONDOMS, DIAPHRAGMS, BALLOONS, SOCKS, OR UNDERWEAR?NO LATEX ALLERGY : HAVE YOU EVER DEVELOPED ANY TYPE OF REACTION DURING OR AFTER DENTAL APPOINTMENT, VAGINAL/RECTAL EXAMINATION, SURGICAL PROCEDURE, OR ANY OTHER EXPOSURE?NO LATEX RISK : HAVE YOU EVER HAD ANY DIFFICULTY BREATHING OR HIVES AFTER EATING OR HANDLING ANY FRUITS, OR VEGETABLES; SUCH KIWI, BANANAS, STONE FRUITS, OR CHESTNUTSNO LATEX RISK : DO YOU HAVE A PREVIOUS PERSONAL HISTORY OF MORE THAN NINE SURGERIES, SPINA BIFIDA, OR REPEATED CATHERIZATIONS? NO LATEX RISK : ARE YOU FREQUENTLY EXPOSED TO LATEX PRODUCTS IN YOUR OCCUPATION?NO DATE ASKED : 03/04/2019 CAFFEINE CAFFEINE USE?YES HOW OFTEN AND HOW MUCH? 2 CUPS OF COFFEE PER DAY ADVANCE DIRECTIVE ADVANCE DIRECTIVE DISCUSSED WITH PATIENT:YES HCP & LANNY BONDS [phone] AND LIVING WILL MU-ISM [id number] NONE MARITAL STATUS: . ALCOHOL SCREENING DID YOU HAVE A DRINK CONTAINING ALCOHOL IN THE PAST YEAR?YES HOW OFTEN DID YOU HAVE SIX OR MORE DRINKS ON ONE OCCASION IN THE PAST YEAR?LESS THAN MONTHLY (1 POINT) HOW MANY DRINKS DID YOU HAVE ON A TYPICAL DAY WHEN YOU WERE DRINKING IN THE PAST YEAR?3 OR 4 (1 POINT) HOW OFTEN DID YOU HAVE A DRINK CONTAINING ALCOHOL IN THE PAST YEAR?MONTHLY OR LESS (1 POINT) POINTS3 INTERPRETATIONNEGATIVE OCCUPATION: DISABLED. SEXUAL HX HAD SEX IN THE LAST 12 MONTHS (VAGINAL, ORAL, OR ANAL)?YES WITHWOMEN ONLY USE PROTECTION?NO HAVE YOU EVER HAD AN STD?NO HOSPITALIZATION/MAJOR DIAGNOSTIC PROCEDURE ALL SURGICAL RELATED CHEST PAIN 10/2016 FX BACK AT L-1 07-14-17 REVIEW OF SYSTEMS REVIEWED BY: PROVIDER: RON MCGOVERN . CONSTITUTIONAL: ANY CHANGE IN YOUR MEDICAL CONDITION? NO . CHILLS NO . FEVER NO . INFECTION: DO YOU HAVE NEW INFECTIONS? NO . DO YOU HAVE HISTORY OF MRSA? NO . MUSCULOSKELETAL: ANY NEW PATTERNS OF PAIN OR NUMBNESS? NO . GASTROENTEROLOGY: ANY NEW CHANGE IN BOWEL CONTROL? NO . GENITOURINARY: ANY NEW CHANGE IN BLADDER CONTROL? NO . IS THERE A CHANCE YOU COULD BE ? NO . HEMATOLOGY/LYMPH: DO YOU TAKE ANY BLOOD THINNERS? (FOR EXAMPLE- COUMADIN, PLAVIX, AGGRENOX, PLATEL, PRADAXA, OR XARELTO) NO . WHEN WAS YOUR LAST DOSE? DATE: TIME: . NEUROLOGY: HAVE YOU FALLEN IN THE PAST 12 MONTHS? NO . ANY NEW EXTREMITY NUMBNESS OR WEAKNESS? NO . CARDIOLOGY: DO YOU HAVE A PACEMAKER OR DEFIBRILLATOR? NO . RESPIRATORY: HAVE YOU BEEN SICK IN THE PAST WEEK? NO . FEVER NO . FLU LIKE SYMPTOMS? NO . COUGH NO . INTEGUMENTARY: DO YOU HAVE ANY RASHES OR OPEN SORES? NO . ALLERGIC/IMMUNO: ARE YOU ALLERGIC TO IV DYE? NO . ANY NEW ALLERGIES? NO . PSYCHIATRIC: DO YOU HAVE THOUGHTS OF HURTING YOURSELF OR SOMEONE ELSE? NO . ARE YOU ABUSED, NEGLECTED, OR IN AN UNSAFE ENVIRONMENT? NO . ENDOCRINOLOGY: ARE YOU DIABETIC? NO . OTHER: DO YOU NEED ANY PRESCRIPTIONS? NO . IF YES, PLEASE LIST: ____ . ANY NEW PROBLEMS WITH YOUR MEDICATIONS? NO . WHEN DID YOU LAST EAT? ____ . WHEN DID YOU LAST DRINK? ____ . WHAT DID YOU LAST DRINK? ____ . NAME OF PERSON DRIVING YOU HOME? ____ . DO YOU HAVE ANY OTHER QUESTIONS OR CONCERNS NO . VITAL SIGNS WT 247.0 LBS, HT 71 IN, BMI 34.45 INDEX, BP 158/91 MM HG, HR 74 /MIN, RR 16 /MIN, TEMP 98.0 F, OXYGEN SAT % 94%, SAFE IN ENV? (Y/N) YES, REVIEWED BY: SHANICE. EXAMINATION GENERAL EXAMINATION: LUNGS:LUNG SOUNDS ARE CLEAR . HEART:HEART RATE REGULAR . MUSCULOSKELETAL:*, MUSCLE STRENGTH TESTING 5/5 BILATERAL UPPER EXTREMITIES. . CERVICAL:+ FOR PAIN WITH PALPATION OF CERVICAL SPINE. + FOR PAIN WITH PALPATION OF CERVICAL PARASPINALS.SPECIFIC POINT TENDERNESS NOTED OVER C3/4, C4/5-/C5/6 CERVICAL FACETS WITH EXTENSION AND FACET LOADING. . DIAGNOSTIC TESTS REVIEWEDCERVICAL MRI . ASSESSMENTS SPONDYLOSIS WITHOUT MYELOPATHY OR RADICULOPATHY, CERVICOTHORACIC REGION - M47.813 (PRIMARY) OTHER SPONDYLOSIS, LUMBOSACRAL REGION - M47.897 TREATMENT SPONDYLOSIS WITHOUT MYELOPATHY OR RADICULOPATHY, CERVICOTHORACIC REGION CONTINUE BELBUCA FILM, 300 MCG, 1 FILM TO THE GUM, BUCALLY, QD MDD1 3 MOS SUPPLY CAT D CHRONIC PAIN, 90 DAY(S), 90, REFILLS 0 CONTINUE TIZANIDINE HCL TABLET, 4 MG, 1 TABLET NEEDED, ORALLY, DAILY PRN NOTES: BILAT. C5/6-C6/7 CFBT, ISTOP REGISTRY REVIEWED AND DEMONSTRATES COMPLLIANCE. NO UNAUTHORIZED MEDICATIONS. NO ILLICIT SUBSTANCES AND PRESCRIBED MEDICATIONS WERE PRESENT. BRING PAIN MEDICATION TO EVERY CLINIC VISIT, RISKS OF NARCOTIC/OPIOD MEDICATIONS INCLUDES BUT IS NOT LIMITED TO RISK OF DEPENDANCE/DEVELOPMENT OF ADDICTION, MOOD DISTURBANCE AND DEPRESSION, OSTEOPOROSIS, HORMONAL AND LABIDAL CHANGES, RESPIRATORY DEPRESSION AND . PATIENT IS ADVISED NOT TO DRIVE OR DRINK ALCOHOL WHILE ON THESE MEDICATIONS, [facility] CENTER NARCOTIC AGREEMENT WAS R UPDATED AND SIGNED TODAY BY THE PATIENT. SEE ATTACHED DOCUMENT FOR FULL DETAILS; SPECIFIC ISSUES WERE REVIEWED: 1) KEEP PAIN MEDS IN THEIR ORIGINAL BOTTLES AND ANY WEEKLY PLANNERS ARE TO BE BROUGHT TO THE PAIN CENTER AT EVERY VISIT. 2) THE PATIENT IS NOT TO INCREASE DOSING OR TIMING OF THEIR PAIN MEDICATION WITHOUT SPECIFIC DIRECTION OF THEIR PAIN CENTERPROVIDER (NOT ER OR OTHER PROVIDERS). 3) ALL PAIN MEDS ARE TO BE KEPT SECURED, IN A LOCKED BOX. 4) NO PAIN MEDS ARE TO BE SHARED WITH ANY OTHER PERSON FOR ANY REASON. 5) NO PAIN MEDS MAY BE TAKEN FROM ANY FRIENDS OR RELATIVES FOR ANY REASON 6) NO MEDS OR SUBSTANCES WHICH ARE NOT LEGAL ARE TO BE USED- NO MARIJUANA, NO COCAINE, AMPHETAMINES, HEROIN, OR OTHERS ARE EVER TO BE USED. 7)URINE TESTING IS DONE TO ACCOUNT FOR MEDS AND SUBSTANCES BEING TAKEN AND WILL BE DONE RANDOMLY. PROCEDURE CODES FA211 ESTABILISHED PATIENT [facility] F[facility]ILITY CHARGE DISPOSITION & COMMUNICATION FOLLOW UP POST (REASON: BILAT. C5/6-C6/7 CFBT) ELECTRONICALLY SIGNED BY FROILAN POPE ON 01/31/2020 AT 09:03 AM EDT DISCLAIMER : THIS IS A VISIT SUMMARY EXTRACTED FROM THE [employer] CHART. IT IS NOT A COPY OF THE [employer] PROGRESS NOTE. PORTILLO
== END ==
LOC: M PAIN 08:45
PROVIDERS: ATTEND Nurse Practitioner Family
DX: M47.813 Spondylosis without myelopathy or radiculopathy, cervicothoracic region (principal); M47.897 Other spondylosis, lumbosacral region; I10 Essential (primary) hypertension; F17.220 Nicotine dependence, chewing tobacco, uncomplicated; Z79.899 Other long term (current) drug therapy

== ENCOUNTER → 2020-01-31 | Outpatient (CLI) | payer BC ==
--- NOTE | 2020-02-05 00:17 | ECWPNPC ---
PATIENT NAME: MELODY BONDS : 1970 GENDER: MALE VISIT DATE: 01/31/2020 DISCHARGE DATE: 01/31/20 0944 VISIT LOCKED DATE TIME: PHYSICIAN: RON AMES RESOURCE: RON AMES REASON FOR APPOINTMENT 1. INCREASING PAIN HISTORY OF PRESENT ILLNESS HISTORY OF PRESENT ILLNESS: BEING SEEN TODAY ON AN URGENT BASIS. HAS HAD SEVERE INCREASE IN RIGHT LOW BACK PAIN OVER THE PAST 2 WEEKS. RATING PAIN LEVEL A 9/10 VAS. HAD RIGHT LUMBAR RADIOFREQUENCY A FEW YEARS AGO. WAS DOING WELL UP UNTIL 1 WEEK AGO. SEVERE PAIN HAS DISRUPTED HIS SLEEP. HAD TO MISS WORK FRIDAY DUE TO LOW BACK PAIN. PAIN IS AGGRAVATED BY ANY ACTIVITY. DISCUSSED MEDICATIONS AND TREATMENT OPTIONS. PAIN THE PATIENT DESCRIBES THE PAIN... FALL RISK SCREENING: SCREENING :NO FALLS REPORTED IN THE LAST YEAR CURRENT MEDICATIONS TAKING LIDODERM 5 % PATCH 1 PATCH TO SKIN REMOVE AFTER 12 HOURS - ON BACK EXTERNALLY ON 12 HOURS, OFF 12 HOURS DAILY TAKING DRISDOL 07275 UNIT CAPSULE 1 CAPSULE ORALLY TWICE A WEEK, NOTES: MONDAYS TAKING ALEVE PM 1 CAP ORALLY BEFORE BEDTIME TAKING CHLORTHALIDONE 25 MG TABLET 1 TABLET IN THE MORNING WITH FOOD ORALLY ONCE A DAY TAKING AMLODIPINE BESYLATE 5 MG TABLET 1 TABLET ORALLY ONCE A DAY TAKING OMEPRAZOLE 40MG CAPSULE DELAYED RELEASE TAKE 1 CAPSULE DAILY ORALLY DAILY TAKING LISINOPRIL 20MG TABLET TAKE 1 TABLET DAILY ORALLY DAILY TAKING BISOPROLOL FUMARATE 5MG TABLET TAKE 1 TABLET DAILY ORALLY ONCE A DAY TAKING ATORVASTATIN CALCIUM 80MG TABLET TAKE 1 TABLET DAILY ORALLY DAILY TAKING CLOBETASOL PROPIONATE 0.05 % GEL 1 APPLICATION EXTERNALLY TWICE A DAY TO BOTH ELBOWS TAKING BELBUCA 300 MCG FILM 1 FILM TO THE GUM BUCALLY DAILY MDD1 3 MOS SUPPLY CAT D CHRONIC PAIN TAKING TIZANIDINE HCL 4 MG TABLET 1 TABLET NEEDED ORALLY DAILY PRN MEDICATION LIST REVIEWED AND RECONCILED WITH THE PATIENT PAST MEDICAL HISTORY 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 GRANT - RULA ) NECK/BACK PAIN SUBSEQUENT TO FALL 06/06/15- FOLLOWING WITH DYE AND CHEMICAL COORDINATOR IN [place] (DR. JENKINS) COMPRESSION FRACTURE L-1 S/P FALL - 07/14/2017 S/P ELECTIVE L4-L PDIF COMPLICATED BY HEMATOMA THAT WAS EVACUATED 01/2016 - DR. 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 SURGICAL HISTORY BROKEN FEMUR REPAIRED WITH RODS/PINS, RIGHT WRIST FRACTURE 06/07/15 FUSION L4-L5 01/2016 PUT A BIGGER RITA IN FEMUR 02/2016 RIGHT WRIST HARDWARE REMOVED 09/19/16 RIGHT FEMUR RITA REMOVED, PLATE AND SCREWS PLACED 01/2017 FAMILY HISTORY FATHER: 66 YRS, DIAGNOSED WITH OTHER SPECIFIED CONDITIONS INFLUENCING HEALTH STATUS MOTHER: ALIVE 69 YRS 1 SON(S) , 2 DAUGHTER(S) - HEALTHY. CANCER - GRANDMOTHER, UNCLES. SOCIAL HISTORY GENERAL: TOBACCO USE ADDITIONAL FINDINGS: TOBACCO USERCHEWS TOBACCO NOT INTERESTED IN QUITTING AT THIS TIME ADDITIONAL FINDINGS: TOBACCO NON-USER REFUSED SMOKING CESSATION INFORMATION AT THIS TIME. VAPOR PT STATES HE CONTINUES TO CHES SMOKING CESSATION INFORMATION GIVEN09/23/2019 DISCUSSED THE IMPORTANCE OF QUITTING CHEW EDUCATION LEVEL OF EDUCATION:NOT FINISHED COLLEGE DIET: REGULAR. LANGUAGE LANGUAGES SPOKEN:IRAQI DOMESTIC VIOLENCE DO YOU FEEL SAFE IN YOUR ENVIRONMENT?YES NEW PATIENT PAIN DIARY PATIENT DESCRIBES PAIN :ACHING, HAVE IT ALL THE TIME, SHARP, THROBBING, SORE, SHOOTING FROM 0-10, WHAT LEVEL IS YOUR PAIN TODAY?9 HAVE YOU BEEN SICK IN THE LAST WEEK (COLD, COUGH, FEVER, FLU, ETC)NO DO YOU TAKE ANY BLOOD THINNERS?NO DO YOU HAVE ANY RASHES OR OPEN SORES?NO ANY CHANGE IN BOWEL OR BLADDER CONTROL?NO ARE YOU ALLERGIC TO SHELLFISH OR IV DYE?NO ARE YOU DIABETIC?NO DO YOU HAVE A PACEMAKER OR DEFIBRILLATOR?NO ANY NEW PROBLEMS WITH MEDICINES OR NEW ALLERGIESNO ANY NEW PATTERNS OF PAIN OR NUMBNESS?YES ANY CHANGE IN YOUR MEDICAL CONDITION?NO HAVE YOU FALLEN IN THE LAST 6 MONTHS?NO DO YOU USE ANY TYPE OF TOBACCO (SMOKE, SMOKELESS, CHEW, ETC.)YES ARE YOU ABUSED, NEGLECTED, OR IN AN UNSAFE ENVIRONMENT?NO DO YOU HAVE THOUGHTS OF HURTING YOURSELF OR SOMEONE ELSE?NO DO YOU NEED ANY PRESCRIPTIONS?YES DO YOU HAVE ANY OTHER QUESTIONS OR CONCERNS?NO BMI CARE GOAL FOLLOW-UP ABOVE NORMAL BMI FOLLOW-UPDIETARY MANAGEMENT EDUCATION, GUIDANCE, AND COUNSELING RECREATIONAL DRUG USE DRUG USE?NO EXERCISE: NO REGULAR EXERCISE. LEARNING BARRIERS / SPECIAL NEEDS CHANGE FROM LAST VISIT?NO BARRIERS TO LEARNING?NO HEARING IMPAIRED?NO VISION IMPAIRED?YES COGNITIVELY IMPAIRED?NO :CORRECTIVE LENSES READINESS TO LEARN?YES LEARNING PREFERENCES?NO LEARNING CAPABILITIES PRESENT?YES EMOTIONAL BARRIERS?NO SPECIAL DEVICES?NO RUG HOOKER HAND NEEDED?NO PAIN CLINIC PFS, CLERGY, PUBLIC HEALTH REFERRALS PFS REFERRAL NEEDED?NO CLERGY REFERRAL NEEDED?NO PUBLIC HEALTH REFERRAL NEEDED?NO WAS THE PROVIDER NOTIFIED OF ANY PERTINENT INFO?YES HAS THE PATIENT BEEN EDUCATED REGARDING HIS/HER PLAN OF CARE?YES HAS THE PATIENT BEEN EDUCATED REGARDING PAIN, THE RISK FOR PAIN, THE IMPORTANCE OF EFFECTIVE PAIN MANAGEMENT, AND THE PAIN ASSESSMENT PROCESS?YES LATEX QUESTIONNAIRE LATEX ALLERGY : HAVE YOU EVER DEVELOPED ANY TYPE OF REACTION AFTER HANDLING LATEX PRODUCTS SUCH RUBBER GLOVES, CONDOMS, DIAPHRAGMS, BALLOONS, SOCKS, OR UNDERWEAR?NO LATEX ALLERGY : HAVE YOU EVER DEVELOPED ANY TYPE OF REACTION DURING OR AFTER DENTAL APPOINTMENT, VAGINAL/RECTAL EXAMINATION, SURGICAL PROCEDURE, OR ANY OTHER EXPOSURE?NO DATE ASKED : 03/04/2019 LATEX RISK : HAVE YOU EVER HAD ANY DIFFICULTY BREATHING OR HIVES AFTER EATING OR HANDLING ANY FRUITS, OR VEGETABLES; SUCH KIWI, BANANAS, STONE FRUITS, OR CHESTNUTSNO LATEX RISK : DO YOU HAVE A PREVIOUS PERSONAL HISTORY OF MORE THAN NINE SURGERIES, SPINA BIFIDA, OR REPEATED CATHERIZATIONS? NO LATEX RISK : ARE YOU FREQUENTLY EXPOSED TO LATEX PRODUCTS IN YOUR OCCUPATION?NO CAFFEINE CAFFEINE USE?YES HOW OFTEN AND HOW MUCH? 2 CUPS OF COFFEE PER DAY ADVANCE DIRECTIVE ADVANCE DIRECTIVE DISCUSSED WITH PATIENT:YES HCP & POA TAMERA BONDS [phone] AND LIVING WILL MORMON [id number] NONE MARITAL STATUS: . ALCOHOL SCREENING DID YOU HAVE A DRINK CONTAINING ALCOHOL IN THE PAST YEAR?YES HOW OFTEN DID YOU HAVE SIX OR MORE DRINKS ON ONE OCCASION IN THE PAST YEAR?LESS THAN MONTHLY (1 POINT) HOW MANY DRINKS DID YOU HAVE ON A TYPICAL DAY WHEN YOU WERE DRINKING IN THE PAST YEAR?3 OR 4 (1 POINT) HOW OFTEN DID YOU HAVE A DRINK CONTAINING ALCOHOL IN THE PAST YEAR?MONTHLY OR LESS (1 POINT) POINTS3 INTERPRETATIONNEGATIVE OCCUPATION: DISABLED. SEXUAL HX HAD SEX IN THE LAST 12 MONTHS (VAGINAL, ORAL, OR ANAL)?YES WITHWOMEN ONLY USE PROTECTION?NO HAVE YOU EVER HAD AN STD?NO HOSPITALIZATION/MAJOR DIAGNOSTIC PROCEDURE ALL SURGICAL RELATED CHEST PAIN 10/2016 FX BACK AT L-1 07-14-17 REVIEW OF SYSTEMS REVIEWED BY: PROVIDER: RON MCGOVERN . CONSTITUTIONAL: ANY CHANGE IN YOUR MEDICAL CONDITION? NO . CHILLS NO . FEVER NO . INFECTION: DO YOU HAVE NEW INFECTIONS? NO . DO YOU HAVE HISTORY OF MRSA? NO . MUSCULOSKELETAL: ANY NEW PATTERNS OF PAIN OR NUMBNESS? YES . GASTROENTEROLOGY: ANY NEW CHANGE IN BOWEL CONTROL? NO . GENITOURINARY: ANY NEW CHANGE IN BLADDER CONTROL? NO . IS THERE A CHANCE YOU COULD BE ? NO . HEMATOLOGY/LYMPH: DO YOU TAKE ANY BLOOD THINNERS? (FOR EXAMPLE- COUMADIN, PLAVIX, AGGRENOX, PLATEL, PRADAXA, OR XARELTO) NO . WHEN WAS YOUR LAST DOSE? DATE: TIME: . NEUROLOGY: HAVE YOU FALLEN IN THE PAST 12 MONTHS? NO . ANY NEW EXTREMITY NUMBNESS OR WEAKNESS? NO . CARDIOLOGY: DO YOU HAVE A PACEMAKER OR DEFIBRILLATOR? NO . RESPIRATORY: HAVE YOU BEEN SICK IN THE PAST WEEK? NO . FEVER NO . FLU LIKE SYMPTOMS? NO . COUGH NO . INTEGUMENTARY: DO YOU HAVE ANY RASHES OR OPEN SORES? NO . ALLERGIC/IMMUNO: ARE YOU ALLERGIC TO IV DYE? NO . ANY NEW ALLERGIES? NO . PSYCHIATRIC: DO YOU HAVE THOUGHTS OF HURTING YOURSELF OR SOMEONE ELSE? NO . ARE YOU ABUSED, NEGLECTED, OR IN AN UNSAFE ENVIRONMENT? NO . ENDOCRINOLOGY: ARE YOU DIABETIC? NO . OTHER: DO YOU NEED ANY PRESCRIPTIONS? NO . IF YES, PLEASE LIST: ____ . ANY NEW PROBLEMS WITH YOUR MEDICATIONS? NO . WHEN DID YOU LAST EAT? ____ . WHEN DID YOU LAST DRINK? ____ . WHAT DID YOU LAST DRINK? ____ . NAME OF PERSON DRIVING YOU HOME? ____ . DO YOU HAVE ANY OTHER QUESTIONS OR CONCERNS NO . VITAL SIGNS WT 248 LBS, HT 71 IN, BMI 34.59 INDEX, BP 170/105 MM HG, REPEAT BP 164/93 MM HG, HR 91 /MIN, RR 16 /MIN, TEMP 98.7 F, OXYGEN SAT % 100%, NA INITIALS AW 0841, REVIEWED BY: LS. EXAMINATION GENERAL EXAMINATION: GENERAL AWAKE,ALERT ,PLEAASANT . PSYCH AFFECT NORMAL . LUNGS: LUNG MONTES ARE CLEAR TO AUSCULTATION BILATERALLY. GOOD MOVEMENT OF AIR . HEART: S1, S2 IN A REGULAR RATE AND RHYTHM. NO SIGNIFICANT MURMURS, RUBS OR GALLOPS NOTED . LUMBAR:SPECIFIC POINT TENDERNESS NOTED OVER RIGHT L4/5-L5/S1 LUMBAR FACETS. DIAGNOSTIC TESTS REVIEWED MRI L/S SPINE-05/23/17. ASSESSMENTS SPONDYLOSIS WITHOUT MYELOPATHY OR RADICULOPATHY, CERVICOTHORACIC REGION - M47.813 (PRIMARY) OTHER SPONDYLOSIS, LUMBOSACRAL REGION - M47.897 TREATMENT SPONDYLOSIS WITHOUT MYELOPATHY OR RADICULOPATHY, CERVICOTHORACIC REGION REFILL BELBUCA FILM, 300 MCG, 1 FILM TO THE GUM, BUCALLY, DAILY MDD1 3 MOS SUPPLY CAT D CHRONIC PAIN, 90 DAY(S), 90, REFILLS 0 REFILL TIZANIDINE HCL TABLET, 4 MG, 1 TABLET NEEDED, ORALLY, DAILY PRN, 90 DAY(S), 90, REFILLS 0 START OXYCODONE HCL TABLET, 5 MG, 1 TABLET NEEDED, ORALLY, EVERY 6 HRS PRN SEVERE PAIN MDD4, 30 DAYS, 60, REFILLS 0 NOTES: RIGHT L4-5, L5-S1 LFBT, ISTOP REGISTRY REVIEWED AND DEMONSTRATES COMPLLIANCE. (REF # ) BRINGS IN MEDICATIONS WHICH IS APPROPRIATE FOR WHAT WAS DISPENSED. RECENT URINE TOXICOLOGY REVIEWED. NO UNAUTHORIZED MEDICATIONS. NO ILLICIT SUBSTANCES AND PRESCRIBED MEDICATIONS WERE PRESENT. , RISKS OF NARCOTIC/OPIOD MEDICATIONS INCLUDES BUT IS NOT LIMITED TO RISK OF DEPENDANCE/DEVELOPMENT OF ADDICTION, MOOD DISTURBANCE AND DEPRESSION, OSTEOPOROSIS, HORMONAL AND LABIDAL CHANGES, RESPIRATORY DEPRESSION AND . PATIENT IS ADVISED NOT TO DRIVE OR DRINK ALCOHOL WHILE ON THESE MEDICATIONS. PREVENTIVE MEDICINE PAIN CLINIC TEACHING: MEDICATIONS NEW MEDICATION OXYCODONE REVIEWED WITH PATIENT. PROCEDURE TEACHING PRE PROCEDURE INSTRUCTIONS REVIEWED WITH PT. PROCEDURE CODES FA211 ESTABILISHED PATIENT [facility] CHARGE DISPOSITION & COMMUNICATION FOLLOW UP POST (REASON: RIGHT L4-5, L5-S1 LFBT) ELECTRONICALLY SIGNED BY FROILAN OPPE ON 02/04/2020 AT 04:20 PM EDT DISCLAIMER : THIS IS A VISIT SUMMARY EXTRACTED FROM THE [email or web address] CHART. IT IS NOT A COPY OF THE [email or web address] PROGRESS NOTE. PORTILLO
== END ==
LOC: M PAIN 09:00
PROVIDERS: ATTEND Nurse Practitioner Family
DX: M47.813 Spondylosis without myelopathy or radiculopathy, cervicothoracic region (principal); M47.897 Other spondylosis, lumbosacral region; F17.220 Nicotine dependence, chewing tobacco, uncomplicated; Z79.899 Other long term (current) drug therapy

== ENCOUNTER → 2020-02-02 | Outpatient (CLI) | payer BC ==
[~2020-02-02] MED LIST changes: +BUPIVACAINE HCL 0.25% 30ML VIAL As Ordered ONE; +ISOVUE-M 300 61% 15ML VIAL (Q9967) As Ordered ONE; +LIDOCAINE 1% SDV 30ML VIAL As Ordered ONE; +TRIAMCINOLONE ACETONIDE SUSP 40 MG/ML VIAL (J3301) As Ordered ONE; +diazePAM 5 MG TAB As Ordered ONE
--- NOTE | 2020-02-02 10:46 | REP ---
Partial lumbar spine series: Two views . History: Injection procedure for pain. 25 seconds of fluoroscopy time is reported. Findings: A sequence of two fluoroscopically obtained last image hold procedural spot radiographs of the lumbar spine document needle position and contrast injection associated with injection procedure. Electronically Signed by Adrian Nolan MD 02/02/2020 10:37 A
--- NOTE | 2020-02-18 00:25 | ECWPNPC ---
PATIENT NAME: MELODY BONDS : 1970 GENDER: MALE VISIT DATE: 02/02/2020 DISCHARGE DATE: 02/02/20 1050 VISIT LOCKED DATE TIME: PHYSICIAN: ALICIA DUVALL MD RESOURCE: ALICIA DUVALL MD REASON FOR APPOINTMENT 1. RIGHT L4-5, L5-S1 LFBT HISTORY OF PRESENT ILLNESS HISTORY OF PRESENT ILLNESS: PAIN THE PATIENT DESCRIBES THE PAIN... FALL RISK SCREENING: SCREENING :NO FALLS REPORTED IN THE LAST YEAR CURRENT MEDICATIONS TAKING LIDODERM 5 % PATCH 1 PATCH TO SKIN REMOVE AFTER 12 HOURS - ON BACK EXTERNALLY ON 12 HOURS, OFF 12 HOURS DAILY, NOTES: HAS NOT USED TAKING DRISDOL 39527 UNIT CAPSULE 1 CAPSULE ORALLY TWICE A WEEK, NOTES: 02/02/2020599 TAKING ALEVE PM 1 CAP ORALLY BEFORE BEDTIME, NOTES: 02/01/2020 HS TAKING CHLORTHALIDONE 25 MG TABLET 1 TABLET IN THE MORNING WITH FOOD ORALLY ONCE A DAY, NOTES: 02/02/2020599 TAKING AMLODIPINE BESYLATE 5 MG TABLET 1 TABLET ORALLY ONCE A DAY, NOTES: 02/02/2020599 TAKING OMEPRAZOLE 40MG CAPSULE DELAYED RELEASE TAKE 1 CAPSULE DAILY ORALLY DAILY, NOTES: 02/02/2020599 TAKING LISINOPRIL 20MG TABLET TAKE 1 TABLET DAILY ORALLY DAILY, NOTES: 02/02/2020599 TAKING BISOPROLOL FUMARATE 5MG TABLET TAKE 1 TABLET DAILY ORALLY ONCE A DAY, NOTES: 02/02/2020599 TAKING ATORVASTATIN CALCIUM 80MG TABLET TAKE 1 TABLET DAILY ORALLY DAILY, NOTES: 02/02/2020 TAKING CLOBETASOL PROPIONATE 0.05 % GEL 1 APPLICATION EXTERNALLY TWICE A DAY TO BOTH ELBOWS, NOTES: PRN TAKING BELBUCA 300 MCG FILM 1 FILM TO THE GUM BUCALLY DAILY MDD1 3 MOS SUPPLY CAT D CHRONIC PAIN, NOTES: 02/02/2020599 TAKING TIZANIDINE HCL 4 MG TABLET 1 TABLET NEEDED ORALLY DAILY PRN, NOTES: FRIDAY TAKING OXYCODONE HCL 5 MG TABLET 1 TABLET NEEDED ORALLY EVERY 6 HRS PRN SEVERE PAIN MDD4, NOTES: 02/01/2020 HS MEDICATION LIST REVIEWED AND RECONCILED WITH THE PATIENT PAST MEDICAL HISTORY 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 GRANT - [place] ) NECK/BACK PAIN SUBSEQUENT TO FALL 06/06/15- FOLLOWING WITH WET WASH ASSEMBLER IN [place] (DR. JENKINS) COMPRESSION FRACTURE L-1 S/P FALL - 07/14/2017 S/P ELECTIVE L4-L PDIF COMPLICATED BY HEMATOMA THAT WAS EVACUATED 01/2016 - DR. 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 SURGICAL HISTORY BROKEN FEMUR REPAIRED WITH RODS/PINS, RIGHT WRIST FRACTURE 06/07/15 FUSION L4-L5 01/2016 PUT A BIGGER RITA IN FEMUR 02/2016 RIGHT WRIST HARDWARE REMOVED 09/19/16 RIGHT FEMUR RITA REMOVED, PLATE AND SCREWS PLACED 01/2017 FAMILY HISTORY FATHER: 66 YRS, DIAGNOSED WITH OTHER SPECIFIED CONDITIONS INFLUENCING HEALTH STATUS MOTHER: ALIVE 69 YRS 1 SON(S) , 2 DAUGHTER(S) - HEALTHY. CANCER - GRANDMOTHER, UNCLES. SOCIAL HISTORY GENERAL: TOBACCO USE ADDITIONAL FINDINGS: TOBACCO USERCHEWS TOBACCO NOT INTERESTED IN QUITTING AT THIS TIME SMOKING CESSATION INFORMATION GIVEN02/02/2020 DISCUSSED THE IMPORTANCE OF QUITTING CHEW ADDITIONAL FINDINGS: TOBACCO NON-USER REFUSED SMOKING CESSATION INFORMATION AT THIS TIME. VAPOR PT STATES HE CONTINUES TO CHES EDUCATION LEVEL OF EDUCATION:NOT FINISHED COLLEGE DIET: REGULAR. LANGUAGE LANGUAGES SPOKEN:SINHALA DOMESTIC VIOLENCE DO YOU FEEL SAFE IN YOUR ENVIRONMENT?YES NEW PATIENT PAIN DIARY TODAY'S VISITNOTES PATIENT DESCRIBES PAIN :ACHING, BURNING, HAVE IT ALL THE TIME, SHARP, THROBBING, SORE, SHOOTING FROM 0-10, WHAT LEVEL IS YOUR PAIN TODAY?7 PRECIPITATING FACTORS EVERYTHING ALLEVIATING FACTORS PAIN MEDS HAVE BEEN HELPING IMPACT ON FUNCTION NOT ABLE TO PERFORM NORMAL DAILY ACTIVITIES WHEN DID YOU LAST EAT?02/01/2020 1730 WHEN DID YOU LAST DRINK?02/02/2020 0600 WATER WHAT DID YOU LAST DRINK? WATER NAME OF PERSON DRIVING YOU HOME TAMERA- HAVE YOU BEEN SICK IN THE LAST WEEK (COLD, COUGH, FEVER, FLU, ETC)NO DO YOU TAKE ANY BLOOD THINNERS?NO DO YOU HAVE ANY RASHES OR OPEN SORES?NO ANY CHANGE IN BOWEL OR BLADDER CONTROL?NO ARE YOU ALLERGIC TO SHELLFISH OR IV DYE?NO ARE YOU DIABETIC?NO DO YOU HAVE A PACEMAKER OR DEFIBRILLATOR?NO ANY NEW PROBLEMS WITH MEDICINES OR NEW ALLERGIESNO ANY NEW PATTERNS OF PAIN OR NUMBNESS?YES ANY CHANGE IN YOUR MEDICAL CONDITION?NO HAVE YOU FALLEN IN THE LAST 6 MONTHS?NO DO YOU USE ANY TYPE OF TOBACCO (SMOKE, SMOKELESS, CHEW, ETC.)YES ARE YOU ABUSED, NEGLECTED, OR IN AN UNSAFE ENVIRONMENT?NO DO YOU HAVE THOUGHTS OF HURTING YOURSELF OR SOMEONE ELSE?NO DO YOU NEED ANY PRESCRIPTIONS?YES DO YOU HAVE ANY OTHER QUESTIONS OR CONCERNS?NO INTENSITY SCALE REVIEWEDNUMBER SCORE7 BMI CARE GOAL FOLLOW-UP ABOVE NORMAL BMI FOLLOW-UPDIETARY MANAGEMENT EDUCATION, GUIDANCE, AND COUNSELING RECREATIONAL DRUG USE DRUG USE?NO EXERCISE: NO REGULAR EXERCISE. LEARNING BARRIERS / SPECIAL NEEDS CHANGE FROM LAST VISIT?NO BARRIERS TO LEARNING?NO HEARING IMPAIRED?NO VISION IMPAIRED?YES COGNITIVELY IMPAIRED?NO :CORRECTIVE LENSES READINESS TO LEARN?YES LEARNING PREFERENCES?NO LEARNING CAPABILITIES PRESENT?YES EMOTIONAL BARRIERS?NO SPECIAL DEVICES?NO CAUSTIC PLANT WORKER NEEDED?NO PAIN CLINIC PFS, CLERGY, PUBLIC HEALTH REFERRALS PFS REFERRAL NEEDED?NO CLERGY REFERRAL NEEDED?NO PUBLIC HEALTH REFERRAL NEEDED?NO WAS THE PROVIDER NOTIFIED OF ANY PERTINENT INFO?YES HAS THE PATIENT BEEN EDUCATED REGARDING HIS/HER PLAN OF CARE?YES HAS THE PATIENT BEEN EDUCATED REGARDING PAIN, THE RISK FOR PAIN, THE IMPORTANCE OF EFFECTIVE PAIN MANAGEMENT, AND THE PAIN ASSESSMENT PROCESS?YES LATEX QUESTIONNAIRE LATEX ALLERGY : HAVE YOU EVER DEVELOPED ANY TYPE OF REACTION AFTER HANDLING LATEX PRODUCTS SUCH RUBBER GLOVES, CONDOMS, DIAPHRAGMS, BALLOONS, SOCKS, OR UNDERWEAR?NO LATEX ALLERGY : HAVE YOU EVER DEVELOPED ANY TYPE OF REACTION DURING OR AFTER DENTAL APPOINTMENT, VAGINAL/RECTAL EXAMINATION, SURGICAL PROCEDURE, OR ANY OTHER EXPOSURE?NO LATEX RISK : HAVE YOU EVER HAD ANY DIFFICULTY BREATHING OR HIVES AFTER EATING OR HANDLING ANY FRUITS, OR VEGETABLES; SUCH KIWI, BANANAS, STONE FRUITS, OR CHESTNUTSNO LATEX RISK : DO YOU HAVE A PREVIOUS PERSONAL HISTORY OF MORE THAN NINE SURGERIES, SPINA BIFIDA, OR REPEATED CATHERIZATIONS? NO LATEX RISK : ARE YOU FREQUENTLY EXPOSED TO LATEX PRODUCTS IN YOUR OCCUPATION?NO DATE ASKED : 02/02/2020 CAFFEINE CAFFEINE USE?YES HOW OFTEN AND HOW MUCH? 2 CUPS OF COFFEE PER DAY ADVANCE DIRECTIVE ADVANCE DIRECTIVE DISCUSSED WITH PATIENT:YES HCP & POHector BONDS [phone] AND LIVING WILL DENOMINATIONAL [id number] NONE MARITAL STATUS: . ALCOHOL SCREENING DID YOU HAVE A DRINK CONTAINING ALCOHOL IN THE PAST YEAR?YES HOW OFTEN DID YOU HAVE SIX OR MORE DRINKS ON ONE OCCASION IN THE PAST YEAR?LESS THAN MONTHLY (1 POINT) HOW MANY DRINKS DID YOU HAVE ON A TYPICAL DAY WHEN YOU WERE DRINKING IN THE PAST YEAR?3 OR 4 (1 POINT) HOW OFTEN DID YOU HAVE A DRINK CONTAINING ALCOHOL IN THE PAST YEAR?MONTHLY OR LESS (1 POINT) POINTS3 INTERPRETATIONNEGATIVE OCCUPATION: DISABLED. SEXUAL HX HAD SEX IN THE LAST 12 MONTHS (VAGINAL, ORAL, OR ANAL)?YES WITHWOMEN ONLY USE PROTECTION?NO HAVE YOU EVER HAD AN STD?NO HOSPITALIZATION/MAJOR DIAGNOSTIC PROCEDURE ALL SURGICAL RELATED CHEST PAIN 10/2016 FX BACK AT L-1 07-14-17 REVIEW OF SYSTEMS REVIEWED BY: PROVIDER: . CONSTITUTIONAL: ANY CHANGE IN YOUR MEDICAL CONDITION? NO . CHILLS NO . FEVER NO . INFECTION: DO YOU HAVE NEW INFECTIONS? NO . DO YOU HAVE HISTORY OF MRSA? NO . MUSCULOSKELETAL: ANY NEW PATTERNS OF PAIN OR NUMBNESS? YES- PAIN IN THE RIGHT SIDE BACK HAS INCREASED, THROBBING PAIN DOWN LEG INTO GROIN ON RIGHT SIDE, BIG TOE NUMB ON RIGHT SIDE . GASTROENTEROLOGY: ANY NEW CHANGE IN BOWEL CONTROL? NO . GENITOURINARY: ANY NEW CHANGE IN BLADDER CONTROL? NO . IS THERE A CHANCE YOU COULD BE ? NO . HEMATOLOGY/LYMPH: DO YOU TAKE ANY BLOOD THINNERS? (FOR EXAMPLE- COUMADIN, PLAVIX, AGGRENOX, PLATEL, PRADAXA, OR XARELTO) NO . WHEN WAS YOUR LAST DOSE? DATE: TIME: . NEUROLOGY: HAVE YOU FALLEN IN THE PAST 12 MONTHS? NO . ANY NEW EXTREMITY NUMBNESS OR WEAKNESS? NO . CARDIOLOGY: DO YOU HAVE A PACEMAKER OR DEFIBRILLATOR? NO . RESPIRATORY: HAVE YOU BEEN SICK IN THE PAST WEEK? NO . FEVER NO . FLU LIKE SYMPTOMS? NO . COUGH NO . INTEGUMENTARY: DO YOU HAVE ANY RASHES OR OPEN SORES? NO . ALLERGIC/IMMUNO: ARE YOU ALLERGIC TO IV DYE? NO . ANY NEW ALLERGIES? NO . PSYCHIATRIC: DO YOU HAVE THOUGHTS OF HURTING YOURSELF OR SOMEONE ELSE? NO . ARE YOU ABUSED, NEGLECTED, OR IN AN UNSAFE ENVIRONMENT? NO . ENDOCRINOLOGY: ARE YOU DIABETIC? NO . OTHER: DO YOU NEED ANY PRESCRIPTIONS? NO . IF YES, PLEASE LIST: ____ . ANY NEW PROBLEMS WITH YOUR MEDICATIONS? NO . WHEN DID YOU LAST EAT? 02/01/2020 1730 . WHEN DID YOU LAST DRINK? 02/05/2020 0600 . WHAT DID YOU LAST DRINK? WATER . NAME OF PERSON DRIVING YOU HOME? . DO YOU HAVE ANY OTHER QUESTIONS OR CONCERNS NO . VITAL SIGNS WT 248 LBS, HT 71 IN, BMI 34.59 INDEX, BP 141/92 MM HG, HR 83 /MIN, RR 16 /MIN, TEMP 97.1 F, OXYGEN SAT % 98%, SAFE IN ENV? (Y/N) YES, NA INITIALS AW 0912, REVIEWED BY: ELISSA. ASSESSMENTS SPONDYLOSIS WITHOUT MYELOPATHY OR RADICULOPATHY, LUMBAR REGION - M47.816 (PRIMARY) SPONDYLOSIS WITHOUT MYELOPATHY OR RADICULOPATHY, LUMBOSACRAL REGION - M47.817 PROCEDURES PN LUMBAR FACET BLOCK THERAPEUTIC PRE PROCEDURE DIAGNOSIS LUMBAR SPONDYLOSIS, LUMBOSACRAL SPONDYLOSIS POST PROCEDURE DIAGNOSIS LUMBAR SPONDYLOSIS, LUMBOSACRAL SPONDYLOSIS PROCEDURE RIGHT LUMBAR FACET THERAPEUTIC BLOCK AT L4-L5 AND L5-S1 SURGEON DR. ALICIA DUVALL OFFSET MACHINE OPERATOR NONE ANESTHESIA LOCAL PRE PROCEDURE NOTE THE PATIENT HAS A HISTORY OF CHRONIC LOW BACK PAIN. I EVALUATED THE PATIENT AND REVIEWED THE CHART. I WENT OVER THE RISKS, ALTERNATIVES, AND BENEFITS ASSOCIATED WITH THIS PROCEDURE. I DISCUSSED WITH THE PATIENT THAT THE USE OF STEROIDS MAY CONTRIBUTE TO IMMUNOSUPPRESSION OF HIS BODY AGAINST INFECTIONS SUCH THE G[place] VIRUS, COVID-19.HE IS AWARE OF THE POTENTIAL COMPLICATIONS ASSOCIATED WITH AN INFECTION OF THIS VIRUS INCLUDING . I ALSO DISCUSSED WITH THE PATIENT THE URGENCY OF THIS PROCEDURE. THE PATIENT EXPRESSED THAT HE CANNOT FUNCTION WITH THE PRESENT PAIN. THE PATIENT UNDERSTANDS THAT I CANNOT GUARANTEE OUTCOMES WITH THIS PROCEDURE. THE PATIENT GIVES CONSENT TO PERFORM THE PROCEDURE. THE PATIENT DENIES UNEXPLAINABLE WEIGHT LOSS, FEVER, CHILLS, OR NEW CHANGES IN URINARY OR BOWEL CONTROL. DESCRIPTION OF PROCEDURE THE PATIENT WAS BROUGHT TO THE PROCEDURE ROOM AND PLACED IN THE PRONE POSITION. THE LUMBOSACRAL AREA WAS CLEANED WITH CHLORAPREP SOLUTION AND DRAPED ASEPTICALLY. THE PROCEDURE WAS DONE UNDER STERILE CONDITIONS. I CHECKED LATERALITY AND THE LEVEL WHERE THE PROCEDURE WAS GOING TO BE PERFORMED WITH THE PATIENT AND THE SUPPORTING STAFF AT THE MOMENT OF THE TIME OUT IN THE PROCEDURE ROOM. UNDER FLUOROSCOPIC GUIDANCE, THE TARGET POINT WAS SELECTED AT THE RIGHT L4-L5 AND RIGHT L5-S1 FACET JOINTS. TARGET POINT WAS SELECTED AFTER LATERAL ROTATION AND TILT OF THE MAGNIFIER OF THE C-ARM. LIDOCAINE 0.5% WAS USED TO NUMB THE SKIN AND THE SUBCUTANEOUS TISSUE BELOW IT. SPINAL NEEDLES, 22-GAUGE, WERE ADVANCED UNDER FLUOROSCOPIC GUIDANCE AND FOLLOWING PATIENT FEEDBACK UNTIL THE TARGETS WERE TOUCHED. THE POSITION OF THE NEEDLES WAS VERIFIED WITH AP AND LATERAL VIEWS. AFTER PROPER POSITION OF THE NEEDLES WAS ACHIEVED, ISOVUE-M DYE 30% 0.1 ML WAS INJECTED SHOWING ADEQUATE SPREAD OF THE DYE. THEN A SOLUTION OF 1.5 ML OF BUPIVACAINE 0.125% OF KENALOG 10 MG WAS INJECTED AT EACH SITE. THERE WAS NO EVIDENCE OF BLOOD, PARESTHESIA OR CEREBROSPINAL FLUID DURING THE PROCEDURE. THE PATIENT WAS SENT TO THE RECOVERY ROOM. THE PATIENT WAS MOVING THE EXTREMITIES AND DOING WELL. THERE WAS NO COMPLICATION DURING THE PROCEDURE. FLUOROSCOPY TIME WAS 25 SECONDS POST PROCEDURE NOTE THE PATIENT WILL BE SEEN IN A FOLLOW UP IN THE NEXT FEW WEEKS. I AM LOOKING FOR LONG LASTING PAIN RELIEF FOR THE PATIENT WITH THESE INJECTIONS. INSTRUCTIONS WERE GIVEN, QUESTIONS WERE ANSWERED, AND THE PATIENT EXPRESSED UNDERSTANDING AND AGREES WITH THE PLAN. I, SLIME TOVAR , DOCUMENTED THE ABOVE INFORMATION ACTING A SCRIBE FOR DR. DUVALL. I HAVE REVIEWED THE ABOVE DOCUMENT, WRITTEN BY SLIME TOVAR, JEFERSONIBPuma, AND I VERIFY THAT IT IS ACCURATE. DIAGNOSTIC IMAGING [facility] FACET BLOCK (PAIN)[id number] PROCEDURE CODES 01323 INJ PARAVERT F JNT L/S 1 LEV, [place]IFIERS: [place] [id number] INJ PARAVERT F JNT L/S 2 LEV, MODIFIERS: RT [id number] RADXPS IN END [id number] PXD DISPOSITION & COMMUNICATION FOLLOW UP 3 WEEKS ELECTRONICALLY SIGNED BY ALICIA DUVALL MD, MD ON 02/17/2020 AT 05:49 PM EDT DISCLAIMER : THIS IS A VISIT SUMMARY EXTRACTED FROM THE [facility] CHART. IT IS NOT A COPY OF THE [facility] PROGRESS NOTE. MTDD
== END ==
LOC: M PAIN 09:15
PROVIDERS: ATTEND Anesthesiology
DX: M47.816 Spondylosis without myelopathy or radiculopathy, lumbar region (principal); M47.817 Spondylosis without myelopathy or radiculopathy, lumbosacral region; I10 Essential (primary) hypertension; F17.220 Nicotine dependence, chewing tobacco, uncomplicated; Z79.891 Long term (current) use of opiate analgesic; Z79.899 Other long term (current) drug therapy
CPT/HCPCS: 64493; 64494; 77003; J3301; Q9967

== ENCOUNTER → 2020-02-10 | Outpatient (CLI) | payer BC ==
[~2020-02-10] MED LIST changes: -BUPIVACAINE HCL 0.25% 30ML VIAL As Ordered ONE; -ISOVUE-M 300 61% 15ML VIAL (Q9967) As Ordered ONE; -LIDOCAINE 1% SDV 30ML VIAL As Ordered ONE; -TRIAMCINOLONE ACETONIDE SUSP 40 MG/ML VIAL (J3301) As Ordered ONE; -diazePAM 5 MG TAB As Ordered ONE
--- NOTE | 2020-02-20 23:28 | ECWPNPC ---
PATIENT NAME: MELODY BONDS : 1970 GENDER: MALE VISIT DATE: 02/10/2020 DISCHARGE DATE: 02/10/20 1253 VISIT LOCKED DATE TIME: PHYSICIAN: ALICIA DUVALL MD RESOURCE: ALICIA DUVALL MD REASON FOR APPOINTMENT 1. LOW BACK AND RIGHT LEG PAIN HISTORY OF PRESENT ILLNESS HISTORY OF PRESENT ILLNESS: PAIN THE PATIENT DESCRIBES THE PAIN... PERMISSION FROM PATIENT WAS RECEIVED TO DO TELEPHONE OFFICE VISIT. 49-YEAR-OLD MALE PATIENT WITH A HISTORY OF CHRONIC LOW BACK AND RIGHT LEG PAIN. THE PATIENT DESCRIBES THE PAIN ACHING, BURNING, CONSTANT, SHARP, THROBBING, SORE AND SHOOTING WITH A PAIN SCORE RANGING FROM 6-9/10 DEPENDING ON PHYSICAL ACTIVITY. THE PATIENT STATES THAT THE PAIN IS AFFECTING HIS ABILITY TO MOVE AROUND. THE PATIENT HAS BEEN TAKING SOMA UP TO 2 A DAY AND STATES THAT IT IS MAKING HIS PAIN MORE MANAGEABLE. THE PATIENT STATES THE FACET BLOCK THAT HE HAD DONE ON FEBRUARY 02, 2020 DID NOT PROVIDE HIM WITH MUCH RELIEF. THE PATIENT ALSO STATES THAT HE HAS BEEN TAKING OXYCODONE AND BELBUCA FOR THE PAIN. PATIENT DENIES UNEXPLAINABLE WEIGHT LOSS, FEVER, CHILLS, NEW CHANGES ON HIS URINARY OR BOWEL CONTROL. FALL RISK SCREENING: SCREENING :NO FALLS REPORTED IN THE LAST YEAR CURRENT MEDICATIONS TAKING LIDODERM 5 % PATCH 1 PATCH TO SKIN REMOVE AFTER 12 HOURS - ON BACK EXTERNALLY ON 12 HOURS, OFF 12 HOURS DAILY TAKING DRISDOL 03349 UNIT CAPSULE 1 CAPSULE ORALLY TWICE A WEEK TAKING ALEVE PM 1 CAP ORALLY BEFORE BEDTIME TAKING CHLORTHALIDONE 25 MG TABLET 1 TABLET IN THE MORNING WITH FOOD ORALLY ONCE A DAY TAKING AMLODIPINE BESYLATE 5 MG TABLET 1 TABLET ORALLY ONCE A DAY TAKING OMEPRAZOLE 40MG CAPSULE DELAYED RELEASE TAKE 1 CAPSULE DAILY ORALLY DAILY TAKING LISINOPRIL 20MG TABLET TAKE 1 TABLET DAILY ORALLY DAILY TAKING BISOPROLOL FUMARATE 5MG TABLET TAKE 1 TABLET DAILY ORALLY ONCE A DAY TAKING ATORVASTATIN CALCIUM 80MG TABLET TAKE 1 TABLET DAILY ORALLY DAILY TAKING CLOBETASOL PROPIONATE 0.05 % GEL 1 APPLICATION EXTERNALLY TWICE A DAY TO BOTH ELBOWS TAKING BELBUCA 300 MCG FILM 1 FILM TO THE GUM BUCALLY DAILY MDD1 3 MOS SUPPLY CAT D CHRONIC PAIN TAKING TIZANIDINE HCL 4 MG TABLET 1 TABLET NEEDED ORALLY DAILY PRN TAKING OXYCODONE HCL 5 MG TABLET 1 TABLET NEEDED ORALLY EVERY 6 HRS PRN SEVERE PAIN MDD4 TAKING DULOXETINE HCL 60MG CAPSULE DELAYED RELEASE PARTICLES TAKE 1 CAPSULE DAILY TAKING CARISOPRODOL 350 MG TABLET 1 TABLET NEEDED ORALLY FOR SPASMS AND PAIN EVERY 8 HOURS NEEDED MDD3 MEDICATION LIST REVIEWED AND RECONCILED WITH THE PATIENT PAST MEDICAL HISTORY 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 GRANT - [place] ) NECK/BACK PAIN SUBSEQUENT TO FALL 06/06/15- FOLLOWING WITH [facility] IN [place] (DR. JENKINS) COMPRESSION FRACTURE L-1 S/P FALL - 07/14/2017 S/P ELECTIVE L4-L PDIF COMPLICATED BY HEMATOMA THAT WAS EVACUATED 01/2016 - DR. 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 SURGICAL HISTORY BROKEN FEMUR REPAIRED WITH RODS/PINS, RIGHT WRIST FRACTURE 06/07/15 FUSION L4-L5 01/2016 PUT A BIGGER RITA IN FEMUR 02/2016 RIGHT WRIST HARDWARE REMOVED 09/19/16 RIGHT FEMUR RITA REMOVED, PLATE AND SCREWS PLACED 01/2017 FAMILY HISTORY FATHER: 66 YRS, DIAGNOSED WITH OTHER SPECIFIED CONDITIONS INFLUENCING HEALTH STATUS MOTHER: ALIVE 69 YRS 1 SON(S) , 2 DAUGHTER(S) - HEALTHY. CANCER - GRANDMOTHER, UNCLES. SOCIAL HISTORY GENERAL: TOBACCO USE ADDITIONAL FINDINGS: TOBACCO USERCHEWS TOBACCO NOT INTERESTED IN QUITTING AT THIS TIME ADDITIONAL FINDINGS: TOBACCO NON-USER REFUSED SMOKING CESSATION INFORMATION AT THIS TIME. VAPOR PT STATES HE CONTINUES TO CHES SMOKING CESSATION INFORMATION GIVEN02/02/2020 DISCUSSED THE IMPORTANCE OF QUITTING CHEW LATEX QUESTIONNAIRE LATEX ALLERGY : HAVE YOU EVER DEVELOPED ANY TYPE OF REACTION AFTER HANDLING LATEX PRODUCTS SUCH RUBBER GLOVES, CONDOMS, DIAPHRAGMS, BALLOONS, SOCKS, OR UNDERWEAR?NO LATEX ALLERGY : HAVE YOU EVER DEVELOPED ANY TYPE OF REACTION DURING OR AFTER DENTAL APPOINTMENT, VAGINAL/RECTAL EXAMINATION, SURGICAL PROCEDURE, OR ANY OTHER EXPOSURE?NO DATE ASKED : 02/02/2020 LATEX RISK : HAVE YOU EVER HAD ANY DIFFICULTY BREATHING OR HIVES AFTER EATING OR HANDLING ANY FRUITS, OR VEGETABLES; SUCH KIWI, BANANAS, STONE FRUITS, OR CHESTNUTSNO LATEX RISK : DO YOU HAVE A PREVIOUS PERSONAL HISTORY OF MORE THAN NINE SURGERIES, SPINA BIFIDA, OR REPEATED CATHERIZATIONS? NO LATEX RISK : ARE YOU FREQUENTLY EXPOSED TO LATEX PRODUCTS IN YOUR OCCUPATION?NO BMI CARE GOAL FOLLOW-UP ABOVE NORMAL BMI FOLLOW-UPDIETARY MANAGEMENT EDUCATION, GUIDANCE, AND COUNSELING ALCOHOL SCREENING DID YOU HAVE A DRINK CONTAINING ALCOHOL IN THE PAST YEAR?YES HOW OFTEN DID YOU HAVE SIX OR MORE DRINKS ON ONE OCCASION IN THE PAST YEAR?LESS THAN MONTHLY (1 POINT) HOW MANY DRINKS DID YOU HAVE ON A TYPICAL DAY WHEN YOU WERE DRINKING IN THE PAST YEAR?3 OR 4 (1 POINT) HOW OFTEN DID YOU HAVE A DRINK CONTAINING ALCOHOL IN THE PAST YEAR?MONTHLY OR LESS (1 POINT) POINTS3 INTERPRETATIONNEGATIVE RECREATIONAL DRUG USE DRUG USE?NO CAFFEINE CAFFEINE USE?YES HOW OFTEN AND HOW MUCH? 2 CUPS OF COFFEE PER DAY SEXUAL HX HAD SEX IN THE LAST 12 MONTHS (VAGINAL, ORAL, OR ANAL)?YES WITHWOMEN ONLY USE PROTECTION?NO HAVE YOU EVER HAD AN STD?NO MUSLIM [id number] NONE LANGUAGE LANGUAGES SPOKEN:AMERICAN EDUCATION LEVEL OF EDUCATION:NOT FINISHED COLLEGE LEARNING BARRIERS / SPECIAL NEEDS CHANGE FROM LAST VISIT?NO BARRIERS TO LEARNING?NO HEARING IMPAIRED?NO VISION IMPAIRED?YES COGNITIVELY IMPAIRED?NO :CORRECTIVE LENSES READINESS TO LEARN?YES LEARNING PREFERENCES?NO LEARNING CAPABILITIES PRESENT?YES EMOTIONAL BARRIERS?NO SPECIAL DEVICES?NO ASSOCIATE DIRECTOR CAREER SERVICES NEEDED?NO DOMESTIC VIOLENCE DO YOU FEEL SAFE IN YOUR ENVIRONMENT?YES OCCUPATION: DISABLED. DIET: REGULAR. EXERCISE: NO REGULAR EXERCISE. MARITAL STATUS: . NEW PATIENT PAIN DIARY TODAY'S VISITNOTES PATIENT DESCRIBES PAIN :ACHING, BURNING, HAVE IT ALL THE TIME, SHARP, THROBBING, SORE, SHOOTING FROM 0-10, WHAT LEVEL IS YOUR PAIN TODAY?7 PRECIPITATING FACTORS EVERYTHING ALLEVIATING FACTORS PAIN MEDS HAVE BEEN HELPING IMPACT ON FUNCTION NOT ABLE TO PERFORM NORMAL DAILY ACTIVITIES WHEN DID YOU LAST EAT?02/01/2020 1730 WHEN DID YOU LAST DRINK?02/02/2020 0600 WATER WHAT DID YOU LAST DRINK? WATER NAME OF PERSON DRIVING YOU HOME TAMERA- HAVE YOU BEEN SICK IN THE LAST WEEK (COLD, COUGH, FEVER, FLU, ETC)NO DO YOU TAKE ANY BLOOD THINNERS?NO DO YOU HAVE ANY RASHES OR OPEN SORES?NO ANY CHANGE IN BOWEL OR BLADDER CONTROL?NO ARE YOU ALLERGIC TO SHELLFISH OR IV DYE?NO ARE YOU DIABETIC?NO DO YOU HAVE A PACEMAKER OR DEFIBRILLATOR?NO ANY NEW PROBLEMS WITH MEDICINES OR NEW ALLERGIESNO ANY NEW PATTERNS OF PAIN OR NUMBNESS?YES ANY CHANGE IN YOUR MEDICAL CONDITION?NO HAVE YOU FALLEN IN THE LAST 6 MONTHS?NO DO YOU USE ANY TYPE OF TOBACCO (SMOKE, SMOKELESS, CHEW, ETC.)YES ARE YOU ABUSED, NEGLECTED, OR IN AN UNSAFE ENVIRONMENT?NO DO YOU HAVE THOUGHTS OF HURTING YOURSELF OR SOMEONE ELSE?NO DO YOU NEED ANY PRESCRIPTIONS?YES DO YOU HAVE ANY OTHER QUESTIONS OR CONCERNS?NO INTENSITY SCALE REVIEWEDNUMBER SCORE7 PAIN CLINIC PFS, CLERGY, PUBLIC HEALTH REFERRALS PFS REFERRAL NEEDED?NO CLERGY REFERRAL NEEDED?NO PUBLIC HEALTH REFERRAL NEEDED?NO WAS THE PROVIDER NOTIFIED OF ANY PERTINENT INFO?YES HAS THE PATIENT BEEN EDUCATED REGARDING HIS/HER PLAN OF CARE?YES HAS THE PATIENT BEEN EDUCATED REGARDING PAIN, THE RISK FOR PAIN, THE IMPORTANCE OF EFFECTIVE PAIN MANAGEMENT, AND THE PAIN ASSESSMENT PROCESS?YES ADVANCE DIRECTIVE ADVANCE DIRECTIVE DISCUSSED WITH PATIENT:YES HCP & POA TAMERA BONDS [phone] AND LIVING WILL HOSPITALIZATION/MAJOR DIAGNOSTIC PROCEDURE ALL SURGICAL RELATED CHEST PAIN 10/2016 FX BACK AT L-1 07-14-17 REVIEW OF SYSTEMS REVIEWED BY: PROVIDER: ALICIA DUVALL MD . CONSTITUTIONAL: ANY CHANGE IN YOUR MEDICAL CONDITION? NO . CHILLS NO . FEVER NO . INFECTION: DO YOU HAVE NEW INFECTIONS? NO . DO YOU HAVE HISTORY OF MRSA? NO . MUSCULOSKELETAL: ANY NEW PATTERNS OF PAIN OR NUMBNESS? NO . GASTROENTEROLOGY: ANY NEW CHANGE IN BOWEL CONTROL? NO . GENITOURINARY: ANY NEW CHANGE IN BLADDER CONTROL? NO . IS THERE A CHANCE YOU COULD BE ? NO . HEMATOLOGY/LYMPH: DO YOU TAKE ANY BLOOD THINNERS? (FOR EXAMPLE- COUMADIN, PLAVIX, AGGRENOX, PLATEL, PRADAXA, OR XARELTO) NO . WHEN WAS YOUR LAST DOSE? DATE: TIME: . NEUROLOGY: HAVE YOU FALLEN IN THE PAST 12 MONTHS? NO . ANY NEW EXTREMITY NUMBNESS OR WEAKNESS? NO . CARDIOLOGY: DO YOU HAVE A PACEMAKER OR DEFIBRILLATOR? NO . RESPIRATORY: HAVE YOU BEEN SICK IN THE PAST WEEK? NO . FEVER NO . FLU LIKE SYMPTOMS? NO . COUGH NO . INTEGUMENTARY: DO YOU HAVE ANY RASHES OR OPEN SORES? NO . ALLERGIC/IMMUNO: ARE YOU ALLERGIC TO IV DYE? NO . ANY NEW ALLERGIES? NO . PSYCHIATRIC: DO YOU HAVE THOUGHTS OF HURTING YOURSELF OR SOMEONE ELSE? NO . ARE YOU ABUSED, NEGLECTED, OR IN AN UNSAFE ENVIRONMENT? NO . ENDOCRINOLOGY: ARE YOU DIABETIC? NO . OTHER: DO YOU NEED ANY PRESCRIPTIONS? NO . IF YES, PLEASE LIST: ____ . ANY NEW PROBLEMS WITH YOUR MEDICATIONS? NO . WHEN DID YOU LAST EAT? ____ . WHEN DID YOU LAST DRINK? ____ . WHAT DID YOU LAST DRINK? ____ . NAME OF PERSON DRIVING YOU HOME? ____ . DO YOU HAVE ANY OTHER QUESTIONS OR CONCERNS NO . EXAMINATION GENERAL EXAMINATION: TELEPHONE VISIT. PATIENT IS ALERT, ORIENTED TIMES THREE AND COOPERATIVE. MRI OF THE LUMBAR SPINE DATED 05/23/2017 SHOWS FUSION AT L4-L5 AND SCAR TISSUE PRESENT AT THE LAMINECTOMY SITE. MRI OF THE CERVICAL SPINE DONE ON 09/04/2016 SHOWS FACET ARTHROPATHY CHANGES AND BULGING DISCS. 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 BONDS REGARDING HIS TREATMENT OPTIONS AND CARE. I WOULD LIKE TO ORDER A NEW LUMBAR MRI WITH AND WITHOUT CONTRAST AND A NEW CERVICAL MRI. THE PATIENT IS STILL A CANDIDATE FOR RADIOFREQUENCY; HOWEVER, I THINK THAT WE SHOULD CONSIDER DOING AN EPIDURAL DEPENDING ON THE FINDINGS ON THE MRI, DUE TO THE PATIENT'S SYMPTOMS. THE PATIENT IS GOING TO CONTINUE WITH THE SOMA. I SENT IN A REFILL FOR THAT PRESCRIPTION. I ALSO REFILLED HIS OXYCODONE. IT WAS DISCUSSED WITH THE PATIENT THE RISK ASSOCIATED WITH USING NARCOTICS, WHICH INCLUDE RESPIRATORY DEPRESSION, CARDIAC EFFECTS, DEPENDENCE, DIZZINESS, LACK OF CONCENTRATION AND . IT WAS EXPLAINED TO THE PATIENT THAT THESE MEDICATIONS ARE HIGHLY ADDICTIVE. THEY HAVE TO KEEP IT IN A SAFE PLACE. IF THIS MEDICATION IS LOST OR STOLEN, WE WILL NOT REFILL THEM. THEY SHOULD NOT BE USED WITH BENZODIAZEPINES. THE PATIENT SHOULD NOT DRIVE WHILE ON THIS MEDICATION. THE PATIENT DENIES THE USE OF ANY ILLEGAL SUBSTANCES INCLUDING MARIJUANA OR COCAINE. THE PATIENT IS AWARE OF THESE RISKS AND AGREES. I EXPLAINED TO THE PATIENT THAT WE SHOULD HOLD INTERVENTIONS FOR NOW DUE TO THE [place]AR[place] VIRUS SITUATION. THE PATIENT REPORTS AGREEMENT TO FOLLOW WITH MEDICATION MANAGEMENT FOR NOW. THE PATIENT WILL FOLLOWUP WITH RON, NURSE PRACTITIONER, DIANE 2019. THE PATIENT KNOWS TO CALL ME IF HE HAS ANY QUESTIONS OR CONCERNS. THE PATIENT UNDERSTANDS AND IS IN AGREEMENT WITH THE TREATMENT PLAN. THE TOTAL TIME FOR THE TELEPHONE VISIT WAS 24 MINUTES. I, SLIME TOVAR, DOCUMENTED THE ABOVE INFORMATION ACTING A SCRIBE FOR DR. DUVALL. I HAVE REVIEWED THE ABOVE DOCUMENT, WRITTEN BY SLIME TOVAR, ADULT EDUCATION TEACHER, AND I VERIFY THAT IT IS ACCURATE. . SPONDYLOSIS WITHOUT MYELOPATHY OR RADICULOPATHY, CERVICOTHORACIC REGION CONTINUE OXYCODONE HCL TABLET, 5 MG, 1 TABLET NEEDED, ORALLY, EVERY 6 HRS PRN SEVERE PAIN MDD4, 30 DAYS, 100, REFILLS 0 [facility] MRI SPINE, CERVICAL WITHOUT [id number],MONA 02/14/2020 2:03:07 PM > NO AUTH NEEDED REFRENCE #[id number] SPONDYLOSIS WITHOUT MYELOPATHY OR RADICULOPATHY, LUMBAR REGION [facility] MRI LS SPINE W/O AND WITH [id number],MONA 02/14/2020 2:04:32 PM > NO AUTH NEEDED REFRENCE #[id number] LOW BACK PAIN [facility] MRI LS SPINE W/O AND WITH [id number],MONA 02/14/2020 2:04:32 PM > NO AUTH NEEDED REFRENCE #[id number] NECK PAIN [facility] MRI SPINE, CERVICAL WITHOUT [id number],NICOLE 02/14/2020 2:03:07 PM > NO AUTH NEEDED REFRENCE #[id number] OTHERS CONTINUE CARISOPRODOL TABLET, 350 MG, 1 TABLET NEEDED, ORALLY FOR SPASMS AND PAIN, EVERY 8 HOURS NEEDED MDD2, 30 DAYS, 60, REFILLS 0 DISPOSITION & COMMUNICATION FOLLOW UP 2 WEEKS (REASON: F/UP TRACK RIDER - [facility] ELECTRONICALLY SIGNED BY ALICIA DUVALL MD, MD ON 02/20/2020 AT 06:10 PM EDT DISCLAIMER : THIS IS A VISIT SUMMARY EXTRACTED FROM THE [employer] CHART. IT IS NOT A COPY OF THE [employer] PROGRESS NOTE. [place]
== END ==
LOC: M PAIN 11:00
PROVIDERS: ATTEND Anesthesiology
DX: M96.1 Postlaminectomy syndrome, not elsewhere classified (principal); M47.813 Spondylosis without myelopathy or radiculopathy, cervicothoracic region; M47.816 Spondylosis without myelopathy or radiculopathy, lumbar region; G89.29 Other chronic pain; M54.5 Low back pain; M54.2 Cervicalgia; F17.220 Nicotine dependence, chewing tobacco, uncomplicated; Z79.899 Other long term (current) drug therapy; Z79.891 Long term (current) use of opiate analgesic

== ENCOUNTER → 2020-02-17 | Outpatient (CLI) | payer BC ==
[~2020-02-17] MED LIST changes: +PROHANCE 279.3MG/ML 15ML VIAL (A9576) As Ordered ONE; +PROHANCE 279.3MG/ML 5ML VIAL (A9576) As Ordered ONE
--- NOTE | 2020-02-17 11:16 | REP ---
MRI CERVICAL SPINE WITHOUT CONTRAST: COMPARISON: 09/04/2016 TECHNIQUE: Multiple sequences obtained in the sagittal and axial planes. . The vertebral bodies are normal in height and are well aligned. No abnormal bone marrow signal is seen. There is diffuse loss of water signal and disc degeneration. There is slight disc space narrowing at the C6-7 level. No abnormal signal is seen in the cervical spinal cord. At C3-4, again noted is a small central disc protrusion. There is minimal effacement of the thecal sac without spinal cord compression. Neural foramina are patent. AT C4-5, there is a small central disc protrusion. There is minimal effacement of the thecal sac without cord compression. There is facet hypertrophy on the left with mild left-sided foraminal narrowing at that level slightly increased since the prior study. Right neural foramen is patent at this level. AT C5-6, there is no significant disc bulging or herniation. There is facet hypertrophy on the left. There is moderate left-sided foraminal narrowing unchanged. Right neural foramen is patent. At C6-7, there is mild diffuse disc bulging with superimposed left paracentral disc protrusion with uncovertebral spurring appearing similar to prior study. There is mild effacement of the thecal sac without cord compression. There is stable mild foraminal narrowing at the left at this level, with no right-sided foraminal narrowing. At C7-T1, there is a small left paracentral disc protrusion with slight effacement of the thecal sac. There is no cord compression. Neural foramina are patent. IMPRESSION: Cervical spondylosis at C3-4 through C7-T1 levels as discussed in detail above. There is essentially no change when compared to a prior study of 09/04/2016. Electronically Signed by Bora Devries MD 02/17/2020 02:30 P
--- NOTE | 2020-02-17 11:40 | REP ---
MRI LUMBAR SPINE WITH AND WITHOUT CONTRAST: COMPARISON: 05/23/2017 TECHNIQUE: Multiple sequences obtained in the sagittal and axial planes prior to and following the intravenous administration of 20 mL ProHance. There is new moderate compression of the L1 vertebral body compared to the prior study. There is no acute marrow edema. Loss of height is approximately 50%. Degenerative signal is seen along the vertebral body endplates of L1 as well as superior endplate of L2, superior and inferior endplates of L4 and superior endplate of L5. Stable Schmorl's node is seen at the superior endplate of L2. Mild anterior listhesis is noted of L4 on L5 essentially unchanged. There is diffuse loss of water signal and disc degeneration at L1-2 through L4-5. Mild disc space narrowing at L3-4 is unchanged since the prior study. There is moderate disc space narrowing at L4-5 unchanged. The conus is unremarkable. At the L1-2 level, there is no disc bulging or disc herniation. There is no spinal stenosis or neural foraminal narrowing. At L2-3, there is minimal diffuse disc bulging. There is mild to moderate hypertrophy of the posterior facet joints. There is no spinal stenosis or foraminal narrowing. At L3-4, there is mild diffuse disc bulging again noted. This is stable. There is minimal compression of the thecal sac without spinal stenosis. There is hypertrophy of the posterior facet joints. There is no neural foraminal narrowing. At L4-5, there is again evidence of posterior fusion and laminectomy. There is stable mild diffuse disc bulging. There is hypertrophic change of the posterior facet joints. There is no spinal stenosis. There is no neural foraminal narrowing. Enhancing scar tissue is again seen at the laminectomy site and lateral spinal canal, in the region of the L5 nerves. There is mild diffuse disc bulging at L5-S1. Hypertrophic change is again seen at the posterior facet joints. There may be some mild left-sided foraminal narrowing at this level. IMPRESSION: New moderate compression deformity of L1, nonacute with no retropulsed fragments. Loss of height is approximately 50%. This is new compared to the prior study of 05/23/2017. Very mild diffuse disc bulging at L2-3 and L3-4, stable. At L4-5, there is again evidence of posterior fusion and laminectomy with grade 1 spondylolisthesis of L4 on L5 unchanged. Stable enhancing scar tissue in the region of the L5 nerves. Stable mild diffuse disc bulging and facet hypertrophy change at L5-S1. Electronically Signed by Bora Devries MD 02/17/2020 02:31 P
== END ==
LOC: M RAD 07:33
PROVIDERS: ATTEND Anesthesiology
DX: M47.813 Spondylosis without myelopathy or radiculopathy, cervicothoracic region (principal); M47.816 Spondylosis without myelopathy or radiculopathy, lumbar region; M54.2 Cervicalgia; M54.5 Low back pain
CPT/HCPCS: 72141; 72158; A9576

== ENCOUNTER → 2020-03-02 | Outpatient (CLI) | payer BC ==
[~2020-03-02] MED LIST changes: -PROHANCE 279.3MG/ML 15ML VIAL (A9576) As Ordered ONE; -PROHANCE 279.3MG/ML 5ML VIAL (A9576) As Ordered ONE
--- NOTE | 2020-03-04 02:43 | ECWPNPC ---
PATIENT NAME: MELODY BONDS : 1970 GENDER: MALE VISIT DATE: 03/02/2020 DISCHARGE DATE: 03/02/20942 VISIT LOCKED DATE TIME: PHYSICIAN: RON AMES RESOURCE: RON AMES REASON FOR APPOINTMENT 1. NECK BACK HISTORY OF PRESENT ILLNESS HISTORY OF PRESENT ILLNESS: HERE FOR POST PROCEDURE FOLLOW-UP AND REVIEW OF MRI WITH CONTRAST OF THE CERVICAL AND LUMBAR SPINE ORDERED BY DR. DUVALL ON 02/10/2020. BOTH CERVICAL AND LUMBAR MRI ARE REVIEWED WITH DR. DUVALL. PATIENT HAD THERAPEUTIC RIGHT LUMBAR FACET BLOCK ON 02/02/2020. STATES HE HAD NO IMPROVEMENT POST PROCEDURE. PAIN IS LOCATED IN THE LOWER BACK WITH RADIATION INTO THE LUMBAR PARASPINAL, RIGHT GREATER THAN LEFT. COMPLAINING OF RIGHT LEG RADICULAR SYMPTOMS IN L4-5 DISTRIBUTION. RATING PAIN INTENSITY AN 8/10 VAS. FINDS CURRENT MEDICATION THAT WE HAD INCREASED OVER THE PAST 6 WEEKS SOMEWHAT HELPFUL AT REDUCING HIS PAIN AND KEEPING HIM FUNCTIONAL. 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 DENIES BOWEL OR BLADDER INCONTINENCE. PAIN THE PATIENT DESCRIBES THE PAIN... FALL RISK SCREENING: SCREENING :NO FALLS REPORTED IN THE LAST YEAR CURRENT MEDICATIONS TAKING LIDODERM 5 % PATCH 1 PATCH TO SKIN REMOVE AFTER 12 HOURS - ON BACK EXTERNALLY ON 12 HOURS, OFF 12 HOURS DAILY TAKING DRISDOL 00390 UNIT CAPSULE 1 CAPSULE ORALLY TWICE A WEEK TAKING ALEVE PM 1 CAP ORALLY BEFORE BEDTIME TAKING CHLORTHALIDONE 25 MG TABLET 1 TABLET IN THE MORNING WITH FOOD ORALLY ONCE A DAY TAKING AMLODIPINE BESYLATE 5 MG TABLET 1 TABLET ORALLY ONCE A DAY TAKING OMEPRAZOLE 40MG CAPSULE DELAYED RELEASE TAKE 1 CAPSULE DAILY ORALLY DAILY TAKING LISINOPRIL 20MG TABLET TAKE 1 TABLET DAILY ORALLY DAILY TAKING BISOPROLOL FUMARATE 5MG TABLET TAKE 1 TABLET DAILY ORALLY ONCE A DAY TAKING ATORVASTATIN CALCIUM 80MG TABLET TAKE 1 TABLET DAILY ORALLY DAILY TAKING CLOBETASOL PROPIONATE 0.05 % GEL 1 APPLICATION EXTERNALLY TWICE A DAY TO BOTH ELBOWS TAKING BELBUCA 300 MCG FILM 1 FILM TO THE GUM BUCALLY DAILY MDD1 3 MOS SUPPLY CAT D CHRONIC PAIN TAKING DULOXETINE HCL 60MG CAPSULE DELAYED RELEASE PARTICLES TAKE 1 CAPSULE DAILY TAKING CARISOPRODOL 350 MG TABLET 1 TABLET NEEDED ORALLY FOR SPASMS AND PAIN EVERY 8 HOURS NEEDED MDD2 TAKING OXYCODONE HCL 5 MG TABLET 1 TABLET NEEDED ORALLY EVERY 6 HRS PRN SEVERE PAIN MDD4 NOT-TAKING TIZANIDINE HCL 4 MG TABLET 1 TABLET NEEDED ORALLY DAILY PRN MEDICATION LIST REVIEWED AND RECONCILED WITH THE PATIENT PAST MEDICAL HISTORY 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 GRANT - [place] ) NECK/BACK PAIN SUBSEQUENT TO FALL 06/06/15- FOLLOWING WITH [employer] OPERATOR IN [place] (DR. JENKINS) COMPRESSION FRACTURE L-1 S/P FALL - 07/14/2017 S/P ELECTIVE L4-L PDIF COMPLICATED BY HEMATOMA THAT WAS EVACUATED 01/2016 - DR. 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 SURGICAL HISTORY BROKEN FEMUR REPAIRED WITH RODS/PINS, RIGHT WRIST FRACTURE 06/07/15 FUSION L4-L5 01/2016 PUT A BIGGER RITA IN FEMUR 02/2016 RIGHT WRIST HARDWARE REMOVED 09/19/16 RIGHT FEMUR RITA REMOVED, PLATE AND SCREWS PLACED 01/2017 FAMILY HISTORY FATHER: 66 YRS, DIAGNOSED WITH OTHER SPECIFIED CONDITIONS INFLUENCING HEALTH STATUS MOTHER: ALIVE 69 YRS 1 SON(S) , 2 DAUGHTER(S) - HEALTHY. CANCER - GRANDMOTHER, UNCLES. SOCIAL HISTORY GENERAL: TOBACCO USE ADDITIONAL FINDINGS: TOBACCO USERCHEWS TOBACCO NOT INTERESTED IN QUITTING AT THIS TIME SMOKING CESSATION INFORMATION GIVEN02/02/2020 DISCUSSED THE IMPORTANCE OF QUITTING CHEW ADDITIONAL FINDINGS: TOBACCO NON-USER REFUSED SMOKING CESSATION INFORMATION AT THIS TIME. VAPOR PT STATES HE CONTINUES TO CHES LATEX QUESTIONNAIRE LATEX ALLERGY : HAVE YOU EVER DEVELOPED ANY TYPE OF REACTION AFTER HANDLING LATEX PRODUCTS SUCH RUBBER GLOVES, CONDOMS, DIAPHRAGMS, BALLOONS, SOCKS, OR UNDERWEAR?NO LATEX ALLERGY : HAVE YOU EVER DEVELOPED ANY TYPE OF REACTION DURING OR AFTER DENTAL APPOINTMENT, VAGINAL/RECTAL EXAMINATION, SURGICAL PROCEDURE, OR ANY OTHER EXPOSURE?NO LATEX RISK : HAVE YOU EVER HAD ANY DIFFICULTY BREATHING OR HIVES AFTER EATING OR HANDLING ANY FRUITS, OR VEGETABLES; SUCH KIWI, BANANAS, STONE FRUITS, OR CHESTNUTSNO LATEX RISK : DO YOU HAVE A PREVIOUS PERSONAL HISTORY OF MORE THAN NINE SURGERIES, SPINA BIFIDA, OR REPEATED CATHERIZATIONS? NO LATEX RISK : ARE YOU FREQUENTLY EXPOSED TO LATEX PRODUCTS IN YOUR OCCUPATION?NO DATE ASKED : 03/02/2020 BMI CARE GOAL FOLLOW-UP ABOVE NORMAL BMI FOLLOW-UPDIETARY MANAGEMENT EDUCATION, GUIDANCE, AND COUNSELING ALCOHOL SCREENING DID YOU HAVE A DRINK CONTAINING ALCOHOL IN THE PAST YEAR?YES HOW OFTEN DID YOU HAVE SIX OR MORE DRINKS ON ONE OCCASION IN THE PAST YEAR?LESS THAN MONTHLY (1 POINT) HOW MANY DRINKS DID YOU HAVE ON A TYPICAL DAY WHEN YOU WERE DRINKING IN THE PAST YEAR?3 OR 4 (1 POINT) HOW OFTEN DID YOU HAVE A DRINK CONTAINING ALCOHOL IN THE PAST YEAR?MONTHLY OR LESS (1 POINT) POINTS3 INTERPRETATIONNEGATIVE RECREATIONAL DRUG USE DRUG USE?NO CAFFEINE CAFFEINE USE?YES HOW OFTEN AND HOW MUCH? 2 CUPS OF COFFEE PER DAY SEXUAL HX HAD SEX IN THE LAST 12 MONTHS (VAGINAL, ORAL, OR ANAL)?YES WITHWOMEN ONLY USE PROTECTION?NO HAVE YOU EVER HAD AN STD?NO EVANGELICAL [id number] NONE LANGUAGE LANGUAGES SPOKEN:PORTUGUESE EDUCATION LEVEL OF EDUCATION:NOT FINISHED COLLEGE LEARNING BARRIERS / SPECIAL NEEDS CHANGE FROM LAST VISIT?NO BARRIERS TO LEARNING?NO HEARING IMPAIRED?NO VISION IMPAIRED?YES COGNITIVELY IMPAIRED?NO :CORRECTIVE LENSES READINESS TO LEARN?YES LEARNING PREFERENCES?NO LEARNING CAPABILITIES PRESENT?YES EMOTIONAL BARRIERS?NO SPECIAL DEVICES?NO BLUE LEATHER SORTER NEEDED?NO DOMESTIC VIOLENCE DO YOU FEEL SAFE IN YOUR ENVIRONMENT?YES OCCUPATION: DISABLED. DIET: REGULAR. EXERCISE: NO REGULAR EXERCISE. MARITAL STATUS: . NEW PATIENT PAIN DIARY TODAY'S VISITNOTES 03/02/2020 PATIENT DESCRIBES PAIN :HAVE IT ALL THE TIME, STABBING, THROBBING, SHOOTING FROM 0-10, WHAT LEVEL IS YOUR PAIN TODAY?6 PAIN CLINIC PFS, CLERGY, PUBLIC HEALTH REFERRALS PFS REFERRAL NEEDED?NO CLERGY REFERRAL NEEDED?NO PUBLIC HEALTH REFERRAL NEEDED?NO WAS THE PROVIDER NOTIFIED OF ANY PERTINENT INFO?YES HAS THE PATIENT BEEN EDUCATED REGARDING HIS/HER PLAN OF CARE?YES HAS THE PATIENT BEEN EDUCATED REGARDING PAIN, THE RISK FOR PAIN, THE IMPORTANCE OF EFFECTIVE PAIN MANAGEMENT, AND THE PAIN ASSESSMENT PROCESS?YES ADVANCE DIRECTIVE ADVANCE DIRECTIVE DISCUSSED WITH PATIENT:YES HCP & POA TAMERA BONDS [phone] AND LIVING WILL HOSPITALIZATION/MAJOR DIAGNOSTIC PROCEDURE ALL SURGICAL RELATED CHEST PAIN 10/2016 FX BACK AT L-1 07-14-17 REVIEW OF SYSTEMS REVIEWED BY: PROVIDER: RON MCGOVERN . CONSTITUTIONAL: ANY CHANGE IN YOUR MEDICAL CONDITION? NO . CHILLS NO . FEVER NO . INFECTION: DO YOU HAVE NEW INFECTIONS? NO . DO YOU HAVE HISTORY OF MRSA? NO . MUSCULOSKELETAL: ANY NEW PATTERNS OF PAIN OR NUMBNESS? NO . GASTROENTEROLOGY: ANY NEW CHANGE IN BOWEL CONTROL? NO . GENITOURINARY: ANY NEW CHANGE IN BLADDER CONTROL? NO . IS THERE A CHANCE YOU COULD BE ? NO . HEMATOLOGY/LYMPH: DO YOU TAKE ANY BLOOD THINNERS? (FOR EXAMPLE- COUMADIN, PLAVIX, AGGRENOX, PLATEL, PRADAXA, OR XARELTO) NO . WHEN WAS YOUR LAST DOSE? DATE: TIME: . NEUROLOGY: HAVE YOU FALLEN IN THE PAST 12 MONTHS? NO . ANY NEW EXTREMITY NUMBNESS OR WEAKNESS? NO . CARDIOLOGY: DO YOU HAVE A PACEMAKER OR DEFIBRILLATOR? NO . RESPIRATORY: HAVE YOU BEEN SICK IN THE PAST WEEK? NO . FEVER NO . FLU LIKE SYMPTOMS? NO . COUGH NO . INTEGUMENTARY: DO YOU HAVE ANY RASHES OR OPEN SORES? NO . ALLERGIC/IMMUNO: ARE YOU ALLERGIC TO IV DYE? NO . ANY NEW ALLERGIES? NO . PSYCHIATRIC: DO YOU HAVE THOUGHTS OF HURTING YOURSELF OR SOMEONE ELSE? NO . ARE YOU ABUSED, NEGLECTED, OR IN AN UNSAFE ENVIRONMENT? NO . ENDOCRINOLOGY: ARE YOU DIABETIC? NO . OTHER: DO YOU NEED ANY PRESCRIPTIONS? NO . IF YES, PLEASE LIST: ____ . ANY NEW PROBLEMS WITH YOUR MEDICATIONS? NO . WHEN DID YOU LAST EAT? ____ . WHEN DID YOU LAST DRINK? ____ . WHAT DID YOU LAST DRINK? ____ . NAME OF PERSON DRIVING YOU HOME? ____ . DO YOU HAVE ANY OTHER QUESTIONS OR CONCERNS NO . VITAL SIGNS WT 248.0 LBS, HT 71 IN, BMI 34.59 INDEX, BP 141/77 MM HG, HR 74 /MIN, RR 16 /MIN, TEMP 97.0 F, OXYGEN SAT % 93%, SAFE IN ENV? (Y/N) YES, NA INITIALS AW 0859, REVIEWED BY: SHANICE. EXAMINATION GENERAL EXAMINATION: GENERAL AWAKE,ALERT ,PLEASANT . PSYCH AFFECT NORMAL . LUNGS: LUNG MONTES ARE CLEAR TO AUSCULTATION BILATERALLY. GOOD MOVEMENT OF AIR . HEART: S1, S2 IN A REGULAR RATE AND RHYTHM. NO SIGNIFICANT MURMURS, RUBS OR GALLOPS NOTED . LUMBAR: PALPATION: + FOR PAIN OVER L/S SPINE. + FOR PAIN OVER L/S PARASPINALS.R>L. MODIFIED SLE: POSITIVE OVER RIGHT LEG AT 45. MODERATE WEAKNESS NOTED OVER RIGHT LEG. . NEUROLOGIC EXAM:NORMAL SENSATION TO LIGHT TOUCH LOWER EXTREMITIES . DIAGNOSTIC TESTS REVIEWEDMRI -LS-SPINE WITH CONTRAST-02/17/2020. MRI CERVICAL SPINE-02/17/2020 WITH CONTRAST . ASSESSMENTS INTERVERTEBRAL DISC DISORDER WITH RADICULOPATHY OF LUMBOSACRAL REGION - M51.17 (PRIMARY) TREATMENT INTERVERTEBRAL DISC DISORDER WITH RADICULOPATHY OF LUMBOSACRAL REGION CONTINUE BELBUCA FILM, 300 MCG, 1 FILM TO THE GUM, BUCALLY, DAILY MDD1 3 MOS SUPPLY CAT D CHRONIC PAIN CONTINUE DULOXETINE HCL CAPSULE DELAYED RELEASE PARTICLES, 60MG, TAKE 1 CAPSULE DAILY REFILL CARISOPRODOL TABLET, 350 MG, 1 TABLET NEEDED, ORALLY FOR SPASMS AND PAIN, EVERY 8 HOURS NEEDED MDD2, 30 DAYS, 60, REFILLS 1 CONTINUE OXYCODONE HCL TABLET, 5 MG, 1 TABLET NEEDED, ORALLY, EVERY 6 HRS PRN SEVERE PAIN MDD4 NOTES: CAUDAL EPIDURAL STEROID INJECTION ISTOP REGISTRY REVIEWED AND DEMONSTRATES COMPLLIANCE.BRINGS IN MEDICATIONS WHICH IS APPROPRIATE FOR WHAT WAS DISPENSED. RECENT URINE TOXICOLOGY REVIEWED. NO UNAUTHORIZED MEDICATIONS. NO ILLICIT SUBSTANCES AND PRESCRIBED MEDICATIONS WERE PRESENT. , , RISKS OF NARCOTIC/OPIOD MEDICATIONS INCLUDES BUT IS NOT LIMITED TO RISK OF DEPENDANCE/DEVELOPMENT OF ADDICTION, MOOD DISTURBANCE AND DEPRESSION, OSTEOPOROSIS, HORMONAL AND LABIDAL CHANGES, RESPIRATORY DEPRESSION AND . PATIENT IS ADVISED NOT TO DRIVE OR DRINK ALCOHOL WHILE ON THESE MEDICATIONS REVIEWED BOTH CERVICAL AND LUMBAR IMAGING WITH PATIENT. ADVISED TO HAVE PRIMARY CARE CHECK BONE DENSITY DUE TO COMPRESSION DEFORMITY THAT IS NEW AT L1 LEVEL. DISCUSSED TREATMENT OPTIONS AT LENGTH. HE IS AGREEABLE TO TRY CAUDAL EPIDURAL STEROID INJECTION. THIS VISIT WAS BASED ON TIME SPENT, WHICH WAS APPROXIMATELY 20 MINUTES. PREVENTIVE MEDICINE PAIN CLINIC TEACHING: PROCEDURE TEACHING REVIEWED INFORMATION ON CAUDAL EPIDURAL STEROID INJECTION WITH PATIENT. ALSO REVIEWED PRE-PROCEDURE INSTRUCTIONS. PATIENT VERBALIZED AN UNDERSTANDING. RAO DUTTON 03/02/2020 1:49:24 PM > . PROCEDURE CODES FA211 ESTABILISHED PATIENT [facility] CHARGE DISPOSITION & COMMUNICATION FOLLOW UP POST (REASON: CAUDAL EPIDURAL STEROID INJECTION) ELECTRONICALLY SIGNED BY FROILAN POPE ON 03/03/2020 AT 01:54 PM EDT DISCLAIMER : THIS IS A VISIT SUMMARY EXTRACTED FROM THE [employer] CHART. IT IS NOT A COPY OF THE [employer] PROGRESS NOTE. PORTILLO
== END ==
LOC: M PAIN 09:15
PROVIDERS: ATTEND Nurse Practitioner Family
DX: M51.17 Intervertebral disc disorders with radiculopathy, lumbosacral region (principal); I10 Essential (primary) hypertension; F17.220 Nicotine dependence, chewing tobacco, uncomplicated; Z79.891 Long term (current) use of opiate analgesic; Z79.899 Other long term (current) drug therapy

== ENCOUNTER → 2020-03-10 | Outpatient (REF) | payer BC ==
[2020-03-10 14:17] LABS: BLOOD UREA NITROGEN 20 MG/DL (7-18); CARBON DIOXIDE LEVEL 27 MEQ/L (21-32); CHLORIDE LEVEL 106 MEQ/L (98-107); GLOMERULAR FILTRATION RATE > 60.0 (>60); GLUCOSE, FASTING 107 MG/DL (70-100); POTASSIUM SERUM 4.6 MEQ/L (3.5-5.1); SODIUM LEVEL 138 MEQ/L (136-145); TOTAL 25(OH) VITAMIN D 47.3 NG/ML (30.0-100.0); VITAMIN B12 LEVEL 335 PG/ML
== END ==
LOC: M SFHCADAM 11:09
PROVIDERS: ATTEND Physician Assistant
DX: S32.010D Wedge compression fracture of first lumbar vertebra, subsequent encounter for fracture with routine healing (principal); M54.2 Cervicalgia

== ENCOUNTER → 2020-03-10 | Outpatient (CLI) | payer BC | LOC: M LABSMTC 09:38 | PROVIDERS: ATTEND Anesthesiology | DX: Z11.59 Encounter for screening for other viral diseases (principal); Z20.828 Contact with and (suspected) exposure to other viral communicable diseases ==

== ENCOUNTER → 2020-03-13 | Outpatient (CLI) | payer BC ==
[~2020-03-13] MED LIST changes: +ISOVUE-M 300 61% 15ML VIAL As Ordered ONE; +LIDOCAINE 1% SDV 30ML VIAL As Ordered ONE; +dexameTHASONE 10MG/1ML VIAL PRES.FREE (J1100 PER 1MG) As Ordered ONE; +diazePAM 5 MG TAB As Ordered ONE; +oxyCODONE 5MG TAB As Ordered ONE
--- NOTE | 2020-03-13 14:26 | REP ---
C-ARM VIEWS LOWER LUMBAR SPINE: CLINICAL HISTORY: Pain. Three C-arm views of the lower lumbar spine are performed during epidural injection by Dr. Charles. A needle is seen at the L5-S1 level. A small amount of contrast is injected. 7 seconds of fluoroscopy time utilized. Electronically Signed by Bora Devries MD 03/13/2020 02:28 P
--- NOTE | 2020-03-15 01:14 | ECWPNPC ---
PATIENT NAME: MELODY BONDS : 1970 GENDER: MALE VISIT DATE: 03/13/2020 DISCHARGE DATE: 03/13/20 1359 VISIT LOCKED DATE TIME: PHYSICIAN: ALICIA DUVALL MD RESOURCE: ALICIA DUVALL MD REASON FOR APPOINTMENT 1. L5-S1 LUMBAR EPIDURAL STEROID INJECTION PAT DONE HISTORY OF PRESENT ILLNESS HISTORY OF PRESENT ILLNESS: PAIN THE PATIENT DESCRIBES THE PAIN... FALL RISK SCREENING: SCREENING :NO FALLS REPORTED IN THE LAST YEAR CURRENT MEDICATIONS TAKING LIDODERM 5 % PATCH 1 PATCH TO SKIN REMOVE AFTER 12 HOURS - ON BACK EXTERNALLY ON 12 HOURS, OFF 12 HOURS DAILY, NOTES: NONE RECENTLY TAKING DRISDOL 23353 UNIT CAPSULE 1 CAPSULE ORALLY TWICE A WEEK, NOTES: 03/13 5A TAKING ALEVE PM 1 CAP ORALLY BEFORE BEDTIME, NOTES: 03/12 9P TAKING CHLORTHALIDONE 25 MG TABLET 1 TABLET IN THE MORNING WITH FOOD ORALLY ONCE A DAY, NOTES: 03/13 5A TAKING AMLODIPINE BESYLATE 5 MG TABLET 1 TABLET ORALLY ONCE A DAY, NOTES: 03/13 5A TAKING OMEPRAZOLE 40MG CAPSULE DELAYED RELEASE TAKE 1 CAPSULE DAILY ORALLY DAILY, NOTES: 03/13 5A TAKING LISINOPRIL 20MG TABLET TAKE 1 TABLET DAILY ORALLY DAILY, NOTES: 03/13 5A TAKING BISOPROLOL FUMARATE 5MG TABLET TAKE 1 TABLET DAILY ORALLY ONCE A DAY, NOTES: 03/13 5A TAKING ATORVASTATIN CALCIUM 80MG TABLET TAKE 1 TABLET DAILY ORALLY DAILY, NOTES: 03/13 5A TAKING CLOBETASOL PROPIONATE 0.05 % GEL 1 APPLICATION EXTERNALLY TWICE A DAY TO BOTH ELBOWS, NOTES: 03/13 5A TAKING BELBUCA 300 MCG FILM 1 FILM TO THE GUM BUCALLY DAILY MDD1 3 MOS SUPPLY CAT D CHRONIC PAIN, NOTES: 03/13 5A TAKING DULOXETINE HCL 60MG CAPSULE DELAYED RELEASE PARTICLES TAKE 1 CAPSULE DAILY , NOTES: 03/13 5A TAKING CARISOPRODOL 350 MG TABLET 1 TABLET NEEDED ORALLY FOR SPASMS AND PAIN EVERY 8 HOURS NEEDED MDD2, NOTES: 03/13 5A TAKING OXYCODONE HCL 5 MG TABLET 1 TABLET NEEDED ORALLY EVERY 6 HRS PRN SEVERE PAIN MDD4, NOTES: 03/13 5A NOT-TAKING TIZANIDINE HCL 4 MG TABLET 1 TABLET NEEDED ORALLY DAILY PRN MEDICATION LIST REVIEWED AND RECONCILED WITH THE PATIENT PAST MEDICAL HISTORY 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 GRANT - [place] ) NECK/BACK PAIN SUBSEQUENT TO FALL 06/06/15- FOLLOWING WITH TITLE SUPERVISOR IN [place] (DR. JENKINS) COMPRESSION FRACTURE L-1 S/P FALL - 07/14/2017 S/P ELECTIVE L4-L PDIF COMPLICATED BY HEMATOMA THAT WAS EVACUATED 01/2016 - DR. 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 SURGICAL HISTORY BROKEN FEMUR REPAIRED WITH RODS/PINS, RIGHT WRIST FRACTURE 06/07/15 FUSION L4-L5 01/2016 PUT A BIGGER RITA IN FEMUR 02/2016 RIGHT WRIST HARDWARE REMOVED 09/19/16 RIGHT FEMUR RITA REMOVED, PLATE AND SCREWS PLACED 01/2017 FAMILY HISTORY FATHER: 66 YRS, DIAGNOSED WITH OTHER SPECIFIED CONDITIONS INFLUENCING HEALTH STATUS MOTHER: ALIVE 69 YRS 1 SON(S) , 2 DAUGHTER(S) - HEALTHY. CANCER - GRANDMOTHER, UNCLES. SOCIAL HISTORY GENERAL: TOBACCO USE ADDITIONAL FINDINGS: TOBACCO USERCHEWS TOBACCO NOT INTERESTED IN QUITTING AT THIS TIME SMOKING CESSATION INFORMATION GIVEN02/02/2020 DISCUSSED THE IMPORTANCE OF QUITTING CHEW ADDITIONAL FINDINGS: TOBACCO NON-USER REFUSED SMOKING CESSATION INFORMATION AT THIS TIME. VAPOR PT STATES HE CONTINUES TO CHES LATEX QUESTIONNAIRE LATEX ALLERGY : HAVE YOU EVER DEVELOPED ANY TYPE OF REACTION AFTER HANDLING LATEX PRODUCTS SUCH RUBBER GLOVES, CONDOMS, DIAPHRAGMS, BALLOONS, SOCKS, OR UNDERWEAR?NO LATEX ALLERGY : HAVE YOU EVER DEVELOPED ANY TYPE OF REACTION DURING OR AFTER DENTAL APPOINTMENT, VAGINAL/RECTAL EXAMINATION, SURGICAL PROCEDURE, OR ANY OTHER EXPOSURE?NO LATEX RISK : HAVE YOU EVER HAD ANY DIFFICULTY BREATHING OR HIVES AFTER EATING OR HANDLING ANY FRUITS, OR VEGETABLES; SUCH KIWI, BANANAS, STONE FRUITS, OR CHESTNUTSNO LATEX RISK : DO YOU HAVE A PREVIOUS PERSONAL HISTORY OF MORE THAN NINE SURGERIES, SPINA BIFIDA, OR REPEATED CATHERIZATIONS? NO LATEX RISK : ARE YOU FREQUENTLY EXPOSED TO LATEX PRODUCTS IN YOUR OCCUPATION?NO DATE ASKED : 03/10/2020 BMI CARE GOAL FOLLOW-UP ABOVE NORMAL BMI FOLLOW-UPDIETARY MANAGEMENT EDUCATION, GUIDANCE, AND COUNSELING ALCOHOL SCREENING DID YOU HAVE A DRINK CONTAINING ALCOHOL IN THE PAST YEAR?YES HOW OFTEN DID YOU HAVE SIX OR MORE DRINKS ON ONE OCCASION IN THE PAST YEAR?LESS THAN MONTHLY (1 POINT) HOW MANY DRINKS DID YOU HAVE ON A TYPICAL DAY WHEN YOU WERE DRINKING IN THE PAST YEAR?3 OR 4 (1 POINT) HOW OFTEN DID YOU HAVE A DRINK CONTAINING ALCOHOL IN THE PAST YEAR?MONTHLY OR LESS (1 POINT) POINTS3 INTERPRETATIONNEGATIVE RECREATIONAL DRUG USE DRUG USE?NO CAFFEINE CAFFEINE USE?YES HOW OFTEN AND HOW MUCH? 2 CUPS OF COFFEE PER DAY SEXUAL HX HAD SEX IN THE LAST 12 MONTHS (VAGINAL, ORAL, OR ANAL)?YES WITHWOMEN ONLY USE PROTECTION?NO HAVE YOU EVER HAD AN STD?NO SPIRITISM [id number] NONE LANGUAGE LANGUAGES SPOKEN:WELSH EDUCATION LEVEL OF EDUCATION:NOT FINISHED COLLEGE LEARNING BARRIERS / SPECIAL NEEDS CHANGE FROM LAST VISIT?NO BARRIERS TO LEARNING?NO HEARING IMPAIRED?NO VISION IMPAIRED?YES COGNITIVELY IMPAIRED?NO :CORRECTIVE LENSES READINESS TO LEARN?YES LEARNING PREFERENCES?NO LEARNING CAPABILITIES PRESENT?YES EMOTIONAL BARRIERS?NO SPECIAL DEVICES?NO WIND SITE MANAGER NEEDED?NO DOMESTIC VIOLENCE DO YOU FEEL SAFE IN YOUR ENVIRONMENT?YES OCCUPATION: DISABLED. DIET: REGULAR. EXERCISE: NO REGULAR EXERCISE. MARITAL STATUS: . NEW PATIENT PAIN DIARY TODAY'S VISITNOTES 03/13/2020 PATIENT DESCRIBES PAIN :HAVE IT ALL THE TIME, STABBING, THROBBING, SHOOTING FROM 0-10, WHAT LEVEL IS YOUR PAIN TODAY?7 PAIN CLINIC PFS, CLERGY, PUBLIC HEALTH REFERRALS PFS REFERRAL NEEDED?NO CLERGY REFERRAL NEEDED?NO PUBLIC HEALTH REFERRAL NEEDED?NO WAS THE PROVIDER NOTIFIED OF ANY PERTINENT INFO?YES HAS THE PATIENT BEEN EDUCATED REGARDING HIS/HER PLAN OF CARE?YES HAS THE PATIENT BEEN EDUCATED REGARDING PAIN, THE RISK FOR PAIN, THE IMPORTANCE OF EFFECTIVE PAIN MANAGEMENT, AND THE PAIN ASSESSMENT PROCESS?YES ADVANCE DIRECTIVE ADVANCE DIRECTIVE DISCUSSED WITH PATIENT:YES HCP & POA TAMERA BONDS [phone] AND LIVING WILL HOSPITALIZATION/MAJOR DIAGNOSTIC PROCEDURE ALL SURGICAL RELATED CHEST PAIN 10/2016 FX BACK AT L-1 07-14-17 REVIEW OF SYSTEMS REVIEWED BY: PROVIDER: ALICIA DUVALL MD . CONSTITUTIONAL: ANY CHANGE IN YOUR MEDICAL CONDITION? NO . CHILLS NO . FEVER NO . INFECTION: DO YOU HAVE NEW INFECTIONS? NO . DO YOU HAVE HISTORY OF MRSA? NO . MUSCULOSKELETAL: ANY NEW PATTERNS OF PAIN OR NUMBNESS? NO . GASTROENTEROLOGY: ANY NEW CHANGE IN BOWEL CONTROL? NO . GENITOURINARY: ANY NEW CHANGE IN BLADDER CONTROL? NO . IS THERE A CHANCE YOU COULD BE ? NO . HEMATOLOGY/LYMPH: DO YOU TAKE ANY BLOOD THINNERS? (FOR EXAMPLE- COUMADIN, PLAVIX, AGGRENOX, PLATEL, PRADAXA, OR XARELTO) NO . WHEN WAS YOUR LAST DOSE? DATE: TIME: . NEUROLOGY: HAVE YOU FALLEN IN THE PAST 12 MONTHS? NO . ANY NEW EXTREMITY NUMBNESS OR WEAKNESS? NO . CARDIOLOGY: DO YOU HAVE A PACEMAKER OR DEFIBRILLATOR? NO . RESPIRATORY: HAVE YOU BEEN SICK IN THE PAST WEEK? NO . FEVER NO . FLU LIKE SYMPTOMS? NO . COUGH NO . INTEGUMENTARY: DO YOU HAVE ANY RASHES OR OPEN SORES? NO . ALLERGIC/IMMUNO: ARE YOU ALLERGIC TO IV DYE? NO . ANY NEW ALLERGIES? NO . PSYCHIATRIC: DO YOU HAVE THOUGHTS OF HURTING YOURSELF OR SOMEONE ELSE? NO . ARE YOU ABUSED, NEGLECTED, OR IN AN UNSAFE ENVIRONMENT? NO . ENDOCRINOLOGY: ARE YOU DIABETIC? NO . OTHER: DO YOU NEED ANY PRESCRIPTIONS? NO . IF YES, PLEASE LIST: ____ . ANY NEW PROBLEMS WITH YOUR MEDICATIONS? NO . WHEN DID YOU LAST EAT? 03/12 6PM . WHEN DID YOU LAST DRINK? 03/13 7AM . WHAT DID YOU LAST DRINK? WATER . NAME OF PERSON DRIVING YOU HOME? TAMERA . DO YOU HAVE ANY OTHER QUESTIONS OR CONCERNS NO . VITAL SIGNS WT 244.3 LBS, HT 71 IN, BMI 34.07 INDEX, BP 131/84 MM HG, HR 92 /MIN, RR 18 /MIN, TEMP 97.7 F, OXYGEN SAT % 100%, SAFE IN ENV? (Y/N) Y, NA INITIALS AW 1155, REVIEWED BY: REBECCA. 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 ALICIA DUVALL POPULATION HEALTH MANAGER NONE ANESTHESIA LOCAL PRE PROCEDURE NOTE THE PATIENT HAS A HISTORY OF CHRONIC LOW BACK PAIN. I EVALUATED THE PATIENT AND REVIEWED THE CHART. I WENT OVER THE RISKS, ALTERNATIVES, AND BENEFITS ASSOCIATED WITH THIS PROCEDURE. I DISCUSSED WITH THE PATIENT THAT THE USE OF STEROIDS MAY CONTRIBUTE TO IMMUNOSUPPRESSION OF HIS BODY AGAINST INFECTIONS SUCH THE GARIBAY VIRUS, COVID-19. HE IS AWARE OF THE POTENTIAL COMPLICATIONS ASSOCIATED WITH AN INFECTION OF THIS VIRUS INCLUDING . THE PATIENT WOULD LIKE TO PROCEED AND GIVE CONSENT TO PERFORMED THE PROCEDURE. THE PATIENT DENIES UNEXPLAINABLE WEIGHT LOSS, FEVER, CHILLS, OR NEW CHANGES IN URINARY OR BOWEL CONTROL. THE PATIENT IS COVID-19 NEGATIVE DESCRIPTION OF PROCEDURE THE PATIENT WAS BROUGHT TO THE PROCEDURE ROOM AND PLACED IN THE PRONE POSITION. THE LUMBOSACRAL AREA WAS CLEANED WITH BETADINE SOLUTION AND DRAPED ASEPTICALLY. THE PROCEDURE WAS DONE UNDER STERILE CONDITIONS. I CHECKED LATERALITY AND THE LEVEL WHERE THE PROCEDURE WAS GOING TO BE PERFORMED WITH THE PATIENT AND THE SUPPORTING STAFF AT THE MOMENT OF THE TIME OUT IN THE PROCEDURE ROOM. UNDER FLUOROSCOPIC GUIDANCE, THE TARGET POINT WAS SELECTED AT THE INTERLAMINAR LEVEL OF L5-S1. LIDOCAINE WAS USED TO NUMB THE SKIN AND THE SUBCUTANEOUS TISSUE BELOW IT. EPIDURAL TUOHY NEEDLE, 17-GAUGE, WAS ADVANCED UNDER FLUOROSCOPIC GUIDANCE AND FOLLOWING PATIENT FEEDBACK UNTIL THE EPIDURAL SPACE WAS REACHED, 7 CM DEEP INTO THE SKIN BY THE LOSS OF RESISTANCE TECHNIQUE. ISOVUE M DYE 30%, 0.25 ML, WAS INJECTED SHOWING ADEQUATE SPREAD OF THE DYE. THEN, A SOLUTION OF 3 ML OF NORMAL SALINE WITH DEXAMETHASONE 10 MG WAS INJECTED SLOWLY FOLLOWING PATIENT FEEDBACK. THERE WAS NO EVIDENCE OF BLOOD, PARESTHESIA OR CEREBROSPINAL FLUID DURING THE PROCEDURE. THE PATIENT WAS SENT TO THE RECOVERY ROOM. THE PATIENT WAS MOVING THE EXTREMITIES AND DOING WELL. THERE WAS NO COMPLICATION DURING THE PROCEDURE. FLUOROSCOPY TIME WAS 7 SECONDS POST PROCEDURE NOTE THE PATIENT WILL BE SEEN IN A FOLLOW UP IN THE NEXT FEW WEEKS. I AM LOOKING FOR LONG LASTING PAIN RELIEF FOR THE PATIENT WITH THIS INJECTION. INSTRUCTIONS WERE GIVEN, QUESTIONS WERE ANSWERED, AND THE PATIENT EXPRESSED UNDERSTANDING AND AGREES WITH THE PLAN. I INSTRUCTED THE PATIENT TO STAY HOME, IF POSSIBLE, FOR A WEEK DUE TO COVID-19. I, SLIME TOVAR, DOCUMENTED THE ABOVE INFORMATION ACTING A SCRIBE FOR DR. DUVALL. I HAVE REVIEWED THE ABOVE DOCUMENT, WRITTEN BY FLORENCIA OWENS, AND I VERIFY THAT IT IS ACCURATE PROCEDURE CODES 6045F RADXPS IN END [id number] PXD [id number] LUMBAR/SACRAL W/ IMAGING DISPOSITION & COMMUNICATION FOLLOW UP F/UP WITH LACTATION CONSULTANT. 2 WEEKS (REASON: [id number] LOW BACK PAIN) ELECTRONICALLY SIGNED BY ALICIA DUVALL MD, MD ON 03/14/2020 AT 06:04 PM EDT DISCLAIMER : THIS IS A VISIT SUMMARY EXTRACTED FROM THE [employer] CHART. IT IS NOT A COPY OF THE [employer] PROGRESS NOTE. PORTILLO
== END ==
LOC: M PAIN 12:15
PROVIDERS: ATTEND Anesthesiology
DX: M96.1 Postlaminectomy syndrome, not elsewhere classified (principal); M51.17 Intervertebral disc disorders with radiculopathy, lumbosacral region; I10 Essential (primary) hypertension; F17.220 Nicotine dependence, chewing tobacco, uncomplicated; Z79.891 Long term (current) use of opiate analgesic; Z79.899 Other long term (current) drug therapy
CPT/HCPCS: 62323; J1100; Q9967

== ENCOUNTER → 2020-03-28 | Outpatient (CLI) | payer BC ==
[~2020-03-28] MED LIST changes: -ISOVUE-M 300 61% 15ML VIAL As Ordered ONE; -LIDOCAINE 1% SDV 30ML VIAL As Ordered ONE; -dexameTHASONE 10MG/1ML VIAL PRES.FREE (J1100 PER 1MG) As Ordered ONE; -diazePAM 5 MG TAB As Ordered ONE; -oxyCODONE 5MG TAB As Ordered ONE
--- NOTE | 2020-03-31 02:04 | ECWPNPC ---
PATIENT NAME: MELODY BONDS : 1970 GENDER: MALE VISIT DATE: 03/28/2020 DISCHARGE DATE: 03/28/20909 VISIT LOCKED DATE TIME: PHYSICIAN: RON AMES RESOURCE: RON AMES REASON FOR APPOINTMENT 1. POST LUMBAR EPIDURAL [phone] PAT DONE HISTORY OF PRESENT ILLNESS HISTORY OF PRESENT ILLNESS: PATIENT IS AGREEABLE TO TELEMED VISIT VIA ZOOM. THIS IS A POST PROCEDURE FOLLOW-UP. HAD LUMBAR EPIDURAL STEROID INJECTION ON 03/13/2020. REPORTING NO IMPROVEMENT AND SOME AGGRAVATION IN PAIN POST PROCEDURE. RATING PAIN VAS 8/10. PAIN IS LOCATED IN THE RIGHT LOW BACK AND LEG. HAS RESPONDED WELL TO RADIOFREQUENCY IN THE PAST. PATIENT IS ALSO TOYING WITH DORSAL COLUMN STIMULATOR TRIAL. HE FEELS HE HAS TRIED NUMEROUS INJECTIONS AND RADIOFREQUENCIES AND NOTHING IS GIVING HIM THE RELIEF. VOICES CONCERN OVER BEING ON NARCOTIC PAIN MEDICATION. 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 PAIN THE PATIENT DESCRIBES THE PAINAFTER THE PROCEDURE PRE-PREOCEDURE PAIN- 8/10, POST PROCEDURE PAIN -7/10 SEVERITY - PAIN SCORE OF7/10 LOCATIONSLOWER BACK RADIATES TO RIGHT LEG QUALITYACHING , BURNING, SHARP, STABBING, THROBBING DURATIONCONTINUOUS, CONSTANT, ALL DAY PAIN IS INCREASED BY:ACTIVITIES, PROLONGED STANDING PAIN IS DECREASED BY:USE OF PAIN MEDICATIONS, SITTING FALL RISK SCREENING: SCREENING :NO FALLS REPORTED IN THE LAST YEAR CURRENT MEDICATIONS TAKING LIDODERM 5 % PATCH 1 PATCH TO SKIN REMOVE AFTER 12 HOURS - ON BACK EXTERNALLY ON 12 HOURS, OFF 12 HOURS DAILY, NOTES: NONE RECENTLY TAKING DRISDOL [id number] UNIT CAPSULE 1 CAPSULE ORALLY TWICE A WEEK, NOTES: 03/13 5A TAKING ALEVE PM 1 CAP ORALLY BEFORE BEDTIME, NOTES: 03/12 9P TAKING CHLORTHALIDONE 25 MG TABLET 1 TABLET IN THE MORNING WITH FOOD ORALLY ONCE A DAY, NOTES: 03/13 5A TAKING AMLODIPINE BESYLATE 5 MG TABLET 1 TABLET ORALLY ONCE A DAY, NOTES: 03/13 5A TAKING OMEPRAZOLE 40MG CAPSULE DELAYED RELEASE TAKE 1 CAPSULE DAILY ORALLY DAILY, NOTES: 03/13 5A TAKING ATORVASTATIN CALCIUM 80MG TABLET TAKE 1 TABLET DAILY ORALLY DAILY, NOTES: 03/13 5A TAKING CLOBETASOL PROPIONATE 0.05 % GEL 1 APPLICATION EXTERNALLY TWICE A DAY TO BOTH ELBOWS, NOTES: 03/13 5A TAKING BELBUCA 300 MCG FILM 1 FILM TO THE GUM BUCALLY DAILY MDD1 3 MOS SUPPLY CAT D CHRONIC PAIN, NOTES: 03/13 5A TAKING DULOXETINE HCL 60MG CAPSULE DELAYED RELEASE PARTICLES TAKE 1 CAPSULE DAILY , NOTES: 03/13 5A TAKING CARISOPRODOL 350 MG TABLET 1 TABLET NEEDED ORALLY FOR SPASMS AND PAIN EVERY 8 HOURS NEEDED MDD2, NOTES: 03/13 5A TAKING OXYCODONE HCL 5 MG TABLET 1 TABLET NEEDED ORALLY EVERY 6 HRS PRN SEVERE PAIN MDD4, NOTES: 03/13 5A TAKING BISOPROLOL FUMARATE 5MG TABLET TAKE 1 TABLET DAILY ORALLY ONCE A DAY TAKING LISINOPRIL 20MG TABLET TAKE 1 TABLET DAILY ORALLY DAILY NOT-TAKING TIZANIDINE HCL 4 MG TABLET 1 TABLET NEEDED ORALLY DAILY PRN MEDICATION LIST REVIEWED AND RECONCILED WITH THE PATIENT PAST MEDICAL HISTORY 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 GRANT - [place] ) NECK/BACK PAIN SUBSEQUENT TO FALL 06/06/15- FOLLOWING WITH EGG PRODUCER IN [place] (DR. JENKINS) COMPRESSION FRACTURE L-1 S/P FALL - 07/14/2017 S/P ELECTIVE L4-L PDIF COMPLICATED BY HEMATOMA THAT WAS EVACUATED 01/2016 - DR. 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 SURGICAL HISTORY BROKEN FEMUR REPAIRED WITH RODS/PINS, RIGHT WRIST FRACTURE 06/07/15 FUSION L4-L5 01/2016 PUT A BIGGER RITA IN FEMUR 02/2016 RIGHT WRIST HARDWARE REMOVED 09/19/16 RIGHT FEMUR RITA REMOVED, PLATE AND SCREWS PLACED 01/2017 FAMILY HISTORY FATHER: 66 YRS, DIAGNOSED WITH OTHER SPECIFIED CONDITIONS INFLUENCING HEALTH STATUS MOTHER: ALIVE 69 YRS 1 SON(S) , 2 DAUGHTER(S) - HEALTHY. CANCER - GRANDMOTHER, UNCLES. SOCIAL HISTORY GENERAL: TOBACCO USE ADDITIONAL FINDINGS: TOBACCO USERCHEWS TOBACCO NOT INTERESTED IN QUITTING AT THIS TIME ADDITIONAL FINDINGS: TOBACCO NON-USER REFUSED SMOKING CESSATION INFORMATION AT THIS TIME. VAPOR PT STATES HE CONTINUES TO CHES SMOKING CESSATION INFORMATION GIVEN02/02/2020 DISCUSSED THE IMPORTANCE OF QUITTING CHEW LATEX QUESTIONNAIRE LATEX ALLERGY : HAVE YOU EVER DEVELOPED ANY TYPE OF REACTION AFTER HANDLING LATEX PRODUCTS SUCH RUBBER GLOVES, CONDOMS, DIAPHRAGMS, BALLOONS, SOCKS, OR UNDERWEAR?NO LATEX ALLERGY : HAVE YOU EVER DEVELOPED ANY TYPE OF REACTION DURING OR AFTER DENTAL APPOINTMENT, VAGINAL/RECTAL EXAMINATION, SURGICAL PROCEDURE, OR ANY OTHER EXPOSURE?NO DATE ASKED : 03/10/2020 LATEX RISK : HAVE YOU EVER HAD ANY DIFFICULTY BREATHING OR HIVES AFTER EATING OR HANDLING ANY FRUITS, OR VEGETABLES; SUCH KIWI, BANANAS, STONE FRUITS, OR CHESTNUTSNO LATEX RISK : DO YOU HAVE A PREVIOUS PERSONAL HISTORY OF MORE THAN NINE SURGERIES, SPINA BIFIDA, OR REPEATED CATHERIZATIONS? NO LATEX RISK : ARE YOU FREQUENTLY EXPOSED TO LATEX PRODUCTS IN YOUR OCCUPATION?NO BMI CARE GOAL FOLLOW-UP ABOVE NORMAL BMI FOLLOW-UPDIETARY MANAGEMENT EDUCATION, GUIDANCE, AND COUNSELING ALCOHOL SCREENING DID YOU HAVE A DRINK CONTAINING ALCOHOL IN THE PAST YEAR?YES HOW OFTEN DID YOU HAVE SIX OR MORE DRINKS ON ONE OCCASION IN THE PAST YEAR?LESS THAN MONTHLY (1 POINT) HOW MANY DRINKS DID YOU HAVE ON A TYPICAL DAY WHEN YOU WERE DRINKING IN THE PAST YEAR?3 OR 4 (1 POINT) HOW OFTEN DID YOU HAVE A DRINK CONTAINING ALCOHOL IN THE PAST YEAR?MONTHLY OR LESS (1 POINT) POINTS3 INTERPRETATIONNEGATIVE RECREATIONAL DRUG USE DRUG USE?NO CAFFEINE CAFFEINE USE?YES HOW OFTEN AND HOW MUCH? 2 CUPS OF COFFEE PER DAY SEXUAL HX HAD SEX IN THE LAST 12 MONTHS (VAGINAL, ORAL, OR ANAL)?YES WITHWOMEN ONLY USE PROTECTION?NO HAVE YOU EVER HAD AN STD?NO DRUZE [id number] NONE LANGUAGE LANGUAGES SPOKEN:[place] EDUCATION LEVEL OF EDUCATION:NOT FINISHED COLLEGE LEARNING BARRIERS / SPECIAL NEEDS CHANGE FROM LAST VISIT?NO BARRIERS TO LEARNING?NO HEARING IMPAIRED?NO VISION IMPAIRED?YES COGNITIVELY IMPAIRED?NO :CORRECTIVE LENSES READINESS TO LEARN?YES LEARNING PREFERENCES?NO LEARNING CAPABILITIES PRESENT?YES EMOTIONAL BARRIERS?NO SPECIAL DEVICES?NO REVENUE INTEGRITY ANALYST NEEDED?NO DOMESTIC VIOLENCE DO YOU FEEL SAFE IN YOUR ENVIRONMENT?YES OCCUPATION: DISABLED. DIET: REGULAR. EXERCISE: NO REGULAR EXERCISE. MARITAL STATUS: . NEW PATIENT PAIN DIARY TODAY'S VISITNOTES 03/13/2020 PATIENT DESCRIBES PAIN :HAVE IT ALL THE TIME, STABBING, THROBBING, SHOOTING FROM 0-10, WHAT LEVEL IS YOUR PAIN TODAY?7 PAIN CLINIC PFS, CLERGY, PUBLIC HEALTH REFERRALS PFS REFERRAL NEEDED?NO CLERGY REFERRAL NEEDED?NO PUBLIC HEALTH REFERRAL NEEDED?NO WAS THE PROVIDER NOTIFIED OF ANY PERTINENT INFO?YES HAS THE PATIENT BEEN EDUCATED REGARDING HIS/HER PLAN OF CARE?YES HAS THE PATIENT BEEN EDUCATED REGARDING PAIN, THE RISK FOR PAIN, THE IMPORTANCE OF EFFECTIVE PAIN MANAGEMENT, AND THE PAIN ASSESSMENT PROCESS?YES ADVANCE DIRECTIVE ADVANCE DIRECTIVE DISCUSSED WITH PATIENT:YES HCP & POA TAMERA BONDS [phone] AND LIVING WILL HOSPITALIZATION/MAJOR DIAGNOSTIC PROCEDURE ALL SURGICAL RELATED CHEST PAIN 10/2016 FX BACK AT L-1 07-14-17 REVIEW OF SYSTEMS REVIEWED BY: PROVIDER: RON MCGOVERN . CONSTITUTIONAL: ANY CHANGE IN YOUR MEDICAL CONDITION? NO . CHILLS NO . FEVER NO . INFECTION: DO YOU HAVE NEW INFECTIONS? NO . DO YOU HAVE HISTORY OF MRSA? NO . MUSCULOSKELETAL: ANY NEW PATTERNS OF PAIN OR NUMBNESS? NO . GASTROENTEROLOGY: ANY NEW CHANGE IN BOWEL CONTROL? NO . GENITOURINARY: ANY NEW CHANGE IN BLADDER CONTROL? NO . IS THERE A CHANCE YOU COULD BE ? NO . HEMATOLOGY/LYMPH: DO YOU TAKE ANY BLOOD THINNERS? (FOR EXAMPLE- COUMADIN, PLAVIX, AGGRENOX, PLATEL, PRADAXA, OR XARELTO) NO . WHEN WAS YOUR LAST DOSE? DATE: TIME: . NEUROLOGY: HAVE YOU FALLEN IN THE PAST 12 MONTHS? NO . ANY NEW EXTREMITY NUMBNESS OR WEAKNESS? NO . CARDIOLOGY: DO YOU HAVE A PACEMAKER OR DEFIBRILLATOR? NO . RESPIRATORY: HAVE YOU BEEN SICK IN THE PAST WEEK? NO . FEVER NO . FLU LIKE SYMPTOMS? NO . COUGH NO . INTEGUMENTARY: DO YOU HAVE ANY RASHES OR OPEN SORES? NO . ALLERGIC/IMMUNO: ARE YOU ALLERGIC TO IV DYE? NO . ANY NEW ALLERGIES? NO . PSYCHIATRIC: DO YOU HAVE THOUGHTS OF HURTING YOURSELF OR SOMEONE ELSE? NO . ARE YOU ABUSED, NEGLECTED, OR IN AN UNSAFE ENVIRONMENT? NO . ENDOCRINOLOGY: ARE YOU DIABETIC? NO . OTHER: DO YOU NEED ANY PRESCRIPTIONS? NO . IF YES, PLEASE LIST: ____ . ANY NEW PROBLEMS WITH YOUR MEDICATIONS? NO . WHEN DID YOU LAST EAT? ____ . WHEN DID YOU LAST DRINK? ____ . WHAT DID YOU LAST DRINK? ____ . NAME OF PERSON DRIVING YOU HOME? ____ . DO YOU HAVE ANY OTHER QUESTIONS OR CONCERNS NO . ASSESSMENTS INTERVERTEBRAL DISC DISORDER WITH RADICULOPATHY OF LUMBOSACRAL REGION - M51.17 (PRIMARY) SPONDYLOSIS WITHOUT MYELOPATHY OR RADICULOPATHY, LUMBOSACRAL REGION - M47.817 TREATMENT INTERVERTEBRAL DISC DISORDER WITH RADICULOPATHY OF LUMBOSACRAL REGION REFILL CARISOPRODOL TABLET, 350 MG, 1 TABLET NEEDED, ORALLY FOR SPASMS AND PAIN, EVERY 8 HOURS NEEDED MDD2, 30 DAYS, 60, REFILLS 1, NOTES: 03/13 5A REFILL OXYCODONE HCL TABLET, 5 MG, 1 TABLET NEEDED, ORALLY, EVERY 6 HRS PRN SEVERE PAIN MDD4, 30 DAYS, 60, REFILLS 0, NOTES: 03/13 5A NOTES: PATIENT WOULD LIKE TO TALK TO DR. DUVALL ABOUT TREATMENT OPTIONS. HE WANTS TO DISCUSS DORSAL COLUMN STIMULATOR. HE WILL RETURN TO CLINIC FOR FOLLOW-UP WITH DR. DUVALL TO CONSIDER DORSAL COLUMN STIMULATOR TRIAL. TOTAL TIME DURING TELEMED VISIT WAS APPROXIMATELY 12 MINUTES. , [employer]STOP REGISTRY REVIEWED AND DEMONSTRATES COMPLLIANCE. (REF # ) BRINGS IN MEDICATIONS WHICH IS APPROPRIATE FOR WHAT WAS DISPENSED. RECENT URINE TOXICOLOGY REVIEWED. NO UNAUTHORIZED MEDICATIONS. NO ILLICIT SUBSTANCES AND PRESCRIBED MEDICATIONS WERE PRESENT. OTHERS NOTES: VIATLS NOT OBTAINED DUE TO VIRTUAL VISIT, PRE SCREENING COMPLETED, 03/28/20,NA. DISPOSITION & COMMUNICATION FOLLOW UP F/U WITH DR. DUVALL DISCUSS DCS TRIAL (REASON: LBP RIGHT LEG PAIN) ELECTRONICALLY SIGNED BY FROILAN POPE ON 03/30/2020 AT 11:20 AM EDT DISCLAIMER : THIS IS A VISIT SUMMARY EXTRACTED FROM THE [employer] CHART. IT IS NOT A COPY OF THE [employer] PROGRESS NOTE. PORT[place]
== END ==
LOC: M PAIN 13:30 → M TMPAIN 13:30
PROVIDERS: ATTEND Nurse Practitioner Family
DX: M51.17 Intervertebral disc disorders with radiculopathy, lumbosacral region (principal); M47.817 Spondylosis without myelopathy or radiculopathy, lumbosacral region

== ENCOUNTER → 2020-04-07 | Outpatient (CLI) | payer BC ==
--- NOTE | 2020-04-12 00:55 | ECWPNPC ---
PATIENT NAME: MELODY BONDS : 1970 GENDER: MALE VISIT DATE: 04/07/2020 DISCHARGE DATE: 04/07/20 1016 VISIT LOCKED DATE TIME: PHYSICIAN: ALICIA DUVALL MD RESOURCE: ALICIA DUVALL MD REASON FOR APPOINTMENT 1. DISCUSS DCS PAT DONE HISTORY OF PRESENT ILLNESS GENERAL: 49 YEAR OLD MALE PATIENT WITH A HISTORY OF CHRONIC LOW BACK AND LEG PAIN. THE PATIENT DESCRIBES HIS PAIN HAVE IT ALL THE TIME, STABBING, THROBBING, SHOOTING WITH A PAIN SCORE OF 6-9/10 DEPENDING ON PHYSICAL ACTIVITIES. THE PATIENT STATES HIS PAIN BEGINS IN HIS LOW BACK AND RADIATES DOWN BOTH LEGS, BUT HIS RIGHT LEG IS WORSE THAN HIS LEFT. THE PATIENT SAYS HIS PAIN AFFECTS HIS ABILITY TO PERFORM HIS DAILY ACTIVITIES SUCH CLEANING, GROCERY SHOPPING, AND ENJOYING DAILY LIVING. THE PATIENT HAS TRIED INJECTION THERAPY AND MEDICATION MANAGEMENT, BUT HIS PAIN PERSISTS. PATIENT DENIES UNEXPLAINABLE WEIGHT LOSS, FEVER, CHILLS, NEW CHANGES ON HIS URINARY OR BOWEL CONTROL. FALL RISK SCREENING: SCREENING :NO FALLS REPORTED IN THE LAST YEAR PAIN SCREENING: PATIENT HAS A COMPLAINT OF ACUTE OR CHRONIC PAIN :YES LOCATION OF PAIN:LOW BACK, RIGHT HIP, LEG(S) INTENSITY OF PAIN (SCALE OF 1 TO 10):7 PT STATES PAIN IS 7 RIGHT NOW AND BY NOON WILL BE A 9 WHAT DOES YOUR PAIN FEEL LIKE:ACHING, BURNING, CONTINOUS, SHARP, THROBBING, SORE, SHOOTING DURATION:CONTINOUS, CONSTANT, STEADY PAIN IS INCREASED BY:ACTIVITIES PAIN IS DECREASED BY:OTHERS LAYING DOWN AND SLEEPING NURSING NOTE: -. PAIN CENTER INTAKE QUESTIONS: DO YOU HAVE A HISTORY OF MRSA? :NO DO YOU TAKE A BLOOD THINNERS? :NO DO YOU HAVE ANY BLEEDING DISORDERS? :NO ANY NEW NUMBNESS OR WEAKNESS IN YOUR LEGS OR ARMS? :NO ANY PACEMAKER,DEFIBRILLATOR, OR DORSAL COLUMN STIMULATOR? :NO DO YOU HAVE ANY RASHES OR OPEN SORES? :NO ARE YOU ALLERGIC TO IV DYE? :NO ARE YOU DIABETIC? :NO ANY NEW PROBLEMS WITH YOUR MEDICATIONS? :YES PLANNING TO DISCUSS DORSAL COLUMN STIMULATOR PLACEMENT HAVE YOU RECEIVED A VACCINE IN THE PAST 30 DAYS? :NO DO YOU PLAN TO RECEIVE A VACCINE IN THE NEXT 21 DAYS? :NO DO YOU NEED ANY PRESCRIPTION? :NO DO YOU TAKE ANY IMMUNOSUPPRESSIVE MEDICATIONS? :NO CURRENT MEDICATIONS TAKING LIDODERM 5 % PATCH 1 PATCH TO SKIN REMOVE AFTER 12 HOURS - ON BACK EXTERNALLY ON 12 HOURS, OFF 12 HOURS DAILY TAKING DRISDOL 66775 UNIT CAPSULE 1 CAPSULE ORALLY TWICE A WEEK TAKING ALEVE PM 1 CAP ORALLY BEFORE BEDTIME TAKING CHLORTHALIDONE 25 MG TABLET 1 TABLET IN THE MORNING WITH FOOD ORALLY ONCE A DAY TAKING AMLODIPINE BESYLATE 5 MG TABLET 1 TABLET ORALLY ONCE A DAY TAKING OMEPRAZOLE 40MG CAPSULE DELAYED RELEASE TAKE 1 CAPSULE DAILY ORALLY DAILY TAKING ATORVASTATIN CALCIUM 80MG TABLET TAKE 1 TABLET DAILY ORALLY DAILY TAKING CLOBETASOL PROPIONATE 0.05 % GEL 1 APPLICATION EXTERNALLY TWICE A DAY TO BOTH ELBOWS TAKING OXYCODONE HCL 5 MG TABLET 1 TABLET NEEDED ORALLY EVERY 6 HRS PRN SEVERE PAIN MDD4 TAKING BELBUCA 300 MCG FILM 1 FILM TO THE GUM BUCALLY DAILY MDD1 3 MOS SUPPLY CAT D CHRONIC PAIN TAKING DULOXETINE HCL 60MG CAPSULE DELAYED RELEASE PARTICLES TAKE 1 CAPSULE DAILY TAKING BISOPROLOL FUMARATE 5MG TABLET TAKE 1 TABLET DAILY ORALLY ONCE A DAY TAKING LISINOPRIL 20MG TABLET TAKE 1 TABLET DAILY ORALLY DAILY TAKING CARISOPRODOL 350 MG TABLET 1 TABLET NEEDED ORALLY FOR SPASMS AND PAIN EVERY 8 HOURS NEEDED MDD2 NOT-TAKING TIZANIDINE HCL 4 MG TABLET 1 TABLET NEEDED ORALLY DAILY PRN MEDICATION LIST REVIEWED AND RECONCILED WITH THE PATIENT PAST MEDICAL HISTORY 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 GRANT - [place] ) NECK/BACK PAIN SUBSEQUENT TO FALL 06/06/15- FOLLOWING WITH STORAGE ADMINISTRATOR IN [place] (DR. JENKINS) COMPRESSION FRACTURE L-1 S/P FALL - 07/14/2017 S/P ELECTIVE L4-L PDIF COMPLICATED BY HEMATOMA THAT WAS EVACUATED 01/2016 - DR. 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 SURGICAL HISTORY BROKEN FEMUR REPAIRED WITH RODS/PINS, RIGHT WRIST FRACTURE 06/07/15 FUSION L4-L5 01/2016 PUT A BIGGER RITA IN FEMUR 02/2016 RIGHT WRIST HARDWARE REMOVED 09/19/16 RIGHT FEMUR RITA REMOVED, PLATE AND SCREWS PLACED 01/2017 FAMILY HISTORY FATHER: 66 YRS, DIAGNOSED WITH OTHER SPECIFIED CONDITIONS INFLUENCING HEALTH STATUS MOTHER: ALIVE 69 YRS 1 SON(S) , 2 DAUGHTER(S) - HEALTHY. CANCER - GRANDMOTHER, UNCLES. SOCIAL HISTORY GENERAL: TOBACCO USE ADDITIONAL FINDINGS: TOBACCO USERCHEWS TOBACCO NOT INTERESTED IN QUITTING AT THIS TIME SMOKING CESSATION INFORMATION GIVEN02/02/2020 DISCUSSED THE IMPORTANCE OF QUITTING CHEW ADDITIONAL FINDINGS: TOBACCO NON-USER REFUSED SMOKING CESSATION INFORMATION AT THIS TIME. VAPOR PT STATES HE CONTINUES TO CHES LATEX QUESTIONNAIRE LATEX ALLERGY : HAVE YOU EVER DEVELOPED ANY TYPE OF REACTION AFTER HANDLING LATEX PRODUCTS SUCH RUBBER GLOVES, CONDOMS, DIAPHRAGMS, BALLOONS, SOCKS, OR UNDERWEAR?NO LATEX ALLERGY : HAVE YOU EVER DEVELOPED ANY TYPE OF REACTION DURING OR AFTER DENTAL APPOINTMENT, VAGINAL/RECTAL EXAMINATION, SURGICAL PROCEDURE, OR ANY OTHER EXPOSURE?NO LATEX RISK : HAVE YOU EVER HAD ANY DIFFICULTY BREATHING OR HIVES AFTER EATING OR HANDLING ANY FRUITS, OR VEGETABLES; SUCH KIWI, BANANAS, STONE FRUITS, OR CHESTNUTSNO LATEX RISK : DO YOU HAVE A PREVIOUS PERSONAL HISTORY OF MORE THAN NINE SURGERIES, SPINA BIFIDA, OR REPEATED CATHERIZATIONS? NO LATEX RISK : ARE YOU FREQUENTLY EXPOSED TO LATEX PRODUCTS IN YOUR OCCUPATION?NO DATE ASKED : 04/06/2020 BMI CARE GOAL FOLLOW-UP ABOVE NORMAL BMI FOLLOW-UPDIETARY MANAGEMENT EDUCATION, GUIDANCE, AND COUNSELING ALCOHOL SCREENING DID YOU HAVE A DRINK CONTAINING ALCOHOL IN THE PAST YEAR?YES HOW OFTEN DID YOU HAVE SIX OR MORE DRINKS ON ONE OCCASION IN THE PAST YEAR?LESS THAN MONTHLY (1 POINT) HOW MANY DRINKS DID YOU HAVE ON A TYPICAL DAY WHEN YOU WERE DRINKING IN THE PAST YEAR?3 OR 4 (1 POINT) HOW OFTEN DID YOU HAVE A DRINK CONTAINING ALCOHOL IN THE PAST YEAR?MONTHLY OR LESS (1 POINT) POINTS3 INTERPRETATIONNEGATIVE RECREATIONAL DRUG USE DRUG USE?NO CAFFEINE CAFFEINE USE?YES HOW OFTEN AND HOW MUCH? 2 CUPS OF COFFEE PER DAY SEXUAL HX HAD SEX IN THE LAST 12 MONTHS (VAGINAL, ORAL, OR ANAL)?YES WITHWOMEN ONLY USE PROTECTION?NO HAVE YOU EVER HAD AN STD?NO TEMPLE [id number] NONE LANGUAGE LANGUAGES SPOKEN:CROATIAN EDUCATION LEVEL OF EDUCATION:NOT FINISHED COLLEGE LEARNING BARRIERS / SPECIAL NEEDS CHANGE FROM LAST VISIT?NO BARRIERS TO LEARNING?NO HEARING IMPAIRED?NO VISION IMPAIRED?YES COGNITIVELY IMPAIRED?NO :CORRECTIVE LENSES READINESS TO LEARN?YES LEARNING PREFERENCES?NO LEARNING CAPABILITIES PRESENT?YES EMOTIONAL BARRIERS?NO SPECIAL DEVICES?NO ESTHETICIAN SPA NEEDED?NO DOMESTIC VIOLENCE DO YOU FEEL SAFE IN YOUR ENVIRONMENT?YES OCCUPATION: DISABLED. DIET: REGULAR. EXERCISE: NO REGULAR EXERCISE. MARITAL STATUS: . NEW PATIENT PAIN DIARY TODAY'S VISITNOTES PATIENT DESCRIBES PAIN :HAVE IT ALL THE TIME, STABBING, THROBBING, SHOOTING FROM 0-10, WHAT LEVEL IS YOUR PAIN TODAY?7 PAIN CLINIC PFS, CLERGY, PUBLIC HEALTH REFERRALS PFS REFERRAL NEEDED?NO CLERGY REFERRAL NEEDED?NO PUBLIC HEALTH REFERRAL NEEDED?NO WAS THE PROVIDER NOTIFIED OF ANY PERTINENT INFO?YES HAS THE PATIENT BEEN EDUCATED REGARDING HIS/HER PLAN OF CARE?YES HAS THE PATIENT BEEN EDUCATED REGARDING PAIN, THE RISK FOR PAIN, THE IMPORTANCE OF EFFECTIVE PAIN MANAGEMENT, AND THE PAIN ASSESSMENT PROCESS?YES ADVANCE DIRECTIVE ADVANCE DIRECTIVE DISCUSSED WITH PATIENT:YES HCP & POA TAMERA BONDS [phone] AND LIVING WILL HOSPITALIZATION/MAJOR DIAGNOSTIC PROCEDURE ALL SURGICAL RELATED CHEST PAIN 10/2016 FX BACK AT L-1 07-14-17 REVIEW OF SYSTEMS CONSTITUTIONAL: ANY RECENT FEVER OR ILLNESS NO . CHILLS NO . GASTROENTEROLOGY: BOWEL INCONTINENCE NO . ANY NEW CHANGE IN BOWEL CONTROL? NO . ABDOMINAL PAIN NO . CONSTIPATION NO . GENITOURINARY: ANY NEW CHANGE IN BLADDER CONTROL? NO . IS THERE A CHANCE YOU COULD BE ? NO . URINARY INCONTINENCE NO . CARDIOLOGY: CHEST PRESSURE NO . CHEST PAIN NO . RESPIRATORY: COUGH NO . SHORTNESS OF BREATH NO . VITAL SIGNS WT 244.3 LBS, HT 71 IN, BMI 34.07 INDEX, BP 119/72 MM HG, HR 82 /MIN, RR 18 /MIN, TEMP 95.2 F, OXYGEN SAT % 98%, NA INITIALS AW 0930. EXAMINATION GENERAL: PATIENT IS ALERT O X 3 AND COOPERATIVE. LUNGS CLEAR, TO AUSCULTATION. HEART: NO MURMURS OR GALLOPS; FACIAL CRANIAL NERVES ARE GROSSLY NORMAL. GOOD SYMMETRY OF FACIAL MUSCLE MOVEMENT. NORMAL VISUAL MONTES. RIGHT LEG IS WEAKER AT EXTENSION AND FLEXION. STRAIGHT LEG RAISE OF THE RIGHT LEG IS POSITIVE AT 40 DEGREES FOR RADICULOPATHY. MRI OF THE LUMBAR SPINE DONE ON 02/17/2020 SHOWS A FUSION AT L4-L5, SCAR TISSUE AT L5, AND BULGING DISCS AT MULTIPLE LEVELS. ASSESSMENTS INTERVERTEBRAL DISC DISORDERS WITH RADICULOPATHY, LUMBAR REGION - M51.16 (PRIMARY) OTHER CHRONIC PAIN - G89.29 PAIN IN THORACIC SPINE - M54.6 LUMBAR POST-LAMINECTOMY SYNDROME - M96.1 TREATMENT INTERVERTEBRAL DISC DISORDERS WITH RADICULOPATHY, LUMBAR REGION CLINICAL NOTES: WE DISCUSSED SEVERAL ISSUES WITH MR. BONDS'S PAIN MANAGEMENT CASE. THE PATIENT HAS TRIED MEDICATION MANAGEMENT AND INJECTION THERAPY FOR AN EXTENSIVE PERIOD OF TIME, BUT HIS PAIN CONTINUES TO PERSIST. THE PATIENT'S PAIN IS AFFECTING HIS DAILY LIVING AND FUNCTIONALITY. THE PATIENT IS INTERESTED IN PURSING A DCS TRIAL. THEREFORE, I WILL REQUEST FOR A THORACIC MRI THAT IS NEEDED BEFORE THE TRIAL TO ENSURE THERE IS ADEQUATE SPACING FOR THE DCS CABLES TO PASS THROUGH. I WILL ALSO REQUEST FOR THE PATIENT TO RECEIVE A PSYCHOLOGICAL EVALUATION TO SEE IF HE IS A GOOD CANDIDATE FOR THE DCS TRIAL AND IMPLANT. THE PATIENT WILL FOLLOW UP IN SEVERAL WEEKS WITH THE NURSE PRACTITIONER TO GO OVER THE RESULTS. THE PATIENT IS ALSO HAVING NECK PAIN AND IS INTERESTED IN HAVING A DCS TRIAL FOR THE CERVICAL AREA, HOWEVER IT WAS AGREED WE WILL PURSUE THE TRIAL FOR THE LOW BACK AND LEG PAIN FIRST. INSTRUCTIONS WERE GIVEN, QUESTIONS WERE ANSWERED, PATIENT REPORTS UNDERSTANDING AND AGREES WITH THE PLAN. I, SAY MAGANA, DOCUMENTED THE ABOVE INFORMATION ACTING A SCRIBE FOR DR. DUVALL. I HAVE REVIEWED THE ABOVE DOCUMENT, WRITTEN BY SAY GOVEAIBPuma AND I VERIFY THAT IT IS ACCURATE. . PAIN IN THORACIC SPINE [facility] MRI SPINE,THORACIC WITHOUT [id number] PROCEDURE CODES FA211 ESTABILISHED PATIENT [facility] FACILITY CHARGE G8427 CURRENT MEDS W/DOSAGES DOCUMENTED G8730 PAIN ASSESS POS TOOL F/U PLAN DOC DISPOSITION & COMMUNICATION FOLLOW UP 4 WEEKS (REASON: ORDERING THORACIC MRI FOR DCS TRIAL; F/UP WITH MACHINE SHORTHAND TEACHER) ELECTRONICALLY SIGNED BY ALICIA DUVALL MD, MD ON 04/11/2020 AT 06:01 PM EDT DISCLAIMER : THIS IS A VISIT SUMMARY EXTRACTED FROM THE [employer] CHART. IT IS NOT A COPY OF THE [employer] PROGRESS NOTE. MTDD
== END ==
LOC: M PAIN 09:45
PROVIDERS: ATTEND Anesthesiology
DX: M51.16 Intervertebral disc disorders with radiculopathy, lumbar region (principal); G89.29 Other chronic pain; M54.6 Pain in thoracic spine; M96.1 Postlaminectomy syndrome, not elsewhere classified

== ENCOUNTER → 2020-04-18 | Outpatient (CLI) | payer BC ==
--- NOTE | 2020-04-18 20:36 | REPVR ---
PROCEDURE INFORMATION: Exam: MR Thoracic Spine Without Contrast Exam date and time: 04/18/2020 5:44 PM Age: 49 years old Clinical indication: Pain in thoracic spine; With radiculopathy; Left; Patient HX: Neck/mid back pain; Additional info: Pain in throacic spine TECHNIQUE: Imaging protocol: Multiplanar magnetic resonance images of the thoracic spine without contrast. COMPARISON: 1. CT Spine,thoracic w/o contrast 06/06/2015 6:31 PM 2. SR - MRI-LS SPINE W/O FOLL WITH CON 02/17/2020 8:18:36 AM FINDINGS: Vertebrae: The thoracic vertebral bodies are normal in height, without abnormal subluxation or acute marrow edema. Mild scoliosis involving the thoracic spine. A mild compression fracture is identified of the L1 vertebral body, without acute marrow edema consistent with a chronic deformity. This is stable compared to the previous MRI. Epidural space: No epidural fluid collection identified. Spinal cord: Normal signal. No cord compression. Discs/Spinal canal/Neural foramina: Degenerative changes are identified at multiple thoracic levels, with disc bulge/osteophyte complexes and a decrease in the T2 signal intensity of the discs. No significant narrowing of the thecal sac at any thoracic level. The thoracic neural foramina are patent diffusely. There is a small disc protrusion at C7-T1 causing a minimal impression on the ventral thecal sac without significant overall narrowing. Lungs: Evaluation of the lungs on MRI is limited. Liver: Within the right hepatic lobe, there is a 9 mm T2 hyperintense lesion, incompletely evaluated. Soft tissues: No significant paraspinal swelling. Vasculature: The thoracic aorta is ectatic measuring 2.9 cm in diameter. IMPRESSION: 1. Mild scoliosis involving the thoracic spine. 2. A mild chronic compression fracture is identified of the L1 vertebral body, which is stable compared to the previous MRI. 3. Degenerative changes are identified at multiple thoracic levels. No significant narrowing of the thecal sac at any thoracic level. 4. There is a small disc protrusion at C7-T1 causing a minimal impression on the ventral thecal sac without significant overall narrowing. 5. Within the right hepatic lobe, there is a 9 mm T2 hyperintense lesion, incompletely evaluated. A follow-up CT or MRI of the abdomen with contrast is recommended. 6. The thoracic aorta is ectatic measuring 2.9 cm in diameter. Electronically signed by: Ricardo Yee On 04/18/2020 20:36:40 PM
== END ==
LOC: M RAD 16:02
PROVIDERS: ATTEND Anesthesiology
DX: M54.14 Radiculopathy, thoracic region (principal)

== ENCOUNTER → 2020-05-10 | Outpatient (CLI) | payer BC ==
--- NOTE | 2020-05-11 02:28 | ECWPNPC ---
PATIENT NAME: MELODY BONDS : 1970 GENDER: MALE VISIT DATE: 05/10/2020 DISCHARGE DATE: 05/10/20 1544 VISIT LOCKED DATE TIME: PHYSICIAN: ALICIA DUVALL MD RESOURCE: ALICIA DUVALL MD REASON FOR APPOINTMENT 1. REVIEW MRI/DCS HISTORY OF PRESENT ILLNESS GENERAL: 49-YEAR-OLD MALE PATIENT WITH A HISTORY OF CHRONIC LOW BACK AND MAINLY RIGHT LEG PAIN. THE PATIENT DESCRIBES THE PAIN ACHING, BURNING, CONTINUOUS, SHARP, STABBING, TENDER, SORE AND SHOOTING WITH A PAIN SCORE RANGING FROM 6-10/10 DEPENDING ON PHYSICAL ACTIVITY. THE PATIENT HAS BEEN SUFFERING FROM THIS PAIN FOR MANY YEARS. WE HAVE TRIED MEDICATION MANAGEMENT AND MULTIPLE INJECTIONS AND STILL THE PAIN PERSISTS. THE PATIENT STATES THAT THE PAIN IS AFFECTING HIS ACTIVITIES OF DAILY LIVING, SUCH CLEANING AND COOKING. THE PATIENT HAS EXPRESSED THAT HE WOULD LIKE TO MOVE FORWARD WITH THE DCS TRIAL. PATIENT DENIES UNEXPLAINABLE WEIGHT LOSS, FEVER, CHILLS, NEW CHANGES ON HIS URINARY OR BOWEL CONTROL. PAIN CENTER INTAKE QUESTIONS: DO YOU HAVE A HISTORY OF MRSA? :NO DO YOU TAKE A BLOOD THINNERS? :NO DO YOU HAVE ANY BLEEDING DISORDERS? :NO ANY NEW NUMBNESS OR WEAKNESS IN YOUR LEGS OR ARMS? :NO ANY PACEMAKER,DEFIBRILLATOR, OR DORSAL COLUMN STIMULATOR? :NO DO YOU HAVE ANY RASHES OR OPEN SORES? :NO ARE YOU ALLERGIC TO IV DYE? :NO ARE YOU DIABETIC? :NO ANY NEW PROBLEMS WITH YOUR MEDICATIONS? :NO HAVE YOU RECEIVED A VACCINE IN THE PAST 30 DAYS? :NO DO YOU PLAN TO RECEIVE A VACCINE IN THE NEXT 21 DAYS? :NO DO YOU NEED ANY PRESCRIPTION? :NO DO YOU TAKE ANY IMMUNOSUPPRESSIVE MEDICATIONS? :NO IS THERE A CHANCE YOU COULD BE ? :NO ARE YOU BREAST FEEDING? :NO FALL RISK SCREENING: SCREENING :NO FALLS REPORTED IN THE LAST YEAR PAIN SCREENING: PATIENT HAS A COMPLAINT OF ACUTE OR CHRONIC PAIN :YES LOCATION OF PAIN:HEAD, UPPER BACK, MID BACK, LOW BACK, RIGHT HIP, LEG(S) BACK OF RIGHT LEG TO RIGHT GREAT TOE INTENSITY OF PAIN (SCALE OF 1 TO 10):7 AVERAGE 6-7, 10+ IF HE DOESN'T TAKE HIS PAIN MEDS WHAT DOES YOUR PAIN FEEL LIKE:ACHING, BURNING, CONTINOUS, SHARP, STABBING, TENDER, SORE, SHOOTING DURATION:CONTINOUS, CONSTANT, STEADY, ALL DAY, AWAKENS FROM SLEEP PAIN IS INCREASED BY:ACTIVITIES, PROLONGED STANDING PROLONGED SITTING, WALKING PAIN IS DECREASED BY: LAYING DOWN, ICY HOT, PAIN MEDS NURSING NOTE: -. CURRENT MEDICATIONS TAKING LIDODERM 5 % PATCH 1 PATCH TO SKIN REMOVE AFTER 12 HOURS - ON BACK EXTERNALLY ON 12 HOURS, OFF 12 HOURS DAILY NEEDED TAKING DRISDOL [id number] UNIT CAPSULE 1 CAPSULE ORALLY TWICE A WEEK TAKING ALEVE PM 1 CAP ORALLY BEFORE BEDTIME TAKING CHLORTHALIDONE 25 MG TABLET 1 TABLET IN THE MORNING WITH FOOD ORALLY ONCE A DAY TAKING AMLODIPINE BESYLATE 5 MG TABLET 1 TABLET ORALLY ONCE A DAY TAKING OMEPRAZOLE 40MG CAPSULE DELAYED RELEASE TAKE 1 CAPSULE DAILY ORALLY DAILY TAKING ATORVASTATIN CALCIUM 80MG TABLET TAKE 1 TABLET DAILY ORALLY DAILY TAKING CLOBETASOL PROPIONATE 0.05 % GEL 1 APPLICATION EXTERNALLY TWICE A DAY TO BOTH ELBOWS NEEDED TAKING DULOXETINE HCL 60MG CAPSULE DELAYED RELEASE PARTICLES TAKE 1 CAPSULE DAILY TAKING BISOPROLOL FUMARATE 5MG TABLET TAKE 1 TABLET DAILY ORALLY ONCE A DAY TAKING LISINOPRIL 20MG TABLET TAKE 1 TABLET DAILY ORALLY DAILY TAKING OXYCODONE HCL 5 MG TABLET 1 TABLET NEEDED ORALLY EVERY 6 HRS PRN SEVERE PAIN MDD4 TAKING BELBUCA 300 MCG FILM 1 FILM TO THE GUM BUCALLY DAILY MDD1 3 MOS SUPPLY CAT D CHRONIC PAIN TAKING CARISOPRODOL 350 MG TABLET 1 TABLET NEEDED ORALLY FOR SPASMS AND PAIN EVERY 8 HOURS NEEDED MDD2 NOT-TAKING TIZANIDINE HCL 4 MG TABLET 1 TABLET NEEDED ORALLY DAILY PRN MEDICATION LIST REVIEWED AND RECONCILED WITH THE PATIENT PAST MEDICAL HISTORY 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 GRANT - RULA ) NECK/BACK PAIN SUBSEQUENT TO FALL 06/06/15- FOLLOWING WITH [employer] ROBOTICIST IN [place] (DR. JENKINS) COMPRESSION FRACTURE L-1 S/P FALL - 07/14/2017 S/P ELECTIVE L4-L PDIF COMPLICATED BY HEMATOMA THAT WAS EVACUATED 01/2016 - DR. 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 SURGICAL HISTORY BROKEN FEMUR REPAIRED WITH RODS/PINS, RIGHT WRIST FRACTURE 06/07/15 FUSION L4-L5 01/2016 PUT A BIGGER RITA IN FEMUR 02/2016 RIGHT WRIST HARDWARE REMOVED 09/19/16 RIGHT FEMUR RITA REMOVED, PLATE AND SCREWS PLACED 01/2017 FAMILY HISTORY FATHER: 66 YRS, DIAGNOSED WITH OTHER SPECIFIED CONDITIONS INFLUENCING HEALTH STATUS MOTHER: ALIVE 69 YRS 1 SON(S) , 2 DAUGHTER(S) - HEALTHY. CANCER - GRANDMOTHER, UNCLES. SOCIAL HISTORY GENERAL: TOBACCO USE ADDITIONAL FINDINGS: TOBACCO USERCHEWS TOBACCO NOT INTERESTED IN QUITTING AT THIS TIME SMOKING CESSATION INFORMATION GIVEN02/02/2020 05/10/2020 DISCUSSED THE IMPORTANCE OF QUITTING CHEW ADDITIONAL FINDINGS: TOBACCO NON-USER REFUSED SMOKING CESSATION INFORMATION AT THIS TIME. VAPOR PT STATES HE CONTINUES TO CHEW LATEX QUESTIONNAIRE LATEX ALLERGY : HAVE YOU EVER DEVELOPED ANY TYPE OF REACTION AFTER HANDLING LATEX PRODUCTS SUCH RUBBER GLOVES, CONDOMS, DIAPHRAGMS, BALLOONS, SOCKS, OR UNDERWEAR?NO LATEX ALLERGY : HAVE YOU EVER DEVELOPED ANY TYPE OF REACTION DURING OR AFTER DENTAL APPOINTMENT, VAGINAL/RECTAL EXAMINATION, SURGICAL PROCEDURE, OR ANY OTHER EXPOSURE?NO LATEX RISK : HAVE YOU EVER HAD ANY DIFFICULTY BREATHING OR HIVES AFTER EATING OR HANDLING ANY FRUITS, OR VEGETABLES; SUCH KIWI, BANANAS, STONE FRUITS, OR CHESTNUTSNO LATEX RISK : DO YOU HAVE A PREVIOUS PERSONAL HISTORY OF MORE THAN NINE SURGERIES, SPINA BIFIDA, OR REPEATED CATHERIZATIONS? NO LATEX RISK : ARE YOU FREQUENTLY EXPOSED TO LATEX PRODUCTS IN YOUR OCCUPATION?NO DATE ASKED : 05/10/2020 BMI CARE GOAL FOLLOW-UP ABOVE NORMAL BMI FOLLOW-UPDIETARY MANAGEMENT EDUCATION, GUIDANCE, AND COUNSELING ALCOHOL SCREENING DID YOU HAVE A DRINK CONTAINING ALCOHOL IN THE PAST YEAR?YES HOW OFTEN DID YOU HAVE SIX OR MORE DRINKS ON ONE OCCASION IN THE PAST YEAR?LESS THAN MONTHLY (1 POINT) HOW MANY DRINKS DID YOU HAVE ON A TYPICAL DAY WHEN YOU WERE DRINKING IN THE PAST YEAR?3 OR 4 (1 POINT) HOW OFTEN DID YOU HAVE A DRINK CONTAINING ALCOHOL IN THE PAST YEAR?MONTHLY OR LESS (1 POINT) POINTS3 INTERPRETATIONNEGATIVE RECREATIONAL DRUG USE DRUG USE?NO CAFFEINE CAFFEINE USE?YES HOW OFTEN AND HOW MUCH? 2 CUPS OF COFFEE PER DAY SEXUAL HX HAD SEX IN THE LAST 12 MONTHS (VAGINAL, ORAL, OR ANAL)?YES WITHWOMEN ONLY USE PROTECTION?NO HAVE YOU EVER HAD AN STD?NO BUDDHISM [id number] NONE LANGUAGE LANGUAGES SPOKEN:ARMENIAN EDUCATION LEVEL OF EDUCATION:NOT FINISHED COLLEGE LEARNING BARRIERS / SPECIAL NEEDS CHANGE FROM LAST VISIT?NO BARRIERS TO LEARNING?NO HEARING IMPAIRED?NO VISION IMPAIRED?YES :CORRECTIVE LENSES COGNITIVELY IMPAIRED?NO READINESS TO LEARN?YES LEARNING PREFERENCES?NO LEARNING CAPABILITIES PRESENT?YES EMOTIONAL BARRIERS?NO SPECIAL DEVICES?NO FRANCHISE SPECIALIST NEEDED?NO DOMESTIC VIOLENCE DO YOU FEEL SAFE IN YOUR ENVIRONMENT?YES OCCUPATION: DISABLED. DIET: REGULAR. EXERCISE: NO REGULAR EXERCISE. MARITAL STATUS: . PAIN CLINIC PFS, CLERGY, PUBLIC HEALTH REFERRALS PFS REFERRAL NEEDED?NO CLERGY REFERRAL NEEDED?NO PUBLIC HEALTH REFERRAL NEEDED?NO WAS THE PROVIDER NOTIFIED OF ANY PERTINENT INFO?YES HAS THE PATIENT BEEN EDUCATED REGARDING HIS/HER PLAN OF CARE?YES HAS THE PATIENT BEEN EDUCATED REGARDING PAIN, THE RISK FOR PAIN, THE IMPORTANCE OF EFFECTIVE PAIN MANAGEMENT, AND THE PAIN ASSESSMENT PROCESS?YES ADVANCE DIRECTIVE ADVANCE DIRECTIVE DISCUSSED WITH PATIENT:YES STATES HE HAS HCP & POA TAMERA BONDS [phone] AND LIVING WILL HOSPITALIZATION/MAJOR DIAGNOSTIC PROCEDURE ALL SURGICAL RELATED CHEST PAIN 10/2016 FX BACK AT L-1 07-14-17 REVIEW OF SYSTEMS CONSTITUTIONAL: ANY RECENT FEVER NO . CHILLS NO . WEIGHT CHANGE OF UNKNOWN REASONS NO . GASTROENTEROLOGY: NEW UNEXPLAINABLE CHANGES IN BOWEL CONTROL NO . CONSTIPATION NO . GENITOURINARY: ANY NEW CHANGE IN BLADDER CONTROL? NO . NEUROLOGY: NEW ONSET DIZZINESS OR NEUROLOGICAL CHANGES NOT MENTIONED NO . NEW NUMBNESS OR PAIN PATTERNS NOT MENTIONED AND PERTINENT TO TODAY'S VISIT NO . CARDIOLOGY: NEW CHEST PRESSURE NO . NEW CHEST PAIN NO . RESPIRATORY: UNEXPLAINABLE COUGH NO . NEW SHORTNESS OF BREATH NO . VITAL SIGNS WT 247.6 LBS, HT 71 IN, BMI 34.53 INDEX, BP 136/91 MM HG, HR 87 /MIN, RR 18 /MIN, TEMP 97.5 F, OXYGEN SAT % 98%, SAFE IN ENV? (Y/N) Y, NA INITIALS AW 1342, REVIEWED BY: AD. EXAMINATION GENERAL EXAMINATION: THE PATIENT IS ALERT, ORIENTED TIMES THREE AND COOPERATIVE. CRANIAL NERVES ARE GROSSLY NORMAL. HEART SHOWS REGULAR RHYTHM, NO MURMURS AND NO GALLOPS. LUNGS ARE CLEAR TO AUSCULTATION. THE PATIENT HAS DIFFICULTY STANDING. HE IS LIMPING FROM THE RIGHT LEG. THERE IS TENDERNESS IN THE LOWER BACK IN THE PARASPINAL MUSCLE GROUP. THE RIGHT LEG IS WEAKER THAN THE LEFT LEG ON EXTENSION AND FLEXION. POSITIVE STRAIGHT LEG RAISE ON THE RIGHT LEG THAT IS POSITIVE FOR RADICULOPATHY AT 45 DEGREES. MRI OF THE LUMBAR SPINE DATED 02/17/2020 SHOWS POST LAMINECTOMY CHANGES AT L4-L5, ALSO SOME SCARING TISSUE AT L5-S1. 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 BONDS REGARDING HIS TREATMENT OPTIONS AND CARE. MRI OF THE THORACIC SPINE DATED 04/18/2020 SHOWS A HYPERINTENSE LESSON OF THE LIVER FOUND ON HIS RIGHT HEPATIC LOBE. THE PATIENT WILL TALK TO HIS PRIMARY CARE PHYSICIAN ABOUT THE LESION TOMORROW. I WOULD LIKE TO REVIEW THE THORACIC AND LUMBAR MRI FILMS WITH THE RADIOLOGIST. WE WILL PLAN TO MOVE FORWARD WITH THE TRIAL. THE PATIENT WILL HAVE HIS PSYCH EVALUATION TOMORROW. I HAVE TO WAIT FOR THE REPORT FROM THE PSYCH EVALUATION, SO I WILL DO A TELEMED VISIT IN 3 WEEKS WITH THE PATIENT. HOPEFULLY I WILL HAVE THAT REPORT AND I WILL REVIEW THE MRI'S WITH THE RADIOLOGIST AND I WILL DISCUSS ALL OF IT WITH THE PATIENT AT THAT VISIT. THE PATIENT AGREES TO USE [employer] FOR THE TRIAL. FOR NOW, WE ARE GOING TO DO A LOW BACK DCS TRIAL, AND DEPENDING ON THE RESULTS OF THAT TRIAL, WE WILL TRY A CERVICAL TRIAL. WE WILL TRY TO DO THE IMPLANTS AT THE SAME TIME IF THE 2 TRIALS WORK. THE PATIENT KNOWS TO CALL THE OFFICE IF HE HAS ANY QUESTIONS OR CONCERNS. THE PATIENT UNDERSTANDS AND IS IN AGREEMENT WITH THE TREATMENT PLAN. ISLIME, DOCUMENTED THE ABOVE INFORMATION ACTING A SCRIBE FOR DR. DUVALL. I HAVE REVIEWED THE ABOVE DOCUMENT, WRITTEN BY SLIME TOVAR, PROJECT ADMINISTRATOR, AND I VERIFY THAT IT IS ACCURATE. . PROCEDURE CODES FA211 ESTABILISHED PATIENT [facility] CHARGE [id number] OFFICE/OUTPATIENT VISIT EST DISPOSITION & COMMUNICATION FOLLOW UP F/UP WITH DR. Knowles IN 3 WEEKS TELEMEDICINE (REASON: F/UP WITH DR. Knowles IN 3 WEEKS TELEMEDICINE) ELECTRONICALLY SIGNED BY ALICIA DUVALL MD, MD ON 05/10/2020 AT 05:07 PM EDT DISCLAIMER : THIS IS A VISIT SUMMARY EXTRACTED FROM THE [employer] CHART. IT IS NOT A COPY OF THE [employer] PROGRESS NOTE. MTDD
== END ==
LOC: M PAIN 14:00
PROVIDERS: ATTEND Anesthesiology
DX: M96.1 Postlaminectomy syndrome, not elsewhere classified (principal); M51.9 Unspecified thoracic, thoracolumbar and lumbosacral intervertebral disc disorder

== ENCOUNTER → 2020-05-16 | Outpatient (REF) | payer BC ==
[~2020-05-16] MED LIST changes: +AMLO1TAB24 PO; +ATOR80TA59 PO; +BISO5TAB14 PO; +DRIS50003 PO; +DULO60CA35 PO; +ERGO80006 PO; +OMEP-221 PO; +OXYC-1 PO; +PANT40TA29 PO; -PANT40TA3 PO; +SOMA350T PO; +[UNRECOGNIZED DRUG - CODE] PO
[2020-05-16 12:40] LABS: HEMATOCRIT 41.2 % (42.0-52.0); MEAN CORPUSCULAR HEMOGLOBIN 29.7 pg (27.0-33.0); MEAN CORPUSCULAR VOLUME 87.3 fl (80.0-96.0); PLATELET COUNT, AUTOMATED 203 10^3/uL (150-450); RED BLOOD COUNT 4.72 10^6/uL (4.30-6.10)
[2020-05-16 12:53] LABS: ALT/SGPT 41 U/L (12-78); BILIRUBIN,TOTAL 0.9 MG/DL (0.2-1.0); BLOOD UREA NITROGEN 14 MG/DL (7-18); CARBON DIOXIDE LEVEL 27 MEQ/L (21-32); CHLORIDE LEVEL 107 MEQ/L (98-107); CREATININE FOR GFR 0.91 MG/DL (0.70-1.30); GLOMERULAR FILTRATION RATE > 60.0 (>60); GLUCOSE, FASTING 96 MG/DL (70-100); POTASSIUM SERUM 4.4 MEQ/L (3.5-5.1); SODIUM LEVEL 140 MEQ/L (136-145); TOTAL PROTEIN 6.8 GM/DL (6.4-8.2)
== END ==
LOC: M SFHCADAM 08:44
PROVIDERS: ATTEND Physician Assistant
DX: K76.9 Liver disease, unspecified (principal)

== ENCOUNTER → 2020-05-30 | Outpatient (POV) | payer BC | LOC: M PAIN 13:30 | PROVIDERS: ATTEND Anesthesiology | DX: M51.16 Intervertebral disc disorders with radiculopathy, lumbar region (principal) ==

== ENCOUNTER → 2020-07-13 | Outpatient (CLI) | payer BC | LOC: M PAIN 10:16 | PROVIDERS: ATTEND Nurse Practitioner Family | DX: Z79.891 Long term (current) use of opiate analgesic (principal) ==

== ENCOUNTER → 2020-08-15 | Outpatient (CLI) | payer BC ==
[~2020-08-15] MED LIST changes: -AMLO1TAB24 PO; -ATOR80TA59 PO; -BISO5TAB14 PO; -DRIS50003 PO; -DULO60CA35 PO; -OMEP-221 PO; -SOMA350T PO
--- NOTE | 2020-08-17 23:17 | ECWPNPC ---
PATIENT NAME: MELODY BONDS : 1970 GENDER: MALE VISIT DATE: 08/15/2020 DISCHARGE DATE: 08/15/201641 VISIT LOCKED DATE TIME: PHYSICIAN: ALICIA DUVALL MD PHYSICIAN PAGER NO: ACTIVE RESOURCE: ALICIA DUVALL MD REASON FOR APPOINTMENT 1. DCS PAPERWORK HISTORY OF PRESENT ILLNESS GENERAL: 50-YEAR-OLD MALE PATIENT WITH A HISTORY OF CHRONIC LOW BACK AND MAINLY RIGHT LEG PAIN. THE PATIENT DESCRIBES THE PAIN SEVERE, CONSTANT, INCAPACITATING WITH A PAIN SCORE RANGING FROM 7-10/10 DEPENDING ON PHYSICAL ACTIVITY. THE PATIENT HAS HAD THIS PAIN FOR MANY YEARS. HE HAS TRIED INJECTION THERAPY AND MEDICATION MANAGEMENT, UNFORTUNATELY THE PAIN PERSISTS. THE PATIENT HAS A HISTORY OF A LOW BACK FUSION. I DISCUSSED WITH THE PATIENT ABOUT THE DCS TRIAL AND THE PATIENT EXPLAINED THAT HE WANTED TO MOVE FORWARD WITH IT. PATIENT DENIES UNEXPLAINABLE WEIGHT LOSS, FEVER, CHILLS, NEW CHANGES ON HIS URINARY OR BOWEL CONTROL. FALL RISK SCREENING: SCREENING :NO FALLS REPORTED IN THE LAST YEAR PAIN SCREENING: PATIENT HAS A COMPLAINT OF ACUTE OR CHRONIC PAIN :YES LOCATION OF PAIN:NECK, UPPER BACK, MID BACK, LOW BACK INTENSITY OF PAIN (SCALE OF 1 TO 10):7 WHAT DOES YOUR PAIN FEEL LIKE:ACHING DURATION:CONSTANT, ALL DAY PAIN IS INCREASED BY:ACTIVITIES PAIN IS DECREASED BY: LAYING DOWN NURSING NOTE: -. PAIN CENTER INTAKE QUESTIONS: DO YOU HAVE A HISTORY OF MRSA? :NO DO YOU TAKE A BLOOD THINNERS? :NO DO YOU HAVE ANY BLEEDING DISORDERS? :NO ANY NEW NUMBNESS OR WEAKNESS IN YOUR LEGS OR ARMS? :NO ANY PACEMAKER,DEFIBRILLATOR, OR DORSAL COLUMN STIMULATOR? :NO DO YOU HAVE ANY RASHES OR OPEN SORES? :NO ARE YOU ALLERGIC TO IV DYE? :NO ARE YOU DIABETIC? :NO ANY NEW PROBLEMS WITH YOUR MEDICATIONS? :NO HAVE YOU RECEIVED A VACCINE IN THE PAST 30 DAYS? :NO DO YOU PLAN TO RECEIVE A VACCINE IN THE NEXT 21 DAYS? :NO DO YOU NEED ANY PRESCRIPTION? :NO DO YOU TAKE ANY IMMUNOSUPPRESSIVE MEDICATIONS? :NO ANY HISTORY OF SEIZURES? :NO ANY HISTORY OF CARDIAC ISSUES OR EVENTS? :NO DO YOU HAVE SLEEP APNEA? :NO ANY RECENT HEAD INJURY? :NO DO YOU HAVE ANY NEW INFECTIONS? :NO IS THERE A CHANCE YOU COULD BE ? :NO ARE YOU BREAST FEEDING? :NO DO YOU HAVE ANY OTHER QUESTIONS OR CONCERNS? 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 CURRENT MEDICATIONS TAKING LIDODERM 5 % PATCH 1 PATCH TO SKIN REMOVE AFTER 12 HOURS - ON BACK EXTERNALLY ON 12 HOURS, OFF 12 HOURS DAILY NEEDED TAKING DRISDOL [id number] UNIT CAPSULE 1 CAPSULE ORALLY TWICE A WEEK TAKING ALEVE PM 1 CAP ORALLY BEFORE BEDTIME TAKING AMLODIPINE BESYLATE 5 MG TABLET 1 TABLET ORALLY ONCE A DAY TAKING ATORVASTATIN CALCIUM 80MG TABLET TAKE 1 TABLET DAILY ORALLY DAILY TAKING CLOBETASOL PROPIONATE 0.05 % GEL 1 APPLICATION EXTERNALLY TWICE A DAY TO BOTH ELBOWS NEEDED TAKING DULOXETINE HCL 60MG CAPSULE DELAYED RELEASE PARTICLES TAKE 1 CAPSULE DAILY TAKING BISOPROLOL FUMARATE 5MG TABLET TAKE 1 TABLET DAILY ORALLY ONCE A DAY TAKING LISINOPRIL 20MG TABLET TAKE 1 TABLET DAILY ORALLY DAILY TAKING BELBUCA 600 MCG FILM 1 FILM TO THE GUM BUCALLY DAILY MDD1 3 MOS SUPPLY CAT D CHRONIC PAIN TAKING OXYCODONE HCL 5 MG TABLET 1 TABLET NEEDED ORALLY EVERY 6 HRS PRN SEVERE PAIN MDD4 TAKING OMEPRAZOLE 40MG CAPSULE DELAYED RELEASE TAKE 1 CAPSULE DAILY ORALLY DAILY TAKING CARISOPRODOL 350 MG TABLET 1 TABLET NEEDED ORALLY FOR SPASMS AND PAIN EVERY 8 HOURS NEEDED MDD2 NOT-TAKING CHLORTHALIDONE 25 MG TABLET 1 TABLET IN THE MORNING WITH FOOD ORALLY ONCE A DAY NOT-TAKING TIZANIDINE HCL 4 MG TABLET 1 TABLET NEEDED ORALLY DAILY PRN MEDICATION LIST REVIEWED AND RECONCILED WITH THE PATIENT PAST MEDICAL HISTORY 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 GRANT - RULA ) NECK/BACK PAIN SUBSEQUENT TO FALL 06/06/15- [facility] COMPRESSION FRACTURE L-1 S/P FALL - 07/14/2017 S/P ELECTIVE L4-L PDIF COMPLICATED BY HEMATOMA THAT WAS EVACUATED 01/2016 - DR. 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 SURGICAL HISTORY BROKEN FEMUR REPAIRED WITH RODS/PINS, RIGHT WRIST FRACTURE 06/07/15 FUSION L4-L5 01/2016 PUT A BIGGER RITA IN FEMUR 02/2016 RIGHT WRIST HARDWARE REMOVED 09/19/16 RIGHT FEMUR RITA REMOVED, PLATE AND SCREWS PLACED 01/2017 FAMILY HISTORY FATHER: 66 YRS, DIAGNOSED WITH OTHER SPECIFIED CONDITIONS INFLUENCING HEALTH STATUS MOTHER: ALIVE 69 YRS 1 SON(S) , 2 DAUGHTER(S) - HEALTHY. CANCER - GRANDMOTHER, UNCLES. SOCIAL HISTORY GENERAL: TOBACCO USE ADDITIONAL FINDINGS: TOBACCO USERCHEWS TOBACCO NOT INTERESTED IN QUITTING AT THIS TIME SMOKING CESSATION INFORMATION GIVEN02/02/2020 05/10/2020 DISCUSSED THE IMPORTANCE OF QUITTING CHEW ADDITIONAL FINDINGS: TOBACCO NON-USER REFUSED SMOKING CESSATION INFORMATION AT THIS TIME. VAPOR PT STATES HE CONTINUES TO CHEW LATEX QUESTIONNAIRE LATEX ALLERGY : HAVE YOU EVER DEVELOPED ANY TYPE OF REACTION AFTER HANDLING LATEX PRODUCTS SUCH RUBBER GLOVES, CONDOMS, DIAPHRAGMS, BALLOONS, SOCKS, OR UNDERWEAR?NO LATEX ALLERGY : HAVE YOU EVER DEVELOPED ANY TYPE OF REACTION DURING OR AFTER DENTAL APPOINTMENT, VAGINAL/RECTAL EXAMINATION, SURGICAL PROCEDURE, OR ANY OTHER EXPOSURE?NO LATEX RISK : HAVE YOU EVER HAD ANY DIFFICULTY BREATHING OR HIVES AFTER EATING OR HANDLING ANY FRUITS, OR VEGETABLES; SUCH KIWI, BANANAS, STONE FRUITS, OR CHESTNUTSNO LATEX RISK : DO YOU HAVE A PREVIOUS PERSONAL HISTORY OF MORE THAN NINE SURGERIES, SPINA BIFIDA, OR REPEATED CATHERIZATIONS? NO LATEX RISK : ARE YOU FREQUENTLY EXPOSED TO LATEX PRODUCTS IN YOUR OCCUPATION?NO DATE ASKED : 08/15/2020 BMI CARE GOAL FOLLOW-UP ABOVE NORMAL BMI FOLLOW-UPDIETARY MANAGEMENT EDUCATION, GUIDANCE, AND COUNSELING ALCOHOL SCREENING DID YOU HAVE A DRINK CONTAINING ALCOHOL IN THE PAST YEAR?YES HOW OFTEN DID YOU HAVE SIX OR MORE DRINKS ON ONE OCCASION IN THE PAST YEAR?LESS THAN MONTHLY (1 POINT) HOW MANY DRINKS DID YOU HAVE ON A TYPICAL DAY WHEN YOU WERE DRINKING IN THE PAST YEAR?3 OR 4 (1 POINT) HOW OFTEN DID YOU HAVE A DRINK CONTAINING ALCOHOL IN THE PAST YEAR?MONTHLY OR LESS (1 POINT) POINTS3 INTERPRETATIONNEGATIVE RECREATIONAL DRUG USE DRUG USE?NO CAFFEINE CAFFEINE USE?YES HOW OFTEN AND HOW MUCH? 2 CUPS OF COFFEE PER DAY SEXUAL HX HAD SEX IN THE LAST 12 MONTHS (VAGINAL, ORAL, OR ANAL)?YES WITHWOMEN ONLY USE PROTECTION?NO HAVE YOU EVER HAD AN STD?NO HOLINESS [id number] NONE LANGUAGE LANGUAGES SPOKEN:BELARUSIAN EDUCATION LEVEL OF EDUCATION:NOT FINISHED COLLEGE LEARNING BARRIERS / SPECIAL NEEDS CHANGE FROM LAST VISIT?NO BARRIERS TO LEARNING?NO HEARING IMPAIRED?NO VISION IMPAIRED?YES COGNITIVELY IMPAIRED?NO :CORRECTIVE LENSES READINESS TO LEARN?YES LEARNING PREFERENCES?NO LEARNING CAPABILITIES PRESENT?YES EMOTIONAL BARRIERS?NO SPECIAL DEVICES?NO TRIMMING DEPARTMENT BLOCKER NEEDED?NO DOMESTIC VIOLENCE DO YOU FEEL SAFE IN YOUR ENVIRONMENT?YES OCCUPATION: DISABLED. DIET: REGULAR. EXERCISE: NO REGULAR EXERCISE. MARITAL STATUS: . PAIN CLINIC PFS, CLERGY, PUBLIC HEALTH REFERRALS PFS REFERRAL NEEDED?NO CLERGY REFERRAL NEEDED?NO PUBLIC HEALTH REFERRAL NEEDED?NO WAS THE PROVIDER NOTIFIED OF ANY PERTINENT INFO?YES HAS THE PATIENT BEEN EDUCATED REGARDING HIS/HER PLAN OF CARE?YES HAS THE PATIENT BEEN EDUCATED REGARDING PAIN, THE RISK FOR PAIN, THE IMPORTANCE OF EFFECTIVE PAIN MANAGEMENT, AND THE PAIN ASSESSMENT PROCESS?YES ADVANCE DIRECTIVE ADVANCE DIRECTIVE DISCUSSED WITH PATIENT:YES STATES HE HAS HCP & POA TAMERA BONDS [phone] AND LIVING WILL HOSPITALIZATION/MAJOR DIAGNOSTIC PROCEDURE ALL SURGICAL RELATED CHEST PAIN 10/2016 FX BACK AT L-1 07-14-17 REVIEW OF SYSTEMS GLAUCOMA: NOTHYROID DISEASE: NOHYPERTENSION: YESHEART DISEASE: NOLUNG DISEASE: NODIABETES: NOGI DISEASE: NO LIVER DISEASE: NO KIDNEY DISEASE: NOSTERIOD USE: NONEUROLOGICAL DISEASE: NOBACK PROBLEMS: YES, PAINEXTREMITIES: YES, PAINGENITOURINARY: NOBLEEDING DISORDER: NOASA CLASS: IIAIRWAY CLASS: I. VITAL SIGNS WT 250.2 LBS, HT 71 IN, BMI 34.89 INDEX, BP 170/90 MM HG, HR 77 /MIN, RR 18 /MIN, TEMP 97.0 F, OXYGEN SAT % 98%, SAFE IN ENV? (Y/N) YES, NA INITIALS AW 1502, REVIEWED BY: NLJ. EXAMINATION GENERAL EXAMINATION: THE PATIENT IS ALERT, ORIENTED TIMES THREE AND COOPERATIVE. HEART SHOWS REGULAR RHYTHM, NO MURMURS AND NO GALLOPS. LUNGS ARE CLEAR TO AUSCULTATION. THE PATIENT'S WALK IS ANTALGIC. HE IS LIMPING FROM THE RIGHT LEG. THE RIGHT LEG IS WEAKER THAN THE LEFT LEG ON FLEXION AND EXTENSION. STRAIGHT LEG RAISE IS POSITIVE ON THE RIGHT AT 45 DEGREES. TENDERNESS IN THE LOWER BACK IN THE PARASPINAL MUSCLE GROUP. MRI OF THE LUMBAR SPINE DATED 02/2020 AND THORACIC 04/2020 SHOWS ADEQUATE SPACE. THERE IS A MILD REDUCTION OF THE LEFT SIDE OF T9-T10 BUT THE MIDLINE IS OPEN. PSYCHOLOGICAL EVALUATION WAS REVIEWED DATED 05/09/2020. ASSESSMENTS LUMBAR POST-LAMINECTOMY SYNDROME - M96.1 (PRIMARY) INTERVERTEBRAL DISC DISORDERS WITH RADICULOPATHY, LUMBAR REGION - M51.16 TREATMENT LUMBAR POST-LAMINECTOMY SYNDROME START KEFLEX CAPSULE, 500 MG, DIRECTED, ORALLY, THREE TIMES DAILY, 10 DAYS, 30, REFILLS 0 MEDICATION: ANCEF 1 GM IV (CEFAZOLIN)SLIME TOVAR 08/16/2020 08:40:10 AM - GIVE IN OR CLINICAL NOTES: I DISCUSSED ALTERNATIVES WITH MR. BONDS. WE AGREE TO MOVE FORWARD WITH THE DCS TRIAL. I DISCUSSED WITH THE PATIENT THE RISKS AND BENEFITS ASSOCIATED WIHT THE PROCEDURE INCLUDING BUT NOT LIMITED TO, PARALYSIS, NERVE DAMAGE AND INFECTION. I AM PRESCRIBING THE PATIENT ANTIBIOTICS TO TAKE AFTER THE TRIAL FOR 10 DAYS. I EXPLAINED TO THE PATIENT THE PROCEDURE AND WHAT TO EXPECT. THE PATIENT UNDERSTANDS AND AGREES WITH THE TREATMENT PLAN. I, SLIME TOVAR, DOCUMENTED THE ABOVE INFORMATION ACTING A SCRIBE FOR DR. DUVALL. I HAVE REVIEWED THE ABOVE DOCUMENT, WRITTEN BY SLIME TOVAR, RAW JUICE WEIGHER, AND I VERIFY THAT IT IS ACCURATE. PROCEDURE CODES FA211 ESTABILISHED PATIENT [facility] CHARGE DISPOSITION & COMMUNICATION FOLLOW UP FOLLOW UP FOR LEAD PULL FRIDAY AFTER TRIAL (REASON: Sep OR DATE) ELECTRONICALLY SIGNED BY ALICIA DUVALL MD, MD ON 08/17/2020 AT 02:52 PM EDT DISCLAIMER : THIS IS A VISIT SUMMARY EXTRACTED FROM THE [employer] CHART. IT IS NOT A COPY OF THE [employer] PROGRESS NOTE. PORTILLO
== END ==
LOC: M PAIN 15:00
PROVIDERS: ATTEND Anesthesiology
DX: M96.1 Postlaminectomy syndrome, not elsewhere classified (principal); M51.16 Intervertebral disc disorders with radiculopathy, lumbar region; F07.81 Postconcussional syndrome; F41.9 Anxiety disorder, unspecified; G47.00 Insomnia, unspecified; F43.10 Post-traumatic stress disorder, unspecified; I10 Essential (primary) hypertension; G47.33 Obstructive sleep apnea (adult) (pediatric); Z91.82 Personal history of military deployment; Z98.1 Arthrodesis status; F17.220 Nicotine dependence, chewing tobacco, uncomplicated; Z79.891 Long term (current) use of opiate analgesic; Z79.899 Other long term (current) drug therapy

== ENCOUNTER → 2020-08-25 | Outpatient (CLI) | payer BC ==
[~2020-08-25] MED LIST changes: +AMLO1TAB24 PO; +ATOR80TA59 PO; +BISO5TAB14 PO; +DRIS50003 PO; +DULO60CA35 PO; +OMEP-221 PO; +SOMA350T PO
--- NOTE | 2020-08-29 13:35 | ECWPNPC ---
PATIENT NAME: MELODY BONDS : 1970 GENDER: MALE VISIT DATE: 08/25/2020 DISCHARGE DATE: 08/25/20943 VISIT LOCKED DATE TIME: PHYSICIAN: RON AMES PHYSICIAN PAGER NO: ACTIVE RESOURCE: RON AMES REASON FOR APPOINTMENT 1. MED MGMT HISTORY OF PRESENT ILLNESS DEPRESSION SCREENING: PHQ-2 (2015 EDITION) LITTLE INTEREST OR PLEASURE IN DOING THINGS?NOT AT ALL FEELING DOWN, DEPRESSED, OR HOPELESS?NOT AT ALL TOTAL SCORE0 GENERAL: HERE FOR FOLLOW-UP OF CHRONIC LOW BACK PAIN/RIGHT LEG PAIN. HE IS SCHEDULED FOR DORSAL COLUMN STIMULATOR TRIAL IN SEPTEMBER. FINDS INCREASE OF BELBUCA TO 600 UNITSG DAILY HELPFUL AT REDUCING HIS PAIN. HE IS USING OXYCODONE 5 MG PERIODICALLY FOR SEVERE PAIN EPISODES AND USES THIS INFREQUENTLY. FOLLOWING WITH [facility] FOR RIGHT SHOULDER AND RIGHT HIP/RIGHT KNEE PAIN .HAD MRI IMAGING OF THESE AREAS THROUGH [facility]. -. FALL RISK SCREENING: SCREENING :NO FALLS REPORTED IN THE LAST YEAR NONE PAIN SCREENING: PATIENT HAS A COMPLAINT OF ACUTE OR CHRONIC PAIN :YES LOCATION OF PAIN:NECK, LOW BACK INTENSITY OF PAIN (SCALE OF 1 TO 10):6 NECK/6 BACK/7 WHAT DOES YOUR PAIN FEEL LIKE:ACHING, BURNING, STABBING, TENDER DURATION:CONTINOUS, ALL DAY PAIN IS INCREASED BY:ACTIVITIES PAIN IS DECREASED BY:USE OF PAIN MEDICATIONS NURSING NOTE: -. PAIN CENTER INTAKE QUESTIONS: DO YOU HAVE A HISTORY OF MRSA? :NO DO YOU TAKE A BLOOD THINNERS? :NO DO YOU HAVE ANY BLEEDING DISORDERS? :NO ANY NEW NUMBNESS OR WEAKNESS IN YOUR LEGS OR ARMS? :NO ANY PACEMAKER,DEFIBRILLATOR, OR DORSAL COLUMN STIMULATOR? :NO DO YOU HAVE ANY RASHES OR OPEN SORES? :NO ARE YOU ALLERGIC TO IV DYE? :NO ARE YOU DIABETIC? :NO ANY NEW PROBLEMS WITH YOUR MEDICATIONS? :NO HAVE YOU RECEIVED A VACCINE IN THE PAST 30 DAYS? :NO DO YOU PLAN TO RECEIVE A VACCINE IN THE NEXT 21 DAYS? :NO DO YOU NEED ANY PRESCRIPTION? :YES OXYCODONE- KINNEYS IN ONEIL DO YOU TAKE ANY IMMUNOSUPPRESSIVE MEDICATIONS? :NO IS THERE A CHANCE YOU COULD BE ? :NO ARE YOU BREAST FEEDING? :NO CURRENT MEDICATIONS TAKING LIDODERM 5 % PATCH 1 PATCH TO SKIN REMOVE AFTER 12 HOURS - ON BACK EXTERNALLY ON 12 HOURS, OFF 12 HOURS DAILY NEEDED TAKING DRISDOL [id number] UNIT CAPSULE 1 CAPSULE ORALLY TWICE A WEEK TAKING ALEVE PM 1 CAP ORALLY BEFORE BEDTIME TAKING AMLODIPINE BESYLATE 5 MG TABLET 1 TABLET ORALLY ONCE A DAY TAKING ATORVASTATIN CALCIUM 80MG TABLET TAKE 1 TABLET DAILY ORALLY DAILY TAKING CLOBETASOL PROPIONATE 0.05 % GEL 1 APPLICATION EXTERNALLY TWICE A DAY TO BOTH ELBOWS NEEDED TAKING DULOXETINE HCL 60MG CAPSULE DELAYED RELEASE PARTICLES TAKE 1 CAPSULE DAILY TAKING BISOPROLOL FUMARATE 5MG TABLET TAKE 1 TABLET DAILY ORALLY ONCE A DAY TAKING LISINOPRIL 20MG TABLET TAKE 1 TABLET DAILY ORALLY DAILY TAKING BELBUCA 600 MCG FILM 1 FILM TO THE GUM BUCALLY DAILY MDD1 3 MOS SUPPLY CAT D CHRONIC PAIN TAKING OXYCODONE HCL 5 MG TABLET 1 TABLET NEEDED ORALLY EVERY 6 HRS PRN SEVERE PAIN MDD4 TAKING OMEPRAZOLE 40MG CAPSULE DELAYED RELEASE TAKE 1 CAPSULE DAILY ORALLY DAILY TAKING CARISOPRODOL 350 MG TABLET 1 TABLET NEEDED ORALLY FOR SPASMS AND PAIN EVERY 8 HOURS NEEDED MDD2 TAKING KEFLEX 500 MG CAPSULE DIRECTED ORALLY THREE TIMES DAILY NOT-TAKING CHLORTHALIDONE 25 MG TABLET 1 TABLET IN THE MORNING WITH FOOD ORALLY ONCE A DAY NOT-TAKING TIZANIDINE HCL 4 MG TABLET 1 TABLET NEEDED ORALLY DAILY PRN MEDICATION LIST REVIEWED AND RECONCILED WITH THE PATIENT PAST MEDICAL HISTORY 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 GRANT - [place] ) NECK/BACK PAIN SUBSEQUENT TO FALL 06/06/15- FOLLOWING WITH MEDICAL CENTER MANAGER IN [place] (DR. JENKINS) COMPRESSION FRACTURE L-1 S/P FALL - 07/14/2017 S/P ELECTIVE L4-L PDIF COMPLICATED BY HEMATOMA THAT WAS EVACUATED 01/2016 - DR. 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 SURGICAL HISTORY BROKEN FEMUR REPAIRED WITH RODS/PINS, RIGHT WRIST FRACTURE 06/07/15 FUSION L4-L5 01/2016 PUT A BIGGER RITA IN FEMUR 02/2016 RIGHT WRIST HARDWARE REMOVED 09/19/16 RIGHT FEMUR RITA REMOVED, PLATE AND SCREWS PLACED 01/2017 FAMILY HISTORY FATHER: 66 YRS, DIAGNOSED WITH OTHER SPECIFIED CONDITIONS INFLUENCING HEALTH STATUS MOTHER: ALIVE 69 YRS 1 SON(S) , 2 DAUGHTER(S) - HEALTHY. CANCER - GRANDMOTHER, UNCLES. SOCIAL HISTORY GENERAL: TOBACCO USE ADDITIONAL FINDINGS: TOBACCO USERCHEWS TOBACCO NOT INTERESTED IN QUITTING AT THIS TIME ADDITIONAL FINDINGS: TOBACCO NON-USER REFUSED SMOKING CESSATION INFORMATION AT THIS TIME. VAPOR PT STATES HE CONTINUES TO CHEW SMOKING CESSATION INFORMATION GIVEN02/02/2020 05/10/2020 DISCUSSED THE IMPORTANCE OF QUITTING CHEW LATEX QUESTIONNAIRE LATEX ALLERGY : HAVE YOU EVER DEVELOPED ANY TYPE OF REACTION AFTER HANDLING LATEX PRODUCTS SUCH RUBBER GLOVES, CONDOMS, DIAPHRAGMS, BALLOONS, SOCKS, OR UNDERWEAR?NO LATEX ALLERGY : HAVE YOU EVER DEVELOPED ANY TYPE OF REACTION DURING OR AFTER DENTAL APPOINTMENT, VAGINAL/RECTAL EXAMINATION, SURGICAL PROCEDURE, OR ANY OTHER EXPOSURE?NO LATEX RISK : HAVE YOU EVER HAD ANY DIFFICULTY BREATHING OR HIVES AFTER EATING OR HANDLING ANY FRUITS, OR VEGETABLES; SUCH KIWI, BANANAS, STONE FRUITS, OR CHESTNUTSNO LATEX RISK : DO YOU HAVE A PREVIOUS PERSONAL HISTORY OF MORE THAN NINE SURGERIES, SPINA BIFIDA, OR REPEATED CATHERIZATIONS? NO LATEX RISK : ARE YOU FREQUENTLY EXPOSED TO LATEX PRODUCTS IN YOUR OCCUPATION?NO DATE ASKED : 08/25/2020 BMI CARE GOAL FOLLOW-UP ABOVE NORMAL BMI FOLLOW-UPDIETARY MANAGEMENT EDUCATION, GUIDANCE, AND COUNSELING ALCOHOL SCREENING DID YOU HAVE A DRINK CONTAINING ALCOHOL IN THE PAST YEAR?YES HOW OFTEN DID YOU HAVE SIX OR MORE DRINKS ON ONE OCCASION IN THE PAST YEAR?LESS THAN MONTHLY (1 POINT) HOW MANY DRINKS DID YOU HAVE ON A TYPICAL DAY WHEN YOU WERE DRINKING IN THE PAST YEAR?3 OR 4 (1 POINT) HOW OFTEN DID YOU HAVE A DRINK CONTAINING ALCOHOL IN THE PAST YEAR?MONTHLY OR LESS (1 POINT) POINTS3 INTERPRETATIONNEGATIVE RECREATIONAL DRUG USE DRUG USE?NO CAFFEINE CAFFEINE USE?YES HOW OFTEN AND HOW MUCH? 2 CUPS OF COFFEE PER DAY SEXUAL HX HAD SEX IN THE LAST 12 MONTHS (VAGINAL, ORAL, OR ANAL)?YES WITHWOMEN ONLY USE PROTECTION?NO HAVE YOU EVER HAD AN STD?NO RESTORATIONISM [id number] NONE LANGUAGE LANGUAGES SPOKEN:SURINAMESE EDUCATION LEVEL OF EDUCATION:NOT FINISHED COLLEGE LEARNING BARRIERS / SPECIAL NEEDS CHANGE FROM LAST VISIT?NO BARRIERS TO LEARNING?NO HEARING IMPAIRED?NO VISION IMPAIRED?YES COGNITIVELY IMPAIRED?NO :CORRECTIVE LENSES READINESS TO LEARN?YES LEARNING PREFERENCES?NO LEARNING CAPABILITIES PRESENT?YES EMOTIONAL BARRIERS?NO SPECIAL DEVICES?NO MAINTENANCE COORDINATOR NEEDED?NO DOMESTIC VIOLENCE DO YOU FEEL SAFE IN YOUR ENVIRONMENT?YES OCCUPATION: DISABLED. DIET: REGULAR. EXERCISE: NO REGULAR EXERCISE. MARITAL STATUS: . PAIN CLINIC PFS, CLERGY, PUBLIC HEALTH REFERRALS PFS REFERRAL NEEDED?NO CLERGY REFERRAL NEEDED?NO PUBLIC HEALTH REFERRAL NEEDED?NO WAS THE PROVIDER NOTIFIED OF ANY PERTINENT INFO?YES HAS THE PATIENT BEEN EDUCATED REGARDING HIS/HER PLAN OF CARE?YES HAS THE PATIENT BEEN EDUCATED REGARDING PAIN, THE RISK FOR PAIN, THE IMPORTANCE OF EFFECTIVE PAIN MANAGEMENT, AND THE PAIN ASSESSMENT PROCESS?YES ADVANCE DIRECTIVE ADVANCE DIRECTIVE DISCUSSED WITH PATIENT:YES STATES HE HAS HCP & POA TAMERA BONDS [phone] AND [facility] WILL HOSPITALIZATION/MAJOR DIAGNOSTIC PROCEDURE ALL SURGICAL RELATED CHEST PAIN 10/2016 FX BACK AT L-1 07-14-17 REVIEW OF SYSTEMS REVIEWED BY: PROVIDER: RON MCGOVERN . CONSTITUTIONAL: ANY CHANGE IN YOUR MEDICAL CONDITION? NO . CHILLS NO . FEVER NO . INFECTION: DO YOU HAVE NEW INFECTIONS? NO . DO YOU HAVE HISTORY OF MRSA? NO . MUSCULOSKELETAL: ANY UNUSUAL JOINT PAIN OR SWELLING NOT MENTIONED NO . GASTROENTEROLOGY: ANY NEW CHANGE IN BOWEL CONTROL? NO . GENITOURINARY: ANY NEW CHANGE IN BLADDER CONTROL? NO . IS THERE A CHANCE YOU COULD BE ? NO . HEMATOLOGY/LYMPH: DO YOU TAKE ANY BLOOD THINNERS? (FOR EXAMPLE- COUMADIN, PLAVIX, AGGRENOX, PLATEL, PRADAXA, OR XARELTO) NO . WHEN WAS YOUR LAST DOSE? DATE: TIME: . NEUROLOGY: HAVE YOU FALLEN IN THE PAST 12 MONTHS? NO . OTHER NEW NUMBNESS OR PAIN PATTERNS NOT MENTIONED NO . CARDIOLOGY: DO YOU HAVE A PACEMAKER OR DEFIBRILLATOR? NO . RESPIRATORY: HAVE YOU BEEN SICK IN THE PAST WEEK? NO . FEVER NO . FLU LIKE SYMPTOMS? NO . COUGH NO . INTEGUMENTARY: DO YOU HAVE ANY RASHES OR OPEN SORES? NO . ALLERGIC/IMMUNO: ARE YOU ALLERGIC TO IV DYE? NO . ANY NEW ALLERGIES? NO . PSYCHIATRIC: DO YOU HAVE THOUGHTS OF HURTING YOURSELF OR SOMEONE ELSE? NO . ARE YOU ABUSED, NEGLECTED, OR IN AN UNSAFE ENVIRONMENT? NO . ENDOCRINOLOGY: ARE YOU DIABETIC? NO . OTHER: DO YOU NEED ANY PRESCRIPTIONS? NO . IF YES, PLEASE LIST: ____ . ANY NEW PROBLEMS WITH YOUR MEDICATIONS? NO . WHEN DID YOU LAST EAT? ____ . WHEN DID YOU LAST DRINK? ____ . WHAT DID YOU LAST DRINK? ____ . NAME OF PERSON DRIVING YOU HOME? ____ . DO YOU HAVE ANY OTHER QUESTIONS OR CONCERNS NO . VITAL SIGNS WT 250.0 LBS, HT 71 IN, BMI 34.86 INDEX, BP 172/93 MM HG, HR 66 /MIN, RR 18 /MIN, TEMP 97.5 F, OXYGEN SAT % 97%, SAFE IN ENV? (Y/N) YES, NA INITIALS AW 0909, REVIEWED BY: SHANICE. EXAMINATION GENERAL EXAMINATION: GENERALAWAKE,ALERT ,PLEASANT . PSYCHAFFECT NORMAL . LUNGS:LUNG MONTES ARE CLEAR TO AUSCULTATION BILATERALLY. GOOD MOVEMENT OF AIR . HEART:S1, S2 IN A REGULAR RATE AND RHYTHM. NO SIGNIFICANT MURMURS, RUBS OR GALLOPS NOTED . ASSESSMENTS LUMBAR POST-LAMINECTOMY SYNDROME - M96.1 (PRIMARY) INTERVERTEBRAL DISC DISORDERS WITH RADICULOPATHY, LUMBAR REGION - M51.16 CHRONIC PRESCRIPTION OPIATE USE - Z79.891 TREATMENT LUMBAR POST-LAMINECTOMY SYNDROME NOTES: ISTOP REGISTRY REVIEWED AND DEMONSTRATES COMPLLIANCE. BRINGS IN MEDICATIONS WHICH IS APPROPRIATE FOR WHAT WAS DISPENSED. RECENT URINE TOXICOLOGY REVIEWED. NO UNAUTHORIZED MEDICATIONS. NO ILLICIT SUBSTANCES AND PRESCRIBED MEDICATIONS WERE PRESENT. URINE TOXICOLOGY , RISKS OF NARCOTIC/OPIOD MEDICATIONS INCLUDES BUT IS NOT LIMITED TO RISK OF DEPENDANCE/DEVELOPMENT OF ADDICTION, MOOD DISTURBANCE AND DEPRESSION, OSTEOPOROSIS, HORMONAL AND LABIDAL CHANGES, RESPIRATORY DEPRESSION AND . PATIENT IS ADVISED NOT TO DRIVE OR DRINK ALCOHOL WHILE ON THESE MEDICATIONS. PROCEDURE CODES FA211 ESTABILISHED PATIENT [facility] CHARGE DISPOSITION & COMMUNICATION FOLLOW UP 3 MONTHS (REASON: MEDICATION MANAGEMENT/LOW BACK PAIN/POST DORSAL COLUMN STIM TRIAL) ELECTRONICALLY SIGNED BY FROILAN POPE ON 08/29/2020 AT 11:14 AM EDT DISCLAIMER : THIS IS A VISIT SUMMARY EXTRACTED FROM THE [employer] CHART. IT IS NOT A COPY OF THE anchor[employer] PROGRESS NOTE. RAHELD
== END ==
LOC: M PAIN 09:15
PROVIDERS: ATTEND Nurse Practitioner Family
DX: M96.1 Postlaminectomy syndrome, not elsewhere classified (principal); M51.16 Intervertebral disc disorders with radiculopathy, lumbar region; G47.00 Insomnia, unspecified; I10 Essential (primary) hypertension; F17.220 Nicotine dependence, chewing tobacco, uncomplicated; Z87.820 Personal history of traumatic brain injury; Z86.59 Personal history of other mental and behavioral disorders; Z79.891 Long term (current) use of opiate analgesic; Z79.899 Other long term (current) drug therapy

== ENCOUNTER → 2020-08-30 | Outpatient (REF) | payer BC ==
[2020-08-30 17:16] LABS: HEMATOCRIT 42.6 % (42.0-52.0); HEMOGLOBIN 14.3 g/dl (13.5-17.5); MEAN CORPUSCULAR HEMOGLOBIN 29.2 pg (27.0-33.0); MEAN CORPUSCULAR HGB CONC 33.6 g/dl (32.0-36.5); MEAN CORPUSCULAR VOLUME 87.1 fl (80.0-96.0); PLATELET COUNT, AUTOMATED 196 10^3/uL (150-450); RED BLOOD COUNT 4.89 10^6/uL (4.30-6.10); WHITE BLOOD COUNT 6.4 10^3/uL (4.0-10.0)
[2020-08-30 17:26] LABS: INR 0.89; PROTHROMBIN TIME 12.2 SECONDS (12.5-14.3)
[2020-08-30 17:45] LABS: ALBUMIN 3.8 GM/DL (3.2-5.2); ALT/SGPT 42 U/L (12-78); BILIRUBIN,TOTAL 0.3 MG/DL (0.2-1.0); BLOOD UREA NITROGEN 16 MG/DL (7-18); CALCIUM LEVEL 8.9 MG/DL (8.5-10.1); CARBON DIOXIDE LEVEL 28 MEQ/L (21-32); CHLORIDE LEVEL 107 MEQ/L (98-107); CREATININE FOR GFR 1.04 MG/DL (0.70-1.30); GLOMERULAR FILTRATION RATE > 60.0 (>60); GLUCOSE, FASTING 88 MG/DL (70-100); POTASSIUM SERUM 4.5 MEQ/L (3.5-5.1); SODIUM LEVEL 140 MEQ/L (136-145); TOTAL PROTEIN 6.5 GM/DL (6.4-8.2)
== END ==
LOC: M SFHCADAM 14:10
PROVIDERS: ATTEND Physician Assistant
DX: Z01.812 Encounter for preprocedural laboratory examination (principal)

== ENCOUNTER → 2020-08-30 | Outpatient (CLI) | payer BC | LOC: M LABSMTC 09:26 | PROVIDERS: ATTEND Anesthesiology | DX: Z01.818 Encounter for other preprocedural examination (principal) | CPT/HCPCS: C9803; U0003 ==

== ENCOUNTER 2020-09-04 10:01 | Day surgery (SDC) | payer BC ==
[~2020-09-04] VITALS: Ht 180.3 cm; Wt 111.1 kg
[~2020-09-04 10:01] MED LIST changes: -AMLO1TAB24 PO; -ATOR80TA59 PO; -BISO5TAB14 PO; -DRIS50003 PO; -DULO60CA35 PO; +LR 1,000 ML IV ONE; -OMEP-221 PO; -SOMA350T PO
[2020-09-04] MEDS ORDERED: ceFAZolin SOD 2 GM in IV 1 EA IV ONE (10:30)
[2020-09-04] MEDS ORDERED: LIDOCAINE W/EPINEPHRINE 1% 20ML VIAL As Ordered ONE ×2 (11:18→12:06)
[2020-09-04] MEDS ORDERED: MIDAZOLAM INJ 2MG/2ML VIAL (J2250 PER 1MG) As Ordered ONE (11:21)
[2020-09-04] MEDS ORDERED: fentaNYL 100 MCG/2 ML INJECTION (J3010) As Ordered ONE ×2 (11:22→13:20)
--- NOTE | 2020-09-04 13:16 | REP ---
INDICATION: LUMBAR POST LAMINECTOMY PAIN SYNDROME,LUMBAR DISC DISORDER. COMPARISON: None. TECHNIQUE: Three C-arm views midthoracic region performed. FINDINGS: Dorsal column stimulator leads are seen in the thoracic region. IMPRESSION: 352 seconds fluoroscopy time utilized for the procedure. <Electronically signed by Bora Devries > 09/04/20 1359
[2020-09-04] MEDS ORDERED: oxyCODONE 5MG TAB As Ordered ONE (13:20)
[2020-09-04] MEDS ORDERED: METOCLOPRAMIDE INJ 10MG/2ML VIAL (J2765 PER 1) IV PRN (13:45)
[2020-09-04] MEDS ORDERED: LR 1,000 ML IV SCH (13:45)
[2020-09-04] MEDS ORDERED: oxyCODONE 5MG TAB PO PRN (13:45)
[2020-09-04] MEDS ORDERED: ONDANSETRON 4MG/2ML VIAL IV PRN (13:45)
[2020-09-04] MEDS ORDERED: MEPERIDINE INJ 25 MG/ML VIAL (J2175) IV PRN (13:45)
[2020-09-04] MEDS ORDERED: fentaNYL 100 MCG/2 ML INJECTION (J3010) IV PRN (13:45)
[2020-09-04 14:30] VITALS: BP 150/98
[2020-09-04] MEDS ORDERED: NITROGLYCERIN 0.4 MG SUBL TABLET SL PRN (14:45)
--- NOTE | 2020-09-04 14:53 | CR.PDOC ---
General Date of Consultation: Sep 04, 2020 Consultation REASON FOR CONSULTATION/CHIEF COMPLAINT: Medical management HISTORY OF PRESENT ILLNESS: Patient is 50 years old male with past medical history of hypertension, hyperlipidemia, TBI, femur fracture, chronic back pain was admitted for spinal cord stimulation due to chronic back pain. Procedure was done today, patient tolerates procedure well. Patient denied fever, chills, nausea, vomiting, diarrhea or dysuria ALLERGIES: Please see below. HOME MEDICATIONS: Please see below. PAST MEDICAL HISTORY: hypertension, hyperlipidemia, TBI, femur fracture, chronic back pain PAST SURGICAL HISTORY: Femur fracture, wrist fracture FAMILY HISTORY: I personally reviewed family history and found not pertinent SOCIAL HISTORY: Patient chewed tobacco, denied alcohol and drug abuse REVIEW OF SYSTEMS: 10 point review system negative except as listed above PHYSICAL EXAMINATION: VITAL SIGNS: Please see below. GENERAL APPEARANCE: NAD HEENT: no scleral icterus, no JVD, EOMI CARDIOVASCULAR: S1S2 LUNGS: CTA ABDOMEN: soft & not tender w palpitation MUSCULOSKELETAL: no cyanosis, no swelling INTEGUMENT: no generalized palor NEUROLOGICAL: cranial nerve function from 2-12 intact intact, follows commands, speech not dysarthric LABORATORY DATA: Please see below. ASSESSMENT/PLAN: HTN continue home meds Lisinopril 10 mg once now HLD continue statin Back pain/ s/p spinal cord implantation Pain management DVT Heparin 5000 BID Vital Signs/I&O Vital Signs Date Time Temp Pulse Resp B/P (MAP) Pulse Ox O2 Delivery O2 Flow Rate FiO2 09/04/20 13:55 97.2 60 18 134/82 (99) 97 Room Air Allergies Coded Allergies: No Known Allergies (Unverified , 09/04/20) Home Medications Scheduled Aspirin (Aspirin) 325 Mg Tab, 325 MG PO DAILY, #30 Atorvastatin Calcium (Atorvastatin Calcium) 20 Mg Tab, 80 MG PO QHS, #30 Buprenorphine HCl (Belbuca) 600 Mcg Film, 600 MCG PO DAILY, (Reported) Duloxetine Hcl (Duloxetine HCl) 30 Mg Cap, 30 MG PO BID, (Reported) Ergocalciferol (Vitamin D2) (Ergocalciferol) 200 Mcg/1 Ml Drops, 50,000 UNITS PO 1XWK, (Reported) Lisinopril (Lisinopril) 5 Mg Tab, 5 MG PO DAILY, #30 Metoprolol Tartrate (Metoprolol Tartrate) 25 Mg Tab, 12.5 MG PO BID, #30 Pantoprazole Sodium (Pantoprazole Sodium) 40 Mg Tab, 40 MG PO BID, #60 Scheduled PRN Nitroglycerin (Nitrostat) 0.4 Mg Subl, 0.4 MG SL Q5MP PRN for CHEST PAIN, #20 put one tab under tongue if chest pain - may repeat every 5 minutes in needed - max dose of 3 tabs Oxycodone Hcl (Oxycodone HCl) 15 Mg Tablet, 5 MG PO TIDP PRN for PAIN OR DYSPNEA, (Reported) NIRMAL MCCORMACK DO Sep 04, 2020 14:53
[2020-09-04 15:06] VITALS: BP 138/86
[2020-09-04] MEDS ORDERED: ATOR80TA59 PO (15:08)
[2020-09-04] MEDS ORDERED: AMLO1TAB24 PO (15:08)
[2020-09-04] MEDS ORDERED: BISO5TAB14 PO (15:08)
[2020-09-04] MEDS ORDERED: SOMA350T PO (15:08)
[2020-09-04] MEDS ORDERED: DULO60CA35 PO (15:08)
[2020-09-04] MEDS ORDERED: LISI-542 PO (15:08)
[2020-09-04] MEDS ORDERED: NITR4TASL SL (15:08)
[2020-09-04] MEDS ORDERED: DRIS50003 PO (15:08)
[2020-09-04] MEDS ORDERED: OMEP-221 PO (15:08)
[2020-09-04] MEDS: oxyCODONE 5MG TAB PO PRN ×2 (15:19→21:13)
[2020-09-04 16:00] VITALS: BP 139/89
[2020-09-04 17:00] VITALS: BP 148/81
[2020-09-04] MEDS: ceFAZolin SOD 1 GM in D5W MINI-BAG PLUS 50 ML IV SCH (17:12)
[2020-09-04] MEDS ORDERED: lisinopriL 10 MG TAB PO ONE (17:30)
[2020-09-04] MEDS: HEPARIN SOD (PORCINE) 5000UNITS/ML 1ML VIAL/SYRINGE SQ SCH (20:06)
[2020-09-04] MEDS: DULoxetine 30 MG CAP (CYMBALTA) PO SCH (20:07)
[2020-09-04] MEDS ORDERED: ATORVASTATIN 20 MG TAB PO SCH (21:00)
[2020-09-04] MEDS ORDERED: PANTOPRAZOLE 40MG TAB (PROTONIX) PO SCH (21:00)
[2020-09-04] MEDS ORDERED: METOPROLOL TART 25 MG TABLET PO SCH (21:00)
[2020-09-04 22:00] VITALS: BP 113/66
[2020-09-05 02:00] VITALS: BP 134/75
[2020-09-05] MEDS: ceFAZolin SOD 1 GM in D5W MINI-BAG PLUS 50 ML IV SCH (02:08)
[2020-09-05] MEDS: oxyCODONE 5MG TAB PO PRN (04:39)
[2020-09-05 06:00] VITALS: BP 160/90
[2020-09-05 08:00] VITALS: BP 160/90
[2020-09-05] MEDS: DULoxetine 30 MG CAP (CYMBALTA) PO SCH (08:00)
[2020-09-05] MEDS: HEPARIN SOD (PORCINE) 5000UNITS/ML 1ML VIAL/SYRINGE SQ SCH (08:01)
[2020-09-05] MEDS ORDERED: ASPIRIN 81 MG CHEW TABLET PO SCH (09:00)
[2020-09-05] MEDS ORDERED: lisinopriL 5 MG TAB PO SCH (09:00)
[2020-09-05] MEDS ORDERED: amLODIPine 5 MG TAB PO SCH (09:00)
[2020-09-05] MEDS ORDERED: bisoproloL fumarate 5 MG TAB PO SCH (09:00)
[2020-09-05] MEDS ORDERED: OMEPRAZOLE 20 MG CAP PO SCH (09:00)
[2020-09-05 10:00] VITALS: BP 136/77
== END 2020-09-05 10:40 | disposition home or self-care (01) ==
LOC: M SDC 10:01 → M MS5PR 14:20 → M SDC 09-05 10:40
PROVIDERS: ATTEND Anesthesiology
DX: M96.1 Postlaminectomy syndrome, not elsewhere classified (principal); I10 Essential (primary) hypertension; E78.00 Pure hypercholesterolemia, unspecified; K21.9 Gastro-esophageal reflux disease without esophagitis; Z87.820 Personal history of traumatic brain injury; Z79.899 Other long term (current) drug therapy
CPT/HCPCS: 63650; 76000; 96372; 96374; 96376; C1778; J0690; J1644; J2250; J3010

== ENCOUNTER → 2020-09-08 | Outpatient (CLI) | payer BC ==
[~2020-09-08] MED LIST changes: +AMLO1TAB24 PO; +ATOR80TA59 PO; +BISO5TAB14 PO; +DRIS50003 PO; +DULO60CA35 PO; -LR 1,000 ML IV ONE; +OMEP-221 PO; +SOMA350T PO
--- NOTE | 2020-09-08 15:54 | REP ---
INDICATION: DCS LEAD PULL. Pain COMPARISON: None. TECHNIQUE: Two C-arm views thoracic region performed. FINDINGS: Dorsal column stimulator leads are present in the midthoracic region. IMPRESSION: 9 seconds fluoroscopy time utilized. <Electronically signed by Bora Devries > 09/08/20 [id number]
--- NOTE | 2020-09-14 04:06 | ECWPNPC ---
PATIENT NAME: MELODY BONDS : 1970 GENDER: MALE VISIT DATE: 09/08/2020 DISCHARGE DATE: 09/08/20 1225 VISIT LOCKED DATE TIME: PHYSICIAN: ALICIA DUVALL MD PHYSICIAN PAGER NO: ACTIVE RESOURCE: ALICIA DUVALL MD REASON FOR APPOINTMENT 1. DCS LEAD PULL HISTORY OF PRESENT ILLNESS GENERAL: 50-YEAR-OLD MALE PATIENT WITH A HISTORY OF CHRONIC BACK AND MAINLY RIGHT LEG PAIN. A SPINAL COLUMN STIMULATOR TRIAL WAS STARTED ON FRIDAY AND HE IS HERE TODAY TO HAVE THE LEADS REMOVED. HE HAS BEEN ABLE TO FUNCTION BETTER AND STATES THAT HE HAD MORE THAN 80% REDUCTION OF PAIN. HE EXPRESSED THAT HE WANTS TO MOVE FORWARD WITH THE IMPLANT. HE DENIES FEVERS OR ISSUES DURING THE TRIAL. FALL RISK SCREENING: SCREENING :NO FALLS REPORTED IN THE LAST YEAR PAIN SCREENING: PATIENT HAS A COMPLAINT OF ACUTE OR CHRONIC PAIN :YES LOCATION OF PAIN:LOW BACK INTENSITY OF PAIN (SCALE OF 1 TO 10):1 WHAT DOES YOUR PAIN FEEL LIKE:ACHING DULL DURATION:INTERMITTENT DEPENDING ON ACTIVITIES PAIN IS INCREASED BY:ACTIVITIES, PROLONGED STANDING PAIN IS DECREASED BY:OTHERS DCS TRIAL NURSING NOTE: -. PAIN CENTER INTAKE QUESTIONS: DO YOU HAVE A HISTORY OF MRSA? :NO DO YOU TAKE A BLOOD THINNERS? :NO DO YOU HAVE ANY BLEEDING DISORDERS? :NO ANY NEW NUMBNESS OR WEAKNESS IN YOUR LEGS OR ARMS? :NO ANY PACEMAKER,DEFIBRILLATOR, OR DORSAL COLUMN STIMULATOR? :YES DCS TRIAL DO YOU HAVE ANY RASHES OR OPEN SORES? :NO ARE YOU ALLERGIC TO IV DYE? :NO ARE YOU DIABETIC? :NO ANY NEW PROBLEMS WITH YOUR MEDICATIONS? :NO HAVE YOU RECEIVED A VACCINE IN THE PAST 30 DAYS? :NO DO YOU PLAN TO RECEIVE A VACCINE IN THE NEXT 21 DAYS? :NO DO YOU TAKE ANY IMMUNOSUPPRESSIVE MEDICATIONS? :NO ANY HISTORY OF SEIZURES? :NO ANY HISTORY OF CARDIAC ISSUES OR EVENTS? :YES SEE PMH, PATIENT DENIES DO YOU HAVE SLEEP APNEA? :NO ANY RECENT HEAD INJURY? :NO DO YOU HAVE ANY NEW INFECTIONS? :NO IS THERE A CHANCE YOU COULD BE ? :NO ARE YOU BREAST FEEDING? :NO WHEN DID YOU LAST EAT? : N/A WHEN DID YOU LAST DRINK? : N/A WHAT DID YOU LAST DRINK? : N/A NAME OF PERSON DRIVING YOU HOME? : N/A DO YOU HAVE ANY OTHER QUESTIONS OR CONCERNS? : NO CURRENT MEDICATIONS TAKING LIDODERM 5 % PATCH 1 PATCH TO SKIN REMOVE AFTER 12 HOURS - ON BACK EXTERNALLY ON 12 HOURS, OFF 12 HOURS DAILY NEEDED TAKING DRISDOL 01419 UNIT CAPSULE 1 CAPSULE ORALLY TWICE A WEEK, NOTES: MON 09/05 TAKING ALEVE PM 1 CAP ORALLY BEFORE BEDTIME TAKING AMLODIPINE BESYLATE 5 MG TABLET 1 TABLET ORALLY ONCE A DAY TAKING CLOBETASOL PROPIONATE 0.05 % GEL 1 APPLICATION EXTERNALLY TWICE A DAY TO BOTH ELBOWS NEEDED TAKING BELBUCA 600 MCG FILM 1 FILM TO THE GUM BUCALLY DAILY MDD1 3 MOS SUPPLY CAT D CHRONIC PAIN TAKING CARISOPRODOL 350 MG TABLET 1 TABLET NEEDED ORALLY FOR SPASMS AND PAIN EVERY 8 HOURS NEEDED MDD2 TAKING OXYCODONE HCL 5 MG TABLET 1 TABLET NEEDED ORALLY EVERY 6 HRS PRN SEVERE PAIN MDD4 TAKING OMEPRAZOLE 40MG CAPSULE DELAYED RELEASE TAKE 1 CAPSULE DAILY ORALLY DAILY TAKING LISINOPRIL 20MG TABLET TAKE 1 TABLET DAILY ORALLY DAILY TAKING BISOPROLOL FUMARATE 5MG TABLET TAKE 1 TABLET DAILY ORALLY ONCE A DAY TAKING DULOXETINE HCL 60MG CAPSULE DELAYED RELEASE PARTICLES TAKE 1 CAPSULE DAILY ORALLY DAILY TAKING ATORVASTATIN CALCIUM 80MG TABLET TAKE 1 TABLET DAILY ORALLY DAILY NOT-TAKING KEFLEX 500 MG CAPSULE DIRECTED ORALLY THREE TIMES DAILY, NOTES: TO BE STARTED AFTER DORSAL COLUMN STIMULATOR IMPLANTATION MEDICATION LIST REVIEWED AND RECONCILED WITH THE PATIENT PAST MEDICAL HISTORY 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 GRANT - [place] ) NECK/BACK PAIN SUBSEQUENT TO FALL 06/06/15- FOLLOWING WITH MANAGER TECHNICAL SUPPORT IN [place] (DR. JENKINS) COMPRESSION FRACTURE L-1 S/P FALL - 07/14/2017 S/P ELECTIVE L4-L PDIF COMPLICATED BY HEMATOMA THAT WAS EVACUATED 01/2016 - DR. 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 SURGICAL HISTORY BROKEN FEMUR REPAIRED WITH RODS/PINS, RIGHT WRIST FRACTURE 06/07/15 FUSION L4-L5 01/2016 PUT A BIGGER RITA IN FEMUR 02/2016 RIGHT WRIST HARDWARE REMOVED 09/19/16 RIGHT FEMUR RITA REMOVED, PLATE AND SCREWS PLACED 01/2017 DCS TRIAL 09/04/20 FAMILY HISTORY FATHER: 66 YRS, DIAGNOSED WITH OTHER SPECIFIED CONDITIONS INFLUENCING HEALTH STATUS MOTHER: ALIVE 69 YRS 1 SON(S) , 2 DAUGHTER(S) - HEALTHY. CANCER - GRANDMOTHER, UNCLES. SOCIAL HISTORY GENERAL: TOBACCO USE ADDITIONAL FINDINGS: TOBACCO USERCHEWS TOBACCO NOT INTERESTED IN QUITTING AT THIS TIME SMOKING CESSATION INFORMATION GIVEN09/07/2020 LATEX QUESTIONNAIRE LATEX ALLERGY : HAVE YOU EVER DEVELOPED ANY TYPE OF REACTION AFTER HANDLING LATEX PRODUCTS SUCH RUBBER GLOVES, CONDOMS, DIAPHRAGMS, BALLOONS, SOCKS, OR UNDERWEAR?NO LATEX ALLERGY : HAVE YOU EVER DEVELOPED ANY TYPE OF REACTION DURING OR AFTER DENTAL APPOINTMENT, VAGINAL/RECTAL EXAMINATION, SURGICAL PROCEDURE, OR ANY OTHER EXPOSURE?NO LATEX RISK : HAVE YOU EVER HAD ANY DIFFICULTY BREATHING OR HIVES AFTER EATING OR HANDLING ANY FRUITS, OR VEGETABLES; SUCH KIWI, BANANAS, STONE FRUITS, OR CHESTNUTSNO LATEX RISK : DO YOU HAVE A PREVIOUS PERSONAL HISTORY OF MORE THAN NINE SURGERIES, SPINA BIFIDA, OR REPEATED CATHERIZATIONS? NO LATEX RISK : ARE YOU FREQUENTLY EXPOSED TO LATEX PRODUCTS IN YOUR OCCUPATION?NO DATE ASKED : 09/07/2020 BMI CARE GOAL FOLLOW-UP ABOVE NORMAL BMI FOLLOW-UPDIETARY MANAGEMENT EDUCATION, GUIDANCE, AND COUNSELING ALCOHOL SCREENING DID YOU HAVE A DRINK CONTAINING ALCOHOL IN THE PAST YEAR?YES HOW OFTEN DID YOU HAVE SIX OR MORE DRINKS ON ONE OCCASION IN THE PAST YEAR?LESS THAN MONTHLY (1 POINT) HOW MANY DRINKS DID YOU HAVE ON A TYPICAL DAY WHEN YOU WERE DRINKING IN THE PAST YEAR?3 OR 4 (1 POINT) HOW OFTEN DID YOU HAVE A DRINK CONTAINING ALCOHOL IN THE PAST YEAR?MONTHLY OR LESS (1 POINT) POINTS3 INTERPRETATIONNEGATIVE RECREATIONAL DRUG USE DRUG USE?NO CAFFEINE CAFFEINE USE?YES HOW OFTEN AND HOW MUCH? 2 CUPS OF COFFEE PER DAY SEXUAL HX HAD SEX IN THE LAST 12 MONTHS (VAGINAL, ORAL, OR ANAL)?YES WITHWOMEN ONLY USE PROTECTION?NO HAVE YOU EVER HAD AN STD?NO YARSANI [id number] NONE LANGUAGE LANGUAGES SPOKEN:SAMI EDUCATION LEVEL OF EDUCATION:NOT FINISHED COLLEGE LEARNING BARRIERS / SPECIAL NEEDS CHANGE FROM LAST VISIT?NO BARRIERS TO LEARNING?NO HEARING IMPAIRED?NO VISION IMPAIRED?YES COGNITIVELY IMPAIRED?NO :CORRECTIVE LENSES READINESS TO LEARN?YES LEARNING PREFERENCES?NO LEARNING CAPABILITIES PRESENT?YES EMOTIONAL BARRIERS?NO SPECIAL DEVICES?NO TUBE MAKER NEEDED?NO DOMESTIC VIOLENCE DO YOU FEEL SAFE IN YOUR ENVIRONMENT?YES OCCUPATION: DISABLED. DIET: REGULAR. EXERCISE: NO REGULAR EXERCISE. MARITAL STATUS: . PAIN CLINIC PFS, CLERGY, PUBLIC HEALTH REFERRALS PFS REFERRAL NEEDED?NO CLERGY REFERRAL NEEDED?NO PUBLIC HEALTH REFERRAL NEEDED?NO WAS THE PROVIDER NOTIFIED OF ANY PERTINENT INFO?YES HAS THE PATIENT BEEN EDUCATED REGARDING HIS/HER PLAN OF CARE?YES HAS THE PATIENT BEEN EDUCATED REGARDING PAIN, THE RISK FOR PAIN, THE IMPORTANCE OF EFFECTIVE PAIN MANAGEMENT, AND THE PAIN ASSESSMENT PROCESS?YES ADVANCE DIRECTIVE ADVANCE DIRECTIVE DISCUSSED WITH PATIENT:YES STATES HE HAS HCP & POA TAMERA BONDS [phone] AND LIVING WILL HOSPITALIZATION/MAJOR DIAGNOSTIC PROCEDURE ALL SURGICAL RELATED CHEST PAIN 10/2016 FX BACK AT L-1 07-14-17 VITAL SIGNS WT 246.8 LBS, HT 71 IN, BMI 34.42 INDEX, BP 167/92 MM HG, HR 63 /MIN, RR 18 /MIN, TEMP 97.0 F, OXYGEN SAT % 99%, SAFE IN ENV? (Y/N) Y, NA INITIALS AW 1057, REVIEWED BY: JSJ. MARIJA RN. EXAMINATION GENERAL EXAMINATION: THE PATIENT IS ALERT, ORIENTED TIMES THREE AND COOPERATIVE. WE SAW THE LEADS UNDER X-RAY. THE LEADS ARE MAINLY AT T7, T8, T9 AND THE MAIN STIMULATION WAS AT T7, T8. WE TOOK X-RAYS AND KEPT THEM IN THE EMR FOR FUTURE REFERENCES. I REMOVED THE LEADS GENTLY AND THEY WERE REMOVED COMPLETELY WITHOUT COMPLICATIONS. I CHECKED THE SURGICAL SITES AND THERE WERE NO AREAS OF INFECTION. I CLEANED THE AREA WITH DURAPREP. ASSESSMENTS POST LAMINECTOMY SYNDROME - M96.1 (PRIMARY) BACK PAIN - M54.9 TREATMENT POST LAMINECTOMY SYNDROME CLINICAL NOTES: I DISCUSSED ALTERNATIVES WITH MR. BONDS. THE PATIENT WOULD LIKE TO MOVE FORWARD WITH THE IMPLANT AND I WILL REFER HIM TO DR. TEAGUE IN [place]. THE PATIENT WAS REMINDED TO CONTINUE THE ANTIBIOTICS UNTIL FRIDAY AND NOT TO SUBMERGE IN WATER. THE PATIENT UNDERSTANDS AND AGREES WITH THE PLAN. I, SLIME TOVAR, DOCUMENTED THE ABOVE INFORMATION ACTING A SCRIBE FOR DR. DUVALL. I HAVE REVIEWED THE ABOVE DOCUMENT, WRITTEN BY SLIME TOVAR, RECRUITMENT COORDINATOR, AND I VERIFY THAT IT IS ACCURATE. BACK PAIN [facility] FLUORO GUIDANCE (PAIN)[id number] OTHERS NOTES: PAT COMPLETED 09/07/20 1130 Dane BERRY RN BSN. PROCEDURE CODES 07152 NO CHARGE VISIT GLOBAL NO CHARGE-DCS TRIAL DISPOSITION & COMMUNICATION FOLLOW UP FOLLOW UP WITH MOISTURE TESTER (REASON: MED MANAGEMENT ) ELECTRONICALLY SIGNED BY ALICIA DUVALL MD, ON 09/13/2020 AT 01:22 PM EST DISCLAIMER : THIS IS A VISIT SUMMARY EXTRACTED FROM THE [employer] CHART. IT IS NOT A COPY OF THE [employer] PROGRESS NOTE. MTDD
== END ==
LOC: M PAIN 11:30
PROVIDERS: ATTEND Anesthesiology
DX: M96.1 Postlaminectomy syndrome, not elsewhere classified (principal); M54.9 Dorsalgia, unspecified; G47.00 Insomnia, unspecified; I10 Essential (primary) hypertension; F17.220 Nicotine dependence, chewing tobacco, uncomplicated; G47.33 Obstructive sleep apnea (adult) (pediatric); Z96.89 Presence of other specified functional implants; Z87.820 Personal history of traumatic brain injury; Z86.59 Personal history of other mental and behavioral disorders; Z79.891 Long term (current) use of opiate analgesic; Z79.899 Other long term (current) drug therapy
CPT/HCPCS: 76000; G0463

== ENCOUNTER → 2020-10-12 | Outpatient (CLI) | payer BC ==
--- NOTE | 2020-10-12 09:28 | REP ---
INDICATION: CHEST PAIN. COMPARISON: PA and lateral chest dated 07/18/2014 and portable chest dated 10/08/2016. TECHNIQUE: PA and lateral chest three views single PA and 2 lateral views. FINDINGS: The lung hogan are clear. Cardiac size is normal. The adriana, mediastinum and skeletal structures are unremarkable. IMPRESSION: Essentially negative PA and lateral chest <Electronically signed by Bora Enamorado > 10/12/20 0924
[2020-10-12 10:22] LABS: BASO % 0.4 % (0.0-1.0); EOS % 0.5 % (0.0-3.0); HEMATOCRIT 43.4 % (42.0-52.0); HEMOGLOBIN 14.4 g/dl (13.5-17.5); LYMPH # 2.4 10^3/uL (1.5-5.0); LYMPH % 30.7 % (24.0-44.0); MEAN CORPUSCULAR HGB CONC 33.2 g/dl (32.0-36.5); MEAN CORPUSCULAR VOLUME 87.5 fl (80.0-96.0); MONO # 0.6 10^3/uL (0.0-0.8); MONO % 7.1 % (0.0-5.0); NEUTROPHILS # 4.8 10^3/uL (1.5-8.5); PLATELET COUNT, AUTOMATED 198 10^3/uL (150-450); RED BLOOD COUNT 4.96 10^6/uL (4.30-6.10); WHITE BLOOD COUNT 7.9 10^3/uL (4.0-10.0)
[2020-10-12 10:54] LABS: ALT/SGPT 34 U/L (12-78); BILIRUBIN,TOTAL 0.4 MG/DL (0.2-1.0); BLOOD UREA NITROGEN 14 MG/DL (7-18); CALCIUM LEVEL 9.2 MG/DL (8.5-10.1); CARBON DIOXIDE LEVEL 30 MEQ/L (21-32); CHLORIDE LEVEL 106 MEQ/L (98-107); CK-MB VALUE MASS < 1.0 NG/ML (<3.6); CPK CREATINE PHOSPHOKINASE 100 U/L (39-308); CREATININE FOR GFR 1.03 MG/DL (0.70-1.30); GLOMERULAR FILTRATION RATE > 60.0 (>60); GLUCOSE, FASTING 109 MG/DL (70-100); NT-PRO BNP 133 PG/ML (<125); POTASSIUM SERUM 4.6 MEQ/L (3.5-5.1); SODIUM LEVEL 139 MEQ/L (136-145); TOTAL PROTEIN 6.8 GM/DL (6.4-8.2); TROPONIN I < 0.02 NG/ML (< 0.10)
== END ==
LOC: M WUC 08:52
PROVIDERS: ATTEND Nurse Practitioner Family
DX: R07.9 Chest pain, unspecified (principal)

== ENCOUNTER → 2020-12-07 | Outpatient (REF) | payer BC ==
[~2020-12-07] MED LIST changes: +GABA-282 PO; -GABA-843 PO; -LISI-542 PO; +LISI-898 PO
[2020-12-07 14:43] LABS: CHOLESTEROL RISK RATIO 3.885 (<5)
[2020-12-07 17:36] LABS: HEMOGLOBIN A1c 5.8 %
== END ==
LOC: M SFHCADAM 08:18
PROVIDERS: ATTEND Physician Assistant
DX: R73.01 Impaired fasting glucose (principal); E78.1 Pure hyperglyceridemia

== ENCOUNTER → 2021-03-12 | Outpatient (CLI) | payer BC ==
--- NOTE | 2021-03-14 03:27 | ECWPNPC ---
PATIENT NAME: MELODY BONDS : 1970 GENDER: MALE VISIT DATE: 03/12/2021 DISCHARGE DATE: 03/12/21 1036 VISIT LOCKED DATE TIME: PHYSICIAN: RON AMES PHYSICIAN PAGER NO: ACTIVE RESOURCE: RON AMES REASON FOR APPOINTMENT 1. MEDICATION MANAGEMENT HISTORY OF PRESENT ILLNESS DEPRESSION SCREENING: PHQ-2 (2015 EDITION) LITTLE INTEREST OR PLEASURE IN DOING THINGS?NOT AT ALL FEELING DOWN, DEPRESSED, OR HOPELESS?NOT AT ALL TOTAL SCORE0 GENERAL: HERE FOR FOLLOW-UP AND MEDICATION MANAGEMENT OF CHRONIC LOW BACK PAIN. HAD DORSAL COLUMN STIMULATOR PLACED A FEW MONTHS AGO. REPORTING MARKED REDUCTION IN PAIN AND IMPROVED ACTIVITY TOLERANCE SINCE THIS WAS PLACED. HE IS VERY PLEASED. CONTINUES WITH BELBUCA 600 UG DAILY. HE HAS GOTTEN OFF OF SOMA AND OXYCODONE. OVERALL DOING VERY WELL. PATIENT FEELS THOUGH BELBUCA IS HELPFUL AT REDUCING PAIN AND KEEPING HIM FUNCTIONAL. DENIES ADVERSE SIDE EFFECTS WITH BELBUCA. HE WOULD LIKE TO CONTINUE WITH USE OF THIS MEDICATION ALONG WITH DORSAL COLUMN STIMULATOR FOR CHRONIC PAIN. -. FALL RISK SCREENING: SCREENING : NO FALLS REPORTED IN THE LAST YEAR. PAIN SCREENING: PATIENT HAS A COMPLAINT OF ACUTE OR CHRONIC PAIN :YES LOCATION OF PAIN:LOW BACK, LEG(S) RIGHT LEG INTENSITY OF PAIN (SCALE OF 1 TO 10):4 WHAT DOES YOUR PAIN FEEL LIKE:ACHING, BURNING, STABBING, TENDER, SORE, SHOOTING DURATION:CONTINOUS, CONSTANT, ALL DAY PAIN IS INCREASED BY:ACTIVITIES PAIN IS DECREASED BY:USE OF PAIN MEDICATIONS NURSING NOTE: -. PAIN CENTER INTAKE QUESTIONS: DO YOU HAVE A HISTORY OF MRSA? :NO DO YOU TAKE A BLOOD THINNERS? :NO DO YOU HAVE ANY BLEEDING DISORDERS? :NO ANY NEW NUMBNESS OR WEAKNESS IN YOUR LEGS OR ARMS? :NO ANY PACEMAKER,DEFIBRILLATOR, OR DORSAL COLUMN STIMULATOR? :YES DCS DO YOU HAVE ANY RASHES OR OPEN SORES? :NO ARE YOU ALLERGIC TO IV DYE? :NO ARE YOU DIABETIC? :NO ANY NEW PROBLEMS WITH YOUR MEDICATIONS? :NO HAVE YOU RECEIVED A VACCINE IN THE PAST 30 DAYS? :NO DO YOU PLAN TO RECEIVE A VACCINE IN THE NEXT 21 DAYS? :NO DO YOU NEED ANY PRESCRIPTION? :YES BELBUCA - [facility] DO YOU TAKE ANY IMMUNOSUPPRESSIVE MEDICATIONS? :NO IS THERE A CHANCE YOU COULD BE ? :NO ARE YOU BREAST FEEDING? :NO CURRENT MEDICATIONS TAKING ALEVE PM 1 CAP ORALLY BEFORE BEDTIME TAKING CLOBETASOL PROPIONATE 0.05 % GEL 1 APPLICATION EXTERNALLY TWICE A DAY TO BOTH ELBOWS NEEDED TAKING OMEPRAZOLE 40MG CAPSULE DELAYED RELEASE TAKE 1 CAPSULE DAILY ORALLY DAILY TAKING DRISDOL [id number] UNIT CAPSULE 1 CAPSULE ORALLY TWICE A WEEK, NOTES: MON 09/05 TAKING AMLODIPINE BESYLATE 5 MG TABLET 1 TABLET ORALLY ONCE A DAY TAKING BELBUCA 600 MCG FILM 1 FILM TO THE GUM BUCALLY DAILY MDD1 3 MOS SUPPLY CAT D CHRONIC PAIN TAKING DULOXETINE HCL 60MG CAPSULE DELAYED RELEASE PARTICLES TAKE 1 CAPSULE DAILY ORALLY DAILY TAKING LISINOPRIL 20MG TABLET TAKE 1 TABLET DAILY ORALLY DAILY TAKING BISOPROLOL FUMARATE 5MG TABLET TAKE 1 TABLET DAILY ORALLY ONCE A DAY TAKING ATORVASTATIN CALCIUM 80MG TABLET TAKE 1 TABLET DAILY ORALLY DAILY TAKING CORTISPORIN-TC 3.3-3-10-0.5 MG/ML SUSPENSION 5 DROPS INTO AFFECTED EAR OTIC THREE TIMES A DAY X 7 DAYS THEN NEEDED FOR ITCHING MEDICATION LIST REVIEWED AND RECONCILED WITH THE PATIENT PAST MEDICAL HISTORY 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 GRANT - [place] ) NECK/BACK PAIN SUBSEQUENT TO FALL 06/06/15- FOLLOWING WITH VACUUM CONDITIONER OPERATOR IN [place] (DR. JENKINS) COMPRESSION FRACTURE L-1 S/P FALL - 07/14/2017 S/P ELECTIVE L4-L PDIF COMPLICATED BY HEMATOMA THAT WAS EVACUATED 01/2016 - DR. 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 SURGICAL HISTORY BROKEN FEMUR REPAIRED WITH RODS/PINS, RIGHT WRIST FRACTURE 06/07/15 FUSION L4-L5 01/2016 PUT A BIGGER RITA IN FEMUR 02/2016 RIGHT WRIST HARDWARE REMOVED 09/19/16 RIGHT FEMUR RITA REMOVED, PLATE AND SCREWS PLACED 01/2017 DCS TRIAL 09/04/20 DCS PUT IN 01/2021 SOCIAL HISTORY GENERAL: TOBACCO USE ARE YOU A:USES TOBACCO IN OTHER FORMS MALES, AGE 65-75 WITH 5 PACK SMOKING HISTORY (100 CIGARETTES LIFETIME)YES ADDITIONAL FINDINGS: TOBACCO USERCHEWS TOBACCO NOT INTERESTED IN QUITTING AT THIS TIME SMOKING CESSATION INFORMATION GIVEN03/12/2021 LATEX QUESTIONNAIRE LATEX ALLERGY : HAVE YOU EVER DEVELOPED ANY TYPE OF REACTION AFTER HANDLING LATEX PRODUCTS SUCH RUBBER GLOVES, CONDOMS, DIAPHRAGMS, BALLOONS, SOCKS, OR UNDERWEAR?NO LATEX ALLERGY : HAVE YOU EVER DEVELOPED ANY TYPE OF REACTION DURING OR AFTER DENTAL APPOINTMENT, VAGINAL/RECTAL EXAMINATION, SURGICAL PROCEDURE, OR ANY OTHER EXPOSURE?NO LATEX RISK : HAVE YOU EVER HAD ANY DIFFICULTY BREATHING OR HIVES AFTER EATING OR HANDLING ANY FRUITS, OR VEGETABLES; SUCH KIWI, BANANAS, STONE FRUITS, OR CHESTNUTSNO LATEX RISK : DO YOU HAVE A PREVIOUS PERSONAL HISTORY OF MORE THAN NINE SURGERIES, SPINA BIFIDA, OR REPEATED CATHERIZATIONS? NO LATEX RISK : ARE YOU FREQUENTLY EXPOSED TO LATEX PRODUCTS IN YOUR OCCUPATION?NO DATE ASKED : 03/12/2021 ALCOHOL USE: YES, MAYBE A BEER WITH DINNER. BMI CARE GOAL FOLLOW-UP ABOVE NORMAL BMI FOLLOW-UPDIETARY MANAGEMENT EDUCATION, GUIDANCE, AND COUNSELING ALCOHOL SCREENING DID YOU HAVE A DRINK CONTAINING ALCOHOL IN THE PAST YEAR?YES HOW OFTEN DID YOU HAVE SIX OR MORE DRINKS ON ONE OCCASION IN THE PAST YEAR?LESS THAN MONTHLY (1 POINT) HOW MANY DRINKS DID YOU HAVE ON A TYPICAL DAY WHEN YOU WERE DRINKING IN THE PAST YEAR?3 OR 4 (1 POINT) HOW OFTEN DID YOU HAVE A DRINK CONTAINING ALCOHOL IN THE PAST YEAR?MONTHLY OR LESS (1 POINT) POINTS3 INTERPRETATIONNEGATIVE RECREATIONAL DRUG USE DRUG USE?NO CAFFEINE CAFFEINE USE?YES HOW OFTEN AND HOW MUCH? 2 CUPS OF COFFEE PER DAY SEXUAL HX HAD SEX IN THE LAST 12 MONTHS (VAGINAL, ORAL, OR ANAL)?YES WITHWOMEN ONLY USE PROTECTION?NO HAVE YOU EVER HAD AN STD?NO [facility] [id number] NONE LANGUAGE LANGUAGES SPOKEN:LAO EDUCATION LEVEL OF EDUCATION:NOT FINISHED COLLEGE LEARNING BARRIERS / SPECIAL NEEDS CHANGE FROM LAST VISIT?NO BARRIERS TO LEARNING?NO HEARING IMPAIRED?NO VISION IMPAIRED?YES :CORRECTIVE LENSES COGNITIVELY IMPAIRED?NO READINESS TO LEARN?YES LEARNING PREFERENCES?NO LEARNING CAPABILITIES PRESENT?YES EMOTIONAL BARRIERS?NO SPECIAL DEVICES?NO REPAIR ELECTRIC MOTOR ASSEMBLER NEEDED?NO DOMESTIC VIOLENCE DO YOU FEEL SAFE IN YOUR ENVIRONMENT?YES OCCUPATION: DISABLED. DIET: REGULAR. EXERCISE: NO REGULAR EXERCISE. MARITAL STATUS: . - PFS REFERRAL NEEDED?NO CLERGY REFERRAL NEEDED?NO PUBLIC HEALTH REFERRAL NEEDED?NO WAS THE PROVIDER NOTIFIED OF ANY PERTINENT INFO?YES HAS THE PATIENT BEEN EDUCATED REGARDING HIS/HER PLAN OF CARE?YES HAS THE PATIENT BEEN EDUCATED REGARDING PAIN, THE RISK FOR PAIN, THE IMPORTANCE OF EFFECTIVE PAIN MANAGEMENT, AND THE PAIN ASSESSMENT PROCESS?YES ADVANCE DIRECTIVE ADVANCE DIRECTIVE DISCUSSED WITH PATIENT:YES STATES HE HAS HCP & POA TAMERA BONDS [phone] AND LIVING WILL HOSPITALIZATION/MAJOR DIAGNOSTIC PROCEDURE ALL SURGICAL RELATED CHEST PAIN 10/2016 FX BACK AT L-1 07-14-17 REVIEW OF SYSTEMS CONSTITUTIONAL: ANY RECENT FEVER NO . CHILLS NO . WEIGHT CHANGE OF UNKNOWN REASONS NO . GASTROENTEROLOGY: NEW UNEXPLAINABLE CHANGES IN BOWEL CONTROL NO . CONSTIPATION NO . GENITOURINARY: ANY NEW CHANGE IN BLADDER CONTROL? NO . NEUROLOGY: NEW ONSET DIZZINESS OR NEUROLOGICAL CHANGES NOT MENTIONED NO . NEW NUMBNESS OR PAIN PATTERNS NOT MENTIONED AND PERTINENT TO TODAY'S VISIT NO . CARDIOLOGY: NEW CHEST PRESSURE NO . PATIENT DENIES NO . RESPIRATORY: UNEXPLAINABLE COUGH NO . NEW SHORTNESS OF BREATH NO . VITAL SIGNS WT 245.8 LBS, HT 71 IN, BMI 34.28 INDEX, BP 154/95 MM HG, HR 66 /MIN, RR 18 /MIN, TEMP 96.0 F, OXYGEN SAT % 97%, SAFE IN ENV? (Y/N) YES, NA INITIALS AW 1003T.IRIS BUTTERFIELD, PATIENT STATED THAT HE HAD COFFEE BEFORE HIS VISIT WITH US. EXAMINATION GENERAL EXAMINATION: GENERALAWAKE,ALERT ,PLEASANT . PSYCHAFFECT NORMAL . LUNGS:LUNG MONTES ARE CLEAR TO AUSCULTATION BILATERALLY. GOOD MOVEMENT OF AIR . HEART:S1, S2 IN A REGULAR RATE AND RHYTHM. NO SIGNIFICANT MURMURS, RUBS OR GALLOPS NOTED . ASSESSMENTS CHRONIC PRESCRIPTION OPIATE USE - Z79.891 (PRIMARY) LUMBAR POST-LAMINECTOMY SYNDROME - M96.1 TREATMENT CHRONIC PRESCRIPTION OPIATE USE REFILL BELBUCA FILM, 600 MCG, 1 FILM TO THE GUM, BUCALLY, DAILY MDD1 3 MOS SUPPLY CAT D CHRONIC PAIN, 90 DAY(S), 90, REFILLS 0 LAB: URINE TEST GROUP GALO SIMMONS 03/12/2021 10:32:42 AM > LAST DOSE: BELBUCA @8AM PROCEDURE CODES FA211 ESTABILISHED PATIENT [facility] CHARGE DISPOSITION & COMMUNICATION FOLLOW UP 3 MONTHS (REASON: MED MGMNT/REVIEW UTOX) ELECTRONICALLY SIGNED BY FROILAN POPE ON 03/13/2021 AT 11:16 AM EDT DISCLAIMER : THIS IS A VISIT SUMMARY EXTRACTED FROM THE [employer] CHART. IT IS NOT A COPY OF THE [employer] PROGRESS NOTE. PORTILLO
== END ==
LOC: M PAIN 10:15
PROVIDERS: ATTEND Nurse Practitioner Family
DX: M96.1 Postlaminectomy syndrome, not elsewhere classified (principal); G47.00 Insomnia, unspecified; G47.33 Obstructive sleep apnea (adult) (pediatric); F17.220 Nicotine dependence, chewing tobacco, uncomplicated; Z96.89 Presence of other specified functional implants; Z87.820 Personal history of traumatic brain injury; Z86.59 Personal history of other mental and behavioral disorders; Z79.891 Long term (current) use of opiate analgesic; Z79.899 Other long term (current) drug therapy

== ENCOUNTER → 2021-04-06 | Outpatient (CLI) | payer BC ==
[~2021-04-06] MED LIST changes: +GASTROGRAFIN SOLUTION 30ML (Q9963) As Ordered ONE; +ISOVUE-370 76% 100ML VIAL As Ordered ONE
--- NOTE | 2021-04-06 11:48 | REP ---
INDICATION: LIVER LESION. COMPARISON: None TECHNIQUE: Axial contrast-enhanced images from the lung bases to the pubic symphysis using 100 cc Isovue 370 intravenous contrast material. . This CT examination was performed using the following dose reduction techniques: Automated exposure control, adjustment of mA and/or kv according to the patient's size, and the use of iterative reconstruction technique. FINDINGS: Liver demonstrates diffuse fatty infiltration with subtle area of focal fatty sparing adjacent to the gallbladder fossa. A very subtle small subcentimeter contrast blush in the right hepatic lobe (series 201; 28) likely reflects the finding on thoracic MRI and is nonspecific by CT evaluation. This may represent a very small hemangioma based on characteristics. No further significant focal hepatic lesions are identified. The spleen, pancreas, gallbladder, bilateral adrenal glands and kidneys are normal. The enteric system including stomach, small, and large bowel appears normal. No evidence for obstruction or acute inflammatory process. Normal terminal ileum and appendix are identified in the right lower quadrant. Few scattered sigmoid diverticula noted without acute diverticulitis. Pelvis demonstrates normal bladder and age-appropriate prostate/seminal vesicles. Small fat containing inguinal hernia noted. No ascites. No free air. No intraperitoneal or retroperitoneal adenopathy. Abdominal aorta and vasculature appear normal. Musculoskeletal structures demonstrate chronic and postsurgical changes without acute process. Lung bases are clear. IMPRESSION: 1. Diffuse hepatosteatosis with focal fatty sparing. Subtle finding in the right lobe as described above may represent small hemangioma. Consider follow-up ultrasound examination. 2. Diverticula without acute diverticulitis. <Electronically signed by German Reagan > 04/06/21 7333
== END ==
LOC: M RAD 08:28
PROVIDERS: ATTEND Physician Assistant
DX: K76.0 Fatty (change of) liver, not elsewhere classified (principal); K57.30 Diverticulosis of large intestine without perforation or abscess without bleeding; K76.89 Other specified diseases of liver
CPT/HCPCS: 74177; Q9963; Q9967

== ENCOUNTER → 2021-05-16 | Outpatient (CLI) | payer BC ==
[~2021-05-16] MED LIST changes: -GASTROGRAFIN SOLUTION 30ML (Q9963) As Ordered ONE; -ISOVUE-370 76% 100ML VIAL As Ordered ONE
--- NOTE | 2021-05-16 08:14 | REP ---
INDICATION: F/U LIVER LESION COMPARISON: None. TECHNIQUE: Real time richards scale ultrasound examination using curved array transducer. FINDINGS: Liver demonstrates diffuse fatty infiltration with poor penetration. There is a subtle 2.6 cm hyperechoic focus in the right lobe which may correspond to finding on recent CT and may represent hemangioma. No further hepatic lesions are identified. Pancreas is incompletely evaluated due to interposed bowel gas. The gallbladder is normal and without gallstones, wall thickening, or pericholecystic fluid. No biliary ductal dilatation is appreciated and the common bile duct measures 4.5 mm diameter. Right kidney is normal in reniform shape without hydronephrosis and measures 12.1 x 6.4 x 5.9 cm. Abdominal aorta appears normal. No ascites in the visualized right upper quadrant. IMPRESSION: 1. Vague hyperechoic focus in the right lobe appears to correspond with CT finding and may represent hemangioma by ultrasound findings. 2. Hepatosteatosis. <Electronically signed by German Reagan > 05/16/21 0866
== END ==
LOC: M RAD 06:38
PROVIDERS: ATTEND Physician Assistant
DX: K76.9 Liver disease, unspecified (principal)

== ENCOUNTER → 2021-06-07 | Outpatient (CLI) | payer BC ==
--- NOTE | 2021-06-08 04:05 | ECWPNPC ---
PATIENT NAME: MELODY BONDS : 1970 GENDER: MALE VISIT DATE: 06/07/2021 DISCHARGE DATE: 06/07/21936 VISIT LOCKED DATE TIME: PHYSICIAN: RON AMES PHYSICIAN PAGER NO: ACTIVE RESOURCE: RON AMES REASON FOR APPOINTMENT 1. MED MGMNT/REVIEW UTOX HISTORY OF PRESENT ILLNESS GENERAL: HERE FOR FOLLOW-UP OF CHRONIC LOW BACK PAIN. CURRENTLY USING DORSAL COLUMN STIMULATOR AND MEDICATION THAT HELPS HIM TREMENDOUSLY. HAVING NEW AREAS OF PAIN THAT HE WOULD LIKE ADDRESSED HERE IF POSSIBLE. FOLLOWING WITH [facility] FOR RIGHT SHOULDER, RIGHT HIP AND RIGHT KNEE PAIN. STATES HE HAS BEEN OFFERED SURGERY ON HIS SHOULDER WELL HIS HIP AND KNEE BUT WOULD LIKE TO PROLONG THAT IF POSSIBLE. CONTINUES TO WORK FULL-TIME. WE WOULD NEED A REFERRAL FROM [facility]. DISCUSSED MEDICATION. -. FALL RISK SCREENING: SCREENING : NO FALLS REPORTED IN THE LAST YEAR. PAIN SCREENING: PATIENT HAS A COMPLAINT OF ACUTE OR CHRONIC PAIN :YES LOCATION OF PAIN:LOW BACK INTENSITY OF PAIN (SCALE OF 1 TO 10):3 WHAT DOES YOUR PAIN FEEL LIKE:ACHING, BURNING, CONTINOUS, SHARP, TENDER, THROBBING, SHOOTING DURATION:CONTINOUS, CONSTANT, ALL DAY PAIN IS INCREASED BY:ACTIVITIES PAIN IS DECREASED BY:USE OF PAIN MEDICATIONS, SITTING NURSING NOTE: -. PAIN CENTER INTAKE QUESTIONS: DO YOU HAVE A HISTORY OF MRSA? :NO DO YOU TAKE A BLOOD THINNERS? :NO DO YOU HAVE ANY BLEEDING DISORDERS? :NO ANY NEW NUMBNESS OR WEAKNESS IN YOUR LEGS OR ARMS? :NO ANY PACEMAKER,DEFIBRILLATOR, OR DORSAL COLUMN STIMULATOR? :YES DCS DO YOU HAVE ANY RASHES OR OPEN SORES? :NO ARE YOU ALLERGIC TO IV DYE? :NO ARE YOU DIABETIC? :NO ANY NEW PROBLEMS WITH YOUR MEDICATIONS? :NO HAVE YOU RECEIVED A VACCINE IN THE PAST 30 DAYS? :NO DO YOU PLAN TO RECEIVE A VACCINE IN THE NEXT 21 DAYS? :NO DO YOU NEED ANY PRESCRIPTION? :YES [facility] - [facility] DO YOU TAKE ANY IMMUNOSUPPRESSIVE MEDICATIONS? :NO IS THERE A CHANCE YOU COULD BE ? :NO ARE YOU BREAST FEEDING? :NO CURRENT MEDICATIONS TAKING ALEVE PM 1 CAP ORALLY BEFORE BEDTIME TAKING CLOBETASOL PROPIONATE 0.05 % GEL 1 APPLICATION EXTERNALLY TWICE A DAY TO BOTH ELBOWS NEEDED TAKING AMLODIPINE BESYLATE 5 MG TABLET 1 TABLET ORALLY ONCE A DAY TAKING DULOXETINE HCL 60MG CAPSULE DELAYED RELEASE PARTICLES TAKE 1 CAPSULE DAILY ORALLY DAILY TAKING LISINOPRIL 20MG TABLET TAKE 1 TABLET DAILY ORALLY DAILY TAKING BISOPROLOL FUMARATE 5MG TABLET TAKE 1 TABLET DAILY ORALLY ONCE A DAY TAKING ATORVASTATIN CALCIUM 80MG TABLET TAKE 1 TABLET DAILY ORALLY DAILY TAKING CORTISPORIN-TC 3.3-3-10-0.5 MG/ML SUSPENSION 5 DROPS INTO AFFECTED EAR OTIC THREE TIMES A DAY X 7 DAYS THEN NEEDED FOR ITCHING TAKING BELBUCA 600 MCG FILM 1 FILM TO THE GUM BUCALLY DAILY MDD1 3 MOS SUPPLY CAT D CHRONIC PAIN TAKING DRISDOL 35989 UNIT CAPSULE 1 CAPSULE ORALLY TWICE A WEEK TAKING OMEPRAZOLE 40MG CAPSULE DELAYED RELEASE TAKE 1 CAPSULE DAILY ORALLY DAILY MEDICATION LIST REVIEWED AND RECONCILED WITH THE PATIENT PAST MEDICAL HISTORY 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 GRANT - [place] ) NECK/BACK PAIN SUBSEQUENT TO FALL 06/06/15- FOLLOWING WITH [facility] IN [place] (DR. JENKINS) COMPRESSION FRACTURE L-1 S/P FALL - 07/14/2017 S/P ELECTIVE L4-L PDIF COMPLICATED BY HEMATOMA THAT WAS EVACUATED 01/2016 - DR. 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 GEADE 1 SPONDYLOLISTHESISI L4-5, SCAR TISSUE INVOLVES L5 NERVE ROOTS, DIFFUSE DISC BULGE L5-S1 ABUTS THE THECAL SAC ALLERGIES NO[ALLERGIES VERIFIED] SOCIAL HISTORY GENERAL: TOBACCO USE ARE YOU A:USES TOBACCO IN OTHER FORMS MALES, AGE 65-75 WITH 5 PACK SMOKING HISTORY (100 CIGARETTES LIFETIME)YES ADDITIONAL FINDINGS: TOBACCO USERCHEWS TOBACCO NOT INTERESTED IN QUITTING AT THIS TIME SMOKING CESSATION INFORMATION GIVEN06/07/2021 LATEX QUESTIONNAIRE LATEX ALLERGY : HAVE YOU EVER DEVELOPED ANY TYPE OF REACTION AFTER HANDLING LATEX PRODUCTS SUCH RUBBER GLOVES, CONDOMS, DIAPHRAGMS, BALLOONS, SOCKS, OR UNDERWEAR?NO LATEX ALLERGY : HAVE YOU EVER DEVELOPED ANY TYPE OF REACTION DURING OR AFTER DENTAL APPOINTMENT, VAGINAL/RECTAL EXAMINATION, SURGICAL PROCEDURE, OR ANY OTHER EXPOSURE?NO LATEX RISK : HAVE YOU EVER HAD ANY DIFFICULTY BREATHING OR HIVES AFTER EATING OR HANDLING ANY FRUITS, OR VEGETABLES; SUCH KIWI, BANANAS, STONE FRUITS, OR CHESTNUTSNO LATEX RISK : DO YOU HAVE A PREVIOUS PERSONAL HISTORY OF MORE THAN NINE SURGERIES, SPINA BIFIDA, OR REPEATED CATHERIZATIONS? NO LATEX RISK : ARE YOU FREQUENTLY EXPOSED TO LATEX PRODUCTS IN YOUR OCCUPATION?NO DATE ASKED : 06/07/2021 ALCOHOL USE: YES, MAYBE A BEER WITH DINNER. BMI CARE GOAL FOLLOW-UP ABOVE NORMAL BMI FOLLOW-UPDIETARY MANAGEMENT EDUCATION, GUIDANCE, AND COUNSELING ALCOHOL SCREENING DID YOU HAVE A DRINK CONTAINING ALCOHOL IN THE PAST YEAR?YES HOW OFTEN DID YOU HAVE A DRINK CONTAINING ALCOHOL IN THE PAST YEAR?MONTHLY OR LESS (1 POINT) HOW MANY DRINKS DID YOU HAVE ON A TYPICAL DAY WHEN YOU WERE DRINKING IN THE PAST YEAR?3 OR 4 (1 POINT) HOW OFTEN DID YOU HAVE SIX OR MORE DRINKS ON ONE OCCASION IN THE PAST YEAR?LESS THAN MONTHLY (1 POINT) POINTS3 INTERPRETATIONNEGATIVE RECREATIONAL DRUG USE DRUG USE?NO CAFFEINE CAFFEINE USE?YES HOW OFTEN AND HOW MUCH? 2 CUPS OF COFFEE PER DAY SEXUAL HX HAD SEX IN THE LAST 12 MONTHS (VAGINAL, ORAL, OR ANAL)?YES WITHWOMEN ONLY USE PROTECTION?NO HAVE YOU EVER HAD AN STD?NO WORSHIP [id number] NONE LANGUAGE LANGUAGES SPOKEN:ARABIC EDUCATION LEVEL OF EDUCATION:NOT FINISHED COLLEGE LEARNING BARRIERS / SPECIAL NEEDS CHANGE FROM LAST VISIT?NO BARRIERS TO LEARNING?NO HEARING IMPAIRED?NO VISION IMPAIRED?YES :CORRECTIVE LENSES COGNITIVELY IMPAIRED?YES READINESS TO LEARN?YES LEARNING PREFERENCES?NO LEARNING CAPABILITIES PRESENT?YES EMOTIONAL BARRIERS?NO SPECIAL DEVICES?NO UTILIZATION SPECIALIST NEEDED?NO DOMESTIC VIOLENCE DO YOU FEEL SAFE IN YOUR ENVIRONMENT?YES OCCUPATION: DISABLED. DIET: REGULAR. EXERCISE: NO REGULAR EXERCISE. MARITAL STATUS: . - PFS REFERRAL NEEDED?NO CLERGY REFERRAL NEEDED?NO PUBLIC HEALTH REFERRAL NEEDED?NO WAS THE PROVIDER NOTIFIED OF ANY PERTINENT INFO?YES HAS THE PATIENT BEEN EDUCATED REGARDING HIS/HER PLAN OF CARE?YES HAS THE PATIENT BEEN EDUCATED REGARDING PAIN, THE RISK FOR PAIN, THE IMPORTANCE OF EFFECTIVE PAIN MANAGEMENT, AND THE PAIN ASSESSMENT PROCESS?YES ADVANCE DIRECTIVE ADVANCE DIRECTIVE DISCUSSED WITH PATIENT:YES STATES HE HAS HCP & POA TAMERA BONDS [phone] AND LIVING WILL REVIEW OF SYSTEMS CONSTITUTIONAL: ANY RECENT FEVER NO . CHILLS NO . WEIGHT CHANGE OF UNKNOWN REASONS NO . GASTROENTEROLOGY: NEW UNEXPLAINABLE CHANGES IN BOWEL CONTROL NO . CONSTIPATION NO . GENITOURINARY: ANY NEW CHANGE IN BLADDER CONTROL? NO . NEUROLOGY: NEW ONSET DIZZINESS OR NEUROLOGICAL CHANGES NOT MENTIONED NO . NEW NUMBNESS OR PAIN PATTERNS NOT MENTIONED AND PERTINENT TO TODAY'S VISIT NO . CARDIOLOGY: NEW CHEST PRESSURE NO . PATIENT DENIES NO . RESPIRATORY: UNEXPLAINABLE COUGH NO . NEW SHORTNESS OF BREATH NO . EXAMINATION GENERAL EXAMINATION: GENERAL AWAKE,ALERT ,PLEASANT . PSYCH AFFECT NORMAL . LUNGS: LUNG MONTES ARE CLEAR TO AUSCULTATION BILATERALLY. GOOD MOVEMENT OF AIR . HEART: S1, S2 IN A REGULAR RATE AND RHYTHM. NO SIGNIFICANT MURMURS, RUBS OR GALLOPS NOTED . ASSESSMENTS CHRONIC PRESCRIPTION OPIATE USE - Z79.891 (PRIMARY) TREATMENT CHRONIC PRESCRIPTION OPIATE USE INCREASE BELBUCA FILM, 750 MCG, 1 FILM TO THE GUM, BUCALLY, DAILY MDD1 3 MOS SUPPLY CAT D CHRONIC PAIN, 90 DAY(S), 90, REFILLS 0 NOTES: ISTOP REGISTRY REVIEWED AND DEMONSTRATES COMPLLIANCE. BRINGS IN MEDICATIONS WHICH IS APPROPRIATE FOR WHAT WAS DISPENSED. RECENT URINE TOXICOLOGY REVIEWED. NO UNAUTHORIZED MEDICATIONS. NO ILLICIT SUBSTANCES AND PRESCRIBED MEDICATIONS WERE PRESENT. , RISKS OF NARCOTIC/OPIOD MEDICATIONS INCLUDES BUT IS NOT LIMITED TO RISK OF DEPENDANCE/DEVELOPMENT OF ADDICTION, MOOD DISTURBANCE AND DEPRESSION, OSTEOPOROSIS, HORMONAL AND LABIDAL CHANGES, RESPIRATORY DEPRESSION AND . PATIENT IS ADVISED NOT TO DRIVE OR DRINK ALCOHOL WHILE ON THESE MEDICATIONS. PROCEDURE CODES FA211 ESTABILISHED PATIENT [facility] CHARGE DISPOSITION & COMMUNICATION FOLLOW UP 3 MONTHS (REASON: MED MGMNT) ELECTRONICALLY SIGNED BY FROILAN POPE ON 06/07/2021 AT 09:40 AM EDT DISCLAIMER : THIS IS A VISIT SUMMARY EXTRACTED FROM THE [employer] CHART. IT IS NOT A COPY OF THE [employer] PROGRESS NOTE. PORTILLO
== END ==
LOC: M PAIN 09:15
PROVIDERS: ATTEND Nurse Practitioner Family
DX: M54.5 Low back pain (principal); G89.29 Other chronic pain; G47.33 Obstructive sleep apnea (adult) (pediatric); F17.220 Nicotine dependence, chewing tobacco, uncomplicated; Z96.89 Presence of other specified functional implants; Z87.820 Personal history of traumatic brain injury; Z86.59 Personal history of other mental and behavioral disorders; Z79.891 Long term (current) use of opiate analgesic; Z79.899 Other long term (current) drug therapy

== ENCOUNTER 2021-06-10 16:35 | Emergency (ER) | payer BC ==
[~2021-06-10] VITALS: Ht 177.8 cm; Wt 108.2 kg
[2021-06-10] MEDS ORDERED: KETOROLAC 30 MG/ML 1ML VIAL IV ONE (19:20)
[2021-06-10] MEDS ORDERED: CYCLOBENZAPRINE 10MG TABLET PO ONE (19:20)
[2021-06-10] MEDS ORDERED: LIDOCAINE 5% (LIDODERM) PATCH TD ONE (19:20)
[2021-06-10] MEDS ORDERED: ACETAMINOPHEN 500 MG TAB PO ONE (19:20)
[2021-06-10] MEDS ORDERED: KETOROLAC 30 MG/ML 1ML VIAL IM ONE (19:35)
--- NOTE | 2021-06-10 20:28 | REP ---
INDICATION: R hip pain x1 week. COMPARISON: Abdomen/pelvis CT dated 04/06/2021. TECHNIQUE: AP pelvis single view. AP and frog-leg views of the right hip. FINDINGS: AP pelvis: There are pedicle screws and stabilization rods spanning the L4-5 vertebral bilaterally and there is intervertebral disc spacer in the L4-5 disc space. These findings are unchanged from the comparison CT. Mineralization is normal except for old interval internal fixation screw tract in the right femoral head and neck. This is also visible on the comparison CT. There are no lytic, blastic or destructive skeletal changes. The right and left hip joint spaces are unremarkable. There is no femoral head deformity. Right hip: Mineralization and joint spaces are unremarkable. There is no femoral head deformity. There are no calcifications or foreign bodies. All internal fixation screw tract is noted in the femoral head and neck. The proximal tip of a femoral shaft stabilization plate is identified at the inferior film margin. There is a large calcification superior to the greater trochanter, possibly a postsurgical change. The IMPRESSION: There is no fracture or dislocation. Mineralization and joint spaces are unremarkable. There is an old orthopedic screw tract in the right femoral head and neck. There is a large calcification superior to the greater trochanter, possibly postsurgical. There are postsurgical changes in the lumbar spine as described. <Electronically signed by Bora Enamorado > 06/10/212024
--- NOTE | 2021-06-10 20:35 | REP ---
INDICATION: R hip/femur pain COMPARISON: 06/06/2015. TECHNIQUE: There are two views. FINDINGS: The previous mid shaft fracture of the femur has been stabilized with a compression plate. There is ossified bone traversing the fracture site medially. The compression plate is lateral. On the AP view there is a faintly visible lucency within the fracture site which may represent partial fibrous union of the fracture. There is no associated lytic or destructive change. There are old orthopedic screw tracts in the distal shaft of the femur on the lateral view. IMPRESSION: There is faintly visible lucency within the fracture site of the mid shaft without associated lytic or destructive change. This may represent partial fibrous union of the fracture. There is ossified bone traversing the medial margin of the fracture site. Follow-up MRI of the fracture site might be difficult because of the stabilization plate. <Electronically signed by Bora Enamorado > 06/10/212030
[2021-06-10] MEDS ORDERED: **NOTE PATIENT COMMENT** MISC XX SCH (21:00)
[2021-06-10 21:34] LABS: BASO % 0.5 % (0.0-1.0); EOS # 0.1 10^3/uL (0.0-0.5); EOS % 1.3 % (0.0-3.0); HEMATOCRIT 38.7 % (42.0-52.0); HEMOGLOBIN 13.1 g/dl (13.5-17.5); LYMPH # 2.7 10^3/uL (1.5-5.0); LYMPH % 42.8 % (24.0-44.0); MEAN CORPUSCULAR HEMOGLOBIN 29.4 pg (27.0-33.0); MEAN CORPUSCULAR HGB CONC 33.9 g/dl (32.0-36.5); MONO # 0.5 10^3/uL (0.0-0.8); MONO % 7.9 % (2.0-8.0); NEUTROPHILS % 47.3 % (36.0-66.0); PLATELET COUNT, AUTOMATED 212 10^3/uL (150-450); RED BLOOD COUNT 4.45 10^6/uL (4.30-6.10); WHITE BLOOD COUNT 6.4 10^3/uL (4.0-10.0)
[2021-06-10 22:04] LABS: BLOOD UREA NITROGEN 22 MG/DL (7-18); CALCIUM LEVEL 8.3 MG/DL (8.5-10.1); CARBON DIOXIDE LEVEL 27 MEQ/L (21-32); CHLORIDE LEVEL 109 MEQ/L (98-107); CREATININE FOR GFR 0.89 MG/DL (0.70-1.30); GLOMERULAR FILTRATION RATE > 60.0 (>60); GLUCOSE, FASTING 90 MG/DL (70-100); POTASSIUM SERUM 4.4 MEQ/L (3.5-5.1); SODIUM LEVEL 139 MEQ/L (136-145)
[2021-06-10] MEDS ORDERED: OXYCODONE/APAP 5MG/325MG(BULK FOR ED) 1 TABLET PO ONE (22:05)
--- NOTE | 2021-06-10 22:08 | REPVR ---
PROCEDURE INFORMATION: Exam: CT Lumbar Spine Without Contrast Exam date and time: 06/10/2021 9:04 PM Age: 50 years old Clinical indication: Low back pain; Additional info: Low back pain into right hip/femur TECHNIQUE: Imaging protocol: Computed tomography images of the lumbar spine without contrast. Radiation optimization: All CT scans at this facility use at least one of these dose optimization techniques: automated exposure control; mA and/or kV adjustment per patient size (includes targeted exams where dose is matched to clinical indication); or iterative reconstruction. COMPARISON: MRI-LS SPINE W/O FOLL WITH CON 02/17/2020 8:18 AM FINDINGS: Vertebrae: Status post L4-L5 posterior spinal fusion using transpedicular screws with metallic lalitha. Status post bilateral laminectomy at L4. Slight retrolisthesis of L3 on L4. Stable compression deformity at L1. L1-L2: No significant disc protrusion. No severe spinal canal stenosis. No significant neural foraminal narrowing. L2-L3: No significant disc protrusion. No severe spinal canal stenosis. No significant neural foraminal narrowing. L3-L4: There is a moderate central spinal stenosis at L3-L4 secondary to diffuse annular bulging, thickened ligamentum flavum without significant facet joint arthropathy. L4-L5: Disc chief of service at L4-L5. Otherwise unremarkable. L5-S1: No significant disc protrusion. No severe spinal canal stenosis. No significant neural foraminal narrowing. Soft tissues: Unremarkable. IMPRESSION: 1. Status post L4-L5 posterior spinal fusions stable in comparison to the prior study. 2. Slight retrolisthesis of L3 on L4. 3. Moderate central spinal stenosis L3-L4. 4. No acute findings. Electronically signed by: Erik Gutierrez On 06/10/2021 22:07:37 PM
--- NOTE | 2021-06-10 22:15 | REPVR ---
PROCEDURE INFORMATION: Exam: CT Right Lower Extremity Without Contrast, Hip Exam date and time: 06/10/2021 9:04 PM Age: 50 years old Clinical indication: Pain; Hip; Right; Additional info: R hip pain, R/O fracture TECHNIQUE: Imaging protocol: CT of the Right lower extremity without contrast was performed. Exam focused on the hip. Radiation optimization: All CT scans at this facility use at least one of these dose optimization techniques: automated exposure control; mA and/or kV adjustment per patient size (includes targeted exams where dose is matched to clinical indication); or iterative reconstruction. COMPARISON: CR Hip,AP,LAT to include Pelvis 06/10/2021 7:29 PM FINDINGS: Bones/joints: Status post removal of transfixation hardware in proximal right femur. Metallic plate demonstrated in the proximal femur transfixing a fracture. No acute fracture demonstrated. Soft tissues: Normal. IMPRESSION: No acute findings. Electronically signed by: Erik Gutierrez On 06/10/2021 22:15:00 PM
--- NOTE | 2021-06-10 22:17 | REPVR ---
PROCEDURE INFORMATION: Exam: CT Right Lower Extremity Without Contrast; Thigh Exam date and time: 06/10/2021 9:04 PM Age: 50 years old Clinical indication: Pain; Thigh; Right; Additional info: R femur, R/O fracture TECHNIQUE: Imaging protocol: CT of the Right lower extremity without contrast was performed. Exam focused on the thigh. Radiation optimization: All CT scans at this facility use at least Other technique: Long metallic plate transfixing a mid femoral fracture. Abundant callus demonstrated surrounding the fracture line which is still visible. Impression. COMPARISON: No relevant prior studies available. FINDINGS: Bones/joints: Long metallic plate transfix a transverse fracture in the mid femur. Fracture lines are still visible. Abundant callus demonstrated surrounding the fracture. Defect demonstrated in the proximal femurs status post removal of metallic hardware. Soft tissues: Normal. IMPRESSION: Visible fracture line in the mid femur as described above. Clinical correlation to exclude refracture in this patient with no reported history of trauma. Infection to be excluded as well. Electronically signed by: Erik Gutierrez On 06/10/2021 22:17:07 PM
[2021-06-10 22:21] VITALS: BP 133/81
[2021-06-10 22:22] LABS: ERYTHROCYTE SEDIMENTATION RATE 8 mm/hr (0-15)
== END 2021-06-10 22:23 | disposition home or self-care (01) ==
LOC: M ED 16:35
DX: M25.551 Pain in right hip (principal); I10 Essential (primary) hypertension; E78.5 Hyperlipidemia, unspecified; K21.9 Gastro-esophageal reflux disease without esophagitis; M54.9 Dorsalgia, unspecified; F43.10 Post-traumatic stress disorder, unspecified; F41.9 Anxiety disorder, unspecified; F32.9 Major depressive disorder, single episode, unspecified; Z87.820 Personal history of traumatic brain injury; F17.220 Nicotine dependence, chewing tobacco, uncomplicated; M43.26 Fusion of spine, lumbar region; M43.16 Spondylolisthesis, lumbar region; M48.061 Spinal stenosis, lumbar region without neurogenic claudication; Z96.89 Presence of other specified functional implants; Z79.899 Other long term (current) drug therapy
CPT/HCPCS: 72131; 73502; 73552; 73700; 80048; 85025; 85652; 86140; 96372; 99283; J1885

== ENCOUNTER → 2021-07-04 | Outpatient (REF) | payer BC ==
[2021-07-04 14:45] LABS: FREE T4 0.76 NG/DL (0.76-1.46); THYROID STIMULATING HORMONE 0.806 uIU/ML (0.358-3.740)
== END ==
LOC: M SFHCADAM 10:23
PROVIDERS: ATTEND Physician Assistant
DX: M79.2 Neuralgia and neuritis, unspecified (principal)

== ENCOUNTER → 2021-07-11 | Outpatient (CLI) | payer BC | LOC: M PAIN 09:30 | PROVIDERS: ATTEND Anesthesiology | DX: M54.2 Cervicalgia (principal); M25.559 Pain in unspecified hip; M79.10 Myalgia, unspecified site; M79.18 Myalgia, other site; Z87.820 Personal history of traumatic brain injury; F41.9 Anxiety disorder, unspecified; G47.00 Insomnia, unspecified; F43.10 Post-traumatic stress disorder, unspecified; Z91.82 Personal history of military deployment; I10 Essential (primary) hypertension; G47.33 Obstructive sleep apnea (adult) (pediatric); F17.220 Nicotine dependence, chewing tobacco, uncomplicated; Z79.899 Other long term (current) drug therapy ==

== ENCOUNTER → 2021-07-12 | Outpatient (REF) | payer BC | LOC: M SFHCADAM 11:25 | PROVIDERS: ATTEND Physician Assistant | DX: M25.511 Pain in right shoulder (principal) ==

== ENCOUNTER 2021-08-13 08:24 | Emergency (ER) | payer BC ==
[~2021-08-13] VITALS: Ht 177.8 cm; Wt 120.0 kg
--- NOTE | 2021-08-13 09:03 | REP ---
INDICATION: fall, pain, injury COMPARISON: None. TECHNIQUE: Frontal view of the chest with multiple views of the right hemithorax. Five total views. FINDINGS: Frontal view of the chest demonstrates no acute cardiopulmonary process, contusion, effusion, or pneumothorax. Multiple views of the right hemithorax demonstrates no acute rib fracture/injury or pathology. IMPRESSION: Normal rib series. <Electronically signed by German Reagan > 08/13/21 [id number]
[2021-08-13] MEDS ORDERED: KETOROLAC 30 MG/ML 1ML VIAL IV ONE (09:30)
[2021-08-13] MEDS ORDERED: ACET-683 PO (09:39)
[2021-08-13] MEDS ORDERED: IBUP-1022 PO (09:39)
[2021-08-13] MEDS ORDERED: KETOROLAC 30 MG/ML 1ML VIAL IM ONE (10:05)
[2021-08-13 10:11] VITALS: BP 151/100
== END 2021-08-13 10:20 | disposition home or self-care (01) ==
LOC: M ED 08:24
DX: R07.81 Pleurodynia (principal); W01.198A Fall on same level from slipping, tripping and stumbling with subsequent striking against other object, initial encounter; Y92.094 Garage of other non-institutional residence as the place of occurrence of the external cause; R03.0 Elevated blood-pressure reading, without diagnosis of hypertension; K21.9 Gastro-esophageal reflux disease without esophagitis; M45.9 Ankylosing spondylitis of unspecified sites in spine; F43.10 Post-traumatic stress disorder, unspecified; Z79.899 Other long term (current) drug therapy
CPT/HCPCS: 71101; 96372; 99283; J1885

== ENCOUNTER → 2021-08-16 | Outpatient (CLI) | payer BC ==
[~2021-08-16] MED LIST changes: +ACET-683 PO; +IBUP-1022 PO
== END ==
LOC: M LABSMTC 10:57
PROVIDERS: ATTEND Anesthesiology
DX: Z01.812 Encounter for preprocedural laboratory examination (principal); Z20.822 Contact with and (suspected) exposure to COVID-19

== ENCOUNTER → 2021-10-03 | Outpatient (CLI) | payer BC ==
[~2021-10-03] MED LIST changes: -FENO48TA7 PO; +FENO48TA8 PO; -LISI-898 PO; +LISI5TAB11 PO; -OMEP-221 PO; +OMEP40CA5 PO
== END ==
LOC: M LABSMTC 10:05
PROVIDERS: ATTEND Anesthesiology
DX: Z01.812 Encounter for preprocedural laboratory examination (principal); Z20.822 Contact with and (suspected) exposure to COVID-19

== ENCOUNTER → 2021-10-08 | Outpatient (CLI) | payer BC ==
[~2021-10-08] MED LIST changes: +LISI-898 PO; -LISI5TAB11 PO; +OMEP-221 PO; -OMEP40CA5 PO
--- NOTE | 2021-10-08 11:10 | REP ---
INDICATION: BACK PAIN COMPARISON: CT dated 06/10/2021 TECHNIQUE: AP, lateral, coned-down views of the lumbar spine. FINDINGS: Patient is again noted to be status post laminectomy and posterior fixation with prosthetic disc at the L4-5 level which appears stable. Chronic compression deformity at L1 is also identified and unchanged in appearance. Multilevel degenerative changes include marginal osteophyte formation with endplate sclerosis which also appears unchanged as compared with prior CT. No evidence for acute fracture/compression injury or acute subluxation. IMPRESSION: 1. No acute fracture / compression injury or subluxation. 2. Prior surgical intervention and old stable compression deformity as noted above. <Electronically signed by German Reagan > 10/08/21 [id number]
--- NOTE | 2021-10-08 11:11 | REP ---
INDICATION: BACK PAIN COMPARISON: None. TECHNIQUE: AP, lateral, and swimmers views. FINDINGS: Alignment is maintained. No evidence for acute fracture/compression injury or subluxation. Marginal osteophytes with minimal endplate sclerosis suggest mild degenerative change focused at T7-8 level. Epidural stimulator identified at the T7-8 level. IMPRESSION: Mild age-related degenerative changes primarily involving T7-8. <Electronically signed by German Reagan > 10/08/21 [id number]
== END ==
LOC: M RAD 10:32
PROVIDERS: ATTEND Physician Assistant
DX: M54.50 Low back pain, unspecified (principal); M51.37 Other intervertebral disc degeneration, lumbosacral region; M51.34 Other intervertebral disc degeneration, thoracic region; Z91.81 History of falling

== ENCOUNTER → 2021-10-08 | Outpatient (CLI) | payer BC ==
[~2021-10-08] MED LIST changes: +BUPIVACAINE HCL 0.25% 10ML VIAL As Ordered ONE; +BUPIVACAINE HCL 0.25% 30ML VIAL As Ordered ONE; +TRIAMCINOLONE ACETONIDE SUSP 40 MG/ML VIAL (J3301) As Ordered ONE; +diazePAM 5MG TABLET As Ordered ONE; +oxyCODONE 5MG TAB As Ordered ONE
== END ==
LOC: M PAIN 08:30
PROVIDERS: ATTEND Anesthesiology
DX: M79.10 Myalgia, unspecified site (principal); G47.33 Obstructive sleep apnea (adult) (pediatric); F17.220 Nicotine dependence, chewing tobacco, uncomplicated; Z96.89 Presence of other specified functional implants; Z87.820 Personal history of traumatic brain injury; Z86.59 Personal history of other mental and behavioral disorders; Z79.891 Long term (current) use of opiate analgesic; Z79.899 Other long term (current) drug therapy
CPT/HCPCS: 20553; J3301

== ENCOUNTER → 2021-10-24 | Outpatient (CLI) | payer BC ==
[~2021-10-24] MED LIST changes: -BUPIVACAINE HCL 0.25% 10ML VIAL As Ordered ONE; -BUPIVACAINE HCL 0.25% 30ML VIAL As Ordered ONE; -TRIAMCINOLONE ACETONIDE SUSP 40 MG/ML VIAL (J3301) As Ordered ONE; -diazePAM 5MG TABLET As Ordered ONE; -oxyCODONE 5MG TAB As Ordered ONE
== END ==
LOC: M PAIN 10:15
PROVIDERS: ATTEND Anesthesiology
DX: M54.2 Cervicalgia (principal); M54.50 Low back pain, unspecified; M96.1 Postlaminectomy syndrome, not elsewhere classified; G47.33 Obstructive sleep apnea (adult) (pediatric); F17.220 Nicotine dependence, chewing tobacco, uncomplicated; Z96.89 Presence of other specified functional implants; Z87.820 Personal history of traumatic brain injury; Z86.59 Personal history of other mental and behavioral disorders; Z79.891 Long term (current) use of opiate analgesic; Z79.899 Other long term (current) drug therapy

== ENCOUNTER → 2021-10-31 | Outpatient (CLI) | payer BC | LOC: M PAIN 11:45 | PROVIDERS: ATTEND Nurse Practitioner Family | DX: Z79.891 Long term (current) use of opiate analgesic (principal) ==

== ENCOUNTER → 2022-05-29 | Outpatient (CLI) | payer BC ==
[~2022-05-29] MED LIST changes: -LISI-898 PO; +LISI5TAB11 PO; -OMEP-221 PO; +OMEP40CA5 PO
== END ==
LOC: M PAIN 09:45
PROVIDERS: ATTEND Nurse Practitioner Family
DX: M96.1 Postlaminectomy syndrome, not elsewhere classified (principal); G89.29 Other chronic pain; Z96.89 Presence of other specified functional implants; G47.33 Obstructive sleep apnea (adult) (pediatric); F17.220 Nicotine dependence, chewing tobacco, uncomplicated; Z87.820 Personal history of traumatic brain injury; Z86.59 Personal history of other mental and behavioral disorders; Z79.891 Long term (current) use of opiate analgesic; Z79.899 Other long term (current) drug therapy

== ENCOUNTER → 2022-07-09 | Outpatient (CLI) | payer BC | LOC: M PAIN 10:30 | PROVIDERS: ATTEND Nurse Practitioner Family | DX: M79.10 Myalgia, unspecified site (principal); G89.29 Other chronic pain; I10 Essential (primary) hypertension; G47.33 Obstructive sleep apnea (adult) (pediatric); F17.220 Nicotine dependence, chewing tobacco, uncomplicated; Z96.89 Presence of other specified functional implants; Z87.820 Personal history of traumatic brain injury; Z86.59 Personal history of other mental and behavioral disorders; Z79.891 Long term (current) use of opiate analgesic; Z79.899 Other long term (current) drug therapy ==

== ENCOUNTER → 2022-11-01 | Outpatient (REF) | payer BC | LOC: M SFHCADAM 12:26 | PROVIDERS: ATTEND Family Medicine | DX: J06.9 Acute upper respiratory infection, unspecified (principal) ==

== ENCOUNTER → 2022-11-07 | Outpatient (REF) | payer BC ==
[2022-11-07 13:14] LABS: HEMATOCRIT 41.9 % (42.0-52.0); HEMOGLOBIN 13.8 g/dl (13.5-17.5); MEAN CORPUSCULAR HEMOGLOBIN 28.7 pg (27.0-33.0); MEAN CORPUSCULAR HGB CONC 32.9 g/dl (32.0-36.5); MEAN CORPUSCULAR VOLUME 87.1 fl (80.0-96.0); PLATELET COUNT, AUTOMATED 238 10^3/uL (150-450); RED BLOOD COUNT 4.81 10^6/uL (4.30-6.10); WHITE BLOOD COUNT 8.6 10^3/uL (4.0-10.0)
[2022-11-07 13:45] LABS: CREATININE, URINE 117.1 MG/DL
[2022-11-07 13:46] LABS: ALBUMIN 3.8 G/DL (3.2-5.2); ALKALINE PHOSPHATASE 108 U/L (46-116); ALT/SGPT 45 U/L (7.0-40); AST/SGOT 23 U/L (<34); BILIRUBIN,TOTAL 0.3 MG/DL (0.3-1.2); BLOOD UREA NITROGEN 19 MG/DL (9-23); CALCIUM LEVEL 9.5 MG/DL (8.5-10.1); CARBON DIOXIDE LEVEL 30 MMOL/L (20-31); CHLORIDE LEVEL 107 MMOL/L (98-107); CREATININE FOR GFR 1.06 MG/DL (0.70-1.30); GLOMERULAR FILTRATION RATE > 60.0 (>56); GLUCOSE, FASTING 113 MG/DL (60-100); MALB URINE SIEMENS < 3.0 MG/DL; MAU/CREAT RATIO 2.5 MCG/MG (0.0-30.0); POTASSIUM SERUM 5.5 MMOL/L (3.5-5.1); SODIUM LEVEL 144 MMOL/L (136-145); TOTAL PROTEIN 5.8 G/DL (5.7-8.2)
[2022-11-07 13:49] LABS: FREE T4 1.11 NG/DL (0.89-1.76)
[2022-11-07 13:50] LABS: THYROID STIMULATING HORMONE 1.224 uIU/ML (0.55-4.78)
[2022-11-07 13:52] LABS: HEMOGLOBIN A1c 5.9 % (4.0-6.0); TOTAL 25(OH) VITAMIN D 56.1 NG/ML (20.0-100.0)
== END ==
LOC: M SFHCADAM 07:22
PROVIDERS: ATTEND Physician Assistant
DX: I10 Essential (primary) hypertension (principal); R73.03 Prediabetes; E78.2 Mixed hyperlipidemia; C61 Malignant neoplasm of prostate; Z12.11 Encounter for screening for malignant neoplasm of colon; F51.01 Primary insomnia; E55.9 Vitamin D deficiency, unspecified
CPT/HCPCS: 80053; 82043; 82306; 83036; 84439; 84443; 85027; G0103

== ENCOUNTER → 2022-11-07 | Outpatient (CLI) | payer BC | LOC: M ADAMS 07:34 | PROVIDERS: ATTEND Physician Assistant | DX: I10 Essential (primary) hypertension (principal); Z95.828 Presence of other vascular implants and grafts ==

== ENCOUNTER 2022-11-23 14:10 | Inpatient (IN) | payer BC ==
[~2022-11-23] VITALS: Ht 177.8 cm; Wt 109.1 kg
[2022-11-23] MEDS ORDERED: ISOVUE-370 76% 100ML VIAL As Ordered ONE (14:21)
[2022-11-23 14:40] LABS: BASO % 0.3 % (0.0-1.0); EOS # 0.1 10^3/uL (0.0-0.5); EOS % 0.8 % (0.0-3.0); LYMPH # 2.8 10^3/uL (1.5-5.0); LYMPH % 38.6 % (24.0-44.0); MEAN CORPUSCULAR HEMOGLOBIN 28.7 pg (27.0-33.0); MEAN CORPUSCULAR HGB CONC 33.3 g/dl (32.0-36.5); MEAN CORPUSCULAR VOLUME 86.1 fl (80.0-96.0); MONO # 0.5 10^3/uL (0.0-0.8); MONO % 7.4 % (2.0-8.0); NEUTROPHILS # 3.8 10^3/uL (1.5-8.5); NEUTROPHILS % 52.6 % (36.0-66.0); PLATELET COUNT, AUTOMATED 199 10^3/uL (150-450); RED BLOOD COUNT 4.88 10^6/uL (4.30-6.10); WHITE BLOOD COUNT 7.3 10^3/uL (4.0-10.0)
[2022-11-23 14:56] LABS: INR 0.88; PROTHROMBIN TIME 12.1 SECONDS (12.5-14.5)
[2022-11-23 14:57] LABS: PARTIAL THROMBOPLASTIN TIME 25.2 SECONDS (24.8-34.2)
[2022-11-23 15:25] LABS: RSV AMPLIFICATION NEGATIVE (NEGATIVE)
[2022-11-23 15:46] LABS: CK-MB VALUE MASS < 1.0 NG/ML (<3.6)
[2022-11-23 15:49] LABS: THYROID STIMULATING HORMONE 1.213 uIU/ML (0.55-4.78)
[2022-11-23 15:50] LABS: FREE T4 1.01 NG/DL (0.89-1.76)
[2022-11-23 15:52] LABS: ALBUMIN 4.1 G/DL (3.2-5.2); ALKALINE PHOSPHATASE 116 U/L (46-116); ALT/SGPT 44 U/L (7.0-40); AST/SGOT 28 U/L (<34); BILIRUBIN,DIRECT 0.1 MG/DL (<0.4); BILIRUBIN,TOTAL 0.4 MG/DL (0.3-1.2); CPK CREATINE PHOSPHOKINASE 145 U/L (46-171); MB/CK RELATIVE INDEX 0.68 (< OR =4); TOTAL PROTEIN 6.8 G/DL (5.7-8.2)
[2022-11-23] MEDS ORDERED: GABA-1171 PO (16:19)
[2022-11-23] MEDS ORDERED: LISI20TA33 PO (16:19)
[2022-11-23] MEDS ORDERED: [UNRECOGNIZED DRUG - CODE] BU (16:19)
[2022-11-23] MEDS ORDERED: HOME MED LIST COMPLETE! XX SCH (16:20)
[2022-11-23] MEDS ORDERED: ASPIRIN 81MG CHEW TABLET PO ONE (17:00)
[2022-11-23 18:00] VITALS: BP 156/88
[2022-11-23 20:00] VITALS: BP 133/79
[2022-11-23 23:55] VITALS: BP 130/74
[2022-11-24 03:33] VITALS: BP 126/84
[2022-11-24 05:35] LABS: HEMATOCRIT 39.6 % (42.0-52.0); HEMOGLOBIN 13.3 g/dl (13.5-17.5); MEAN CORPUSCULAR HEMOGLOBIN 29.2 pg (27.0-33.0); MEAN CORPUSCULAR HGB CONC 33.6 g/dl (32.0-36.5); MEAN CORPUSCULAR VOLUME 86.8 fl (80.0-96.0); PLATELET COUNT, AUTOMATED 167 10^3/uL (150-450); RED BLOOD COUNT 4.56 10^6/uL (4.30-6.10); WHITE BLOOD COUNT 7.3 10^3/uL (4.0-10.0)
[2022-11-24 05:44] LABS: HEMOGLOBIN A1c 5.7 % (4.0-6.0)
[2022-11-24 05:52] LABS: ERYTHROCYTE SEDIMENTATION RATE 5 mm/hr (0-20)
[2022-11-24 06:02] LABS: BLOOD UREA NITROGEN 15 MG/DL (9-23); CARBON DIOXIDE LEVEL 26 MMOL/L (20-31); CHLORIDE LEVEL 107 MMOL/L (98-107); CHOLESTEROL LEVEL 134 MG/DL (<200); CHOLESTEROL RISK RATIO 4.28 (<5); CREATININE FOR GFR 0.97 MG/DL (0.70-1.30); GLOMERULAR FILTRATION RATE > 60.0 (>56); GLUCOSE, FASTING 125 MG/DL (60-100); HDL CHOLESTEROL 31.3 MG/DL (>40); LDL CHOLESTEROL 51.5 MG/DL (<100); NON-HDL-C 103 MG/DL; POTASSIUM SERUM 4.2 MMOL/L (3.5-5.1); RHEUMATOID FACTOR QUANT < 3.5 IU/ML (<14); SODIUM LEVEL 142 MMOL/L (136-145); TRIGLYCERIDES LEVEL 256 MG/DL (<150)
[2022-11-24 08:00] VITALS: BP 123/80
[2022-11-24] MEDS ORDERED: ATORVASTATIN 20 MG TAB PO SCH (09:00)
[2022-11-24] MEDS ORDERED: ENOXAPARIN 40MG/0.4ML SYRINGE (J1650 PER 10MG) SC SCH (09:00)
[2022-11-24] MEDS ORDERED: ASPIRIN 325 MG TAB PO SCH (09:00)
[2022-11-24] MEDS ORDERED: OMEPRAZOLE 20MG CAP PO SCH (09:00)
[2022-11-24] MEDS ORDERED: ENTER DRUG NAME HERE (PATIENT'S OWN MED) PO SCH (09:00)
[2022-11-24] MEDS ORDERED: DULoxetine 30MG CAPSULE (CYMBALTA) PO SCH (09:00)
[2022-11-24 12:00] VITALS: BP 134/81
[2022-11-24] MEDS ORDERED: ASPI81CH33 PO (13:33)
[2022-11-25] MEDS ORDERED: ATORVASTATIN 20 MG TAB PO SCH (09:00)
[2022-11-26 12:08] LABS: ANTINUCLEAR ANTIBODIES DIRECT Negative (Negative)
== END 2022-11-24 14:12 | disposition home or self-care (01) | DRG 861 ==
LOC: M ED 14:10 → M ED INP 15:34 → ENRESERV 16:26 → M PCU 18:11
PROVIDERS: ADMIT General Practice; ATTEND General Practice
DX: R53.1 Weakness (principal); F07.81 Postconcussional syndrome; K76.0 Fatty (change of) liver, not elsewhere classified; F43.10 Post-traumatic stress disorder, unspecified; G47.33 Obstructive sleep apnea (adult) (pediatric); M51.26 Other intervertebral disc displacement, lumbar region; I10 Essential (primary) hypertension; K29.70 Gastritis, unspecified, without bleeding; R29.810 Facial weakness; F41.9 Anxiety disorder, unspecified; G47.00 Insomnia, unspecified; R73.03 Prediabetes; E78.5 Hyperlipidemia, unspecified; Z79.899 Other long term (current) drug therapy; Z20.822 Contact with and (suspected) exposure to COVID-19; Z87.820 Personal history of traumatic brain injury

== ENCOUNTER → 2023-01-20 | Outpatient (CLI) | payer BC ==
[~2023-01-20] MED LIST changes: +ASPI81CH33 PO; +GABA-1171 PO; +LISI20TA33 PO; +[UNRECOGNIZED DRUG - CODE] BU
== END ==
LOC: M PAIN 08:45
PROVIDERS: ATTEND Anesthesiology
DX: M51.17 Intervertebral disc disorders with radiculopathy, lumbosacral region (principal); M96.1 Postlaminectomy syndrome, not elsewhere classified; M54.2 Cervicalgia; M79.10 Myalgia, unspecified site; M79.18 Myalgia, other site; Z87.820 Personal history of traumatic brain injury; G31.84 Mild cognitive impairment of uncertain or unknown etiology; F41.9 Anxiety disorder, unspecified; G47.00 Insomnia, unspecified; F43.10 Post-traumatic stress disorder, unspecified; I10 Essential (primary) hypertension; G47.33 Obstructive sleep apnea (adult) (pediatric); R73.03 Prediabetes; E78.5 Hyperlipidemia, unspecified; K75.81 Nonalcoholic steatohepatitis (NASH); F17.220 Nicotine dependence, chewing tobacco, uncomplicated; Z79.891 Long term (current) use of opiate analgesic; Z79.1 Long term (current) use of non-steroidal anti-inflammatories (NSAID); Z79.82 Long term (current) use of aspirin; Z79.899 Other long term (current) drug therapy

== ENCOUNTER → 2023-03-19 | Outpatient (CLI) | payer BC | LOC: M PAIN 08:15 | PROVIDERS: ATTEND Anesthesiology | DX: M51.17 Intervertebral disc disorders with radiculopathy, lumbosacral region (principal); M96.1 Postlaminectomy syndrome, not elsewhere classified; G89.29 Other chronic pain; I10 Essential (primary) hypertension; G47.33 Obstructive sleep apnea (adult) (pediatric); R73.03 Prediabetes; F17.220 Nicotine dependence, chewing tobacco, uncomplicated; Z86.59 Personal history of other mental and behavioral disorders; Z86.73 Personal history of transient ischemic attack (TIA), and cerebral infarction without residual deficits; Z79.82 Long term (current) use of aspirin; Z79.891 Long term (current) use of opiate analgesic; Z79.899 Other long term (current) drug therapy ==

== ENCOUNTER 2023-06-16 06:46 | Day surgery (SDC) | payer BC ==
[~2023-06-16] VITALS: Ht 177.8 cm; Wt 106.0 kg
[~2023-06-16 06:46] MED LIST changes: +NS 1,000 ML IV ONE
[2023-06-16] MEDS ORDERED: propofoL 200 MG/20 ML VIAL As Ordered ONE ×4 (07:43→08:37)
[2023-06-16] MEDS ORDERED: fentaNYL 100 MCG/2 ML INJECTION As Ordered ONE (08:11)
[2023-06-16 09:05] VITALS: BP 137/83; O2SAT 95
== END 2023-06-16 09:15 | disposition home or self-care (01) ==
LOC: M OPP 06:46
PROVIDERS: ATTEND Internal Medicine Gastroenterology
DX: Z12.11 Encounter for screening for malignant neoplasm of colon (principal); D12.6 Benign neoplasm of colon, unspecified; K64.0 First degree hemorrhoids; K57.30 Diverticulosis of large intestine without perforation or abscess without bleeding; K22.89 Other specified disease of esophagus; Z79.02 Long term (current) use of antithrombotics/antiplatelets; Z79.1 Long term (current) use of non-steroidal anti-inflammatories (NSAID); Z79.891 Long term (current) use of opiate analgesic; Z79.899 Other long term (current) drug therapy
CPT/HCPCS: 43239; 45385; 88305; J3010

== ENCOUNTER → 2023-09-10 | Outpatient (REF) | payer BC ==
[~2023-09-10] MED LIST changes: -NS 1,000 ML IV ONE
[2023-09-10 18:32] LABS: BASO % 0.5 % (0.0-1.0); EOS # 0.1 10^3/uL (0.0-0.5); HEMOGLOBIN 14.6 g/dl (13.5-17.5); LYMPH # 2.2 10^3/uL (1.5-5.0); LYMPH % 27.9 % (24.0-44.0); MEAN CORPUSCULAR HEMOGLOBIN 30.2 pg (27.0-33.0); MEAN CORPUSCULAR VOLUME 88.8 fl (80.0-96.0); MONO # 0.6 10^3/uL (0.0-0.8); MONO % 7.5 % (2.0-8.0); NEUTROPHILS # 5.1 10^3/uL (1.5-8.5); PLATELET COUNT, AUTOMATED 235 10^3/uL (150-450); RED BLOOD COUNT 4.84 10^6/uL (4.30-6.10)
[2023-09-10 19:06] LABS: ALBUMIN 4.1 G/DL (3.2-5.2); ALKALINE PHOSPHATASE 100 U/L (46-116); ALT/SGPT 48 U/L (7.0-40); AST/SGOT 22 U/L (<34); BILIRUBIN,TOTAL 0.3 MG/DL (0.3-1.2); BLOOD UREA NITROGEN 16 MG/DL (9-23); CALCIUM LEVEL 9.5 MG/DL (8.5-10.1); CARBON DIOXIDE LEVEL 29 MMOL/L (20-31); CHLORIDE LEVEL 104 MMOL/L (98-107); CREATININE FOR GFR 0.97 MG/DL (0.70-1.30); GLOMERULAR FILTRATION RATE > 60.0 (>56); GLUCOSE, FASTING 121 MG/DL (60-100); POTASSIUM SERUM 4.7 MMOL/L (3.5-5.1); SODIUM LEVEL 139 MMOL/L (136-145); TOTAL PROTEIN 6.6 G/DL (5.7-8.2)
[2023-09-10 19:09] LABS: THYROID STIMULATING HORMONE 1.435 uIU/ML (0.55-4.78)
[2023-09-10 19:10] LABS: FREE T4 1.05 NG/DL (0.89-1.76)
== END ==
LOC: M SFHCADAM 15:02
PROVIDERS: ATTEND Physician Assistant
DX: G47.33 Obstructive sleep apnea (adult) (pediatric) (principal); R53.82 Chronic fatigue, unspecified; S06.9X0D Unspecified intracranial injury without loss of consciousness, subsequent encounter

== ENCOUNTER → 2023-10-15 | Outpatient (CLI) | payer BC | LOC: M PAIN 15:00 | PROVIDERS: ATTEND Anesthesiology | DX: M47.816 Spondylosis without myelopathy or radiculopathy, lumbar region (principal); Z79.891 Long term (current) use of opiate analgesic; G89.29 Other chronic pain; Z87.820 Personal history of traumatic brain injury; M54.2 Cervicalgia; F41.9 Anxiety disorder, unspecified; G47.00 Insomnia, unspecified; F43.10 Post-traumatic stress disorder, unspecified; I10 Essential (primary) hypertension; G47.33 Obstructive sleep apnea (adult) (pediatric); R73.03 Prediabetes; E78.5 Hyperlipidemia, unspecified; K76.0 Fatty (change of) liver, not elsewhere classified; F07.81 Postconcussional syndrome; F17.220 Nicotine dependence, chewing tobacco, uncomplicated; Z79.82 Long term (current) use of aspirin; Z79.899 Other long term (current) drug therapy | CPT/HCPCS: 76000; G0463 ==

== ENCOUNTER → 2023-12-24 | Outpatient (CLI) | payer BC | LOC: M PAIN 16:45 | PROVIDERS: ATTEND Anesthesiology | DX: M47.816 Spondylosis without myelopathy or radiculopathy, lumbar region (principal); G89.29 Other chronic pain; M96.1 Postlaminectomy syndrome, not elsewhere classified; M54.50 Low back pain, unspecified; I10 Essential (primary) hypertension; E78.5 Hyperlipidemia, unspecified; G47.33 Obstructive sleep apnea (adult) (pediatric); R73.03 Prediabetes; Z87.820 Personal history of traumatic brain injury; F17.220 Nicotine dependence, chewing tobacco, uncomplicated; Z79.82 Long term (current) use of aspirin; Z79.899 Other long term (current) drug therapy ==

== ENCOUNTER → 2024-01-05 | Outpatient (REF) | LOC: M PLAIMG 08:13 | PROVIDERS: ATTEND Internal Medicine | DX: R06.02 Shortness of breath (principal) ==

== ENCOUNTER → 2024-02-27 | Outpatient (CLI) | payer BC | LOC: M PAIN 09:00 | PROVIDERS: ATTEND Nurse Practitioner Family | DX: M54.2 Cervicalgia (principal); Z79.891 Long term (current) use of opiate analgesic; G89.29 Other chronic pain; M54.6 Pain in thoracic spine; M96.1 Postlaminectomy syndrome, not elsewhere classified; M54.50 Low back pain, unspecified; R73.03 Prediabetes; E78.5 Hyperlipidemia, unspecified; K76.0 Fatty (change of) liver, not elsewhere classified; F41.9 Anxiety disorder, unspecified; Z87.820 Personal history of traumatic brain injury; F07.81 Postconcussional syndrome; G47.33 Obstructive sleep apnea (adult) (pediatric); I10 Essential (primary) hypertension; F17.210 Nicotine dependence, cigarettes, uncomplicated; Z79.82 Long term (current) use of aspirin; Z79.1 Long term (current) use of non-steroidal anti-inflammatories (NSAID); Z79.899 Other long term (current) drug therapy ==

== ENCOUNTER → 2024-03-11 | Outpatient (REF) | payer BC ==
[2024-03-11 14:12] LABS: BASO % 0.4 % (0.0-1.0); EOS # 0.1 10^3/uL (0.0-0.5); EOS % 1.4 % (0.0-3.0); HEMOGLOBIN 14.4 g/dl (13.5-17.5); LYMPH # 2.5 10^3/uL (1.5-5.0); LYMPH % 35.3 % (24.0-44.0); MEAN CORPUSCULAR HEMOGLOBIN 29.5 pg (27.0-33.0); MEAN CORPUSCULAR HGB CONC 32.7 g/dl (32.0-36.5); MEAN CORPUSCULAR VOLUME 90.2 fl (80.0-96.0); MONO # 0.7 10^3/uL (0.0-0.8); MONO % 9.3 % (2.0-8.0); NEUTROPHILS # 3.8 10^3/uL (1.5-8.5); NEUTROPHILS % 52.9 % (36.0-66.0); PLATELET COUNT, AUTOMATED 196 10^3/uL (150-450); RED BLOOD COUNT 4.88 10^6/uL (4.30-6.10); WHITE BLOOD COUNT 7.1 10^3/uL (4.0-10.0)
[2024-03-11 14:23] LABS: ERYTHROCYTE SEDIMENTATION RATE 9 mm/hr (0-20)
== END ==
LOC: M SFHCADAM 08:02
PROVIDERS: ATTEND Physician Assistant
DX: M51.16 Intervertebral disc disorders with radiculopathy, lumbar region (principal); R73.03 Prediabetes

== ENCOUNTER → 2024-03-24 | Outpatient (CLI) | payer BC | LOC: M PAIN 14:15 | PROVIDERS: ATTEND Anesthesiology | DX: M54.6 Pain in thoracic spine (principal); M79.10 Myalgia, unspecified site; M79.18 Myalgia, other site; Z87.820 Personal history of traumatic brain injury; F07.81 Postconcussional syndrome; F41.9 Anxiety disorder, unspecified; F43.10 Post-traumatic stress disorder, unspecified; I10 Essential (primary) hypertension; G47.33 Obstructive sleep apnea (adult) (pediatric); R73.03 Prediabetes; E78.5 Hyperlipidemia, unspecified; F17.220 Nicotine dependence, chewing tobacco, uncomplicated; Z79.1 Long term (current) use of non-steroidal anti-inflammatories (NSAID); Z79.82 Long term (current) use of aspirin; Z79.899 Other long term (current) drug therapy | CPT/HCPCS: 76000; G0463 ==

== ENCOUNTER → 2024-06-09 | Outpatient (CLI) | payer BC | LOC: M PAIN 15:30 | PROVIDERS: ATTEND Anesthesiology | DX: M96.1 Postlaminectomy syndrome, not elsewhere classified (principal); Z79.891 Long term (current) use of opiate analgesic; M79.10 Myalgia, unspecified site; M79.18 Myalgia, other site; E11.9 Type 2 diabetes mellitus without complications; I10 Essential (primary) hypertension; Z79.02 Long term (current) use of antithrombotics/antiplatelets; Z79.82 Long term (current) use of aspirin; Z79.84 Long term (current) use of oral hypoglycemic drugs; Z79.899 Other long term (current) drug therapy ==

== ENCOUNTER → 2024-11-22 | Outpatient (CLI) | payer BC ==
[~2024-11-22] MED LIST changes: +GABA-1172 PO; -GABA-282 PO
[2024-11-22 13:17] LABS: ALBUMIN 3.8 G/DL (3.2-5.2); ALKALINE PHOSPHATASE 103 U/L (40-129); ALT/SGPT 35 U/L (7.0-40); AST/SGOT 17 U/L (<34); BILIRUBIN,TOTAL 0.5 MG/DL (0.3-1.2); BLOOD UREA NITROGEN 19 MG/DL (9-23); CALCIUM LEVEL 8.8 MG/DL (8.5-10.1); CARBON DIOXIDE LEVEL 28 MMOL/L (20-31); CHLORIDE LEVEL 107 MMOL/L (98-107); CHOLESTEROL LEVEL 133 MG/DL (<200); GLOMERULAR FILTRATION RATE > 60.0 (>56); GLUCOSE, FASTING 125 MG/DL (60-100); LDL CHOLESTEROL 45.6 MG/DL (<100); PSA SCREENING 0.16 NG/ML (< 4.00); SODIUM LEVEL 142 MMOL/L (136-145); TOTAL PROTEIN 6.6 G/DL (5.7-8.2); TRIGLYCERIDES LEVEL 262 MG/DL (<150)
[2024-11-22 13:19] LABS: FREE T4 1.19 NG/DL (0.89-1.76); THYROID STIMULATING HORMONE 2.148 uIU/ML (0.55-4.78)
[2024-11-22 13:21] LABS: HEMOGLOBIN A1c 6.4 % (4.0-6.0)
== END ==
LOC: M LABDRWAD 09:55
PROVIDERS: ATTEND Physician Assistant
DX: R73.03 Prediabetes (principal); Z12.5 Encounter for screening for malignant neoplasm of prostate; I10 Essential (primary) hypertension; E78.2 Mixed hyperlipidemia; K21.9 Gastro-esophageal reflux disease without esophagitis
CPT/HCPCS: 36415; 80053; 80061; 83036; 84439; 84443; G0103

== ENCOUNTER → 2024-11-26 | Outpatient (REF) | payer BC ==
[2024-11-26 19:06] LABS: FOLATE 12.7 NG/ML (>5.4); TOTAL 25(OH) VITAMIN D 39.6 NG/ML (20.0-100.0)
== END ==
LOC: M SFHCADAM 14:25
PROVIDERS: ATTEND Physician Assistant
DX: G56.90 Unspecified mononeuropathy of unspecified upper limb (principal)

== ENCOUNTER → 2024-12-09 | Outpatient (CLI) | payer BC | LOC: M PAIN 16:00 | PROVIDERS: ATTEND Anesthesiology | DX: M96.1 Postlaminectomy syndrome, not elsewhere classified (principal); M54.2 Cervicalgia; I10 Essential (primary) hypertension; R73.03 Prediabetes; E78.5 Hyperlipidemia, unspecified; F17.220 Nicotine dependence, chewing tobacco, uncomplicated; Z79.84 Long term (current) use of oral hypoglycemic drugs; Z79.899 Other long term (current) drug therapy; Z79.1 Long term (current) use of non-steroidal anti-inflammatories (NSAID) ==

== ENCOUNTER → 2025-02-28 | Outpatient (CLI) | payer BC, OTHER ==
[2025-02-28 13:12] LABS: HEMATOCRIT 42.2 % (42.0-52.0); MEAN CORPUSCULAR HEMOGLOBIN 29.1 pg (27.0-33.0); MEAN CORPUSCULAR HGB CONC 33.2 g/dl (32.0-36.5); MEAN CORPUSCULAR VOLUME 87.7 fl (80.0-96.0); PLATELET COUNT, AUTOMATED 195 10^3/uL (150-450); RED BLOOD COUNT 4.81 10^6/uL (4.30-6.10); WHITE BLOOD COUNT 7.6 10^3/uL (4.0-10.0)
[2025-02-28 13:38] LABS: HEMOGLOBIN A1c 6.6 % (4.0-6.0)
[2025-02-28 13:49] LABS: BILIRUBIN,TOTAL 0.5 MG/DL (0.3-1.2); CALCIUM LEVEL 8.7 MG/DL (8.5-10.1); CHOLESTEROL RISK RATIO 4.65 (<5); CREATININE FOR GFR 1.03 MG/DL (0.70-1.30); GLOMERULAR FILTRATION RATE 86.9 (>56); HDL CHOLESTEROL 33.3 MG/DL (>40); LDL CHOLESTEROL 45.3 MG/DL (<100); NON-HDL-C 121.7 MG/DL; POTASSIUM SERUM 4.2 MMOL/L (3.5-5.1); THYROID STIMULATING HORMONE 1.918 uIU/ML (0.55-4.78); TOTAL PROTEIN 6.6 G/DL (5.7-8.2); TOTAL T3 117.6 NG/DL (60.0-181.0)
== END ==
LOC: M WUC 09:39
PROVIDERS: ATTEND Ophthalmology
DX: E66.3 Overweight (principal)

== ENCOUNTER → 2025-05-04 | Outpatient (CLI) | payer OTHER | LOC: M SLEEP 20:00 | PROVIDERS: ATTEND Family Medicine | DX: G47.33 Obstructive sleep apnea (adult) (pediatric) (principal) ==

== ENCOUNTER → 2025-09-04 | Outpatient (CLI) | payer OTHER ==
[~2025-09-04] MED LIST changes: -IBUP-1022 PO; +IBUP600T42 PO
== END ==
LOC: M SLEEP 20:00
PROVIDERS: ATTEND Family Medicine
DX: G47.33 Obstructive sleep apnea (adult) (pediatric) (principal)

== ENCOUNTER → 2025-10-14 | Outpatient (CLI) | payer OTHER ==
[~2025-10-14] MED LIST changes: +ISOVUE-M 300 61% 15 ML VIAL IV ONE
[2025-10-14 12:20] VITALS: TEMP 98.8
[2025-10-14 14:45] VITALS: BP 151/86; O2SAT 99
== END ==
LOC: M IRPRO 11:55
PROVIDERS: ATTEND Neurological Surgery
DX: M54.12 Radiculopathy, cervical region (principal); M54.6 Pain in thoracic spine; M54.16 Radiculopathy, lumbar region
CPT/HCPCS: 62305; 72125; 72128; 72131; Q9967